=== PATIENT | male | born 1950 | race Caucasian/White ===

== ENCOUNTER → 2017-10-23 12:55 | Outpatient (CLI) | payer MEDICARE, SELFPAY ==
--- NOTE | 2017-10-23 | DI.CT.S_ITS ---
PROCEDURE: CT LE LT W CON INDICATIONS: LEFT HINDFOOT ARTHRITIS AND ANKLE PAIN TECHNIQUE: Noncontrast 1-1.5 mm axial sections acquired from above the tibiotalar joint to the bottom of the calcaneus, with coronal and sagittal reformats. COMPARISON: [facility], CT, LOWER EXTREMITY WO CONTRAST, 03/10/2014, 13:41. FINDINGS: Image quality: Excellent. Bones: No acute fracture or focal osseous destruction. There is mild/moderate tibiotalar degenerative joint disease. Redemonstration of prominent 2.1 cm chronic ossicle in the region of the posterior recess of the tibiotalar joint which appears unchanged since 03/10/14. Severe subtalar joint degeneration with subchondral cystic change and sclerosis. No definite osseous hindfoot coalition. Although there is [id number] appearance of the posterior facet of the subtalar joint as before. There is mild enlargement of a presumed subchondral cyst within the calcaneus. There is prominent plantar and posterior calcaneal spurring. Multiple chronic and corticated ossicles seen in the region of the anterolateral gutter, the largest measuring 1.8 x 0.9 cm. Chronic degenerative changes, cortical hypertrophy and spurring at the distal tibiofibular syndesmosis. Soft tissues: There is diffuse muscle atrophy. The visualized tendons appear grossly intact. There is circumferential subcutaneous edema IMPRESSION: Redemonstration of severe left hindfoot joint degeneration, most pronounced at the posterior facet of the subtalar joint. Large multiple chronic/corticated ossicles are again noted involving the posterior tibiotalar joint, and the anterolateral gutter raising the possibility of impingement in these locations however only in the appropriate clinical context. Recommend correlation to exam findings. Mild-moderate tibiotalar degenerative joint disease. Dictated by: Octavio Santos M.D. on 10/24/2017 at 11:03 Approved by: Octavio Santos M.D. on 10/24/2017 at 11:35
== END ==
PROVIDERS: PCP Family Medicine; Visit Provider Orthopaedic Surgery Foot and Ankle Surgery
DX: M19.072 Primary osteoarthritis, left ankle and foot (principal)
CPT/HCPCS: 73701

== ENCOUNTER → 2018-05-27 14:23 | Outpatient (CLI) | payer MEDICARE, SELFPAY ==
[2018-05-27 15:31] LABS: Alanine Aminotransferase 23 IU/L (21-72); Albumin 4.2 g/dL (3.5-5.0); Albumin Globulin Ratio 1.6 (1.0-2.8); Alkaline Phosphatase 87 U/L (38-126); Aspartate Aminotransferase 22 IU/L (17-59); Bilirubin Total 0.8 mg/dL (0.2-1.3); Blood Urea Nitrogen 16 mg/dL (9-20); Calcium 9.3 mg/dL (8.4-10.2); Carbon Dioxide 26 mmol/L (22-32); Chloride 102 mmol/L (98-107); Estimated Glomerular Filt Rate > 60.0 mL/min (>60); Globulin 2.6 g/dL (1.7-4.1); Glucose 87 mg/dL (80-110); HEMOLYSIS < 15 (0-50); Potassium 4.2 mmol/L (3.4-5.1); Sodium 139 mmol/L (137-145); Total Protein 6.8 g/dL (6.3-8.2)
[2018-05-27 16:12] LABS: TSH w/ Reflex to FT4 1.44 uIU/mL (0.47-4.68)
[2018-05-30 12:24] LABS: (tTG) Ab, IgA < 1 U/mL
== END ==
PROVIDERS: PCP Family Medicine; Visit Provider Registered Nurse
DX: K52.9 Noninfective gastroenteritis and colitis, unspecified (principal)
CPT/HCPCS: 36415; 80053; 83516; 84443; 86255

== ENCOUNTER → 2018-09-03 09:11 | Outpatient (CLI) | payer MEDICARE, OTHER, SELFPAY ==
[2018-09-03 10:13] LABS: Add Manual Diff / Slide Review NO; Basophils Absolute Auto 100 /uL (0-100); Eosinophils Absolute Auto 100 /uL (0-450); Eosinophils Percent Auto 0.9 % (2-4); Hematocrit 45.9 % (41-53); Hemoglobin 16.3 g/dL (13.5-17.5); Lymphocytes Absolute Auto 2500 /uL (1100-4500); Lymphocytes Percent Auto 35.3 % (25-40); Mean Corpuscular HGB Conc 35.6 % (30-36); Mean Corpuscular Hemoglobin 32.5 PG (26-34); Mean Corpuscular Volume 91.3 fL (80-100); Monocytes Absolute Auto 500 /uL (0-900); Monocytes Percent Auto 6.7 % (3-14); Neutrophils Absolute Auto 3900 /uL (1500-7000); Neutrophils Percent Auto 56.1 % (50-75); Platelet Count 191 X10^3/uL (150-400); Red Blood Cell Count 5.03 X10^6/uL (4.5-5.9); Red Cell Distribution Width 13.4 % (11.6-14.8)
[2018-09-03 10:55] LABS: BUN Creatinine Ratio 22.5 (6-22); Blood Urea Nitrogen 18 mg/dL (9-20); Calcium 9.7 mg/dL (8.4-10.2); Carbon Dioxide 29 mmol/L (22-32); Chloride 100 mmol/L (98-107); Cholesterol 185 mg/dL (140-199); Estimated Glomerular Filt Rate > 60.0 mL/min (>60); Glucose 99 mg/dL (80-110); HDL Cholesterol 43 mg/dL (40-60); HEMOLYSIS < 15 (0-50); LDL Cholesterol Calculated 124 mg/dL (<100); Potassium 5.2 mmol/L (3.4-5.1); Sodium 137 mmol/L (137-145); Triglycerides 92 mg/dL (35-150)
[2018-09-03 11:28] LABS: Prostate Specific Antigen Scrn 0.647 ng/mL (0.1-4.0)
[2018-09-03 11:29] LABS: Thyroid Stimulating Hormone 1.49 uIU/mL (0.47-4.68)
== END ==
PROVIDERS: PCP Family Medicine; Visit Provider Family Medicine
DX: I10 Essential (primary) hypertension (principal); E66.01 Morbid (severe) obesity due to excess calories; E66.9 Obesity, unspecified; I48.91 Unspecified atrial fibrillation; R89.9 Unspecified abnormal finding in specimens from other organs, systems and tissues; Z12.5 Encounter for screening for malignant neoplasm of prostate; Z13.220 Encounter for screening for lipoid disorders; Z13.29 Encounter for screening for other suspected endocrine disorder; Z68.42 Body mass index [BMI] 45.0-49.9, adult
CPT/HCPCS: 36415; 80048; 80061; 84443; 85025; G0103

== ENCOUNTER 2018-10-02 08:51 | Day surgery (SDC) | payer MEDICARE, OTHER, SELFPAY ==
--- NOTE | 2018-10-02 | PATH_ITS ---
[facility] Accession Number: [id number] . 01 Material submitted: . PART A: rectum - DISTAL RECTAL POLYP PART B: colon - ASCENDING COLON POLYP PART C: ileum - TERMINAL ILEUM RANDOM PART D: colon - TRANSVERSE COLON LESION . 02 Diagnosis: A. Distal Rectum, Polyp: Hyperplastic polyp. . B. Ascending Colon, Polyp: Tubular adenoma. . C. Terminal Ileum, Random, Biopsies: Mild active ileitis; please see comment. Negative for granulomata, dysplasia or malignancy. . D. Transverse Colon, Lesion, Biopsy: Colonic mucosa with no diagnostic abnormality. Negative for active or microscopic colitis. Negative for granulomata, dysplasia or malignancy. [facility]/10/03/2018 . 02 Comment: Part C) The finding of mild active ileitis raises a differential diagnosis including infection and drug/toxin-induced injury. . 02 Electronically signed: . Demetrio Langston MD, PhD, Pathologist NPI- [id number] . 01 Gross description: . Part A: DISTAL RECTAL POLYP: Received in formalin are 2 fragment(s) of cisse, soft tissue measuring 0.3 x 0.3 x 0.2 cm to 0.4 x 0.3 x 0.2 cm which is entirely submitted and submitted entirely in 1 cassette(s) Part B: ASCENDING COLON POLYP: Received in formalin are 2 fragment(s) of cisse, soft tissue measuring 0.3 x 0.2 x 0.2 cm to 0.4 x 0.2 x 0.2 cm which is entirely submitted and submitted entirely in 1 cassette(s) Part C: TERMINAL ILEUM RANDOM: Received in formalin are 3 fragment(s) of cisse, soft tissue measuring 0.2 x 0.2 x 0.2 cm to 0.3 x 0.2 x 0.2 cm which is entirely submitted and submitted entirely in 1 cassette(s) Part D: TRANSVERSE COLON LESION: Received in formalin is 1 fragment(s) of cisse, soft tissue measuring 0.1 x 0.1 x 0.1 cm which is entirely submitted and submitted entirely in 1 cassette(s) /D[facility] /[facility] . 02 Pathologist provided ICD-10: K62.1, D12.2, K52.9 . 02 CPT . 740662, 812037, [id number], [id number] Performed at: 01 [facility] [address] [id number] MD Salvador Shahid MD Phone: [phone] Performed at: 02 [facility] [address] [place] [id number] MD Emma Mcdaniels MD Phone: [phone]
[2018-10-02 09:14] VITALS: BP 135/85; PULSE 76; RESP 16; TEMP 36.2; O2SAT 98; BMI 43.5
[2018-10-02] MEDS: SODIUM CHLORIDE 0.9% 1,000 ML 200 ML IV (09:20)
--- NOTE | 2018-10-02 09:59 | PM.HP.1 ---
History of Present Illness Date Patient Seen: 10/02/18 Time Patient Seen: 10:00 Chief complaint: 20089 SCREENING COLONOSCOPY Narrative: Cheif complaint: diarrhea 68 yo man without personal or family history of colorectal cancer, colon polyps, or inflammatory bowel disease. He however has a several year long history of intermittent diarrhea that has become worse for this his primary care doctor has abscess of colonoscopy before form. This morning he describes this developed less diarrhea but still would like to go forward with colonoscopy. He has not had any perirectal bleeding. His last colonoscopy was approximately 7 years ago. Unfortunately patient remains on his Eliquis anticoagulation. We discussed that because of this I would not be able to perform a polypectomy but could take small pinch biopsies and performed the colonoscope. The patient does have a polyp with tattoo and an re-do the procedure off anticoagulation.. He is amenable to this Patient History Medical History (Updated 10/02/18 @ 10:17 by Navin Yun MD) Afib (Acute) Bradyarrhythmia (Acute) Surgical History (Updated 10/02/18 @ 10:15 by Navin Yun MD) Hip joint replacement status (Acute) Pacemaker (Acute) Social History household members: spouse Smoking Status: Never smoker Family & Social History Social History: household members spouse lives in [place] Tobacco & Substance use: Smoking Status Never smoker smoked cigars significantly over 10yrs ago 4 drinks weeks occational MJ Meds Home Medications Medication Instructions Recorded Confirmed Type [VPAP] units IH HS #1 07/20/16 09/08/18 Rx Disabled Parking Permit dhara #1 09/11/16 09/08/18 Rx [place] 5/16 Inch / SQ QDAY #100 01/22/17 09/08/18 Rx Eliquis 5 mg PO BID #0 06/26/17 10/02/18 History acetaminophen 325 mg PO Q4HP PRN #60 tab 07/11/17 09/08/18 Rx lisinopril 10 mg tablet 10 mg PO DAILY #90 tab 05/06/18 10/02/18 Rx metoprolol succinate ER 50 mg 50 mg PO BID #180 tab 05/06/18 10/02/18 Rx tablet,extended release 24 hr varicella-zoster glycoE [id number] 0.5 ml IM ONCE #1 each 09/08/18 10/02/18 Rx adj(PF) 50 mcg/0.5 mL IM susp, kit Allergies Allergy/AdvReac Type Severity Reaction Status Date / Time No Known Allergies Allergy Uncoded 10/02/18 09:06 Exam Vital Signs (past 8 hours): - 10/02/18 09:14 Temperature 97.2 F L Pulse Rate 76 Respiratory Rate 16 Blood Pressure 135/85 Pulse Oximetry 98 Oxygen Delivery Method Room Air Const General: cooperative and healthy appearing Orientation: alert HENMT Head: normal to inspection Nose: nares normal Mouth: oral mucosae normal and lip normal Eyes Eyelids: eyelids normal Conjunctivae: conjunctivae normal Sclera: sclerae normal Neck Neck: supple and other (No thyromegally) Chest Chest: other (LCTAB , regular respiratory effort) Cardio Rhythm: regular rhythm Heart Sounds: S1 normal, S2 normal, no gallops, no murmurs and no rubs GI Other: Rotund, soft, nontender, small fat containing umbilical hernia. Skin General: no rashes or lesions noted Neuro General: alert and awake Psych Appearance: grossly normal Affect: normal affect Assessment & Plan (1) Chronic diarrhea: Current visit: Yes Status: Acute Assessment & Plan narrative: Chronic diarrhea - plan for diagnostic colonoscpy today with biopsies - discussed if polypectomy needed will tatoo and repeat procedure off anticoagulation
[2018-10-02] MEDS: MIDAZOLAM 5 MG/5 ML VIAL IV (10:36)
[2018-10-02] MEDS: fentaNYL 250 MCG/5 ML INJ IV (10:37)
--- NOTE | 2018-10-02 11:40 | PM.OP.ENDO ---
Operative Date/Time/Diagnoses Date of procedure: 10/02/18 Time of procedure: 11:00 Pre-op diagnosis: Chronic diarrhea Procedure & Clinicians Study performed: Diagnostic colonoscopy Postop diagnosis colon polyps, chronic diarrhea Same procedure as scheduled: No (Chronic diarrhea) Surgeon: Navin Yun Procedure Notes SCOAP/Timeout: Performed Procedure in detail: Patient was brought to the endoscopy suite, a time-out was completed, he was sedated with midazolam and fentanyl. The anus was inspected the anoderm appeared grossly normal a digital rectal exam revealed good anal tone but an absence of any polyps. 160 cm colonoscope was introduced through the anus. Visualizing the distal rectum a small sessile polyp was readily identified. this was grasped with the cold biopsy forceps and removed entirely. The procedure continued we advanced through the valves of the rectum through the rectosigmoid junction and through the sigmoid colon there are numerous diverticular pouch is identified without active diverticulitis descending colon was encountered we passed uneventfully up through it and into the transverse colon small amount of abdominal pressure was required. The hepatic flexure was negotiated upon entry into the right colon up approximately in the midportion of the right colon and a small pedunculated polyp was identified. due to the small size of this was grafts with the biopsy forcep size large and removed. There is a small additional piece that was on the wall subsequently and this was grasped and removed the area was irrigated multiple times to ensure complete removal of the polyp was assured. We then proceeded a prominent ileocecal valve was identified as were the crows feet in the orifice of the appendix. Due to the diagnosis chronic diarrhea ileocecal valve was intubated in the villi of the ileum were inspected these appeared healthy and grossly normal 2 random biopsies were taken of the terminal ileum to evaluate for Crohn's disease. We then proceeded to withdraw the colonoscope with a total withdrawal time of 12 minutes. At this point of the hemostasis was checked on the right colon - it was excellent. At the level of the mid transverse colon there was a small whitish dome shaped lesion which was biopsies as well with cold biopsy forcep. It was removed entirely. The remainder of transverse left and sigmoid colon were without additional lesions. the rectum was inspected and found to be grossly normal retroflex: Did not reveal any additional distal rectal polyps or lesions. there was no evidence of colitis identified. Colonic prep was adequate Total withdrawal time 12 minutes Total sedation used midazolam 6 mg, fentanyl 200 mcg Complications none Discharge to PACU and then home Recommended interval 3 years if biopsy demonstrates greater than 3 adenomatous + villous polyps. Five years polyps less than 3 excluding hamartomatous polyps.
[2018-10-02 11:42] VITALS: BP 138/83; PULSE 80; RESP 18; TEMP 36.9; O2SAT 98
[2018-10-02 11:47] VITALS: PULSE 63; RESP 14; O2SAT 97
[2018-10-02 12:00] VITALS: BP 132/75; PULSE 66; RESP 15; TEMP 36.6; O2SAT 97
== END 2018-10-02 12:11 | disposition home or self-care (01) ==
PROVIDERS: PCP Family Medicine; Visit Provider Surgery
PROC: 0DJD8ZZ Inspection of Lower Intestinal Tract, Via Natural or Artificial Opening Endoscopic (ICD-10-PCS; CPT 45378; principal; 2018-10-02 09:45)
DX: K52.9 Noninfective gastroenteritis and colitis, unspecified (principal); I48.91 Unspecified atrial fibrillation; Z95.0 Presence of cardiac pacemaker; K62.1 Rectal polyp; D12.2 Benign neoplasm of ascending colon
CPT/HCPCS: 45380; 88305; J2250; J3010

== ENCOUNTER 2019-08-07 10:15 | Outpatient (RCR) | payer MEDICARE, OTHER, SELFPAY ==
--- NOTE | 2019-04-08 14:07 | PT.OIE ---
Current Diagnoses Encounter for other orthopedic aftercare (04/08/19) Arthrodesis status (04/08/19) Past Medical History (Last Updated 10/02/18 @ 10:03 by Navin Yun MD) Afib (Acute) Bradyarrhythmia (Acute) Past Surgical History (Last Updated 10/02/18 @ 10:15 by Navin Yun MD) Hip joint replacement status (Acute) Pacemaker (Acute) Visit Care Team Role Provider Type Jh Mooney MD Primary Care Provider Physician Specialty: Family Practice Address: [address] [place] [address], [id number] Email: [email or web address] Beltran Dc MD Attending Provider Non-Staff Specialty: Orthopedics Address: [address] [place] [address], [place] [id number], [place], [phone] Fax: Email: Physical Therapy Initial Evaluation PT-OP-A Visit Information Start: 04/09/19 13:49 Freq: Status: Active Protocol: Document 04/08/19 13:50 AW (Rec: 04/09/19 14:31 AW [email or web address]) Out-Patient Physical Therapy Visit Information Visit Information Visit Type Initial Evaluation Visit Start Time 09:45 Visit Stop Time 10:30 Total Visit Minutes 45 Visit Number 1 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 He has dealt with ongoing ankle pain for years, culminating finally in ankle arthrodesis and Achilles lengthening on . Pt unable to identify which bones were fused. Per protocol, he has been in a cam boot for all mobility for the past three months. He primarily used a knee scooter during that time, but has progressively increased his weightbearing in the boot for short distances. He is now allowed full weightbearing in the boot. In the past 10 days, he switched to an articulated cane held in the right hand. He has returned to driving. 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 He reports minimal pain since surgery, but does endorse generalized tenderness of the plantar foot since beginning to walk with a cane. He denies any falls or near falls since surgery. Prior Treatments and Tests Ankle arthrodesis and Achilles lengthening 12/31/18. History of a-fib, HTN, pacemaker. Future Testing and Treatments Planned None identified Treatment Goals Patient/Caregiver Goals Pt would like to hike [employer] trails and to be able to work standing 6 hours daily without fatigue or foot tenderness. 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 Current Functional Impairments (Reported) Functional Limitations- ADL's No known impairments Functional Limitations- Mobility/Gait Requires articulated cane and is limited in ambulation distance. Lacks confidence on uneven ground. Functional Limitations- Work/School Unable to stand for 6 hour shifts without foot/ankle fatigue and without tenderness of plantar foot. Functional Limitations- Recreation/ Unable to hike [employer] trails Hobbies Personal Factors Other Personal Factors That May Effect chronicity of deficits, Therapy/Recovery tendency to work through pain. PT-OP-C Subjective Start: 04/09/19 13:49 Freq: Status: Active Protocol: Document 04/08/19 13:50 AW (Rec: 04/09/19 14:31 AW [email or web address]) OP-PT Subjective Patient Comments Patient Comments I'd like to be able to walk better, stand longer, and hike on forest trails. Patient Questionnaires Foot & Ankle Ability Measure- ADL and Sports FAAM-ADL Score 30/84 FAAM-ADL Impairment 60 to 79% Impaired (Score 16- 32) FAAM-Sport Score 10/05 FAAM-Sport Impairment 80 to 99% Impaired (Score 1-5) Lower Extremity Functional Scale LEFS Score 33 LEFS Impairment 40 to 59% Impaired (Score 32- 47) OP-PT Pain Assessment Pain Assessment Grid Paper Pain Assessment Grid Completed Yes Home Pain Medication Use Pain Medications Used No Comments Pain Comments Pt reporting no pain. PT-OP-D Balance Start: 04/09/19 13:49 Freq: Status: Active Protocol: Document 04/08/19 13:50 AW (Rec: 04/09/19 14:31 AW [email or web address]) OP-PT Balance Assessment Sitting Balance Static Sitting Balance Ability Normal Dynamic Sitting Balance Ability Normal Standing Balance Static Standing Balance Ability Fair Dynamic Standing Balance Ability Fair Device Used no boot, no AD Evans Fall Scale Copyright Permission PT-OP-F Manual Assessment Start: 04/09/19 13:49 Freq: Status: Active Protocol: Document 04/08/19 13:50 AW (Rec: 04/09/19 14:31 AW [email or web address]) Manual Assessments Joint Mobility Assessment Joint Mobility Assessment Minimal subtalar movement. No dorsal/plantar restriction at MTP's 1-5 bilaterally. Difficult to assess tibiotalar mobility due to swelling. Other Manual Assessments Other Manual Assessments No point tenderness along plantar surface, 5th digit tuberosity, navicular, Achilles insertion. Generalized tenderness along plantar surface noted by patient PT-OP-G Mobility & Gait Start: 04/09/19 13:49 Freq: Status: Active Protocol: Document 04/08/19 13:50 AW (Rec: 04/09/19 14:31 AW [email or web address]) OP Gait Assessment Gait Gait Assistance Required: Standby Assistance Distance (Feet) 100 Able to Maintain Weight Bearing Status Yes During Gait Gait Deviations General Gait Pattern Within Normal Limits,Antalgic, Decreased Stride Length, Decreased Feet Clearance,Wide Based Gait Factors Limiting Gait Function Factors Limiting Gait Function Decreased Activity Tolerance, Decreased Strength,Limited Range of Motion,Poor Balance Comments Gait Comments Pt ambulates with WBOS, forefoot landing (L>R), decreased stance time on LLE and decreaed step length RLE. He vaults over the LLE and exhibits right lateral lean in right stance. PT-OP-J Posture/Palpation/Skin Start: 04/09/19 13:49 Freq: Status: Active Protocol: Document 04/08/19 13:50 AW (Rec: 04/09/19 14:31 AW [email or web address]) Posture Evaluation Position Standing Knee Posture (L) Genu Valgus,(R) Genu Valgus Ankle/Foot Posture (L) Forefoot Abducted,(R) Forefoot Abducted Foot Arch (L) Low Arch,(R) Low Arch Skin Assessment Edema Assessment left ankle/foot Edema Type Non-Pitting Edema Appearance Discolored,Taut Comments Talar arch: Left 39 cm, Right 33 cm Horizontal at level of bilateral malleoli: Left 41 cm , Right 35 cm PT-OP-K Range of Motion Start: 04/09/19 13:49 Freq: Status: Active Protocol: Document 04/08/19 13:50 AW (Rec: 04/09/19 14:31 AW [email or web address]) Knee Goniometric Range of Motion Knee Left Knee ROM WFL Yes Patient Position Supine Ankle and Foot Goniometric Range of Motion Ankle and Foot Right Active Ankle/Foot ROM WFL No Testing Position Supine Dorsiflexion with Knee Flexed 5 Dorsiflexion with Knee Extended 5 Plantarflexion 40 Left Active Ankle/Foot ROM WFL No Testing Position Supine Dorsiflexion with Knee Flexed 0 Dorsiflexion with Knee Extended 0 Plantarflexion 20 Ankle and Foot ROM Limitations ROM Limitations Bony Restriction Toe Range of Motion Toes ROM Limitations Comments Pt lacks active left great toe extension PT-OP-M Strength Start: 04/09/19 13:49 Freq: Status: Active Protocol: Document 04/08/19 13:50 AW (Rec: 04/10/19 09:07 AW [email or web address]) Ankle/Foot Strength Ankle and Foot Manual Muscle Testing Right Dorsiflexion (L4) 4- Good- Plantarflexion (S1) 4- Good- Inversion 4 Good Eversion (S1) 4 Good Left Dorsiflexion (L4) 3 Fair Plantarflexion (S1) 3+ Fair+ Inversion 4- Good- Eversion (S1) 4- Good- Comments Pt can dorsiflex from extended position, but has no AROM past 0. Unable to test PF in standing due to safety concerns. Toe Strength Toe Manual Muscle Testing Right Great Toe Flexion 5 Normal Left Great Toe Flexion 4 Good PT-OP-Q Treatments Start: 04/09/19 13:49 Freq: Status: Active Protocol: Document 04/08/19 13:50 AW (Rec: 04/10/19 09:07 AW [email or web address]) Therapeutic Exercises Sitting Exercises ankle AROM Sitting Exercise Name ankle AROM - DF, PF, inversion , eversion, alphabet Side left Reps/Minutes 2 minutes PT-OP-T Assessment and Plan Start: 04/09/19 13:49 Freq: Status: Active Protocol: Document 04/08/19 13:50 AW (Rec: 04/10/19 09:07 AW [email or web address]) Physical Therapy Assessment Rehab Potential Rehabilitation Potential Good Evaluation Complexity Number of Personal Factors/Comorbidities 1-2 Number of Body Systems Impaired 1-2 Clinical Presentation at Evaluation Stable Impairments Impairments Activity Tolerance,Balance, Edema,Functional Activities, Functional Mobility,Gait, Integument,Posture,ROM,Soft Tissue Mobility,Strength Other Concerns Fall Risk high risk of falls Goals 5 Impairment Pt scores 30/84 on FAAM ADL subscale Short Term Goal (STG) Pt will score 45/84 on FAAM ADL subscale to demonstrate increased independence with ADL's STG Duration 05/20/19 Fpc Goal (LTG) Pt will score 60/84 on FAAM ADL subscale to demonstrate increased independence with ADL's LTG Duration 07/01/19 4 Impairment Pt unable to stand/perform kitchen work >4 hours without fatigue Short Term Goal (STG) Pt will tolerate 5 hours standing work without foot fatigue/tenderness STG Duration 05/06/19 Fpc Goal (LTG) Pt will tolerate 7+ hours standing work (with appropriate breaks) without foot fatigue/tenderness LTG Duration 07/01/19 3 Impairment Pt unable to walk on uneven terrain Short Term Goal (STG) Pt will walk 15 minutes on uneven terrain with least restrictive assistive device STG Duration 05/20/19 [employer] Display Goal (LTG) Pt will walk 30 minutes on uneven terrain/forest trails with least restrictive assistive device. LTG Duration 07/01/19 2 Impairment Pt scores 33/80 on LEFS Short Term Goal (STG) Pt will score 45 or greater on LEFS to demonstrate improved function in daily activities. STG Duration 05/20/19 Fpc Goal (LTG) Pt will score 60 or greater on LEFS to represent improved function in daily activities. LTG Duration 07/01/19 1 Impairment Pt with no appropriate HEP Short Term Goal (STG) Pt will be independent with HEP for support of therapy services provided in clinic. STG Duration 05/06/19 Model Builder Display Goal (LTG) Pt will be independent with maintenance HEP to maintain functional progress achieved in therapy. LTG Duration 1/22/20 Assessment Summary Assessment Vamsi presents to outpatient physical therapy with history of chronic left ankle pain following a fall from a ladder in 1989. He was treated with ankle arthrodesis on 12/31/18. Pt is unable to describe which bones were fused or what hardware was placed. At time of evaluation, no operative note was available. He reports minimal pain since surgery and presents to PT with no pain at all. He has significant swelling of the left ankle and limited range of motion. He reports regular use of compression garments which he states help with the swelling. He has mobilized primarily with a knee scooter and progressive weightbearing in a cam boot for the past three months, but presents to PT ambulating in the boot with an articulated cane ( articulations at the handle and at the base). He has no point tenderness at bony landmarks of the foot, but does endorse generalized tenderness of the plantar surface with weightbearing. His limitations in weightbearing and limited ankle range of motion are affecting his participation in occupational and recreational activities. Pt requires skilled physical therapy to address these impairments and to meet the functional goals of this plan of care. Physical Therapy Plan Frequency and Duration Frequency of Treatment 1-2x/week Duration of Treatment 12 weeks Plan of Care Start Date 04/08/19 Plan of Care End Date 07/01/19 Therapeutic Interventions Therapeutic Interventions Balance Training,Gait Training ,Home Exercise Program,Joint Mobilizations,Manual Therapy, Neuromuscular Re-education, Orthotic/Prosthetic Management ,Patient/Caregiver Education, Self-Care/Home Management, Sensory Integration,Soft Tissue Mobilization,Taping, Therapeutic Activities, Therapeutic Exercises Modalities Cold Pack/Ice Massage,Electric Stimulation,Hot Packs Next Visit Focus/Plan Next Note Type Treatment Note Next Visit Plan Consider 2 minute walk test Progress ankle AROM Introduce gastroc/soleus stretching
--- NOTE | 2019-04-10 15:04 | PT.OTN ---
Current Diagnoses Encounter for other orthopedic aftercare (04/10/19) Arthrodesis status (04/10/19) Physical Therapy Treatment Note PT-OP-A Visit Information Start: 04/09/19 13:49 Freq: Status: Active Protocol: Document 04/10/19 13:45 HH (Rec: 04/10/19 15:04 HH [id number]) Out-Patient Physical Therapy Visit Information Visit Information Visit Type Treatment Note Visit Start Time 13:45 Visit Stop Time 14:31 Total Visit Minutes 46 Visit Number 2 Number of CUTTING INSPECTOR Visits 0 PT-OP-B Current Condition Start: 04/09/19 13:49 Freq: Status: Active Protocol: Document 04/08/19 13:50 AW (Rec: 04/09/19 14:31 AW [email or web address]) Current Condition History of Current Condition Onset Date years Current Complaints left ankle swelling and limited range of motion History of Current Condition Vamsi vega sprained his left ankle in 1989 as a result of a fall down a 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 He has dealt with ongoing ankle pain for years, culminating finally in ankle arthrodesis and Achilles lengthening on . Pt unable to identify which bones were fused. Per protocol, he has been in a cam boot for all mobility for the past three months. He primarily used a knee scooter during that time, but has progressively increased his weightbearing in the boot for short distances. He is now allowed full weightbearing in the boot. In the past 10 days, he switched to an articulated cane held in the right hand. He has returned to driving. 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 He reports minimal pain since surgery, but does endorse generalized tenderness of the plantar foot since beginning to walk with a cane. He denies any falls or near falls since surgery. Prior Treatments and Tests Ankle arthrodesis and Achilles lengthening 12/31/18. History of a-fib, HTN, pacemaker. Future Testing and Treatments Planned None identified Treatment Goals Patient/Caregiver Goals Pt would like to hike [employer] and to be able to work standing 6 hours daily without fatigue or foot tenderness. 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 Current Functional Impairments (Reported) Functional Limitations- ADL's No known impairments Functional Limitations- Mobility/Gait Requires articulated cane and is limited in ambulation distance. Lacks confidence on uneven ground. Functional Limitations- Work/School Unable to stand for 6 hour shifts without foot/ankle fatigue and without tenderness of plantar foot. Functional Limitations- Recreation/ Unable to hike forest trails Hobbies Personal Factors Other Personal Factors That May Effect chronicity of deficits, Therapy/Recovery tendency to work through pain. PT-OP-C Subjective Start: 04/09/19 13:49 Freq: Status: Active Protocol: Document 04/10/19 13:45 HH (Rec: 04/10/19 15:04 HH [id number]) OP-PT Subjective Patient Comments Patient Comments My next appt with surgeon is May 29. And I i will be off from my boot at the end of April based on protocol. PT-OP-D Balance Start: 04/09/19 13:49 Freq: Status: Active Protocol: Document 04/08/19 13:50 AW (Rec: 04/09/19 14:31 AW [email or web address]) OP-PT Balance Assessment Sitting Balance Static Sitting Balance Ability Normal Dynamic Sitting Balance Ability Normal Standing Balance Static Standing Balance Ability Fair Dynamic Standing Balance Ability Fair Device Used no boot, no AD Evans Fall Scale Copyright Permission PT-OP-F Manual Assessment Start: 04/09/19 13:49 Freq: Status: Active Protocol: Document 04/08/19 13:50 AW (Rec: 04/09/19 14:31 AW [email or web address]) Manual Assessments Joint Mobility Assessment Joint Mobility Assessment Minimal subtalar movement. No dorsal/plantar restriction at MTP's 1-5 bilaterally. Difficult to assess tibiotalar mobility due to swelling. Other Manual Assessments Other Manual Assessments No point tenderness along plantar surface, 5th digit tuberosity, navicular, Achilles insertion. Generalized tenderness along plantar surface noted by patient PT-OP-G Mobility & Gait Start: 04/09/19 13:49 Freq: Status: Active Protocol: Document 04/08/19 13:50 AW (Rec: 04/09/19 14:31 AW [email or web address]) OP Gait Assessment Gait Gait Assistance Required: Standby Assistance Distance (Feet) 100 Able to Maintain Weight Bearing Status Yes During Gait Gait Deviations General Gait Pattern Within Normal Limits,Antalgic, Decreased Stride Length, Decreased Feet Clearance,Wide Based Gait Factors Limiting Gait Function Factors Limiting Gait Function Decreased Activity Tolerance, Decreased Strength,Limited Range of Motion,Poor Balance Comments Gait Comments Pt ambulates with WBOS, forefoot landing (L>R), decreased stance time on LLE and decreaed step length RLE. He vaults over the LLE and exhibits right lateral lean in right stance. PT-OP-J Posture/Palpation/Skin Start: 04/09/19 13:49 Freq: Status: Active Protocol: Document 04/08/19 13:50 AW (Rec: 04/09/19 14:31 AW [email or web address]) Posture Evaluation Position Standing Knee Posture (L) Genu Valgus,(R) Genu Valgus Ankle/Foot Posture (L) Forefoot Abducted,(R) Forefoot Abducted Foot Arch (L) Low Arch,(R) Low Arch Skin Assessment Edema Assessment left ankle/foot Edema Type Non-Pitting Edema Appearance Discolored,Taut Comments Talar arch: Left 39 cm, Right 33 cm Horizontal at level of bilateral malleoli: Left 41 cm , Right 35 cm PT-OP-K Range of Motion Start: 04/09/19 13:49 Freq: Status: Active Protocol: Document 04/08/19 13:50 AW (Rec: 04/09/19 14:31 AW [email or web address]) Knee Goniometric Range of Motion Knee Left Knee ROM WFL Yes Patient Position Supine Ankle and Foot Goniometric Range of Motion Ankle and Foot Right Active Ankle/Foot ROM WFL No Testing Position Supine Dorsiflexion with Knee Flexed 5 Dorsiflexion with Knee Extended 5 Plantarflexion 40 Left Active Ankle/Foot ROM WFL No Testing Position Supine Dorsiflexion with Knee Flexed 0 Dorsiflexion with Knee Extended 0 Plantarflexion 20 Ankle and Foot ROM Limitations ROM Limitations Bony Restriction Toe Range of Motion Toes ROM Limitations Comments Pt lacks active left great toe extension PT-OP-M Strength Start: 04/09/19 13:49 Freq: Status: Active Protocol: Document 04/08/19 13:50 AW (Rec: 04/10/19 09:07 AW [email or web address]) Ankle/Foot Strength Ankle and Foot Manual Muscle Testing Right Dorsiflexion (L4) 4- Good- Plantarflexion (S1) 4- Good- Inversion 4 Good Eversion (S1) 4 Good Left Dorsiflexion (L4) 3 Fair Plantarflexion (S1) 3+ Fair+ Inversion 4- Good- Eversion (S1) 4- Good- Comments Pt can dorsiflex from extended position, but has no AROM past 0. Unable to test PF in standing due to safety concerns. Toe Strength Toe Manual Muscle Testing Right Great Toe Flexion 5 Normal Left Great Toe Flexion 4 Good PT-OP-Q Treatments Start: 04/09/19 13:49 Freq: Status: Active Protocol: Document 04/10/19 13:45 (Rec: 04/10/19 15:04 [email or web address]) Therapeutic Exercises Supine Exercises supine INV and EV Side left Equipment Used level 2 band Reps/Minutes 10 x2 Comments use Rfoot for anchor supine DF and PF Side left Equipment Used level 2 band Reps/Minutes 10 x2 Standing Exercises standing calf stretch Side left Reps/Minutes 10 sec x 4 Comments hands against wall Manual Therapy Treatment Soft Tissue Mobilization ant and gastro Mobilization Type Rolling,Sustained Pressure, Trigger Point Release Intensity/Depth Moderate Body Position Supine Comments upward stroke edema managment Body Location lower LE Mobilization Type Rolling,Strumming,Sustained Pressure,Trigger Point Release Intensity/Depth Moderate Body Position Supine Comments upward stroke with rolling Self-Care/Home Management Treatment Education Patient Education Home Exercise Program,Safety Caregiver Education HEP education PT-OP-T Assessment and Plan Start: 04/09/19 13:49 Freq: Status: Active Protocol: Document 04/10/19 13:45 (Rec: 04/10/19 15:04 [id number]) Physical Therapy Assessment Goals 5 Impairment Pt scores 30/84 on FAAM ADL subscale Short Term Goal (STG) Pt will score 45/84 on FAAM ADL subscale to demonstrate increased independence with ADL's STG Duration 05/20/19 [facility] Goal (LTG) Pt will score 60/84 on FAAM ADL subscale to demonstrate increased independence with ADL's LTG Duration 07/01/19 4 Impairment Pt unable to stand/perform kitchen work >4 hours without fatigue Short Term Goal (STG) Pt will tolerate 5 hours standing work without foot fatigue/tenderness STG Duration 05/06/19 [facility] Goal (LTG) Pt will tolerate 7+ hours standing work (with appropriate breaks) without foot fatigue/tenderness LTG Duration 07/01/19 3 Impairment Pt unable to walk on uneven terrain Short Term Goal (STG) Pt will walk 15 minutes on uneven terrain with least restrictive assistive device STG Duration 05/20/19 Hand Buffer Goal (LTG) Pt will walk 30 minutes on uneven terrain/forest trails with least restrictive assistive device. LTG Duration 07/01/19 2 Impairment Pt scores 33/80 on LEFS Short Term Goal (STG) Pt will score 45 or greater on LEFS to demonstrate improved function in daily activities. STG Duration 05/20/19 Hand Buffer Goal (LTG) Pt will score 60 or greater on LEFS to represent improved function in daily activities. LTG Duration 07/01/19 1 Impairment Pt with no appropriate HEP Short Term Goal (STG) Pt will be independent with HEP for support of therapy services provided in clinic. STG Duration 05/06/19 Hand Buffer Goal (LTG) Pt will be independent with maintenance HEP to maintain functional progress achieved in therapy. LTG Duration 07/01/19 Assessment Summary Assessment 1st tx session for pt. Pt has significant edema at LLE. Focused on fluid drainage with manual therapy and rolling pin as well. Pt felt good and noticed immediate reduced in edema. Added supine PF,DF, INV and EV with resistance band, ankle ABCs and standing calf stretch. Will add cyro cuff for edema control to POC. Physical Therapy Plan Next Visit Focus/Plan Next Note Type Treatment Note Next Visit Plan Consider 2 minute walk test Progress ankle AROM Introduce gastroc/soleus stretching
--- NOTE | 2019-04-14 12:50 | PT.OTN ---
Current Diagnoses Encounter for other orthopedic aftercare (04/14/19) Arthrodesis status (04/14/19) Physical Therapy Treatment Note PT-OP-A Visit Information Start: 04/09/19 13:49 Freq: Status: Active Protocol: Document 04/14/19 12:40 GGD (Rec: 04/14/19 12:49 GGD [email or web address]) Out-Patient Physical Therapy Visit Information Visit Information Visit Type Treatment Note Visit Start Time 09:00 Visit Stop Time 09:52 Total Visit Minutes 52 Visit Number 3 Number of STOCK WORKER Visits 1 Evaluation Information Evaluation Date 04/08/19 PT-OP-B Current Condition Start: 04/09/19 13:49 Freq: Status: Active Protocol: Document 04/08/19 13:50 AW (Rec: 04/09/19 14:31 AW [email or web address]) Current Condition History of Current Condition Onset Date years Current Complaints left ankle swelling and limited range of motion History of Current Condition Vamsi vega sprained his left ankle in 1989 as a result of a fall down a 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 He has dealt with ongoing ankle pain for years, culminating finally in ankle arthrodesis and Achilles lengthening on . Pt unable to identify which bones were fused. Per protocol, he has been in a cam boot for all mobility for the past three months. He primarily used a knee scooter during that time, but has progressively increased his weightbearing in the boot for short distances. He is now allowed full weightbearing in the boot. In the past 10 days, he switched to an articulated cane held in the right hand. He has returned to driving. 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 He reports minimal pain since surgery, but does endorse generalized tenderness of the plantar foot since beginning to walk with a cane. He denies any falls or near falls since surgery. Prior Treatments and Tests Ankle arthrodesis and Achilles lengthening 12/31/18. History of a-fib, HTN, pacemaker. Future Testing and Treatments Planned None identified Treatment Goals Patient/Caregiver Goals Pt would like to hike [employer] and to be able to work standing 6 hours daily without fatigue or foot tenderness. 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 Current Functional Impairments (Reported) Functional Limitations- ADL's No known impairments Functional Limitations- Mobility/Gait Requires articulated cane and is limited in ambulation distance. Lacks confidence on uneven ground. Functional Limitations- Work/School Unable to stand for 6 hour shifts without foot/ankle fatigue and without tenderness of plantar foot. Functional Limitations- Recreation/ Unable to hike forest trails Hobbies Personal Factors Other Personal Factors That May Effect chronicity of deficits, Therapy/Recovery tendency to work through pain. PT-OP-C Subjective Start: 04/09/19 13:49 Freq: Status: Active Protocol: Document 04/14/19 12:40 GGD (Rec: 04/14/19 12:49 GGD [email or web address]) OP-PT Subjective Patient Comments Patient Comments Pt states he went and walked in the pool and felt good. PT-OP-D Balance Start: 04/09/19 13:49 Freq: Status: Active Protocol: Document 04/08/19 13:50 AW (Rec: 04/09/19 14:31 AW [email or web address]) OP-PT Balance Assessment Sitting Balance Static Sitting Balance Ability Normal Dynamic Sitting Balance Ability Normal Standing Balance Static Standing Balance Ability Fair Dynamic Standing Balance Ability Fair Device Used no boot, no AD Evans Fall Scale Copyright Permission PT-OP-F Manual Assessment Start: 04/09/19 13:49 Freq: Status: Active Protocol: Document 04/08/19 13:50 AW (Rec: 04/09/19 14:31 AW [email or web address]) Manual Assessments Joint Mobility Assessment Joint Mobility Assessment Minimal subtalar movement. No dorsal/plantar restriction at MTP's 1-5 bilaterally. Difficult to assess tibiotalar mobility due to swelling. Other Manual Assessments Other Manual Assessments No point tenderness along plantar surface, 5th digit tuberosity, navicular, Achilles insertion. Generalized tenderness along plantar surface noted by patient PT-OP-G Mobility & Gait Start: 04/09/19 13:49 Freq: Status: Active Protocol: Document 04/08/19 13:50 AW (Rec: 04/09/19 14:31 AW [email or web address]) OP Gait Assessment Gait Gait Assistance Required: Standby Assistance Distance (Feet) 100 Able to Maintain Weight Bearing Status Yes During Gait Gait Deviations General Gait Pattern Within Normal Limits,Antalgic, Decreased Stride Length, Decreased Feet Clearance,Wide Based Gait Factors Limiting Gait Function Factors Limiting Gait Function Decreased Activity Tolerance, Decreased Strength,Limited Range of Motion,Poor Balance Comments Gait Comments Pt ambulates with WBOS, forefoot landing (L>R), decreased stance time on LLE and decreaed step length RLE. He vaults over the LLE and exhibits right lateral lean in right stance. PT-OP-J Posture/Palpation/Skin Start: 04/09/19 13:49 Freq: Status: Active Protocol: Document 04/08/19 13:50 AW (Rec: 04/09/19 14:31 AW [email or web address]) Posture Evaluation Position Standing Knee Posture (L) Genu Valgus,(R) Genu Valgus Ankle/Foot Posture (L) Forefoot Abducted,(R) Forefoot Abducted Foot Arch (L) Low Arch,(R) Low Arch Skin Assessment Edema Assessment left ankle/foot Edema Type Non-Pitting Edema Appearance Discolored,Taut Comments Talar arch: Left 39 cm, Right 33 cm Horizontal at level of bilateral malleoli: Left 41 cm , Right 35 cm PT-OP-K Range of Motion Start: 04/09/19 13:49 Freq: Status: Active Protocol: Document 04/08/19 13:50 AW (Rec: 04/09/19 14:31 AW [email or web address]) Knee Goniometric Range of Motion Knee Left Knee ROM WFL Yes Patient Position Supine Ankle and Foot Goniometric Range of Motion Ankle and Foot Right Active Ankle/Foot ROM WFL No Testing Position Supine Dorsiflexion with Knee Flexed 5 Dorsiflexion with Knee Extended 5 Plantarflexion 40 Left Active Ankle/Foot ROM WFL No Testing Position Supine Dorsiflexion with Knee Flexed 0 Dorsiflexion with Knee Extended 0 Plantarflexion 20 Ankle and Foot ROM Limitations ROM Limitations Bony Restriction Toe Range of Motion Toes ROM Limitations Comments Pt lacks active left great toe extension PT-OP-M Strength Start: 04/09/19 13:49 Freq: Status: Active Protocol: Document 04/08/19 13:50 AW (Rec: 04/10/19 09:07 AW [email or web address]) Ankle/Foot Strength Ankle and Foot Manual Muscle Testing Right Dorsiflexion (L4) 4- Good- Plantarflexion (S1) 4- Good- Inversion 4 Good Eversion (S1) 4 Good Left Dorsiflexion (L4) 3 Fair Plantarflexion (S1) 3+ Fair+ Inversion 4- Good- Eversion (S1) 4- Good- Comments Pt can dorsiflex from extended position, but has no AROM past 0. Unable to test PF in standing due to safety concerns. Toe Strength Toe Manual Muscle Testing Right Great Toe Flexion 5 Normal Left Great Toe Flexion 4 Good PT-OP-Q Treatments Start: 04/09/19 13:49 Freq: Status: Active Protocol: Document 04/14/19 12:40 GGD (Rec: 04/14/19 12:49 GGD [email or web address]) Therapeutic Exercises Supine Exercises supine INV and EV Side left Equipment Used level 2 band Reps/Minutes 10 x2 Comments use Rfoot for anchor supine DF and PF Side left Equipment Used level 2 band Reps/Minutes 10 x2 Sitting Exercises ankle AROM Sitting Exercise Name ankle AROM - DF, PF, inversion , eversion Side left Equipment Used baps Standing Exercises standing weight shift Standing Exercise Name standing weight shift Side bilateral Reps/Minutes 2 standing calf stretch Side left Reps/Minutes 10 sec x 4 Comments hands against wall Manual Therapy Treatment Soft Tissue Mobilization ant and gastro Mobilization Type Rolling,Sustained Pressure, Trigger Point Release Intensity/Depth Moderate Body Position Supine Comments upward stroke edema managment Body Location lower LE Mobilization Type Rolling,Strumming,Sustained Pressure,Trigger Point Release Intensity/Depth Moderate Body Position Supine Comments upward stroke Self-Care/Home Management Treatment Education Caregiver Education use of compression sock, ice and self decongestion treatment. PT-OP-T Assessment and Plan Start: 04/09/19 13:49 Freq: Status: Active Protocol: Document 04/14/19 12:40 GGD (Rec: 04/14/19 12:49 GGD [email or web address]) Physical Therapy Assessment Goals 5 Impairment Pt scores 30/84 on FAAM ADL subscale Short Term Goal (STG) Pt will score 45/84 on FAAM ADL subscale to demonstrate increased independence with ADL's STG Duration 05/20/19 Shelter Goal (LTG) Pt will score 60/84 on FAAM ADL subscale to demonstrate increased independence with ADL's LTG Duration 07/01/19 4 Impairment Pt unable to stand/perform kitchen work >4 hours without fatigue Short Term Goal (STG) Pt will tolerate 5 hours standing work without foot fatigue/tenderness STG Duration 05/06/19 Shelter Goal (LTG) Pt will tolerate 7+ hours standing work (with appropriate breaks) without foot fatigue/tenderness LTG Duration 07/01/19 3 Impairment Pt unable to walk on uneven terrain Short Term Goal (STG) Pt will walk 15 minutes on uneven terrain with least restrictive assistive device STG Duration 05/20/19 Second Shift Supervisor Goal (LTG) Pt will walk 30 minutes on uneven terrain/forest trails with least restrictive assistive device. LTG Duration 07/01/19 2 Impairment Pt scores 33/80 on LEFS Short Term Goal (STG) Pt will score 45 or greater on LEFS to demonstrate improved function in daily activities. STG Duration 05/20/19 Shelter Goal (LTG) Pt will score 60 or greater on LEFS to represent improved function in daily activities. LTG Duration 07/01/19 1 Impairment Pt with no appropriate HEP Short Term Goal (STG) Pt will be independent with HEP for support of therapy services provided in clinic. STG Duration 05/06/19 Second Shift Supervisor Goal (LTG) Pt will be independent with maintenance HEP to maintain functional progress achieved in therapy. LTG Duration 07/01/19 Assessment Summary Assessment Pt improving with decrease in edema. He was challenged with baps rom activity. Physical Therapy Plan Next Visit Focus/Plan Next Note Type Treatment Note Next Visit Plan Consider 2 minute walk test Progress ankle AROM Introduce gastroc/soleus stretching
--- NOTE | 2019-04-15 16:00 | PT.OPPOC ---
Current Diagnoses Encounter for other orthopedic aftercare (04/14/19) Arthrodesis status (04/14/19) Visit Care Team Role Provider Type Jh Mooney MD Primary Care Provider Physician Specialty: Family Practice Address: [address] [place] [address], [id number] Email: [email or web address] D[facility] MD Attending Provider Non-Staff Specialty: Orthopedics Address: [address] [place] [address], [id number], [place], [id number] Fax: Email: Plan Of Care PT-OP-T Assessment and Plan Start: 04/09/19 13:49 Freq: Status: Active Protocol: Document 04/15/19 15:56 AW (Rec: 04/15/19 16:00 AW [email or web address]) Physical Therapy Assessment Rehab Potential Rehabilitation Potential Good Evaluation Complexity Number of Personal Factors/Comorbidities 1-2 Number of Body Systems Impaired 1-2 Clinical Presentation at Evaluation Stable Impairments Impairments Activity Tolerance,Balance, Edema,Functional Activities, Functional Mobility,Gait, Integument,Posture,ROM,Soft Tissue Mobility,Strength Other Concerns Fall Risk high risk of falls Goals 5 Impairment Pt scores 30/84 on FAAM ADL subscale Short Term Goal (STG) Pt will score 45/84 on FAAM ADL subscale to demonstrate increased independence with ADL's STG Duration 05/20/19 Analytical Strategist Goal (LTG) Pt will score 60/84 on FAAM ADL subscale to demonstrate increased independence with ADL's LTG Duration 07/01/19 4 Impairment 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 LTG Duration 07/01/19 2 Impairment Pt scores 33/80 on LEFS Short Term Goal (STG) Pt will score 45 or greater on LEFS to demonstrate improved function in daily activities. STG Duration 05/20/19 Analytical Strategist Goal (LTG) Pt will score 60 or greater on LEFS to represent improved function in daily activities. LTG Duration 07/01/19 1 Impairment Pt with no appropriate HEP Short Term Goal (STG) Pt will be independent with HEP for support of therapy services provided in clinic. STG Duration 05/06/19 Long-Term Goal (LTG) Pt will be independent with maintenance HEP to maintain functional progress achieved in therapy. LTG Duration 07/01/19 Assessment Summary Assessment Updated Plan of Care to include aquatic therapy and increase frequency to 3x/week. Vamsi presents to outpatient physical therapy with history of chronic left ankle pain following a fall from a ladder in 1989. He was treated with ankle arthrodesis on 12/31/18. Pt is unable to describe which bones were fused or what hardware was placed. At time of evaluation, no operative note was available. He reports minimal pain since surgery and presents to PT with no pain at all. He has significant swelling of the left ankle and limited range of motion. He reports regular use of compression garments which he states help with the swelling. He has mobilized primarily with a knee scooter and progressive weightbearing in a cam boot for the past three months, but presents to PT ambulating in the boot with an articulated cane ( articulations at the handle and at the base). He has no point tenderness at bony landmarks of the foot, but does endorse generalized tenderness of the plantar surface with weightbearing. His limitations in weightbearing and limited ankle range of motion are affecting his participation in occupational and recreational activities. Pt requires skilled physical therapy to address these impairments and to meet the functional goals of this plan of care. Physical Therapy Plan Frequency and Duration Frequency of Treatment 3x/Week Duration of Treatment 12 weeks Plan of Care Start Date 04/08/19 Plan of Care End Date 07/01/19 Therapeutic Interventions Therapeutic Interventions Aquatic Therapy,Balance Training,Gait Training,Home Exercise Program,Joint Mobilizations,Manual Therapy, Neuromuscular Re-education, Orthotic/Prosthetic Management ,Patient/Caregiver Education, Self-Care/Home Management, Sensory Integration,Soft Tissue Mobilization,Taping, Therapeutic Activities, Therapeutic Exercises Other Therapeutic Interventions cryo-cuff Next Visit Focus/Plan Next Note Type Treatment Note Next Visit Plan Consider 2 minute walk test Progress ankle AROM Introduce gastroc/soleus stretching Plan of Care Dates Plan of Care Start Date 04/08/19 Plan of Care End Date 07/01/19
--- NOTE | 2019-04-16 10:53 | PT.OTN ---
Current Diagnoses Encounter for other orthopedic aftercare (04/16/19) Arthrodesis status (04/16/19) Physical Therapy Treatment Note PT-OP-A Visit Information Start: 04/09/19 13:49 Freq: Status: Active Protocol: Document 04/16/19 08:15 GGD (Rec: 04/16/19 10:52 GGD [email or web address]) Out-Patient Physical Therapy Visit Information Visit Information Visit Type Treatment Note Visit Start Time 08:15 Visit Stop Time 09:10 Total Visit Minutes 55 Visit Number 4 Number of DIRECTOR OF RETAIL MERCHANDISING Visits 2 Evaluation Information Evaluation Date 04/08/19 PT-OP-B Current Condition Start: 04/09/19 13:49 Freq: Status: Active Protocol: Document 04/08/19 13:50 AW (Rec: 04/09/19 14:31 AW [email or web address]) Current Condition History of Current Condition Onset Date years Current Complaints left ankle swelling and limited range of motion History of Current Condition Vamsi vega sprained his left ankle in 1989 as a result of a fall down a 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 He has dealt with ongoing ankle pain for years, culminating finally in ankle arthrodesis and Achilles lengthening on . Pt unable to identify which bones were fused. Per protocol, he has been in a cam boot for all mobility for the past three months. He primarily used a knee scooter during that time, but has progressively increased his weightbearing in the boot for short distances. He is now allowed full weightbearing in the boot. In the past 10 days, he switched to an articulated cane held in the right hand. He has returned to driving. 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 He reports minimal pain since surgery, but does endorse generalized tenderness of the plantar foot since beginning to walk with a cane. He denies any falls or near falls since surgery. Prior Treatments and Tests Ankle arthrodesis and Achilles lengthening 12/31/18. History of a-fib, HTN, pacemaker. Future Testing and Treatments Planned None identified Treatment Goals Patient/Caregiver Goals Pt would like to hike [employer] and to be able to work standing 6 hours daily without fatigue or foot tenderness. 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 Current Functional Impairments (Reported) Functional Limitations- ADL's No known impairments Functional Limitations- Mobility/Gait Requires articulated cane and is limited in ambulation distance. Lacks confidence on uneven ground. Functional Limitations- Work/School Unable to stand for 6 hour shifts without foot/ankle fatigue and without tenderness of plantar foot. Functional Limitations- Recreation/ Unable to hike forest trails Hobbies Personal Factors Other Personal Factors That May Effect chronicity of deficits, Therapy/Recovery tendency to work through pain. PT-OP-C Subjective Start: 04/09/19 13:49 Freq: Status: Active Protocol: Document 04/16/19 08:15 GGD (Rec: 04/16/19 10:52 GGD [email or web address]) OP-PT Subjective Patient Comments Patient Comments Pt states he feels swelling is better after last visit. PT-OP-D Balance Start: 04/09/19 13:49 Freq: Status: Active Protocol: Document 04/08/19 13:50 AW (Rec: 04/09/19 14:31 AW [email or web address]) OP-PT Balance Assessment Sitting Balance Static Sitting Balance Ability Normal Dynamic Sitting Balance Ability Normal Standing Balance Static Standing Balance Ability Fair Dynamic Standing Balance Ability Fair Device Used no boot, no AD Evans Fall Scale Copyright Permission PT-OP-F Manual Assessment Start: 04/09/19 13:49 Freq: Status: Active Protocol: Document 04/08/19 13:50 AW (Rec: 04/09/19 14:31 AW [email or web address]) Manual Assessments Joint Mobility Assessment Joint Mobility Assessment Minimal subtalar movement. No dorsal/plantar restriction at MTP's 1-5 bilaterally. Difficult to assess tibiotalar mobility due to swelling. Other Manual Assessments Other Manual Assessments No point tenderness along plantar surface, 5th digit tuberosity, navicular, Achilles insertion. Generalized tenderness along plantar surface noted by patient PT-OP-G Mobility & Gait Start: 04/09/19 13:49 Freq: Status: Active Protocol: Document 04/08/19 13:50 AW (Rec: 04/09/19 14:31 AW [email or web address]) OP Gait Assessment Gait Gait Assistance Required: Standby Assistance Distance (Feet) 100 Able to Maintain Weight Bearing Status Yes During Gait Gait Deviations General Gait Pattern Within Normal Limits,Antalgic, Decreased Stride Length, Decreased Feet Clearance,Wide Based Gait Factors Limiting Gait Function Factors Limiting Gait Function Decreased Activity Tolerance, Decreased Strength,Limited Range of Motion,Poor Balance Comments Gait Comments Pt ambulates with WBOS, forefoot landing (L>R), decreased stance time on LLE and decreaed step length RLE. He vaults over the LLE and exhibits right lateral lean in right stance. PT-OP-J Posture/Palpation/Skin Start: 04/09/19 13:49 Freq: Status: Active Protocol: Document 04/08/19 13:50 AW (Rec: 04/09/19 14:31 AW [email or web address]) Posture Evaluation Position Standing Knee Posture (L) Genu Valgus,(R) Genu Valgus Ankle/Foot Posture (L) Forefoot Abducted,(R) Forefoot Abducted Foot Arch (L) Low Arch,(R) Low Arch Skin Assessment Edema Assessment left ankle/foot Edema Type Non-Pitting Edema Appearance Discolored,Taut Comments Talar arch: Left 39 cm, Right 33 cm Horizontal at level of bilateral malleoli: Left 41 cm , Right 35 cm PT-OP-K Range of Motion Start: 04/09/19 13:49 Freq: Status: Active Protocol: Document 04/08/19 13:50 AW (Rec: 04/09/19 14:31 AW [email or web address]) Knee Goniometric Range of Motion Knee Left Knee ROM WFL Yes Patient Position Supine Ankle and Foot Goniometric Range of Motion Ankle and Foot Right Active Ankle/Foot ROM WFL No Testing Position Supine Dorsiflexion with Knee Flexed 5 Dorsiflexion with Knee Extended 5 Plantarflexion 40 Left Active Ankle/Foot ROM WFL No Testing Position Supine Dorsiflexion with Knee Flexed 0 Dorsiflexion with Knee Extended 0 Plantarflexion 20 Ankle and Foot ROM Limitations ROM Limitations Bony Restriction Toe Range of Motion Toes ROM Limitations Comments Pt lacks active left great toe extension PT-OP-M Strength Start: 04/09/19 13:49 Freq: Status: Active Protocol: Document 04/08/19 13:50 AW (Rec: 04/10/19 09:07 AW [email or web address]) Ankle/Foot Strength Ankle and Foot Manual Muscle Testing Right Dorsiflexion (L4) 4- Good- Plantarflexion (S1) 4- Good- Inversion 4 Good Eversion (S1) 4 Good Left Dorsiflexion (L4) 3 Fair Plantarflexion (S1) 3+ Fair+ Inversion 4- Good- Eversion (S1) 4- Good- Comments Pt can dorsiflex from extended position, but has no AROM past 0. Unable to test PF in standing due to safety concerns. Toe Strength Toe Manual Muscle Testing Right Great Toe Flexion 5 Normal Left Great Toe Flexion 4 Good PT-OP-Q Treatments Start: 04/09/19 13:49 Freq: Status: Active Protocol: Document 04/16/19 08:15 GGD (Rec: 04/16/19 10:52 GGD [email or web address]) Therapeutic Exercises Supine Exercises supine INV and EV Side left Equipment Used level 2 band Reps/Minutes 10 x2 Comments use Rfoot for anchor supine DF and PF Side left Equipment Used level 2 band Reps/Minutes 10 x2 Sitting Exercises ankle AROM Sitting Exercise Name ankle AROM - DF, PF, inversion , eversion Side left Resistance level 2 Equipment Used baps Standing Exercises standing calf stretch Side left Reps/Minutes 10 sec x 4 Comments hands against wall Manual Therapy Treatment Soft Tissue Mobilization ant and gastro Mobilization Type Rolling,Sustained Pressure, Trigger Point Release Intensity/Depth Moderate Body Position Supine Comments upward stroke edema managment Body Location lower LE Mobilization Type Rolling,Strumming,Sustained Pressure,Trigger Point Release Intensity/Depth Moderate Body Position Supine Comments upward stroke PT-OP-R Modalities Start: 04/09/19 13:49 Freq: Status: Active Protocol: Document 04/16/19 08:15 GGD (Rec: 04/16/19 10:53 GGD [email or web address]) Hot Pack/Cold Pack Treatment Cold Pack Location right ankle Patient Position Hooklying Treatment Duration (minutes) 10 Patient Tolerance Good Comments cryo cuff PT-OP-T Assessment and Plan Start: 04/09/19 13:49 Freq: Status: Active Protocol: Document 04/16/19 08:15 GGD (Rec: 04/16/19 10:52 GGD [email or web address]) Physical Therapy Plan Frequency and Duration Frequency of Treatment 3x/Week Duration of Treatment 12 weeks Plan of Care Start Date 04/08/19 Plan of Care End Date 07/01/19 Next Visit Focus/Plan Next Note Type Treatment Note Next Visit Plan Progress ankle AROM Introduce gastroc/soleus stretching
--- NOTE | 2019-04-22 10:58 | PT.OTN ---
Current Diagnoses Encounter for other orthopedic aftercare (04/22/19) Arthrodesis status (04/22/19) Physical Therapy Treatment Note PT-OP-A Visit Information Start: 04/09/19 13:49 Freq: Status: Active Protocol: Document 04/22/19 10:37 AW (Rec: 04/22/19 10:57 AW [email or web address]) Out-Patient Physical Therapy Visit Information Visit Information Visit Type Treatment Note Visit Start Time 09:50 Visit Stop Time 10:45 Total Visit Minutes 55 Visit Number 5 Number of SPRAY WORKER Visits 0 Evaluation Information Evaluation Date 04/08/19 PT-OP-B Current Condition Start: 04/09/19 13:49 Freq: Status: Active Protocol: Document 04/08/19 13:50 AW (Rec: 04/09/19 14:31 AW [email or web address]) Current Condition History of Current Condition Onset Date years Current Complaints left ankle swelling and limited range of motion History of Current Condition Vamsi vega sprained his left ankle in 1989 as a result of a fall down a 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 He has dealt with ongoing ankle pain for years, culminating finally in ankle arthrodesis and Achilles lengthening on . Pt unable to identify which bones were fused. Per protocol, he has been in a cam boot for all mobility for the past three months. He primarily used a knee scooter during that time, but has progressively increased his weightbearing in the boot for short distances. He is now allowed full weightbearing in the boot. In the past 10 days, he switched to an articulated cane held in the right hand. He has returned to driving. 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 He reports minimal pain since surgery, but does endorse generalized tenderness of the plantar foot since beginning to walk with a cane. He denies any falls or near falls since surgery. Prior Treatments and Tests Ankle arthrodesis and Achilles lengthening 12/31/18. History of a-fib, HTN, pacemaker. Future Testing and Treatments Planned None identified Treatment Goals Patient/Caregiver Goals Pt would like to hike [employer] and to be able to work standing 6 hours daily without fatigue or foot tenderness. 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 Current Functional Impairments (Reported) Functional Limitations- ADL's No known impairments Functional Limitations- Mobility/Gait Requires articulated cane and is limited in ambulation distance. Lacks confidence on uneven ground. Functional Limitations- Work/School Unable to stand for 6 hour shifts without foot/ankle fatigue and without tenderness of plantar foot. Functional Limitations- Recreation/ Unable to hike forest trails Hobbies Personal Factors Other Personal Factors That May Effect chronicity of deficits, Therapy/Recovery tendency to work through pain. PT-OP-C Subjective Start: 04/09/19 13:49 Freq: Status: Active Protocol: Document 04/22/19 10:37 AW (Rec: 04/22/19 10:57 AW [email or web address]) OP-PT Subjective Patient Comments Patient Comments I walked around my house most of the day yesterday without the boot and it didn't feel too bad. 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 PT-OP-D Balance Start: 04/09/19 13:49 Freq: Status: Active Protocol: Document 04/08/19 13:50 AW (Rec: 04/09/19 14:31 AW [email or web address]) OP-PT Balance Assessment Sitting Balance Static Sitting Balance Ability Normal Dynamic Sitting Balance Ability Normal Standing Balance Static Standing Balance Ability Fair Dynamic Standing Balance Ability Fair Device Used no boot, no AD Evans Fall Scale Copyright Permission PT-OP-F Manual Assessment Start: 04/09/19 13:49 Freq: Status: Active Protocol: Document 04/08/19 13:50 AW (Rec: 04/09/19 14:31 AW [email or web address]) Manual Assessments Joint Mobility Assessment Joint Mobility Assessment Minimal subtalar movement. No dorsal/plantar restriction at MTP's 1-5 bilaterally. Difficult to assess tibiotalar mobility due to swelling. Other Manual Assessments Other Manual Assessments No point tenderness along plantar surface, 5th digit tuberosity, navicular, Achilles insertion. Generalized tenderness along plantar surface noted by patient PT-OP-G Mobility & Gait Start: 04/09/19 13:49 Freq: Status: Active Protocol: Document 04/08/19 13:50 AW (Rec: 04/09/19 14:31 AW [email or web address]) OP Gait Assessment Gait Gait Assistance Required: Standby Assistance Distance (Feet) 100 Able to Maintain Weight Bearing Status Yes During Gait Gait Deviations General Gait Pattern Within Normal Limits,Antalgic, Decreased Stride Length, Decreased Feet Clearance,Wide Based Gait Factors Limiting Gait Function Factors Limiting Gait Function Decreased Activity Tolerance, Decreased Strength,Limited Range of Motion,Poor Balance Comments Gait Comments Pt ambulates with WBOS, forefoot landing (L>R), decreased stance time on LLE and decreaed step length RLE. He vaults over the LLE and exhibits right lateral lean in right stance. PT-OP-J Posture/Palpation/Skin Start: 04/09/19 13:49 Freq: Status: Active Protocol: Document 04/08/19 13:50 AW (Rec: 04/09/19 14:31 AW [email or web address]) Posture Evaluation Position Standing Knee Posture (L) Genu Valgus,(R) Genu Valgus Ankle/Foot Posture (L) Forefoot Abducted,(R) Forefoot Abducted Foot Arch (L) Low Arch,(R) Low Arch Skin Assessment Edema Assessment left ankle/foot Edema Type Non-Pitting Edema Appearance Discolored,Taut Comments Talar arch: Left 39 cm, Right 33 cm Horizontal at level of bilateral malleoli: Left 41 cm , Right 35 cm PT-OP-K Range of Motion Start: 04/09/19 13:49 Freq: Status: Active Protocol: Document 04/08/19 13:50 AW (Rec: 04/09/19 14:31 AW [email or web address]) Knee Goniometric Range of Motion Knee Left Knee ROM WFL Yes Patient Position Supine Ankle and Foot Goniometric Range of Motion Ankle and Foot Right Active Ankle/Foot ROM WFL No Testing Position Supine Dorsiflexion with Knee Flexed 5 Dorsiflexion with Knee Extended 5 Plantarflexion 40 Left Active Ankle/Foot ROM WFL No Testing Position Supine Dorsiflexion with Knee Flexed 0 Dorsiflexion with Knee Extended 0 Plantarflexion 20 Ankle and Foot ROM Limitations ROM Limitations Bony Restriction Toe Range of Motion Toes ROM Limitations Comments Pt lacks active left great toe extension PT-OP-M Strength Start: 04/09/19 13:49 Freq: Status: Active Protocol: Document 04/08/19 13:50 AW (Rec: 04/10/19 09:07 AW [email or web address]) Ankle/Foot Strength Ankle and Foot Manual Muscle Testing Right Dorsiflexion (L4) 4- Good- Plantarflexion (S1) 4- Good- Inversion 4 Good Eversion (S1) 4 Good Left Dorsiflexion (L4) 3 Fair Plantarflexion (S1) 3+ Fair+ Inversion 4- Good- Eversion (S1) 4- Good- Comments Pt can dorsiflex from extended position, but has no AROM past 0. Unable to test PF in standing due to safety concerns. Toe Strength Toe Manual Muscle Testing Right Great Toe Flexion 5 Normal Left Great Toe Flexion 4 Good PT-OP-Q Treatments Start: 04/09/19 13:49 Freq: Status: Active Protocol: Document 04/22/19 10:37 AW (Rec: 04/22/19 10:57 AW [email or web address]) Therapeutic Exercises Supine Exercises supine DF and PF Side left Equipment Used level 2 band Reps/Minutes 10 x2 Sitting Exercises marble sisal picker Sitting Exercise Name marble sisal picker Side left Equipment Used green marbles Reps/Minutes 3 minutes seated PF stretch Sitting Exercise Name seated PF stretch Side left Reps/Minutes 2 minutes Comments cues to pull back as far as possible with heel on ground ankle AROM Sitting Exercise Name ankle AROM - DF, PF, inversion , eversion Side left Resistance level 2 Equipment Used baps Reps/Minutes 3 minutes Comments most difficulty with DF Standing Exercises lunge on bosu Standing Exercise Name lunge on bosu Side left Equipment Used bosu Reps/Minutes 20 reps lunge on step Standing Exercise Name lunge on step Side left Equipment Used 12 step Reps/Minutes 15 sec hold x 6 heel raise Standing Exercise Name heel raise Side bilateral Equipment Used 6 step Reps/Minutes 2x15 reps Comments cues for upright posture, minimizing hip sway standing weight shift Standing Exercise Name standing weight shift Side bilateral Reps/Minutes 2 minutes Comments tolerates LLE stance ~2 seconds Manual Therapy Treatment Soft Tissue Mobilization ant and gastro Mobilization Type Rolling,Sustained Pressure, Trigger Point Release Intensity/Depth Moderate Body Position Supine Comments upward stroke edema managment Body Location lower LE Mobilization Type Rolling,Strumming,Sustained Pressure,Trigger Point Release Intensity/Depth Moderate Body Position Supine Comments upward stroke Joint Mobilizations MTP Joint MTP 1-5 Direction dorsal and plantar Grade III Body Position Hooklying Reps/Duration 3 minutes Comments minimal restriction, tolerated well. PT-OP-R Modalities Start: 04/09/19 13:49 Freq: Status: Active Protocol: Document 04/22/19 10:37 AW (Rec: 04/22/19 10:57 AW [email or web address]) Hot Pack/Cold Pack Treatment Cold Pack Location right ankle Patient Position Hooklying Treatment Duration (minutes) 15 Patient Tolerance Good Comments cryo cuff PT-OP-T Assessment and Plan Start: 04/09/19 13:49 Freq: Status: Active Protocol: Document 04/22/19 10:37 AW (Rec: 04/22/19 10:57 AW [email or web address]) Physical Therapy Assessment Goals 5 Impairment Pt scores 30/84 on FAAM ADL subscale Short Term Goal (STG) Pt will score 45/84 on FAAM ADL subscale to demonstrate increased independence with ADL's STG Duration 05/20/19 Senior Care Goal (LTG) Pt will score 60/84 on FAAM ADL subscale to demonstrate increased independence with ADL's LTG Duration 07/01/19 4 Impairment Pt unable to stand/perform kitchen work >4 hours without fatigue Short Term Goal (STG) Pt will tolerate 5 hours standing work without foot fatigue/tenderness STG Duration 05/06/19 Radio Communications Superintendent Goal (LTG) Pt will tolerate 7+ hours standing work (with appropriate breaks) without foot fatigue/tenderness LTG Duration 07/01/19 3 Impairment Pt unable to walk on uneven terrain Short Term Goal (STG) Pt will walk 15 minutes on uneven terrain with least restrictive assistive device STG Duration 05/20/19 Senior Care Goal (LTG) Pt will walk 30 minutes on uneven terrain/forest trails with least restrictive assistive device. LTG Duration 07/01/19 2 Impairment Pt scores 33/80 on LEFS Short Term Goal (STG) Pt will score 45 or greater on LEFS to demonstrate improved function in daily activities. STG Duration 05/20/19 Radio Communications Superintendent Goal (LTG) Pt will score 60 or greater on LEFS to represent improved function in daily activities. LTG Duration 07/01/19 1 Impairment Pt with no appropriate HEP Short Term Goal (STG) Pt will be independent with HEP for support of therapy services provided in clinic. STG Duration 05/06/19 Senior Care Goal (LTG) Pt will be independent with maintenance HEP to maintain functional progress achieved in therapy. LTG Duration 07/01/19 Assessment Summary Assessment Pt wearing compression stocking today, presents with decreased edema and improved left ankle ROM. Scheduled for first aquatic session 04/27/19 . Physical Therapy Plan Frequency and Duration Frequency of Treatment 3x/Week Duration of Treatment 12 weeks Plan of Care Start Date 04/08/19 Plan of Care End Date 07/01/19 Therapeutic Interventions Therapeutic Interventions Aquatic Therapy,Balance Training,Gait Training,Home Exercise Program,Joint Mobilizations,Manual Therapy, Neuromuscular Re-education, Orthotic/Prosthetic Management ,Patient/Caregiver Education, Self-Care/Home Management, Sensory Integration,Soft Tissue Mobilization,Taping, Therapeutic Activities, Therapeutic Exercises Other Therapeutic Interventions cryo-cuff Next Visit Focus/Plan Next Note Type Treatment Note Next Visit Plan Progress ankle AROM NWB and WB
--- NOTE | 2019-04-24 10:30 | PT.OTN ---
Current Diagnoses Encounter for other orthopedic aftercare (04/24/19) Arthrodesis status (04/24/19) Physical Therapy Treatment Note PT-OP-A Visit Information Start: 04/09/19 13:49 Freq: Status: Active Protocol: Document 04/24/19 09:52 SP (Rec: 04/24/19 12:08 SP [id number]) Out-Patient Physical Therapy Visit Information Visit Information Visit Type Treatment Note Visit Start Time 09:52 Visit Stop Time 10:30 Total Visit Minutes 38 Visit Number 6 Number of CHIEF SOLUTION ARCHITECT Visits 1 PT-OP-B Current Condition Start: 04/09/19 13:49 Freq: Status: Active Protocol: Document 04/08/19 13:50 AW (Rec: 04/09/19 14:31 AW [email or web address]) Current Condition History of Current Condition Onset Date years Current Complaints left ankle swelling and limited range of motion History of Current Condition Vamsi vega sprained his left ankle in 1989 as a result of a fall down a 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 He has dealt with ongoing ankle pain for years, culminating finally in ankle arthrodesis and Achilles lengthening on . Pt unable to identify which bones were fused. Per protocol, he has been in a cam boot for all mobility for the past three months. He primarily used a knee scooter during that time, but has progressively increased his weightbearing in the boot for short distances. He is now allowed full weightbearing in the boot. In the past 10 days, he switched to an articulated cane held in the right hand. He has returned to driving. 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 He reports minimal pain since surgery, but does endorse generalized tenderness of the plantar foot since beginning to walk with a cane. He denies any falls or near falls since surgery. Prior Treatments and Tests Ankle arthrodesis and Achilles lengthening 12/31/18. History of a-fib, HTN, pacemaker. Future Testing and Treatments Planned None identified Treatment Goals Patient/Caregiver Goals Pt would like to hike [employer] and to be able to work standing 6 hours daily without fatigue or foot tenderness. 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 Current Functional Impairments (Reported) Functional Limitations- ADL's No known impairments Functional Limitations- Mobility/Gait Requires articulated cane and is limited in ambulation distance. Lacks confidence on uneven ground. Functional Limitations- Work/School Unable to stand for 6 hour shifts without foot/ankle fatigue and without tenderness of plantar foot. Functional Limitations- Recreation/ Unable to hike forest trails Hobbies Personal Factors Other Personal Factors That May Effect chronicity of deficits, Therapy/Recovery tendency to work through pain. PT-OP-C Subjective Start: 04/09/19 13:49 Freq: Status: Active Protocol: Document 04/24/19 09:52 SP (Rec: 04/24/19 12:08 SP [id number]) OP-PT Subjective Patient Comments Patient Comments I was on my feet most of the day with the boot on and sore . Pt stated is compliant with HEP. PT-OP-D Balance Start: 04/09/19 13:49 Freq: Status: Active Protocol: Document 04/08/19 13:50 AW (Rec: 04/09/19 14:31 AW [email or web address]) OP-PT Balance Assessment Sitting Balance Static Sitting Balance Ability Normal Dynamic Sitting Balance Ability Normal Standing Balance Static Standing Balance Ability Fair Dynamic Standing Balance Ability Fair Device Used no boot, no AD Evans Fall Scale Copyright Permission PT-OP-F Manual Assessment Start: 04/09/19 13:49 Freq: Status: Active Protocol: Document 04/08/19 13:50 AW (Rec: 04/09/19 14:31 AW [email or web address]) Manual Assessments Joint Mobility Assessment Joint Mobility Assessment Minimal subtalar movement. No dorsal/plantar restriction at MTP's 1-5 bilaterally. Difficult to assess tibiotalar mobility due to swelling. Other Manual Assessments Other Manual Assessments No point tenderness along plantar surface, 5th digit tuberosity, navicular, Achilles insertion. Generalized tenderness along plantar surface noted by patient PT-OP-G Mobility & Gait Start: 04/09/19 13:49 Freq: Status: Active Protocol: Document 04/08/19 13:50 AW (Rec: 04/09/19 14:31 AW [email or web address]) OP Gait Assessment Gait Gait Assistance Required: Standby Assistance Distance (Feet) 100 Able to Maintain Weight Bearing Status Yes During Gait Gait Deviations General Gait Pattern Within Normal Limits,Antalgic, Decreased Stride Length, Decreased Feet Clearance,Wide Based Gait Factors Limiting Gait Function Factors Limiting Gait Function Decreased Activity Tolerance, Decreased Strength,Limited Range of Motion,Poor Balance Comments Gait Comments Pt ambulates with WBOS, forefoot landing (L>R), decreased stance time on LLE and decreaed step length RLE. He vaults over the LLE and exhibits right lateral lean in right stance. PT-OP-J Posture/Palpation/Skin Start: 04/09/19 13:49 Freq: Status: Active Protocol: Document 04/08/19 13:50 AW (Rec: 04/09/19 14:31 AW [email or web address]) Posture Evaluation Position Standing Knee Posture (L) Genu Valgus,(R) Genu Valgus Ankle/Foot Posture (L) Forefoot Abducted,(R) Forefoot Abducted Foot Arch (L) Low Arch,(R) Low Arch Skin Assessment Edema Assessment left ankle/foot Edema Type Non-Pitting Edema Appearance Discolored,Taut Comments Talar arch: Left 39 cm, Right 33 cm Horizontal at level of bilateral malleoli: Left 41 cm , Right 35 cm PT-OP-K Range of Motion Start: 04/09/19 13:49 Freq: Status: Active Protocol: Document 04/08/19 13:50 AW (Rec: 04/09/19 14:31 AW [email or web address]) Knee Goniometric Range of Motion Knee Left Knee ROM WFL Yes Patient Position Supine Ankle and Foot Goniometric Range of Motion Ankle and Foot Right Active Ankle/Foot ROM WFL No Testing Position Supine Dorsiflexion with Knee Flexed 5 Dorsiflexion with Knee Extended 5 Plantarflexion 40 Left Active Ankle/Foot ROM WFL No Testing Position Supine Dorsiflexion with Knee Flexed 0 Dorsiflexion with Knee Extended 0 Plantarflexion 20 Ankle and Foot ROM Limitations ROM Limitations Bony Restriction Toe Range of Motion Toes ROM Limitations Comments Pt lacks active left great toe extension PT-OP-M Strength Start: 04/09/19 13:49 Freq: Status: Active Protocol: Document 04/08/19 13:50 AW (Rec: 04/10/19 09:07 AW [email or web address]) Ankle/Foot Strength Ankle and Foot Manual Muscle Testing Right Dorsiflexion (L4) 4- Good- Plantarflexion (S1) 4- Good- Inversion 4 Good Eversion (S1) 4 Good Left Dorsiflexion (L4) 3 Fair Plantarflexion (S1) 3+ Fair+ Inversion 4- Good- Eversion (S1) 4- Good- Comments Pt can dorsiflex from extended position, but has no AROM past 0. Unable to test PF in standing due to safety concerns. Toe Strength Toe Manual Muscle Testing Right Great Toe Flexion 5 Normal Left Great Toe Flexion 4 Good PT-OP-Q Treatments Start: 04/09/19 13:49 Freq: Status: Active Protocol: Document 04/24/19 09:52 SP (Rec: 04/24/19 12:08 SP [id number]) Therapeutic Exercises Supine Exercises supine INV and EV Side left Equipment Used AROM Reps/Minutes 10 x2 Comments use Rfoot for anchor supine DF and PF Side left Equipment Used AROM Reps/Minutes 10 x2 Sitting Exercises BAPS Sitting Exercise Name PF, DF, IV, EV, CW, CCW Equipment Used BAPS board Lv 2 ball Reps/Minutes x10 Comments slow control each direction, challenged PF Standing Exercises lunge on bosu Standing Exercise Name lunge on bosu Side left Equipment Used bosu Reps/Minutes 20 reps standing weight shift Standing Exercise Name standing weight shift Side bilateral Equipment Used RLE 4 step, LLE on bosu (boot doffed) Reps/Minutes 2 minutes Manual Therapy Treatment Soft Tissue Mobilization edema managment Body Location lower LE Mobilization Type Myofascial Release Intensity/Depth Moderate Body Position Supine Comments upward stroke/retrograde PT-OP-R Modalities Start: 04/09/19 13:49 Freq: Status: Active Protocol: Document 04/22/19 10:37 AW (Rec: 04/22/19 10:57 AW [email or web address]) Hot Pack/Cold Pack Treatment Cold Pack Location right ankle Patient Position Hooklying Treatment Duration (minutes) 15 Patient Tolerance Good Comments cryo cuff PT-OP-T Assessment and Plan Start: 04/09/19 13:49 Freq: Status: Active Protocol: Document 04/24/19 09:52 SP (Rec: 04/24/19 12:08 SP [id number]) Physical Therapy Assessment Goals 5 Impairment Pt scores 30/84 on FAAM ADL subscale Short Term Goal (STG) Pt will score 45/84 on FAAM ADL subscale to demonstrate increased independence with ADL's STG Duration 05/20/19 Revenue Liaison Goal (LTG) Pt will score 60/84 on FAAM ADL subscale to demonstrate increased independence with ADL's LTG Duration 07/01/19 4 Impairment Pt unable to stand/perform kitchen work >4 hours without fatigue Short Term Goal (STG) Pt will tolerate 5 hours standing work without foot fatigue/tenderness STG Duration 05/06/19 Revenue Liaison Goal (LTG) Pt will tolerate 7+ hours standing work (with appropriate breaks) without foot fatigue/tenderness LTG Duration 07/01/19 3 Impairment Pt unable to walk on uneven terrain Short Term Goal (STG) Pt will walk 15 minutes on uneven terrain with least restrictive assistive device STG Duration 05/20/19 Revenue Liaison Goal (LTG) Pt will walk 30 minutes on uneven terrain/forest trails with least restrictive assistive device. LTG Duration 07/01/19 2 Impairment Pt scores 33/80 on LEFS Short Term Goal (STG) Pt will score 45 or greater on LEFS to demonstrate improved function in daily activities. STG Duration 05/20/19 Senior Care Goal (LTG) Pt will score 60 or greater on LEFS to represent improved function in daily activities. LTG Duration 07/01/19 1 Impairment Pt with no appropriate HEP Short Term Goal (STG) Pt will be independent with HEP for support of therapy services provided in clinic. STG Duration 05/06/19 Senior Care Goal (LTG) Pt will be independent with maintenance HEP to maintain functional progress achieved in therapy. LTG Duration 07/01/19 Assessment Summary Assessment Pt wearing compression stocking today, presents with increased edema. Decreased with retrograde strokes. Improved ROM during BAPS lv2 cued needed for PF ROM. Tolerated WB wt shift over LLE on BOSU then added sustained 50% WB with PF ROM tolerated with no adverse affects. Pt is compliant with HEP. No pain pre or post tx today. Physical Therapy Plan Frequency and Duration Frequency of Treatment 3x/Week Duration of Treatment 12 weeks Plan of Care Start Date 04/08/19 Plan of Care End Date 07/01/19 Therapeutic Interventions Therapeutic Interventions Aquatic Therapy,Balance Training,Gait Training,Home Exercise Program,Joint Mobilizations,Manual Therapy, Neuromuscular Re-education, Orthotic/Prosthetic Management ,Patient/Caregiver Education, Self-Care/Home Management, Sensory Integration,Soft Tissue Mobilization,Taping, Therapeutic Activities, Therapeutic Exercises Other Therapeutic Interventions cryo-cuff Next Visit Focus/Plan Next Note Type Treatment Note Next Visit Plan Progress ankle AROM NWB and WB
--- NOTE | 2019-04-27 16:24 | PT.OTN ---
Current Diagnoses Encounter for other orthopedic aftercare (04/27/19) Arthrodesis status (04/27/19) Physical Therapy Treatment Note PT-OP-A Visit Information Start: 04/09/19 13:49 Freq: Status: Active Protocol: Document 04/27/19 16:16 SAK (Rec: 04/27/19 16:24 SAK [id number]) Out-Patient Physical Therapy Visit Information Visit Information Visit Type Treatment Note Visit Start Time 11:45 Visit Stop Time 12:30 Total Visit Minutes 45 Visit Number 7 Number of COUNTER SALES PERSON Visits 0 Evaluation Information Evaluation Date 04/08/19 PT-OP-B Current Condition Start: 04/09/19 13:49 Freq: Status: Active Protocol: Document 04/08/19 13:50 AW (Rec: 04/09/19 14:31 AW [email or web address]) Current Condition History of Current Condition Onset Date years Current Complaints left ankle swelling and limited range of motion History of Current Condition Vamsi vega sprained his left ankle in 1989 as a result of a fall down a 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 He has dealt with ongoing ankle pain for years, culminating finally in ankle arthrodesis and Achilles lengthening on . Pt unable to identify which bones were fused. Per protocol, he has been in a cam boot for all mobility for the past three months. He primarily used a knee scooter during that time, but has progressively increased his weightbearing in the boot for short distances. He is now allowed full weightbearing in the boot. In the past 10 days, he switched to an articulated cane held in the right hand. He has returned to driving. 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 He reports minimal pain since surgery, but does endorse generalized tenderness of the plantar foot since beginning to walk with a cane. He denies any falls or near falls since surgery. Prior Treatments and Tests Ankle arthrodesis and Achilles lengthening 12/31/18. History of a-fib, HTN, pacemaker. Future Testing and Treatments Planned None identified Treatment Goals Patient/Caregiver Goals Pt would like to hike [place] and to be able to work standing 6 hours daily without fatigue or foot tenderness. 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 Current Functional Impairments (Reported) Functional Limitations- ADL's No known impairments Functional Limitations- Mobility/Gait Requires articulated cane and is limited in ambulation distance. Lacks confidence on uneven ground. Functional Limitations- Work/School Unable to stand for 6 hour shifts without foot/ankle fatigue and without tenderness of plantar foot. Functional Limitations- Recreation/ Unable to hike forest trails Hobbies Personal Factors Other Personal Factors That May Effect chronicity of deficits, Therapy/Recovery tendency to work through pain. PT-OP-C Subjective Start: 04/09/19 13:49 Freq: Status: Active Protocol: Document 04/27/19 16:16 SAK (Rec: 04/27/19 16:24 SAK [id number]) OP-PT Subjective Patient Comments Patient Comments Patient reports continued edema though water pills have helped some. States he feels like there is a ball on the bottom of his foot. PT-OP-D Balance Start: 04/09/19 13:49 Freq: Status: Active Protocol: Document 04/08/19 13:50 AW (Rec: 04/09/19 14:31 AW [email or web address]) OP-PT Balance Assessment Sitting Balance Static Sitting Balance Ability Normal Dynamic Sitting Balance Ability Normal Standing Balance Static Standing Balance Ability Fair Dynamic Standing Balance Ability Fair Device Used no boot, no AD Evans Fall Scale Copyright Permission PT-OP-F Manual Assessment Start: 04/09/19 13:49 Freq: Status: Active Protocol: Document 04/08/19 13:50 AW (Rec: 04/09/19 14:31 AW [email or web address]) Manual Assessments Joint Mobility Assessment Joint Mobility Assessment Minimal subtalar movement. No dorsal/plantar restriction at MTP's 1-5 bilaterally. Difficult to assess tibiotalar mobility due to swelling. Other Manual Assessments Other Manual Assessments No point tenderness along plantar surface, 5th digit tuberosity, navicular, Achilles insertion. Generalized tenderness along plantar surface noted by patient PT-OP-G Mobility & Gait Start: 04/09/19 13:49 Freq: Status: Active Protocol: Document 04/08/19 13:50 AW (Rec: 04/09/19 14:31 AW [email or web address]) OP Gait Assessment Gait Gait Assistance Required: Standby Assistance Distance (Feet) 100 Able to Maintain Weight Bearing Status Yes During Gait Gait Deviations General Gait Pattern Within Normal Limits,Antalgic, Decreased Stride Length, Decreased Feet Clearance,Wide Based Gait Factors Limiting Gait Function Factors Limiting Gait Function Decreased Activity Tolerance, Decreased Strength,Limited Range of Motion,Poor Balance Comments Gait Comments Pt ambulates with WBOS, forefoot landing (L>R), decreased stance time on LLE and decreaed step length RLE. He vaults over the LLE and exhibits right lateral lean in right stance. PT-OP-J Posture/Palpation/Skin Start: 04/09/19 13:49 Freq: Status: Active Protocol: Document 04/08/19 13:50 AW (Rec: 04/09/19 14:31 AW [email or web address]) Posture Evaluation Position Standing Knee Posture (L) Genu Valgus,(R) Genu Valgus Ankle/Foot Posture (L) Forefoot Abducted,(R) Forefoot Abducted Foot Arch (L) Low Arch,(R) Low Arch Skin Assessment Edema Assessment left ankle/foot Edema Type Non-Pitting Edema Appearance Discolored,Taut Comments Talar arch: Left 39 cm, Right 33 cm Horizontal at level of bilateral malleoli: Left 41 cm , Right 35 cm PT-OP-K Range of Motion Start: 04/09/19 13:49 Freq: Status: Active Protocol: Document 04/08/19 13:50 AW (Rec: 04/09/19 14:31 AW [email or web address]) Knee Goniometric Range of Motion Knee Left Knee ROM WFL Yes Patient Position Supine Ankle and Foot Goniometric Range of Motion Ankle and Foot Right Active Ankle/Foot ROM WFL No Testing Position Supine Dorsiflexion with Knee Flexed 5 Dorsiflexion with Knee Extended 5 Plantarflexion 40 Left Active Ankle/Foot ROM WFL No Testing Position Supine Dorsiflexion with Knee Flexed 0 Dorsiflexion with Knee Extended 0 Plantarflexion 20 Ankle and Foot ROM Limitations ROM Limitations Bony Restriction Toe Range of Motion Toes ROM Limitations Comments Pt lacks active left great toe extension PT-OP-M Strength Start: 04/09/19 13:49 Freq: Status: Active Protocol: Document 04/08/19 13:50 AW (Rec: 04/10/19 09:07 AW [email or web address]) Ankle/Foot Strength Ankle and Foot Manual Muscle Testing Right Dorsiflexion (L4) 4- Good- Plantarflexion (S1) 4- Good- Inversion 4 Good Eversion (S1) 4 Good Left Dorsiflexion (L4) 3 Fair Plantarflexion (S1) 3+ Fair+ Inversion 4- Good- Eversion (S1) 4- Good- Comments Pt can dorsiflex from extended position, but has no AROM past 0. Unable to test PF in standing due to safety concerns. Toe Strength Toe Manual Muscle Testing Right Great Toe Flexion 5 Normal Left Great Toe Flexion 4 Good PT-OP-Q Treatments Start: 04/09/19 13:49 Freq: Status: Active Protocol: Document 04/24/19 09:52 SP (Rec: 04/24/19 12:08 SP [id number]) Therapeutic Exercises Supine Exercises supine INV and EV Side left Equipment Used AROM Reps/Minutes 10 x2 Comments use Rfoot for anchor supine DF and PF Side left Equipment Used AROM Reps/Minutes 10 x2 Sitting Exercises BAPS Sitting Exercise Name PF, DF, IV, EV, CW, CCW Equipment Used BAPS board Lv 2 ball Reps/Minutes x10 Comments slow control each direction, challenged PF Standing Exercises lunge on bosu Standing Exercise Name lunge on bosu Side left Equipment Used bosu Reps/Minutes 20 reps standing weight shift Standing Exercise Name standing weight shift Side bilateral Equipment Used RLE 4 step, LLE on bosu (boot doffed) Reps/Minutes 2 minutes Manual Therapy Treatment Soft Tissue Mobilization edema managment Body Location lower LE Mobilization Type Myofascial Release Intensity/Depth Moderate Body Position Supine Comments upward stroke/retrograde PT-OP-R Modalities Start: 04/09/19 13:49 Freq: Status: Active Protocol: Document 04/22/19 10:37 AW (Rec: 04/22/19 10:57 AW [email or web address]) Hot Pack/Cold Pack Treatment Cold Pack Location right ankle Patient Position Hooklying Treatment Duration (minutes) 15 Patient Tolerance Good Comments cryo cuff PT-OP-S Aquatic Treatment Start: 04/09/19 13:49 Freq: Status: Active Protocol: Document 04/27/19 16:16 SAK (Rec: 04/27/19 16:24 SAK [id number]) Aquatics Treatment Pool Entry/Exit Pool Entry/Exit Method Stairs Comments step-to pattern Water Walking [place] Water Level Chest Level Level of Assistance Verbal Cues Comments modified with smaller steps fwd,bck,side, march, soldier august Water Level Chest Level Level of Assistance Standby Assistance,Verbal Cues Lower Extremity Exercises hip flex/ext Body Position Standing Water Level Chest Level Reps/Duration 10x Comments UE support Hip ab/ad Body Position Standing Reps/Duration 10x Comments UE support squats Body Position Standing Water Level Chest Level Reps/Duration 10x knee flex/ext Body Position Standing Water Level Chest Level Reps/Duration 10x Comments UE support heel raise, toe raise Body Position Standing Water Level Chest Level Reps/Duration 10x Lower Extremity Stretches HS Body Position Standing Water Level Chest Level Equipment Small Noodle gastroc Body Position Standing Water Level Chest Level Reps/Duration 2x30 Comments wall [employer] Activities [employer] Activities Bicycle,Bicycle Backwards, Cross [place],Running Equipment small noodle for backward bicycle Duration 15' Manual Techniques Aquatic Massage left foot and ankle to decrease soft tissue tightness bottom of foot and improve scar mobility PT-OP-T Assessment and Plan Start: 04/09/19 13:49 Freq: Status: Active Protocol: Document 04/27/19 16:16 [facility] (Rec: 04/27/19 16:24 [facility] [id number]) Physical Therapy Assessment Goals 5 Impairment Pt scores 30/84 on FAAM ADL subscale Short Term Goal (STG) Pt will score 45/84 on FAAM ADL subscale to demonstrate increased independence with ADL's STG Duration 05/20/19 Promotions Associate Goal (LTG) Pt will score 60/84 on FAAM ADL subscale to demonstrate increased independence with ADL's LTG Duration 07/01/19 4 Impairment 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 LTG Duration 07/01/19 2 Impairment Pt scores 33/80 on LEFS Short Term Goal (STG) Pt will score 45 or greater on LEFS to demonstrate improved function in daily activities. STG Duration 05/20/19 Promotions Associate Goal (LTG) Pt will score 60 or greater on LEFS to represent improved function in daily activities. LTG Duration 07/01/19 1 Impairment Pt with no appropriate HEP Short Term Goal (STG) Pt will be independent with HEP for support of therapy services provided in clinic. STG Duration 05/06/19 Correction Goal (LTG) Pt will be independent with maintenance HEP to maintain functional progress achieved in therapy. LTG Duration 07/01/19 Assessment Summary Assessment Good tolerance for aquatic PT with denial of pain. Reports wearing compression stocking but edema persists, decreased with aquatic exercise. Physical Therapy Plan Frequency and Duration Frequency of Treatment 3x/Week Duration of Treatment 12 weeks Plan of Care Start Date 04/08/19 Plan of Care End Date 07/01/19 Therapeutic Interventions Therapeutic Interventions Aquatic Therapy,Balance Training,Gait Training,Home Exercise Program,Joint Mobilizations,Manual Therapy, Neuromuscular Re-education, Orthotic/Prosthetic Management ,Patient/Caregiver Education, Self-Care/Home Management, Sensory Integration,Soft Tissue Mobilization,Taping, Therapeutic Activities, Therapeutic Exercises Other Therapeutic Interventions cryo-cuff Next Visit Focus/Plan Next Note Type Treatment Note Next Visit Plan continue PT per POC with combination land and aquatic- based PT.
--- NOTE | 2019-04-29 15:36 | PT.OTN ---
Current Diagnoses Encounter for other orthopedic aftercare (04/29/19) Arthrodesis status (04/29/19) Physical Therapy Treatment Note PT-OP-A Visit Information Start: 04/09/19 13:49 Freq: Status: Active Protocol: Document 04/29/19 15:16 AW (Rec: 04/29/19 15:35 AW [email or web address]) Out-Patient Physical Therapy Visit Information Visit Information Visit Type Treatment Note Visit Start Time 11:15 Visit Stop Time 12:15 Total Visit Minutes 60 Visit Number 8 Number of DELIVERY HELPER Visits 0 Evaluation Information Evaluation Date 04/08/19 PT-OP-B Current Condition Start: 04/09/19 13:49 Freq: Status: Active Protocol: Document 04/08/19 13:50 AW (Rec: 04/09/19 14:31 AW [email or web address]) Current Condition History of Current Condition Onset Date years Current Complaints left ankle swelling and limited range of motion History of Current Condition Vamsi vega sprained his left ankle in 1989 as a result of a fall down a 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 He has dealt with ongoing ankle pain for years, culminating finally in ankle arthrodesis and Achilles lengthening on . Pt unable to identify which bones were fused. Per protocol, he has been in a cam boot for all mobility for the past three months. He primarily used a knee scooter during that time, but has progressively increased his weightbearing in the boot for short distances. He is now allowed full weightbearing in the boot. In the past 10 days, he switched to an articulated cane held in the right hand. He has returned to driving. 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 He reports minimal pain since surgery, but does endorse generalized tenderness of the plantar foot since beginning to walk with a cane. He denies any falls or near falls since surgery. Prior Treatments and Tests Ankle arthrodesis and Achilles lengthening 12/31/18. History of a-fib, HTN, pacemaker. Future Testing and Treatments Planned None identified Treatment Goals Patient/Caregiver Goals Pt would like to hike [place] and to be able to work standing 6 hours daily without fatigue or foot tenderness. 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 Current Functional Impairments (Reported) Functional Limitations- ADL's No known impairments Functional Limitations- Mobility/Gait Requires articulated cane and is limited in ambulation distance. Lacks confidence on uneven ground. Functional Limitations- Work/School Unable to stand for 6 hour shifts without foot/ankle fatigue and without tenderness of plantar foot. Functional Limitations- Recreation/ Unable to hike forest trails Hobbies Personal Factors Other Personal Factors That May Effect chronicity of deficits, Therapy/Recovery tendency to work through pain. PT-OP-C Subjective Start: 04/09/19 13:49 Freq: Status: Active Protocol: Document 04/29/19 15:16 AW (Rec: 04/29/19 15:35 AW [email or web address]) OP-PT Subjective Patient Comments Patient Comments Pt notes mild improvement in edema. He has been using compression garments and water pills, though he did not take his medicine today. PT-OP-D Balance Start: 04/09/19 13:49 Freq: Status: Active Protocol: Document 04/08/19 13:50 AW (Rec: 04/09/19 14:31 AW [email or web address]) OP-PT Balance Assessment Sitting Balance Static Sitting Balance Ability Normal Dynamic Sitting Balance Ability Normal Standing Balance Static Standing Balance Ability Fair Dynamic Standing Balance Ability Fair Device Used no boot, no AD Evans Fall Scale Copyright Permission PT-OP-F Manual Assessment Start: 04/09/19 13:49 Freq: Status: Active Protocol: Document 04/08/19 13:50 AW (Rec: 04/09/19 14:31 AW [email or web address]) Manual Assessments Joint Mobility Assessment Joint Mobility Assessment Minimal subtalar movement. No dorsal/plantar restriction at MTP's 1-5 bilaterally. Difficult to assess tibiotalar mobility due to swelling. Other Manual Assessments Other Manual Assessments No point tenderness along plantar surface, 5th digit tuberosity, navicular, Achilles insertion. Generalized tenderness along plantar surface noted by patient PT-OP-G Mobility & Gait Start: 04/09/19 13:49 Freq: Status: Active Protocol: Document 04/08/19 13:50 AW (Rec: 04/09/19 14:31 AW [email or web address]) OP Gait Assessment Gait Gait Assistance Required: Standby Assistance Distance (Feet) 100 Able to Maintain Weight Bearing Status Yes During Gait Gait Deviations General Gait Pattern Within Normal Limits,Antalgic, Decreased Stride Length, Decreased Feet Clearance,Wide Based Gait Factors Limiting Gait Function Factors Limiting Gait Function Decreased Activity Tolerance, Decreased Strength,Limited Range of Motion,Poor Balance Comments Gait Comments Pt ambulates with WBOS, forefoot landing (L>R), decreased stance time on LLE and decreaed step length RLE. He vaults over the LLE and exhibits right lateral lean in right stance. PT-OP-J Posture/Palpation/Skin Start: 04/09/19 13:49 Freq: Status: Active Protocol: Document 04/08/19 13:50 AW (Rec: 04/09/19 14:31 AW [email or web address]) Posture Evaluation Position Standing Knee Posture (L) Genu Valgus,(R) Genu Valgus Ankle/Foot Posture (L) Forefoot Abducted,(R) Forefoot Abducted Foot Arch (L) Low Arch,(R) Low Arch Skin Assessment Edema Assessment left ankle/foot Edema Type Non-Pitting Edema Appearance Discolored,Taut Comments Talar arch: Left 39 cm, Right 33 cm Horizontal at level of bilateral malleoli: Left 41 cm , Right 35 cm PT-OP-K Range of Motion Start: 04/09/19 13:49 Freq: Status: Active Protocol: Document 04/08/19 13:50 AW (Rec: 04/09/19 14:31 AW [email or web address]) Knee Goniometric Range of Motion Knee Left Knee ROM WFL Yes Patient Position Supine Ankle and Foot Goniometric Range of Motion Ankle and Foot Right Active Ankle/Foot ROM WFL No Testing Position Supine Dorsiflexion with Knee Flexed 5 Dorsiflexion with Knee Extended 5 Plantarflexion 40 Left Active Ankle/Foot ROM WFL No Testing Position Supine Dorsiflexion with Knee Flexed 0 Dorsiflexion with Knee Extended 0 Plantarflexion 20 Ankle and Foot ROM Limitations ROM Limitations Bony Restriction Toe Range of Motion Toes ROM Limitations Comments Pt lacks active left great toe extension PT-OP-M Strength Start: 04/09/19 13:49 Freq: Status: Active Protocol: Document 04/08/19 13:50 AW (Rec: 04/10/19 09:07 AW [email or web address]) Ankle/Foot Strength Ankle and Foot Manual Muscle Testing Right Dorsiflexion (L4) 4- Good- Plantarflexion (S1) 4- Good- Inversion 4 Good Eversion (S1) 4 Good Left Dorsiflexion (L4) 3 Fair Plantarflexion (S1) 3+ Fair+ Inversion 4- Good- Eversion (S1) 4- Good- Comments Pt can dorsiflex from extended position, but has no AROM past 0. Unable to test PF in standing due to safety concerns. Toe Strength Toe Manual Muscle Testing Right Great Toe Flexion 5 Normal Left Great Toe Flexion 4 Good PT-OP-Q Treatments Start: 04/09/19 13:49 Freq: Status: Active Protocol: Document 04/29/19 15:16 AW (Rec: 04/29/19 15:35 AW [email or web address]) Therapeutic Exercises Supine Exercises supine INV and EV Supine Exercise Name supine inversion/eversion Side left Resistance level 2 Equipment Used t band Reps/Minutes 10 x2 supine DF and PF Supine Exercise Name supine DF/PF Side left Resistance level 2 Equipment Used t band Reps/Minutes 10 x2 Sitting Exercises seated arch lift Sitting Exercise Name seated arch lift Side left Reps/Minutes 5x3 reps Comments pt able to complete three good reps with tactile cue to avoid hip rotation BAPS Sitting Exercise Name PF, DF, IV, EV, CW, CCW Equipment Used BAPS board Lv 3 ball Reps/Minutes x10 Comments slow control each direction, challenged PF Standing Exercises lunge on bosu Standing Exercise Name lunge on bosu Side left Equipment Used bosu Reps/Minutes 10 reps round surface;10 reps flat surface lunge on step Standing Exercise Name lunge on step Side left Equipment Used 12 step Reps/Minutes 15 sec hold x 8 heel raise Standing Exercise Name eccentric plantar flexion Side bilateral Equipment Used 6 step Reps/Minutes 2x15 reps Comments cues for upright posture, minimizing hip sway Manual Therapy Treatment Soft Tissue Mobilization edema managment Body Location lower LE Mobilization Type Myofascial Release Intensity/Depth Moderate Body Position Supine Comments upward stroke/retrograde Joint Mobilizations MTP Joint MTP 1-5 Direction dorsal and plantar Grade III Body Position Hooklying Reps/Duration 3 minutes Comments greatest restriction at digits 2-3 PT-OP-R Modalities Start: 04/09/19 13:49 Freq: Status: Active Protocol: Document 04/29/19 15:16 AW (Rec: 04/29/19 15:36 AW [email or web address]) Hot Pack/Cold Pack Treatment Cold Pack Location right ankle Patient Position Hooklying Treatment Duration (minutes) 15 Patient Tolerance Good Comments cryo cuff PT-OP-S Aquatic Treatment Start: 04/09/19 13:49 Freq: Status: Active Protocol: Document 04/27/19 16:16 SAK (Rec: 04/27/19 16:24 SAK [id number]) Aquatics Treatment Pool Entry/Exit Pool Entry/Exit Method Stairs Comments step-to pattern Water Walking [place] Water Level Chest Level Level of Assistance Verbal Cues Comments modified with smaller steps fwd,bck,side, august, soldier august Water Level Chest Level Level of Assistance Standby Assistance,Verbal Cues Lower Extremity Exercises hip flex/ext Body Position Standing Water Level Chest Level Reps/Duration 10x Comments UE support Hip ab/ad Body Position Standing Reps/Duration 10x Comments UE support squats Body Position Standing Water Level Chest Level Reps/Duration 10x knee flex/ext Body Position Standing Water Level Chest Level Reps/Duration 10x Comments UE support heel raise, toe raise Body Position Standing Water Level Chest Level Reps/Duration 10x Lower Extremity Stretches HS Body Position Standing Water Level Chest Level Equipment Small Noodle gastroc Body Position Standing Water Level Chest Level Reps/Duration 2x30 Comments wall [place] Activities [place] Activities Bicycle,Bicycle Backwards, Cross [place],Running Equipment small noodle for backward bicycle Duration 15' Manual Techniques Aquatic Massage left foot and ankle to decrease soft tissue tightness bottom of foot and improve scar mobility PT-OP-T Assessment and Plan Start: 04/09/19 13:49 Freq: Status: Active Protocol: Document 04/29/19 15:16 AW (Rec: 04/29/19 15:35 AW [email or web address]) Physical Therapy Assessment Goals 5 Impairment Pt scores 30/84 on FAAM ADL subscale Short Term Goal (STG) Pt will score 45/84 on FAAM ADL subscale to demonstrate increased independence with ADL's STG Duration 05/20/19 Mcfp Goal (LTG) Pt will score 60/84 on FAAM ADL subscale to demonstrate increased independence with ADL's LTG Duration 07/01/19 4 Impairment 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 LTG Duration 07/01/19 2 Impairment Pt scores 33/80 on LEFS Short Term Goal (STG) Pt will score 45 or greater on LEFS to demonstrate improved function in daily activities. STG Duration 05/20/19 Mcfp Goal (LTG) Pt will score 60 or greater on LEFS to represent improved function in daily activities. LTG Duration 07/01/19 1 Impairment Pt with no appropriate HEP Short Term Goal (STG) Pt will be independent with HEP for support of therapy services provided in clinic. STG Duration 05/06/19 Mcfp Goal (LTG) Pt will be independent with maintenance HEP to maintain functional progress achieved in therapy. LTG Duration 07/01/19 Assessment Summary Assessment Pt reports feeling good after aquatic therapy and notes decreased edema. Talar arch measured today at 39.5 cm which is stable from evaluation. Horizontal measurement around bilateral malleoli was 36.5 cm compared with 41 cm on 04/08/19. Pt reports no pain to minimal pain with progressed ther ex. Physical Therapy Plan Frequency and Duration Frequency of Treatment 3x/Week Duration of Treatment 12 weeks Plan of Care Start Date 04/08/19 Plan of Care End Date 07/01/19 Therapeutic Interventions Therapeutic Interventions Aquatic Therapy,Balance Training,Gait Training,Home Exercise Program,Joint Mobilizations,Manual Therapy, Neuromuscular Re-education, Orthotic/Prosthetic Management ,Patient/Caregiver Education, Self-Care/Home Management, Sensory Integration,Soft Tissue Mobilization,Taping, Therapeutic Activities, Therapeutic Exercises Other Therapeutic Interventions cryo-cuff Next Visit Focus/Plan Next Note Type Treatment Note Next Visit Plan continue PT per POC with combination land and aquatic- based PT.
--- NOTE | 2019-05-01 11:33 | PT.OTN ---
Current Diagnoses Encounter for other orthopedic aftercare (05/01/19) Arthrodesis status (05/01/19) Physical Therapy Treatment Note PT-OP-A Visit Information Start: 04/09/19 13:49 Freq: Status: Active Protocol: Document 05/01/19 10:33 SP (Rec: 05/01/19 11:36 SP [id number]) Out-Patient Physical Therapy Visit Information Visit Information Visit Type Treatment Note Visit Start Time 10:33 Visit Stop Time 11:33 Total Visit Minutes 60 Visit Number 9 Number of TANK FILLER Visits 1 Evaluation Information Evaluation Date 04/08/19 PT-OP-B Current Condition Start: 04/09/19 13:49 Freq: Status: Active Protocol: Document 04/08/19 13:50 AW (Rec: 04/09/19 14:31 AW [email or web address]) Current Condition History of Current Condition Onset Date years Current Complaints left ankle swelling and limited range of motion History of Current Condition Vamsi vega sprained his left ankle in 1989 as a result of a fall down a 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 He has dealt with ongoing ankle pain for years, culminating finally in ankle arthrodesis and Achilles lengthening on . Pt unable to identify which bones were fused. Per protocol, he has been in a cam boot for all mobility for the past three months. He primarily used a knee scooter during that time, but has progressively increased his weightbearing in the boot for short distances. He is now allowed full weightbearing in the boot. In the past 10 days, he switched to an articulated cane held in the right hand. He has returned to driving. 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 He reports minimal pain since surgery, but does endorse generalized tenderness of the plantar foot since beginning to walk with a cane. He denies any falls or near falls since surgery. Prior Treatments and Tests Ankle arthrodesis and Achilles lengthening 12/31/18. History of a-fib, HTN, pacemaker. Future Testing and Treatments Planned None identified Treatment Goals Patient/Caregiver Goals Pt would like to hike [employer] and to be able to work standing 6 hours daily without fatigue or foot tenderness. 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 Current Functional Impairments (Reported) Functional Limitations- ADL's No known impairments Functional Limitations- Mobility/Gait Requires articulated cane and is limited in ambulation distance. Lacks confidence on uneven ground. Functional Limitations- Work/School Unable to stand for 6 hour shifts without foot/ankle fatigue and without tenderness of plantar foot. Functional Limitations- Recreation/ Unable to hike forest trails Hobbies Personal Factors Other Personal Factors That May Effect chronicity of deficits, Therapy/Recovery tendency to work through pain. PT-OP-C Subjective Start: 04/09/19 13:49 Freq: Status: Active Protocol: Document 05/01/19 10:33 SP (Rec: 05/01/19 11:36 SP [id number]) OP-PT Subjective Patient Comments Patient Comments Pt notes mild improvement in edema. He has been using compression garments and water pills, though he did not take his medicine today. PT-OP-D Balance Start: 04/09/19 13:49 Freq: Status: Active Protocol: Document 04/08/19 13:50 AW (Rec: 04/09/19 14:31 AW [email or web address]) OP-PT Balance Assessment Sitting Balance Static Sitting Balance Ability Normal Dynamic Sitting Balance Ability Normal Standing Balance Static Standing Balance Ability Fair Dynamic Standing Balance Ability Fair Device Used no boot, no AD Evans Fall Scale Copyright Permission PT-OP-F Manual Assessment Start: 04/09/19 13:49 Freq: Status: Active Protocol: Document 04/08/19 13:50 AW (Rec: 04/09/19 14:31 AW [email or web address]) Manual Assessments Joint Mobility Assessment Joint Mobility Assessment Minimal subtalar movement. No dorsal/plantar restriction at MTP's 1-5 bilaterally. Difficult to assess tibiotalar mobility due to swelling. Other Manual Assessments Other Manual Assessments No point tenderness along plantar surface, 5th digit tuberosity, navicular, Achilles insertion. Generalized tenderness along plantar surface noted by patient PT-OP-G Mobility & Gait Start: 04/09/19 13:49 Freq: Status: Active Protocol: Document 04/08/19 13:50 AW (Rec: 04/09/19 14:31 AW [email or web address]) OP Gait Assessment Gait Gait Assistance Required: Standby Assistance Distance (Feet) 100 Able to Maintain Weight Bearing Status Yes During Gait Gait Deviations General Gait Pattern Within Normal Limits,Antalgic, Decreased Stride Length, Decreased Feet Clearance,Wide Based Gait Factors Limiting Gait Function Factors Limiting Gait Function Decreased Activity Tolerance, Decreased Strength,Limited Range of Motion,Poor Balance Comments Gait Comments Pt ambulates with WBOS, forefoot landing (L>R), decreased stance time on LLE and decreaed step length RLE. He vaults over the LLE and exhibits right lateral lean in right stance. PT-OP-J Posture/Palpation/Skin Start: 04/09/19 13:49 Freq: Status: Active Protocol: Document 04/08/19 13:50 AW (Rec: 04/09/19 14:31 AW [email or web address]) Posture Evaluation Position Standing Knee Posture (L) Genu Valgus,(R) Genu Valgus Ankle/Foot Posture (L) Forefoot Abducted,(R) Forefoot Abducted Foot Arch (L) Low Arch,(R) Low Arch Skin Assessment Edema Assessment left ankle/foot Edema Type Non-Pitting Edema Appearance Discolored,Taut Comments Talar arch: Left 39 cm, Right 33 cm Horizontal at level of bilateral malleoli: Left 41 cm , Right 35 cm PT-OP-K Range of Motion Start: 04/09/19 13:49 Freq: Status: Active Protocol: Document 04/08/19 13:50 AW (Rec: 04/09/19 14:31 AW [email or web address]) Knee Goniometric Range of Motion Knee Left Knee ROM WFL Yes Patient Position Supine Ankle and Foot Goniometric Range of Motion Ankle and Foot Right Active Ankle/Foot ROM WFL No Testing Position Supine Dorsiflexion with Knee Flexed 5 Dorsiflexion with Knee Extended 5 Plantarflexion 40 Left Active Ankle/Foot ROM WFL No Testing Position Supine Dorsiflexion with Knee Flexed 0 Dorsiflexion with Knee Extended 0 Plantarflexion 20 Ankle and Foot ROM Limitations ROM Limitations Bony Restriction Toe Range of Motion Toes ROM Limitations Comments Pt lacks active left great toe extension PT-OP-M Strength Start: 04/09/19 13:49 Freq: Status: Active Protocol: Document 04/08/19 13:50 AW (Rec: 04/10/19 09:07 AW [email or web address]) Ankle/Foot Strength Ankle and Foot Manual Muscle Testing Right Dorsiflexion (L4) 4- Good- Plantarflexion (S1) 4- Good- Inversion 4 Good Eversion (S1) 4 Good Left Dorsiflexion (L4) 3 Fair Plantarflexion (S1) 3+ Fair+ Inversion 4- Good- Eversion (S1) 4- Good- Comments Pt can dorsiflex from extended position, but has no AROM past 0. Unable to test PF in standing due to safety concerns. Toe Strength Toe Manual Muscle Testing Right Great Toe Flexion 5 Normal Left Great Toe Flexion 4 Good PT-OP-Q Treatments Start: 04/09/19 13:49 Freq: Status: Active Protocol: Document 05/01/19 10:33 SP (Rec: 05/01/19 11:36 SP [id number]) Gym Equipment Shuttle Recovery Bilateral squat Details cued slow control and L foot flat during range squat Resistance 100 Shuttle Recovery Platform Stable Reps/Time 3x10 Therapeutic Exercises Sitting Exercises BAPS Sitting Exercise Name PF, DF, IV, EV, CW, CCW Equipment Used Aava Mobile board Lv 3 ball Reps/Minutes x15 Comments slow control each direction, challenged PF Standing Exercises single stance Side bilateral Equipment Used blue oval cushion Reps/Minutes 20 sec alternate L> R x3 sets Comments contact support at stair rail as needed for self recovery balance heel raise Standing Exercise Name eccentric plantar flexion Side bilateral Equipment Used 6 step Reps/Minutes 2x15 reps Comments cues for upright posture, minimizing hip sway Manual Therapy Treatment Soft Tissue Mobilization edema managment Body Location lower LE Mobilization Type Myofascial Release Intensity/Depth Moderate Body Position Supine Comments upward stroke/retrograde Joint Mobilizations MTP Joint MTP 1-5 Direction dorsal and plantar Grade III Body Position Hooklying Reps/Duration 3 minutes Comments greatest restriction at digits 2-3 PT-OP-R Modalities Start: 04/09/19 13:49 Freq: Status: Active Protocol: Document 05/01/19 10:33 SP (Rec: 05/01/19 11:36 SP [id number]) Hot Pack/Cold Pack Treatment Cold Pack Location right ankle Patient Position Hooklying Treatment Duration (minutes) 15 Patient Tolerance Good Comments cryo cuff PT-OP-S Aquatic Treatment Start: 04/09/19 13:49 Freq: Status: Active Protocol: Document 04/27/19 16:16 SAK (Rec: 04/27/19 16:24 SAK [id number]) Aquatics Treatment Pool Entry/Exit Pool Entry/Exit Method Stairs Comments step-to pattern Water Walking [place] Water Level Chest Level Level of Assistance Verbal Cues Comments modified with smaller steps fwd,bck,side, august, soldier august Water Level Chest Level Level of Assistance Standby Assistance,Verbal Cues Lower Extremity Exercises hip flex/ext Body Position Standing Water Level Chest Level Reps/Duration 10x Comments UE support Hip ab/ad Body Position Standing Reps/Duration 10x Comments UE support squats Body Position Standing Water Level Chest Level Reps/Duration 10x knee flex/ext Body Position Standing Water Level Chest Level Reps/Duration 10x Comments UE support heel raise, toe raise Body Position Standing Water Level Chest Level Reps/Duration 10x Lower Extremity Stretches HS Body Position Standing Water Level Chest Level Equipment Small Noodle gastroc Body Position Standing Water Level Chest Level Reps/Duration 2x30 Comments wall Bucks Activities Bucks Activities Bicycle,Bicycle Backwards, Cross Country,Running Equipment small noodle for backward bicycle Duration 15' Manual Techniques Aquatic Massage left foot and ankle to decrease soft tissue tightness bottom of foot and improve scar mobility PT-OP-T Assessment and Plan Start: 04/09/19 13:49 Freq: Status: Active Protocol: Document 05/01/19 10:33 SP (Rec: 05/01/19 11:36 SP [id number]) Physical Therapy Assessment Goals 5 Impairment Pt scores 30/84 on FAAM ADL subscale Short Term Goal (STG) Pt will score 45/84 on FAAM ADL subscale to demonstrate increased independence with ADL's STG Duration 05/20/19 Intermediate Goal (LTG) Pt will score 60/84 on FAAM ADL subscale to demonstrate increased independence with ADL's LTG Duration 07/01/19 4 Impairment 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 LTG Duration 07/01/19 2 Impairment Pt scores 33/80 on LEFS Short Term Goal (STG) Pt will score 45 or greater on LEFS to demonstrate improved function in daily activities. STG Duration 05/20/19 Solutions Specialist Goal (LTG) Pt will score 60 or greater on LEFS to represent improved function in daily activities. LTG Duration 07/01/19 1 Impairment Pt with no appropriate HEP Short Term Goal (STG) Pt will be independent with HEP for support of therapy services provided in clinic. STG Duration 05/06/19 Intermediate Goal (LTG) Pt will be independent with maintenance HEP to maintain functional progress achieved in therapy. LTG Duration 07/01/19 Assessment Summary Assessment Tx focused on ROM and proprioception with positive feedback, little muscle straining during SLS foam cushion but not painful and shuttle recovery felt fine, cued for foot flat and work on ROM. Decreased swelling post manual retrograde pre therex. Pt reports no pain to minimal pain with progressed ther ex but welcoming to cryotherapy end of tx for assist swelling control. Physical Therapy Plan Frequency and Duration Frequency of Treatment 3x/Week Duration of Treatment 12 weeks Plan of Care Start Date 04/08/19 Plan of Care End Date 07/01/19 Therapeutic Interventions Therapeutic Interventions Aquatic Therapy,Balance Training,Gait Training,Home Exercise Program,Joint Mobilizations,Manual Therapy, Neuromuscular Re-education, Orthotic/Prosthetic Management ,Patient/Caregiver Education, Self-Care/Home Management, Sensory Integration,Soft Tissue Mobilization,Taping, Therapeutic Activities, Therapeutic Exercises Other Therapeutic Interventions cryo-cuff Next Visit Focus/Plan Next Note Type Treatment Note Next Visit Plan Assess response to SLS cushion and shuttle recovery added last tx. continue PT per POC with combination land and aquatic-based PT.
--- NOTE | 2019-05-04 15:20 | PT.OTN ---
Current Diagnoses Encounter for other orthopedic aftercare (05/04/19) Arthrodesis status (05/04/19) Physical Therapy Treatment Note PT-OP-A Visit Information Start: 04/09/19 13:49 Freq: Status: Active Protocol: Document 05/04/19 14:30 SP (Rec: 05/04/19 15:25 SP [id number]) Out-Patient Physical Therapy Visit Information Visit Information Visit Type Treatment Note Visit Start Time 14:30 Visit Stop Time 15:20 Total Visit Minutes 50 Visit Number 10 Number of DAIRY TECHNOLOGIST Visits 2 PT-OP-B Current Condition Start: 04/09/19 13:49 Freq: Status: Active Protocol: Document 04/08/19 13:50 AW (Rec: 04/09/19 14:31 AW [email or web address]) Current Condition History of Current Condition Onset Date years Current Complaints left ankle swelling and limited range of motion History of Current Condition Vamsi vega sprained his left ankle in 1989 as a result of a fall down a 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 He has dealt with ongoing ankle pain for years, culminating finally in ankle arthrodesis and Achilles lengthening on . Pt unable to identify which bones were fused. Per protocol, he has been in a cam boot for all mobility for the past three months. He primarily used a knee scooter during that time, but has progressively increased his weightbearing in the boot for short distances. He is now allowed full weightbearing in the boot. In the past 10 days, he switched to an articulated cane held in the right hand. He has returned to driving. 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 He reports minimal pain since surgery, but does endorse generalized tenderness of the plantar foot since beginning to walk with a cane. He denies any falls or near falls since surgery. Prior Treatments and Tests Ankle arthrodesis and Achilles lengthening 12/31/18. History of a-fib, HTN, pacemaker. Future Testing and Treatments Planned None identified Treatment Goals Patient/Caregiver Goals Pt would like to hike [place] and to be able to work standing 6 hours daily without fatigue or foot tenderness. 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 Current Functional Impairments (Reported) Functional Limitations- ADL's No known impairments Functional Limitations- Mobility/Gait Requires articulated cane and is limited in ambulation distance. Lacks confidence on uneven ground. Functional Limitations- Work/School Unable to stand for 6 hour shifts without foot/ankle fatigue and without tenderness of plantar foot. Functional Limitations- Recreation/ Unable to hike forest trails Hobbies Personal Factors Other Personal Factors That May Effect chronicity of deficits, Therapy/Recovery tendency to work through pain. PT-OP-C Subjective Start: 04/09/19 13:49 Freq: Status: Active Protocol: Document 05/04/19 14:30 SP (Rec: 05/04/19 15:25 SP [id number]) OP-PT Subjective Patient Comments Patient Comments Pt stated felt fine after last tx, is experiencing some little discomfort behind L knee today but not to bad pre PT. Pt reported worked out in the yard this morning for about 4- 5 hrs (boot donned). PT-OP-D Balance Start: 04/09/19 13:49 Freq: Status: Active Protocol: Document 04/08/19 13:50 AW (Rec: 04/09/19 14:31 AW [email or web address]) OP-PT Balance Assessment Sitting Balance Static Sitting Balance Ability Normal Dynamic Sitting Balance Ability Normal Standing Balance Static Standing Balance Ability Fair Dynamic Standing Balance Ability Fair Device Used no boot, no AD Evans Fall Scale Copyright Permission PT-OP-F Manual Assessment Start: 04/09/19 13:49 Freq: Status: Active Protocol: Document 04/08/19 13:50 AW (Rec: 04/09/19 14:31 AW [email or web address]) Manual Assessments Joint Mobility Assessment Joint Mobility Assessment Minimal subtalar movement. No dorsal/plantar restriction at MTP's 1-5 bilaterally. Difficult to assess tibiotalar mobility due to swelling. Other Manual Assessments Other Manual Assessments No point tenderness along plantar surface, 5th digit tuberosity, navicular, Achilles insertion. Generalized tenderness along plantar surface noted by patient PT-OP-G Mobility & Gait Start: 04/09/19 13:49 Freq: Status: Active Protocol: Document 04/08/19 13:50 AW (Rec: 04/09/19 14:31 AW [email or web address]) OP Gait Assessment Gait Gait Assistance Required: Standby Assistance Distance (Feet) 100 Able to Maintain Weight Bearing Status Yes During Gait Gait Deviations General Gait Pattern Within Normal Limits,Antalgic, Decreased Stride Length, Decreased Feet Clearance,Wide Based Gait Factors Limiting Gait Function Factors Limiting Gait Function Decreased Activity Tolerance, Decreased Strength,Limited Range of Motion,Poor Balance Comments Gait Comments Pt ambulates with WBOS, forefoot landing (L>R), decreased stance time on LLE and decreaed step length RLE. He vaults over the LLE and exhibits right lateral lean in right stance. PT-OP-J Posture/Palpation/Skin Start: 04/09/19 13:49 Freq: Status: Active Protocol: Document 04/08/19 13:50 AW (Rec: 04/09/19 14:31 AW [email or web address]) Posture Evaluation Position Standing Knee Posture (L) Genu Valgus,(R) Genu Valgus Ankle/Foot Posture (L) Forefoot Abducted,(R) Forefoot Abducted Foot Arch (L) Low Arch,(R) Low Arch Skin Assessment Edema Assessment left ankle/foot Edema Type Non-Pitting Edema Appearance Discolored,Taut Comments Talar arch: Left 39 cm, Right 33 cm Horizontal at level of bilateral malleoli: Left 41 cm , Right 35 cm PT-OP-K Range of Motion Start: 04/09/19 13:49 Freq: Status: Active Protocol: Document 04/08/19 13:50 AW (Rec: 04/09/19 14:31 AW [email or web address]) Knee Goniometric Range of Motion Knee Left Knee ROM WFL Yes Patient Position Supine Ankle and Foot Goniometric Range of Motion Ankle and Foot Right Active Ankle/Foot ROM WFL No Testing Position Supine Dorsiflexion with Knee Flexed 5 Dorsiflexion with Knee Extended 5 Plantarflexion 40 Left Active Ankle/Foot ROM WFL No Testing Position Supine Dorsiflexion with Knee Flexed 0 Dorsiflexion with Knee Extended 0 Plantarflexion 20 Ankle and Foot ROM Limitations ROM Limitations Bony Restriction Toe Range of Motion Toes ROM Limitations Comments Pt lacks active left great toe extension PT-OP-M Strength Start: 04/09/19 13:49 Freq: Status: Active Protocol: Document 04/08/19 13:50 AW (Rec: 04/10/19 09:07 AW [email or web address]) Ankle/Foot Strength Ankle and Foot Manual Muscle Testing Right Dorsiflexion (L4) 4- Good- Plantarflexion (S1) 4- Good- Inversion 4 Good Eversion (S1) 4 Good Left Dorsiflexion (L4) 3 Fair Plantarflexion (S1) 3+ Fair+ Inversion 4- Good- Eversion (S1) 4- Good- Comments Pt can dorsiflex from extended position, but has no AROM past 0. Unable to test PF in standing due to safety concerns. Toe Strength Toe Manual Muscle Testing Right Great Toe Flexion 5 Normal Left Great Toe Flexion 4 Good PT-OP-Q Treatments Start: 04/09/19 13:49 Freq: Status: Active Protocol: Document 05/04/19 14:30 SP (Rec: 05/04/19 15:25 SP [id number]) Cardio Equipment Recumbent Bicycle Duration (Minutes) 5 Resistance 11 Seat Position 9 Other Boot doffed Gym Equipment Shuttle Recovery Bilateral squat Details cued slow control and L foot flat during range squat Resistance 150 Shuttle Recovery Platform Stable Reps/Time 3x10 Shuttle Balance DF/PF/IV/EV Details WBOS: F/B/STS Reps/Duration blue clips Comments Min support as needed 1.5 min each direction Therapeutic Exercises Supine Exercises supine INV and EV Supine Exercise Name supine inversion Side left Resistance level 2 Equipment Used t band Reps/Minutes 10 x2 supine DF and PF Supine Exercise Name supine DF/PF Side left Resistance level 2 Equipment Used t band Reps/Minutes 10 x2 Sitting Exercises BAPS Sitting Exercise Name PF, DF, IV, EV, CW, CCW Equipment Used BAPS board Lv 2 x15 reps, Lv 3 ball x15 Comments slow control each direction, challenged PF Neuro Re-Education Treatment Balance Activities Balance board Details forward/backward Reps/Duration x10 PT-OP-R Modalities Start: 04/09/19 13:49 Freq: Status: Active Protocol: Document 05/04/19 14:30 SP (Rec: 05/04/19 15:25 SP [id number]) Hot Pack/Cold Pack Treatment Cold Pack Location right ankle Patient Position Hooklying Treatment Duration (minutes) 10 Patient Tolerance Good Comments cryo cuff PT-OP-S Aquatic Treatment Start: 04/09/19 13:49 Freq: Status: Active Protocol: Document 04/27/19 16:16 SAK (Rec: 04/27/19 16:24 SAK [id number]) Aquatics Treatment Pool Entry/Exit Pool Entry/Exit Method Stairs Comments step-to pattern Water Walking [place] Water Level Chest Level Level of Assistance Verbal Cues Comments modified with smaller steps fwd,bck,side, august, soldier august Water Level Chest Level Level of Assistance Standby Assistance,Verbal Cues Lower Extremity Exercises hip flex/ext Body Position Standing Water Level Chest Level Reps/Duration 10x Comments UE support Hip ab/ad Body Position Standing Reps/Duration 10x Comments UE support squats Body Position Standing Water Level Chest Level Reps/Duration 10x knee flex/ext Body Position Standing Water Level Chest Level Reps/Duration 10x Comments UE support heel raise, toe raise Body Position Standing Water Level Chest Level Reps/Duration 10x Lower Extremity Stretches HS Body Position Standing Water Level Chest Level Equipment Small Noodle gastroc Body Position Standing Water Level Chest Level Reps/Duration 2x30 Comments wall [place] Activities [place] Activities Bicycle,Bicycle Backwards, Cross Country,Running Equipment small noodle for backward bicycle Duration 15' Manual Techniques Aquatic Massage left foot and ankle to decrease soft tissue tightness bottom of foot and improve scar mobility PT-OP-T Assessment and Plan Start: 04/09/19 13:49 Freq: Status: Active Protocol: Document 05/04/19 14:30 SP (Rec: 05/04/19 15:25 SP [id number]) Physical Therapy Assessment Goals 5 Impairment Pt scores 30/84 on FAAM ADL subscale Short Term Goal (STG) Pt will score 45/84 on FAAM ADL subscale to demonstrate increased independence with ADL's STG Duration 05/20/19 Asphalt Raker Goal (LTG) Pt will score 60/84 on FAAM ADL subscale to demonstrate increased independence with ADL's LTG Duration 07/01/19 4 Impairment 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 LTG Duration 07/01/19 2 Impairment Pt scores 33/80 on LEFS Short Term Goal (STG) Pt will score 45 or greater on LEFS to demonstrate improved function in daily activities. STG Duration 05/20/19 Asphalt Raker Goal (LTG) Pt will score 60 or greater on LEFS to represent improved function in daily activities. LTG Duration 07/01/19 1 Impairment Pt with no appropriate HEP Short Term Goal (STG) Pt will be independent with HEP for support of therapy services provided in clinic. STG Duration 05/06/19 Asphalt Raker Goal (LTG) Pt will be independent with maintenance HEP to maintain functional progress achieved in therapy. LTG Duration 07/01/19 Assessment Summary Assessment Tx focused on strengthening, proprioception and ROM today. Responded well, no increased pain, little rubbing within ankle joint bur reported tolerable, good muscle work out tiring. Noted increased DF/PF ROM during walking. Physical Therapy Plan Frequency and Duration Frequency of Treatment 3x/Week Duration of Treatment 12 weeks Plan of Care Start Date 04/08/19 Plan of Care End Date 07/01/19 Therapeutic Interventions Therapeutic Interventions Aquatic Therapy,Balance Training,Gait Training,Home Exercise Program,Joint Mobilizations,Manual Therapy, Neuromuscular Re-education, Orthotic/Prosthetic Management ,Patient/Caregiver Education, Self-Care/Home Management, Sensory Integration,Soft Tissue Mobilization,Taping, Therapeutic Activities, Therapeutic Exercises Other Therapeutic Interventions cryo-cuff Next Visit Focus/Plan Next Note Type Treatment Note Next Visit Plan Assess reponse to last tx added recumbent bike, bal board and shuttle balance. Next change to [employer], suggested bringing sneaker. Continue PT per POC with combination land and aquatic- based PT.
--- NOTE | 2019-05-06 15:23 | PT.OTN ---
Current Diagnoses Encounter for other orthopedic aftercare (05/06/19) Arthrodesis status (05/06/19) Physical Therapy Treatment Note PT-OP-A Visit Information Start: 04/09/19 13:49 Freq: Status: Active Protocol: Document 05/06/19 13:41 AW (Rec: 05/06/19 15:23 AW [email or web address]) Out-Patient Physical Therapy Visit Information Visit Information Visit Type Treatment Note Visit Start Time 10:40 Visit Stop Time 11:30 Total Visit Minutes 50 Visit Number 11 Number of PUMP ERECTOR HELPER Visits 0 Evaluation Information Evaluation Date 04/08/19 PT-OP-B Current Condition Start: 04/09/19 13:49 Freq: Status: Active Protocol: Document 04/08/19 13:50 AW (Rec: 04/09/19 14:31 AW [email or web address]) Current Condition History of Current Condition Onset Date years Current Complaints left ankle swelling and limited range of motion History of Current Condition Vamsi vega sprained his left ankle in 1989 as a result of a fall down a 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 He has dealt with ongoing ankle pain for years, culminating finally in ankle arthrodesis and Achilles lengthening on . Pt unable to identify which bones were fused. Per protocol, he has been in a cam boot for all mobility for the past three months. He primarily used a knee scooter during that time, but has progressively increased his weightbearing in the boot for short distances. He is now allowed full weightbearing in the boot. In the past 10 days, he switched to an articulated cane held in the right hand. He has returned to driving. 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 He reports minimal pain since surgery, but does endorse generalized tenderness of the plantar foot since beginning to walk with a cane. He denies any falls or near falls since surgery. Prior Treatments and Tests Ankle arthrodesis and Achilles lengthening 12/31/18. History of a-fib, HTN, pacemaker. Future Testing and Treatments Planned None identified Treatment Goals Patient/Caregiver Goals Pt would like to hike [employer] and to be able to work standing 6 hours daily without fatigue or foot tenderness. 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 Current Functional Impairments (Reported) Functional Limitations- ADL's No known impairments Functional Limitations- Mobility/Gait Requires articulated cane and is limited in ambulation distance. Lacks confidence on uneven ground. Functional Limitations- Work/School Unable to stand for 6 hour shifts without foot/ankle fatigue and without tenderness of plantar foot. Functional Limitations- Recreation/ Unable to hike forest trails Hobbies Personal Factors Other Personal Factors That May Effect chronicity of deficits, Therapy/Recovery tendency to work through pain. PT-OP-C Subjective Start: 04/09/19 13:49 Freq: Status: Active Protocol: Document 05/06/19 13:41 AW (Rec: 05/06/19 15:23 AW [email or web address]) OP-PT Subjective Patient Comments Patient Comments Pt reports less tenderness of the plantar left foot when he initiates gait. He feels he is doing better almost daily. Patient Reported Progress Improving PT-OP-D Balance Start: 04/09/19 13:49 Freq: Status: Active Protocol: Document 04/08/19 13:50 AW (Rec: 04/09/19 14:31 AW [email or web address]) OP-PT Balance Assessment Sitting Balance Static Sitting Balance Ability Normal Dynamic Sitting Balance Ability Normal Standing Balance Static Standing Balance Ability Fair Dynamic Standing Balance Ability Fair Device Used no boot, no AD Evans Fall Scale Copyright Permission PT-OP-F Manual Assessment Start: 04/09/19 13:49 Freq: Status: Active Protocol: Document 04/08/19 13:50 AW (Rec: 04/09/19 14:31 AW [email or web address]) Manual Assessments Joint Mobility Assessment Joint Mobility Assessment Minimal subtalar movement. No dorsal/plantar restriction at MTP's 1-5 bilaterally. Difficult to assess tibiotalar mobility due to swelling. Other Manual Assessments Other Manual Assessments No point tenderness along plantar surface, 5th digit tuberosity, navicular, Achilles insertion. Generalized tenderness along plantar surface noted by patient PT-OP-G Mobility & Gait Start: 04/09/19 13:49 Freq: Status: Active Protocol: Document 04/08/19 13:50 AW (Rec: 04/09/19 14:31 AW [email or web address]) OP Gait Assessment Gait Gait Assistance Required: Standby Assistance Distance (Feet) 100 Able to Maintain Weight Bearing Status Yes During Gait Gait Deviations General Gait Pattern Within Normal Limits,Antalgic, Decreased Stride Length, Decreased Feet Clearance,Wide Based Gait Factors Limiting Gait Function Factors Limiting Gait Function Decreased Activity Tolerance, Decreased Strength,Limited Range of Motion,Poor Balance Comments Gait Comments Pt ambulates with WBOS, forefoot landing (L>R), decreased stance time on LLE and decreaed step length RLE. He vaults over the LLE and exhibits right lateral lean in right stance. PT-OP-J Posture/Palpation/Skin Start: 04/09/19 13:49 Freq: Status: Active Protocol: Document 04/08/19 13:50 AW (Rec: 04/09/19 14:31 AW [email or web address]) Posture Evaluation Position Standing Knee Posture (L) Genu Valgus,(R) Genu Valgus Ankle/Foot Posture (L) Forefoot Abducted,(R) Forefoot Abducted Foot Arch (L) Low Arch,(R) Low Arch Skin Assessment Edema Assessment left ankle/foot Edema Type Non-Pitting Edema Appearance Discolored,Taut Comments Talar arch: Left 39 cm, Right 33 cm Horizontal at level of bilateral malleoli: Left 41 cm , Right 35 cm PT-OP-K Range of Motion Start: 04/09/19 13:49 Freq: Status: Active Protocol: Document 04/08/19 13:50 AW (Rec: 04/09/19 14:31 AW [email or web address]) Knee Goniometric Range of Motion Knee Left Knee ROM WFL Yes Patient Position Supine Ankle and Foot Goniometric Range of Motion Ankle and Foot Right Active Ankle/Foot ROM WFL No Testing Position Supine Dorsiflexion with Knee Flexed 5 Dorsiflexion with Knee Extended 5 Plantarflexion 40 Left Active Ankle/Foot ROM WFL No Testing Position Supine Dorsiflexion with Knee Flexed 0 Dorsiflexion with Knee Extended 0 Plantarflexion 20 Ankle and Foot ROM Limitations ROM Limitations Bony Restriction Toe Range of Motion Toes ROM Limitations Comments Pt lacks active left great toe extension PT-OP-M Strength Start: 04/09/19 13:49 Freq: Status: Active Protocol: Document 04/08/19 13:50 AW (Rec: 04/10/19 09:07 AW [email or web address]) Ankle/Foot Strength Ankle and Foot Manual Muscle Testing Right Dorsiflexion (L4) 4- Good- Plantarflexion (S1) 4- Good- Inversion 4 Good Eversion (S1) 4 Good Left Dorsiflexion (L4) 3 Fair Plantarflexion (S1) 3+ Fair+ Inversion 4- Good- Eversion (S1) 4- Good- Comments Pt can dorsiflex from extended position, but has no AROM past 0. Unable to test PF in standing due to safety concerns. Toe Strength Toe Manual Muscle Testing Right Great Toe Flexion 5 Normal Left Great Toe Flexion 4 Good PT-OP-Q Treatments Start: 04/09/19 13:49 Freq: Status: Active Protocol: Document 05/06/19 13:41 AW (Rec: 05/06/19 15:23 AW [email or web address]) Gym Equipment Shuttle Recovery Unilateral Squats Details left; focus on ankle dorsiflexion Resistance 100 Shuttle Recovery Platform Stable Reps/Time 3x12 reps Therapeutic Exercises Sitting Exercises BAPS Sitting Exercise Name PF, DF, IV, EV, CW, CCW Equipment Used BAPS board Lv 2 x15 reps, Lv 3 ball x15 Reps/Minutes 4 minutes Comments slow control each direction, challenged DF Standing Exercises heel raise Standing Exercise Name eccentric plantar flexion Side bilateral Equipment Used 6 step Reps/Minutes 2x15 reps Comments cues for upright posture, minimizing hip sway Manual Therapy Treatment Soft Tissue Mobilization edema managment Body Location lower LE Mobilization Type Instrument Assisted,Myofascial Release,Rolling Intensity/Depth Moderate Body Position Supine Comments upward stroke/retrograde using stainless steel LEEF tool and rolling pin Joint Mobilizations talocrural Joint talocrural Direction anterior > posterior Grade III Body Position Supine Reps/Duration 3 minutes Comments with active DF and manual stretch using contract/relax MTP Joint MTP 1-5 Direction dorsal and plantar Grade III Body Position Hooklying Reps/Duration 5 minutes Comments greatest restriction at digits 2-3 PT-OP-R Modalities Start: 04/09/19 13:49 Freq: Status: Active Protocol: Document 05/06/19 13:41 AW (Rec: 05/06/19 15:23 AW [email or web address]) Hot Pack/Cold Pack Treatment Cold Pack Location right ankle Patient Position Hooklying Treatment Duration (minutes) 15 Patient Tolerance Good Comments cryo cuff PT-OP-S Aquatic Treatment Start: 04/09/19 13:49 Freq: Status: Active Protocol: Document 04/27/19 16:16 SAK (Rec: 04/27/19 16:24 SAK [email or web address]) Aquatics Treatment Pool Entry/Exit Pool Entry/Exit Method Stairs Comments step-to pattern Water Walking [place] Water Level Chest Level Level of Assistance Verbal Cues Comments modified with smaller steps fwd,bck,side, august, soldier august Water Level Chest Level Level of Assistance Standby Assistance,Verbal Cues Lower Extremity Exercises hip flex/ext Body Position Standing Water Level Chest Level Reps/Duration 10x Comments UE support Hip ab/ad Body Position Standing Reps/Duration 10x Comments UE support squats Body Position Standing Water Level Chest Level Reps/Duration 10x knee flex/ext Body Position Standing Water Level Chest Level Reps/Duration 10x Comments UE support heel raise, toe raise Body Position Standing Water Level Chest Level Reps/Duration 10x Lower Extremity Stretches HS Body Position Standing Water Level Chest Level Equipment Small Noodle gastroc Body Position Standing Water Level Chest Level Reps/Duration 2x30 Comments wall [place] Activities [place] Activities Bicycle,Bicycle Backwards, Cross Country,Running Equipment small noodle for backward bicycle Duration 15' Manual Techniques Aquatic Massage left foot and ankle to decrease soft tissue tightness bottom of foot and improve scar mobility PT-OP-T Assessment and Plan Start: 04/09/19 13:49 Freq: Status: Active Protocol: Document 05/06/19 13:41 AW (Rec: 05/06/19 15:23 AW [email or web address]) Physical Therapy Assessment Goals 5 Impairment Pt scores 30/84 on FAAM ADL subscale Short Term Goal (STG) Pt will score 45/84 on FAAM ADL subscale to demonstrate increased independence with ADL's STG Duration 05/20/19 Intermediate Goal (LTG) Pt will score 60/84 on FAAM ADL subscale to demonstrate increased independence with ADL's LTG Duration 07/01/19 4 Impairment 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 STG Duration 05/06/19 Csr Technician Goal (LTG) Pt will tolerate 7+ hours standing work (with appropriate breaks) without foot fatigue/tenderness LTG Duration 07/01/19 3 Impairment Pt unable to walk on uneven terrain Short Term Goal (STG) Pt will walk 15 minutes on uneven terrain with least restrictive assistive device STG Duration 05/20/19 Csr Technician Goal (LTG) Pt will walk 30 minutes on uneven terrain/forest trails with least restrictive assistive device. LTG Duration 07/01/19 2 Impairment Pt scores 33/80 on LEFS Short Term Goal (STG) Pt will score 45 or greater on LEFS to demonstrate improved function in daily activities. STG Duration 05/20/19 Csr Technician Goal (LTG) Pt will score 60 or greater on LEFS to represent improved function in daily activities. LTG Duration 07/01/19 1 Impairment Pt with no appropriate HEP Short Term Goal (STG) Pt will be independent with HEP for support of therapy services provided in clinic. STG Duration 05/06/19 Csr Technician Goal (LTG) Pt will be independent with maintenance HEP to maintain functional progress achieved in therapy. LTG Duration 07/01/19 Assessment Summary Assessment Pt wore sneakers today which he report fit better on his left foot than he thought they would. He reports increased time out of the boot with the goal of retiring the boot at the end of April. He tolerated talar mobs well with no report of increased pain. Introduced stainless steel tool for edema management which pt also tolerated well. Physical Therapy Plan Frequency and Duration Frequency of Treatment 3x/Week Duration of Treatment 12 weeks Plan of Care Start Date 04/08/19 Plan of Care End Date 07/01/19 Therapeutic Interventions Therapeutic Interventions Aquatic Therapy,Balance Training,Gait Training,Home Exercise Program,Joint Mobilizations,Manual Therapy, Neuromuscular Re-education, Orthotic/Prosthetic Management ,Patient/Caregiver Education, Self-Care/Home Management, Sensory Integration,Soft Tissue Mobilization,Taping, Therapeutic Activities, Therapeutic Exercises Other Therapeutic Interventions cryo-cuff Next Visit Focus/Plan Next Note Type Treatment Note Next Visit Plan Assess reponse to last tx added recumbent bike, bal board and shuttle balance. Next change to [employer], suggested bringing sneaker. Continue PT per POC with combination land and aquatic- based PT.
--- NOTE | 2019-05-11 15:48 | PT.OTN ---
Current Diagnoses Encounter for other orthopedic aftercare (05/11/19) Arthrodesis status (05/11/19) Physical Therapy Treatment Note PT-OP-A Visit Information Start: 04/09/19 13:49 Freq: Status: Active Protocol: Document 05/11/19 11:00 LJ (Rec: 05/11/19 15:48 LJ [id number]) Out-Patient Physical Therapy Visit Information Visit Information Visit Type Aquatic Treatment Note Visit Start Time 11:00 Visit Stop Time 11:45 Total Visit Minutes 45 Visit Number 12 Number of COAL DIGGER Visits 1 Evaluation Information Evaluation Date 04/08/19 PT-OP-B Current Condition Start: 04/09/19 13:49 Freq: Status: Active Protocol: Document 04/08/19 13:50 AW (Rec: 04/09/19 14:31 AW [email or web address]) Current Condition History of Current Condition Onset Date years Current Complaints left ankle swelling and limited range of motion History of Current Condition Vamsi vega sprained his left ankle in 1989 as a result of a fall down a 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 He has dealt with ongoing ankle pain for years, culminating finally in ankle arthrodesis and Achilles lengthening on . Pt unable to identify which bones were fused. Per protocol, he has been in a cam boot for all mobility for the past three months. He primarily used a knee scooter during that time, but has progressively increased his weightbearing in the boot for short distances. He is now allowed full weightbearing in the boot. In the past 10 days, he switched to an articulated cane held in the right hand. He has returned to driving. 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 He reports minimal pain since surgery, but does endorse generalized tenderness of the plantar foot since beginning to walk with a cane. He denies any falls or near falls since surgery. Prior Treatments and Tests Ankle arthrodesis and Achilles lengthening 12/31/18. History of a-fib, HTN, pacemaker. Future Testing and Treatments Planned None identified Treatment Goals Patient/Caregiver Goals Pt would like to hike [employer] and to be able to work standing 6 hours daily without fatigue or foot tenderness. 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 Current Functional Impairments (Reported) Functional Limitations- ADL's No known impairments Functional Limitations- Mobility/Gait Requires articulated cane and is limited in ambulation distance. Lacks confidence on uneven ground. Functional Limitations- Work/School Unable to stand for 6 hour shifts without foot/ankle fatigue and without tenderness of plantar foot. Functional Limitations- Recreation/ Unable to hike forest trails Hobbies Personal Factors Other Personal Factors That May Effect chronicity of deficits, Therapy/Recovery tendency to work through pain. PT-OP-C Subjective Start: 04/09/19 13:49 Freq: Status: Active Protocol: Document 05/11/19 11:00 LJ (Rec: 05/11/19 15:48 LJ [id number]) OP-PT Subjective Patient Comments Patient Comments Pt reports he has no more pain but his ankle is stiff. He is able to walk with out the boot and able to stand for longer periods of time PT-OP-D Balance Start: 04/09/19 13:49 Freq: Status: Active Protocol: Document 04/08/19 13:50 AW (Rec: 04/09/19 14:31 AW [email or web address]) OP-PT Balance Assessment Sitting Balance Static Sitting Balance Ability Normal Dynamic Sitting Balance Ability Normal Standing Balance Static Standing Balance Ability Fair Dynamic Standing Balance Ability Fair Device Used no boot, no AD Evans Fall Scale Copyright Permission PT-OP-F Manual Assessment Start: 04/09/19 13:49 Freq: Status: Active Protocol: Document 04/08/19 13:50 AW (Rec: 04/09/19 14:31 AW [email or web address]) Manual Assessments Joint Mobility Assessment Joint Mobility Assessment Minimal subtalar movement. No dorsal/plantar restriction at MTP's 1-5 bilaterally. Difficult to assess tibiotalar mobility due to swelling. Other Manual Assessments Other Manual Assessments No point tenderness along plantar surface, 5th digit tuberosity, navicular, Achilles insertion. Generalized tenderness along plantar surface noted by patient PT-OP-G Mobility & Gait Start: 04/09/19 13:49 Freq: Status: Active Protocol: Document 04/08/19 13:50 AW (Rec: 04/09/19 14:31 AW [email or web address]) OP Gait Assessment Gait Gait Assistance Required: Standby Assistance Distance (Feet) 100 Able to Maintain Weight Bearing Status Yes During Gait Gait Deviations General Gait Pattern Within Normal Limits,Antalgic, Decreased Stride Length, Decreased Feet Clearance,Wide Based Gait Factors Limiting Gait Function Factors Limiting Gait Function Decreased Activity Tolerance, Decreased Strength,Limited Range of Motion,Poor Balance Comments Gait Comments Pt ambulates with WBOS, forefoot landing (L>R), decreased stance time on LLE and decreaed step length RLE. He vaults over the LLE and exhibits right lateral lean in right stance. PT-OP-J Posture/Palpation/Skin Start: 04/09/19 13:49 Freq: Status: Active Protocol: Document 04/08/19 13:50 AW (Rec: 04/09/19 14:31 AW [email or web address]) Posture Evaluation Position Standing Knee Posture (L) Genu Valgus,(R) Genu Valgus Ankle/Foot Posture (L) Forefoot Abducted,(R) Forefoot Abducted Foot Arch (L) Low Arch,(R) Low Arch Skin Assessment Edema Assessment left ankle/foot Edema Type Non-Pitting Edema Appearance Discolored,Taut Comments Talar arch: Left 39 cm, Right 33 cm Horizontal at level of bilateral malleoli: Left 41 cm , Right 35 cm PT-OP-K Range of Motion Start: 04/09/19 13:49 Freq: Status: Active Protocol: Document 04/08/19 13:50 AW (Rec: 04/09/19 14:31 AW [email or web address]) Knee Goniometric Range of Motion Knee Left Knee ROM WFL Yes Patient Position Supine Ankle and Foot Goniometric Range of Motion Ankle and Foot Right Active Ankle/Foot ROM WFL No Testing Position Supine Dorsiflexion with Knee Flexed 5 Dorsiflexion with Knee Extended 5 Plantarflexion 40 Left Active Ankle/Foot ROM WFL No Testing Position Supine Dorsiflexion with Knee Flexed 0 Dorsiflexion with Knee Extended 0 Plantarflexion 20 Ankle and Foot ROM Limitations ROM Limitations Bony Restriction Toe Range of Motion Toes ROM Limitations Comments Pt lacks active left great toe extension PT-OP-M Strength Start: 04/09/19 13:49 Freq: Status: Active Protocol: Document 04/08/19 13:50 AW (Rec: 04/10/19 09:07 AW [email or web address]) Ankle/Foot Strength Ankle and Foot Manual Muscle Testing Right Dorsiflexion (L4) 4- Good- Plantarflexion (S1) 4- Good- Inversion 4 Good Eversion (S1) 4 Good Left Dorsiflexion (L4) 3 Fair Plantarflexion (S1) 3+ Fair+ Inversion 4- Good- Eversion (S1) 4- Good- Comments Pt can dorsiflex from extended position, but has no AROM past 0. Unable to test PF in standing due to safety concerns. Toe Strength Toe Manual Muscle Testing Right Great Toe Flexion 5 Normal Left Great Toe Flexion 4 Good PT-OP-Q Treatments Start: 04/09/19 13:49 Freq: Status: Active Protocol: Document 05/06/19 13:41 AW (Rec: 05/06/19 15:23 AW [email or web address]) Gym Equipment Shuttle Recovery Unilateral Squats Details left; focus on ankle dorsiflexion Resistance 100 Shuttle Recovery Platform Stable Reps/Time 3x12 reps Therapeutic Exercises Sitting Exercises BAPS Sitting Exercise Name PF, DF, IV, EV, CW, CCW Equipment Used BAPS board Lv 2 x15 reps, Lv 3 ball x15 Reps/Minutes 4 minutes Comments slow control each direction, challenged DF Standing Exercises heel raise Standing Exercise Name eccentric plantar flexion Side bilateral Equipment Used 6 step Reps/Minutes 2x15 reps Comments cues for upright posture, minimizing hip sway Manual Therapy Treatment Soft Tissue Mobilization edema managment Body Location lower LE Mobilization Type Instrument Assisted,Myofascial Release,Rolling Intensity/Depth Moderate Body Position Supine Comments upward stroke/retrograde using stainless steel LEEF tool and rolling pin Joint Mobilizations talocrural Joint talocrural Direction anterior > posterior Grade III Body Position Supine Reps/Duration 3 minutes Comments with active DF and manual stretch using contract/relax MTP Joint MTP 1-5 Direction dorsal and plantar Grade III Body Position Hooklying Reps/Duration 5 minutes Comments greatest restriction at digits 2-3 PT-OP-R Modalities Start: 04/09/19 13:49 Freq: Status: Active Protocol: Document 05/06/19 13:41 AW (Rec: 05/06/19 15:23 AW [email or web address]) Hot Pack/Cold Pack Treatment Cold Pack Location right ankle Patient Position Hooklying Treatment Duration (minutes) 15 Patient Tolerance Good Comments cryo cuff PT-OP-S Aquatic Treatment Start: 04/09/19 13:49 Freq: Status: Active Protocol: Document 05/11/19 11:00 (Rec: 05/11/19 15:48 [id number]) Aquatics Treatment Pool Entry/Exit Pool Entry/Exit Method Stairs Comments step-to pattern Water Walking on heels and on toes Water Level Chest Level Level of Assistance Verbal Cues [place] Water Level Chest Level Level of Assistance Verbal Cues Comments modified with smaller steps fwd,bck,side, march, soldier august Water Level Chest Level Level of Assistance Standby Assistance,Verbal Cues Lower Extremity Exercises hip flex/ext Body Position Standing Water Level Chest Level Reps/Duration 10x Comments UE support Hip ab/ad Body Position Standing Reps/Duration 10x Comments UE support squats Body Position Standing Water Level Chest Level Reps/Duration 10x Lower Extremity Stretches HS Body Position Standing Water Level Chest Level Equipment Large Noodle gastroc Body Position Standing Water Level Chest Level Reps/Duration 2x30 Comments wall; rocking foot Balance reverse squats on noodle Water Level [place] Reps/Duration 2 min standing on noodle Water Level Chest Level Equipment lg noodle Reps/Duration 6 min Comments various foot positions [place] Activities [place] Activities Bicycle,Cross Country,Running Other Activities standing on noodle paddling forward PT-OP-T Assessment and Plan Start: 04/09/19 13:49 Freq: Status: Active Protocol: Document 05/11/19 11:00 (Rec: 05/11/19 15:48 [id number]) Physical Therapy Assessment Goals 5 Impairment Pt scores 30/84 on FAAM ADL subscale Short Term Goal (STG) Pt will score 45/84 on FAAM ADL subscale to demonstrate increased independence with ADL's STG Duration 05/20/19 Detention Goal (LTG) Pt will score 60/84 on FAAM ADL subscale to demonstrate increased independence with ADL's LTG Duration 07/01/19 4 Impairment 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 STG Duration 05/06/19 Detention Goal (LTG) Pt will tolerate 7+ hours standing work (with appropriate breaks) without foot fatigue/tenderness LTG Duration 1/22/20 3 Impairment Pt unable to walk on uneven terrain Short Term Goal (STG) Pt will walk 15 minutes on uneven terrain with least restrictive assistive device STG Duration 05/20/19 [employer] Branch [employer] Operator Goal (LTG) Pt will walk 30 minutes on uneven terrain/forest trails with least restrictive assistive device. LTG Duration 07/01/19 2 Impairment Pt scores 33/80 on LEFS Short Term Goal (STG) Pt will score 45 or greater on LEFS to demonstrate improved function in daily activities. STG Duration 05/20/19 [employer] Operator Goal (LTG) Pt will score 60 or greater on LEFS to represent improved function in daily activities. LTG Duration 07/01/19 1 Impairment Pt with no appropriate HEP Short Term Goal (STG) Pt will be independent with HEP for support of therapy services provided in clinic. STG Duration 05/06/19 [employer] Operator Goal (LTG) Pt will be independent with maintenance HEP to maintain functional progress achieved in therapy. LTG Duration 07/01/19 Assessment Summary Assessment Pt tolerated treatment and higher level balancing exercises involving noodle. Requires verbal cueing for posture and proper squat mechanics. Physical Therapy Plan Frequency and Duration Frequency of Treatment 3x/Week Duration of Treatment 12 weeks Plan of Care Start Date 04/08/19 Plan of Care End Date 07/01/19 Therapeutic Interventions Therapeutic Interventions Aquatic Therapy,Balance Training,Gait Training,Home Exercise Program,Joint Mobilizations,Manual Therapy, Neuromuscular Re-education, Orthotic/Prosthetic Management ,Patient/Caregiver Education, Self-Care/Home Management, Sensory Integration,Soft Tissue Mobilization,Taping, Therapeutic Activities, Therapeutic Exercises Other Therapeutic Interventions cryo-cuff Next Visit Focus/Plan Next Note Type Treatment Note Next Visit Plan progress strengthening and balance activities with focus on ankle strengthening. Suggest hydrobike for LE strengthening and ankle ROM
--- NOTE | 2019-05-13 14:37 | PT.OTN ---
Current Diagnoses Encounter for other orthopedic aftercare (05/13/19) Arthrodesis status (05/13/19) Physical Therapy Treatment Note PT-OP-A Visit Information Start: 04/09/19 13:49 Freq: Status: Active Protocol: Document 05/13/19 14:24 AW (Rec: 05/13/19 14:37 AW [email or web address]) Out-Patient Physical Therapy Visit Information Visit Information Visit Type Treatment Note Visit Start Time 10:30 Visit Stop Time 11:30 Total Visit Minutes 60 Visit Number 13 Number of VALVE REPAIRER Visits 1 Evaluation Information Evaluation Date 04/08/19 PT-OP-B Current Condition Start: 04/09/19 13:49 Freq: Status: Active Protocol: Document 04/08/19 13:50 AW (Rec: 04/09/19 14:31 AW [email or web address]) Current Condition History of Current Condition Onset Date years Current Complaints left ankle swelling and limited range of motion History of Current Condition Lea vega sprained his left ankle in 1989 as a result of a fall down a 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 He has dealt with ongoing ankle pain for years, culminating finally in ankle arthrodesis and Achilles lengthening on . Pt unable to identify which bones were fused. Per protocol, he has been in a cam boot for all mobility for the past three months. He primarily used a knee scooter during that time, but has progressively increased his weightbearing in the boot for short distances. He is now allowed full weightbearing in the boot. In the past 10 days, he switched to an articulated cane held in the right hand. He has returned to driving. 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 He reports minimal pain since surgery, but does endorse generalized tenderness of the plantar foot since beginning to walk with a cane. He denies any falls or near falls since surgery. Prior Treatments and Tests Ankle arthrodesis and Achilles lengthening 12/31/18. History of a-fib, HTN, pacemaker. Future Testing and Treatments Planned None identified Treatment Goals Patient/Caregiver Goals Pt would like to hike [employer] and to be able to work standing 6 hours daily without fatigue or foot tenderness. 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 Current Functional Impairments (Reported) Functional Limitations- ADL's No known impairments Functional Limitations- Mobility/Gait Requires articulated cane and is limited in ambulation distance. Lacks confidence on uneven ground. Functional Limitations- Work/School Unable to stand for 6 hour shifts without foot/ankle fatigue and without tenderness of plantar foot. Functional Limitations- Recreation/ Unable to hike forest trails Hobbies Personal Factors Other Personal Factors That May Effect chronicity of deficits, Therapy/Recovery tendency to work through pain. PT-OP-C Subjective Start: 04/09/19 13:49 Freq: Status: Active Protocol: Document 05/13/19 14:24 AW (Rec: 05/13/19 14:37 AW [email or web address]) OP-PT Subjective Patient Comments Patient Comments Pt is out of the walking boot full-time and has been walking around his house without shoes occasioanally. PT-OP-D Balance Start: 04/09/19 13:49 Freq: Status: Active Protocol: Document 04/08/19 13:50 AW (Rec: 04/09/19 14:31 AW [email or web address]) OP-PT Balance Assessment Sitting Balance Static Sitting Balance Ability Normal Dynamic Sitting Balance Ability Normal Standing Balance Static Standing Balance Ability Fair Dynamic Standing Balance Ability Fair Device Used no boot, no AD Evans Fall Scale Copyright Permission PT-OP-F Manual Assessment Start: 04/09/19 13:49 Freq: Status: Active Protocol: Document 04/08/19 13:50 AW (Rec: 04/09/19 14:31 AW [email or web address]) Manual Assessments Joint Mobility Assessment Joint Mobility Assessment Minimal subtalar movement. No dorsal/plantar restriction at MTP's 1-5 bilaterally. Difficult to assess tibiotalar mobility due to swelling. Other Manual Assessments Other Manual Assessments No point tenderness along plantar surface, 5th digit tuberosity, navicular, Achilles insertion. Generalized tenderness along plantar surface noted by patient PT-OP-G Mobility & Gait Start: 04/09/19 13:49 Freq: Status: Active Protocol: Document 04/08/19 13:50 AW (Rec: 04/09/19 14:31 AW [email or web address]) OP Gait Assessment Gait Gait Assistance Required: Standby Assistance Distance (Feet) 100 Able to Maintain Weight Bearing Status Yes During Gait Gait Deviations General Gait Pattern Within Normal Limits,Antalgic, Decreased Stride Length, Decreased Feet Clearance,Wide Based Gait Factors Limiting Gait Function Factors Limiting Gait Function Decreased Activity Tolerance, Decreased Strength,Limited Range of Motion,Poor Balance Comments Gait Comments Pt ambulates with WBOS, forefoot landing (L>R), decreased stance time on LLE and decreaed step length RLE. He vaults over the LLE and exhibits right lateral lean in right stance. PT-OP-J Posture/Palpation/Skin Start: 04/09/19 13:49 Freq: Status: Active Protocol: Document 04/08/19 13:50 AW (Rec: 04/09/19 14:31 AW [email or web address]) Posture Evaluation Position Standing Knee Posture (L) Genu Valgus,(R) Genu Valgus Ankle/Foot Posture (L) Forefoot Abducted,(R) Forefoot Abducted Foot Arch (L) Low Arch,(R) Low Arch Skin Assessment Edema Assessment left ankle/foot Edema Type Non-Pitting Edema Appearance Discolored,Taut Comments Talar arch: Left 39 cm, Right 33 cm Horizontal at level of bilateral malleoli: Left 41 cm , Right 35 cm PT-OP-K Range of Motion Start: 04/09/19 13:49 Freq: Status: Active Protocol: Document 04/08/19 13:50 AW (Rec: 04/09/19 14:31 AW [email or web address]) Knee Goniometric Range of Motion Knee Left Knee ROM WFL Yes Patient Position Supine Ankle and Foot Goniometric Range of Motion Ankle and Foot Right Active Ankle/Foot ROM WFL No Testing Position Supine Dorsiflexion with Knee Flexed 5 Dorsiflexion with Knee Extended 5 Plantarflexion 40 Left Active Ankle/Foot ROM WFL No Testing Position Supine Dorsiflexion with Knee Flexed 0 Dorsiflexion with Knee Extended 0 Plantarflexion 20 Ankle and Foot ROM Limitations ROM Limitations Bony Restriction Toe Range of Motion Toes ROM Limitations Comments Pt lacks active left great toe extension PT-OP-M Strength Start: 04/09/19 13:49 Freq: Status: Active Protocol: Document 04/08/19 13:50 AW (Rec: 04/10/19 09:07 AW [email or web address]) Ankle/Foot Strength Ankle and Foot Manual Muscle Testing Right Dorsiflexion (L4) 4- Good- Plantarflexion (S1) 4- Good- Inversion 4 Good Eversion (S1) 4 Good Left Dorsiflexion (L4) 3 Fair Plantarflexion (S1) 3+ Fair+ Inversion 4- Good- Eversion (S1) 4- Good- Comments Pt can dorsiflex from extended position, but has no AROM past 0. Unable to test PF in standing due to safety concerns. Toe Strength Toe Manual Muscle Testing Right Great Toe Flexion 5 Normal Left Great Toe Flexion 4 Good PT-OP-Q Treatments Start: 04/09/19 13:49 Freq: Status: Active Protocol: Document 05/13/19 14:24 AW (Rec: 05/13/19 14:37 AW [email or web address]) Therapeutic Exercises Supine Exercises supine DF and PF Supine Exercise Name supine DF/PF Side left Resistance level 2 Equipment Used t band Reps/Minutes 2 minutes Standing Exercises lunge on step Standing Exercise Name lunge on step Side left Equipment Used 12 step Reps/Minutes 15 sec hold x 8 heel raise Standing Exercise Name eccentric plantar flexion Side left Equipment Used 6 step Reps/Minutes 15 reps; 8 reps Comments 1st set bilateral, 2nd set left only with UE support standing calf stretch Standing Exercise Name calf stretch Side left Equipment Used LEA Reps/Minutes 1 minute x 2 Comments cues for hip extension Manual Therapy Treatment Soft Tissue Mobilization edema managment Body Location lower LE Mobilization Type Myofascial Release,Rolling Intensity/Depth Moderate Body Position Supine Comments upward stroke/retrograde manual and with rolling pin Joint Mobilizations talocrural Joint talocrural Direction anterior > posterior Grade III Body Position Supine Reps/Duration 3 minutes Comments with active DF and manual stretch using contract/relax MTP Joint MTP 1-5 Direction dorsal and plantar Grade III Body Position Hooklying Reps/Duration 5 minutes Comments greatest restriction at digits 2-3 PT-OP-R Modalities Start: 04/09/19 13:49 Freq: Status: Active Protocol: Document 05/13/19 14:24 AW (Rec: 05/13/19 14:37 AW [email or web address]) Hot Pack/Cold Pack Treatment Cold Pack Location right ankle Patient Position Hooklying Treatment Duration (minutes) 15 Patient Tolerance Good Comments cryo cuff PT-OP-S Aquatic Treatment Start: 04/09/19 13:49 Freq: Status: Active Protocol: Document 05/11/19 11:00 LJ (Rec: 05/11/19 15:48 LJ [email or web address]) Aquatics Treatment Pool Entry/Exit Pool Entry/Exit Method Stairs Comments step-to pattern Water Walking on heels and on toes Water Level Chest Level Level of Assistance Verbal Cues [place] Water Level Chest Level Level of Assistance Verbal Cues Comments modified with smaller steps fwd,bck,side, august, soldier august Water Level Chest Level Level of Assistance Standby Assistance,Verbal Cues Lower Extremity Exercises hip flex/ext Body Position Standing Water Level Chest Level Reps/Duration 10x Comments UE support Hip ab/ad Body Position Standing Reps/Duration 10x Comments UE support squats Body Position Standing Water Level Chest Level Reps/Duration 10x Lower Extremity Stretches HS Body Position Standing Water Level Chest Level Equipment Large Noodle gastroc Body Position Standing Water Level Chest Level Reps/Duration 2x30 Comments wall; rocking foot Balance reverse squats on noodle Water Level [place] Reps/Duration 2 min standing on noodle Water Level Chest Level Equipment lg noodle Reps/Duration 6 min Comments various foot positions [place] Activities [place] Activities Bicycle,Cross Country,Running Other Activities standing on noodle paddling forward PT-OP-T Assessment and Plan Start: 04/09/19 13:49 Freq: Status: Active Protocol: Document 05/13/19 14:24 AW (Rec: 05/13/19 14:37 AW [email or web address]) Physical Therapy Assessment Goals 5 Impairment Pt scores 30/84 on FAAM ADL subscale Short Term Goal (STG) Pt will score 45/84 on FAAM ADL subscale to demonstrate increased independence with ADL's STG Duration 05/20/19 City Dispatch Supervisor Goal (LTG) Pt will score 60/84 on FAAM ADL subscale to demonstrate increased independence with ADL's LTG Duration 07/01/19 4 Impairment 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 STG Duration 05/06/19 Usp Goal (LTG) Pt will tolerate 7+ hours standing work (with appropriate breaks) without foot fatigue/tenderness LTG Duration 07/01/19 3 Impairment Pt unable to walk on uneven terrain Short Term Goal (STG) Pt will walk 15 minutes on uneven terrain with least restrictive assistive device STG Duration 05/20/19 City Dispatch Supervisor Goal (LTG) Pt will walk 30 minutes on uneven terrain/forest trails with least restrictive assistive device. LTG Duration 07/01/19 2 Impairment Pt scores 33/80 on LEFS Short Term Goal (STG) Pt will score 45 or greater on LEFS to demonstrate improved function in daily activities. STG Duration 05/20/19 City Dispatch Supervisor Goal (LTG) Pt will score 60 or greater on LEFS to represent improved function in daily activities. LTG Duration 07/01/19 1 Impairment Pt with no appropriate HEP Short Term Goal (STG) Pt will be independent with HEP for support of therapy services provided in clinic. 05/13/19 MET STG Duration 05/06/19 Usp Goal (LTG) Pt will be independent with maintenance HEP to maintain functional progress achieved in therapy. LTG Duration 07/01/19 Assessment Summary Assessment Left ankle appears left edematous. He is now 100% weightbearing out of the boot and tolerating it well. He reports stiffness of the left ankle limiting dorsiflexion which is noticable in gait. Spent increased time today on manual edema management and joint mobilizations in order to preserve forefoot range of motion in light of hindfoot fixation. Physical Therapy Plan Frequency and Duration Frequency of Treatment 3x/Week Duration of Treatment 12 weeks Plan of Care Start Date 04/08/19 Plan of Care End Date 07/01/19 Therapeutic Interventions Therapeutic Interventions Aquatic Therapy,Balance Training,Gait Training,Home Exercise Program,Joint Mobilizations,Manual Therapy, Neuromuscular Re-education, Orthotic/Prosthetic Management ,Patient/Caregiver Education, Self-Care/Home Management, Sensory Integration,Soft Tissue Mobilization,Taping, Therapeutic Activities, Therapeutic Exercises Other Therapeutic Interventions cryo-cuff Next Visit Focus/Plan Next Note Type Treatment Note Next Visit Plan progress strengthening and balance activities with focus on ankle strengthening all planes
--- NOTE | 2019-05-15 11:40 | PT.OTN ---
Current Diagnoses Encounter for other orthopedic aftercare (05/15/19) Arthrodesis status (05/15/19) Physical Therapy Treatment Note PT-OP-A Visit Information Start: 04/09/19 13:49 Freq: Status: Active Protocol: Document 05/15/19 10:35 SP (Rec: 05/15/19 11:37 SP [id number]) Out-Patient Physical Therapy Visit Information Visit Information Visit Type Treatment Note Visit Start Time 10:40 Visit Stop Time 11:40 Total Visit Minutes 60 Visit Number 14 Number of BUFFING MACHINE TENDER Visits 1 PT-OP-B Current Condition Start: 04/09/19 13:49 Freq: Status: Active Protocol: Document 04/08/19 13:50 AW (Rec: 04/09/19 14:31 AW [email or web address]) Current Condition History of Current Condition Onset Date years Current Complaints left ankle swelling and limited range of motion History of Current Condition Lea vega sprained his left ankle in 1989 as a result of a fall down a 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 He has dealt with ongoing ankle pain for years, culminating finally in ankle arthrodesis and Achilles lengthening on . Pt unable to identify which bones were fused. Per protocol, he has been in a cam boot for all mobility for the past three months. He primarily used a knee scooter during that time, but has progressively increased his weightbearing in the boot for short distances. He is now allowed full weightbearing in the boot. In the past 10 days, he switched to an articulated cane held in the right hand. He has returned to driving. 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 He reports minimal pain since surgery, but does endorse generalized tenderness of the plantar foot since beginning to walk with a cane. He denies any falls or near falls since surgery. Prior Treatments and Tests Ankle arthrodesis and Achilles lengthening 12/31/18. History of a-fib, HTN, pacemaker. Future Testing and Treatments Planned None identified Treatment Goals Patient/Caregiver Goals Pt would like to hike [place] and to be able to work standing 6 hours daily without fatigue or foot tenderness. 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 Current Functional Impairments (Reported) Functional Limitations- ADL's No known impairments Functional Limitations- Mobility/Gait Requires articulated cane and is limited in ambulation distance. Lacks confidence on uneven ground. Functional Limitations- Work/School Unable to stand for 6 hour shifts without foot/ankle fatigue and without tenderness of plantar foot. Functional Limitations- Recreation/ Unable to hike forest trails Hobbies Personal Factors Other Personal Factors That May Effect chronicity of deficits, Therapy/Recovery tendency to work through pain. PT-OP-C Subjective Start: 04/09/19 13:49 Freq: Status: Active Protocol: Document 05/15/19 10:35 SP (Rec: 05/15/19 11:37 SP [id number]) OP-PT Subjective Patient Comments Patient Comments Pt stated not pain just tender when initially start walking, from driving here. Pt stated hasn't wore the cam boot for 3 -4 days and not going to, mainly walking with sneaker donned. Does short distances walk bare foot at home with no significant problems. PT-OP-D Balance Start: 04/09/19 13:49 Freq: Status: Active Protocol: Document 04/08/19 13:50 AW (Rec: 04/09/19 14:31 AW [email or web address]) OP-PT Balance Assessment Sitting Balance Static Sitting Balance Ability Normal Dynamic Sitting Balance Ability Normal Standing Balance Static Standing Balance Ability Fair Dynamic Standing Balance Ability Fair Device Used no boot, no AD Evans Fall Scale Copyright Permission PT-OP-F Manual Assessment Start: 04/09/19 13:49 Freq: Status: Active Protocol: Document 04/08/19 13:50 AW (Rec: 04/09/19 14:31 AW [email or web address]) Manual Assessments Joint Mobility Assessment Joint Mobility Assessment Minimal subtalar movement. No dorsal/plantar restriction at MTP's 1-5 bilaterally. Difficult to assess tibiotalar mobility due to swelling. Other Manual Assessments Other Manual Assessments No point tenderness along plantar surface, 5th digit tuberosity, navicular, Achilles insertion. Generalized tenderness along plantar surface noted by patient PT-OP-G Mobility & Gait Start: 04/09/19 13:49 Freq: Status: Active Protocol: Document 04/08/19 13:50 AW (Rec: 04/09/19 14:31 AW [email or web address]) OP Gait Assessment Gait Gait Assistance Required: Standby Assistance Distance (Feet) 100 Able to Maintain Weight Bearing Status Yes During Gait Gait Deviations General Gait Pattern Within Normal Limits,Antalgic, Decreased Stride Length, Decreased Feet Clearance,Wide Based Gait Factors Limiting Gait Function Factors Limiting Gait Function Decreased Activity Tolerance, Decreased Strength,Limited Range of Motion,Poor Balance Comments Gait Comments Pt ambulates with WBOS, forefoot landing (L>R), decreased stance time on LLE and decreaed step length RLE. He vaults over the LLE and exhibits right lateral lean in right stance. PT-OP-J Posture/Palpation/Skin Start: 04/09/19 13:49 Freq: Status: Active Protocol: Document 04/08/19 13:50 AW (Rec: 04/09/19 14:31 AW [email or web address]) Posture Evaluation Position Standing Knee Posture (L) Genu Valgus,(R) Genu Valgus Ankle/Foot Posture (L) Forefoot Abducted,(R) Forefoot Abducted Foot Arch (L) Low Arch,(R) Low Arch Skin Assessment Edema Assessment left ankle/foot Edema Type Non-Pitting Edema Appearance Discolored,Taut Comments Talar arch: Left 39 cm, Right 33 cm Horizontal at level of bilateral malleoli: Left 41 cm , Right 35 cm PT-OP-K Range of Motion Start: 04/09/19 13:49 Freq: Status: Active Protocol: Document 04/08/19 13:50 AW (Rec: 04/09/19 14:31 AW [email or web address]) Knee Goniometric Range of Motion Knee Left Knee ROM WFL Yes Patient Position Supine Ankle and Foot Goniometric Range of Motion Ankle and Foot Right Active Ankle/Foot ROM WFL No Testing Position Supine Dorsiflexion with Knee Flexed 5 Dorsiflexion with Knee Extended 5 Plantarflexion 40 Left Active Ankle/Foot ROM WFL No Testing Position Supine Dorsiflexion with Knee Flexed 0 Dorsiflexion with Knee Extended 0 Plantarflexion 20 Ankle and Foot ROM Limitations ROM Limitations Bony Restriction Toe Range of Motion Toes ROM Limitations Comments Pt lacks active left great toe extension PT-OP-M Strength Start: 04/09/19 13:49 Freq: Status: Active Protocol: Document 04/08/19 13:50 AW (Rec: 11/01/19 09:07 AW [email or web address]) Ankle/Foot Strength Ankle and Foot Manual Muscle Testing Right Dorsiflexion (L4) 4- Good- Plantarflexion (S1) 4- Good- Inversion 4 Good Eversion (S1) 4 Good Left Dorsiflexion (L4) 3 Fair Plantarflexion (S1) 3+ Fair+ Inversion 4- Good- Eversion (S1) 4- Good- Comments Pt can dorsiflex from extended position, but has no AROM past 0. Unable to test PF in standing due to safety concerns. Toe Strength Toe Manual Muscle Testing Right Great Toe Flexion 5 Normal Left Great Toe Flexion 4 Good PT-OP-N Lymphedema Start: 04/09/19 13:49 Freq: Status: Active Protocol: Document 05/15/19 10:40 SP (Rec: 05/15/19 11:44 SP [id number]) Lymphedema Measurements Lower Extremity Circumference Measurements L ankle foot MT Heads 34 cm Comments Lymphedema Comments -10 cm proximal MT heads 34 cm pre manual, 33 cm post - circumference calcaneus around ankle anteriorly ( anterior med/lat malleolus) 43 cm pre and post - figure 4 around ankle 74 cm pre and post - circumference med/lat malleolus 38.5 cm pre 37.5 cm post PT-OP-Q Treatments Start: 04/09/19 13:49 Freq: Status: Active Protocol: Document 05/15/19 10:35 SP (Rec: 05/15/19 11:37 SP [id number]) Therapeutic Exercises Standing Exercises ankle mobility Standing Exercise Name DF ROM Side left Resistance AROM Equipment Used LEA Reps/Minutes hold 3 sec x5 reps (2 sets) single stance Standing Exercise Name modified stance PF/DF ROM Side left Resistance AROM Equipment Used BOSU Comments contact RLE on side on BOSU lunge on step Standing Exercise Name lunge on step Side left Equipment Used 12 step Reps/Minutes 15 sec hold x 8 heel raise Standing Exercise Name eccentric plantar flexion Side left Equipment Used 6 step Reps/Minutes 15 reps; 8 reps Comments 1st set bilateral, 2nd set left only with UE support standing calf stretch Standing Exercise Name calf stretch Side left Equipment Used LEA Reps/Minutes 1 minute x 2 Comments cues for hip extension Gait Training Gait Activity heel toe gait Description cueing parallel foot heel toe gait phases Device Used none Surface level Distance/Duration 50 ft x2 Treatment Focus improved L ankle ROM Comments slow quality heel toe gait phases (toe off DF, eccentric PF) Manual Therapy Treatment Soft Tissue Mobilization edema managment Body Location lower LE Mobilization Type Myofascial Release,Rolling Intensity/Depth Moderate Body Position Supine Comments upward stroke/retrograde manual Joint Mobilizations talocrural Joint talocrural Direction anterior > posterior Grade III Body Position Supine Reps/Duration 3 minutes Comments with active DF and manual stretch using contract/relax MTP Joint MTP 1-5 Direction dorsal and plantar Grade III Body Position Hooklying Reps/Duration 5 minutes Comments greatest restriction at digits 2-3 PT-OP-R Modalities Start: 04/09/19 13:49 Freq: Status: Active Protocol: Document 05/15/19 10:35 SP (Rec: 05/15/19 11:37 SP [id number]) Hot Pack/Cold Pack Treatment Cold Pack Location L ankle Patient Position Hooklying Treatment Duration (minutes) 15 Patient Tolerance Good Comments cryo cuff PT-OP-S Aquatic Treatment Start: 04/09/19 13:49 Freq: Status: Active Protocol: Document 05/11/19 11:00 LJ (Rec: 05/11/19 15:48 LJ [id number]) Aquatics Treatment Pool Entry/Exit Pool Entry/Exit Method Stairs Comments step-to pattern Water Walking on heels and on toes Water Level Chest Level Level of Assistance Verbal Cues [place] Water Level Chest Level Level of Assistance Verbal Cues Comments modified with smaller steps fwd,bck,side, august, soldier august Water Level Chest Level Level of Assistance Standby Assistance,Verbal Cues Lower Extremity Exercises hip flex/ext Body Position Standing Water Level Chest Level Reps/Duration 10x Comments UE support Hip ab/ad Body Position Standing Reps/Duration 10x Comments UE support squats Body Position Standing Water Level Chest Level Reps/Duration 10x Lower Extremity Stretches HS Body Position Standing Water Level Chest Level Equipment Large Noodle gastroc Body Position Standing Water Level Chest Level Reps/Duration 2x30 Comments wall; rocking foot Balance reverse squats on noodle Water Level [place] Reps/Duration 2 min standing on noodle Water Level Chest Level Equipment lg noodle Reps/Duration 6 min Comments various foot positions [place] Activities [place] Activities Bicycle,Cross Country,Running Other Activities standing on noodle paddling forward PT-OP-T Assessment and Plan Start: 04/09/19 13:49 Freq: Status: Active Protocol: Document 05/15/19 10:35 SP (Rec: 05/15/19 11:37 SP [email or web address]) Physical Therapy Assessment Goals 5 Impairment Pt scores 30/84 on FAAM ADL subscale Short Term Goal (STG) Pt will score 45/84 on FAAM ADL subscale to demonstrate increased independence with ADL's STG Duration 05/20/19 Gymnasium Teacher Goal (LTG) Pt will score 60/84 on FAAM ADL subscale to demonstrate increased independence with ADL's LTG Duration 07/01/19 4 Impairment 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 STG Duration 05/06/19 Gymnasium Teacher Goal (LTG) Pt will tolerate 7+ hours standing work (with appropriate breaks) without foot fatigue/tenderness LTG Duration 07/01/19 3 Impairment Pt unable to walk on uneven terrain Short Term Goal (STG) Pt will walk 15 minutes on uneven terrain with least restrictive assistive device STG Duration 05/20/19 Snf Goal (LTG) Pt will walk 30 minutes on uneven terrain/forest trails with least restrictive assistive device. LTG Duration 07/01/19 2 Impairment Pt scores 33/80 on LEFS Short Term Goal (STG) Pt will score 45 or greater on LEFS to demonstrate improved function in daily activities. STG Duration 05/20/19 Gymnasium Teacher Goal (LTG) Pt will score 60 or greater on LEFS to represent improved function in daily activities. LTG Duration 07/01/19 1 Impairment Pt with no appropriate HEP Short Term Goal (STG) Pt will be independent with HEP for support of therapy services provided in clinic. 05/13/19 MET STG Duration 05/06/19 Gymnasium Teacher Goal (LTG) Pt will be independent with maintenance HEP to maintain functional progress achieved in therapy. LTG Duration 07/01/19 Assessment Summary Assessment Left ankle appears edematous. Demonstrates antalgic gait with L foot turned out laterally up on arrival. Cued parallel foot position with education on gait heel toe patterning phases (see gait details). Tx focused on decreasing edema with noted 1 cm decrease with measurements. Improvement in heel toe patterning end of tx post ther ex and mobs. Educated to slower pacing to improve quality of movement toward normal gait with verbal understanding. Completed and see L ankle/foot circumference measurements. Physical Therapy Plan Frequency and Duration Frequency of Treatment 3x/Week Duration of Treatment 12 weeks Plan of Care Start Date 04/08/19 Plan of Care End Date 07/01/19 Therapeutic Interventions Therapeutic Interventions Aquatic Therapy,Balance Training,Gait Training,Home Exercise Program,Joint Mobilizations,Manual Therapy, Neuromuscular Re-education, Orthotic/Prosthetic Management ,Patient/Caregiver Education, Self-Care/Home Management, Sensory Integration,Soft Tissue Mobilization,Taping, Therapeutic Activities, Therapeutic Exercises Other Therapeutic Interventions cryo-cuff Next Visit Focus/Plan Next Note Type Treatment Note Next Visit Plan progress strengthening and balance activities with focus on ankle strengthening all planes
--- NOTE | 2019-05-18 15:40 | PT.OTN ---
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 He has dealt with ongoing ankle pain for years, culminating finally in ankle arthrodesis and Achilles lengthening on . Pt unable to identify which bones were fused. Per protocol, he has been in a cam boot for all mobility for the past three months. He primarily used a knee scooter during that time, but has progressively increased his weightbearing in the boot for short distances. He is now allowed full weightbearing in the boot. In the past 10 days, he switched to an articulated cane held in the right hand. He has returned to driving. 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 He reports minimal pain since surgery, but does endorse generalized tenderness of the plantar foot since beginning to walk with a cane. He denies any falls or near falls since surgery. Prior Treatments and Tests Ankle arthrodesis and Achilles lengthening 12/31/18. History of a-fib, HTN, pacemaker. Future Testing and Treatments Planned None identified Treatment Goals Patient/Caregiver Goals Pt would like to hike [employer] and to be able to work standing 6 hours daily without fatigue or foot tenderness. 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 Current Functional Impairments (Reported) Functional Limitations- ADL's No known impairments Functional Limitations- Mobility/Gait Requires articulated cane and is limited in ambulation distance. Lacks confidence on uneven ground. Functional Limitations- Work/School Unable to stand for 6 hour shifts without foot/ankle fatigue and without tenderness of plantar foot. Functional Limitations- Recreation/ Unable to hike forest trails Hobbies Personal Factors Other Personal Factors That May Effect chronicity of deficits, Therapy/Recovery tendency to work through pain. PT-OP-C Subjective Start: 04/09/19 13:49 Freq: Status: Active Protocol: Document 05/18/19 11:00 LJ (Rec: 05/18/19 15:40 LJ [email or web address]) OP-PT Subjective Patient Comments Patient Comments Pt states he worked this weekend and his ankle is somewhat swollen. He says that he is not having much pain with walking PT-OP-D Balance Start: 04/09/19 13:49 Freq: Status: Active Protocol: Document 04/08/19 13:50 AW (Rec: 04/09/19 14:31 AW [email or web address]) OP-PT Balance Assessment Sitting Balance Static Sitting Balance Ability Normal Dynamic Sitting Balance Ability Normal Standing Balance Static Standing Balance Ability Fair Dynamic Standing Balance Ability Fair Device Used no boot, no AD Evans Fall Scale Copyright Permission PT-OP-F Manual Assessment Start: 04/09/19 13:49 Freq: Status: Active Protocol: Document 04/08/19 13:50 AW (Rec: 04/09/19 14:31 AW [email or web address]) Manual Assessments Joint Mobility Assessment Joint Mobility Assessment Minimal subtalar movement. No dorsal/plantar restriction at MTP's 1-5 bilaterally. Difficult to assess tibiotalar mobility due to swelling. Other Manual Assessments Other Manual Assessments No point tenderness along plantar surface, 5th digit tuberosity, navicular, Achilles insertion. Generalized tenderness along plantar surface noted by patient PT-OP-G Mobility & Gait Start: 04/09/19 13:49 Freq: Status: Active Protocol: Document 04/08/19 13:50 AW (Rec: 04/09/19 14:31 AW [email or web address]) OP Gait Assessment Gait Gait Assistance Required: Standby Assistance Distance (Feet) 100 Able to Maintain Weight Bearing Status Yes During Gait Gait Deviations General Gait Pattern Within Normal Limits,Antalgic, Decreased Stride Length, Decreased Feet Clearance,Wide Based Gait Factors Limiting Gait Function Factors Limiting Gait Function Decreased Activity Tolerance, Decreased Strength,Limited Range of Motion,Poor Balance Comments Gait Comments Pt ambulates with WBOS, forefoot landing (L>R), decreased stance time on LLE and decreaed step length RLE. He vaults over the LLE and exhibits right lateral lean in right stance. PT-OP-J Posture/Palpation/Skin Start: 04/09/19 13:49 Freq: Status: Active Protocol: Document 04/08/19 13:50 AW (Rec: 04/09/19 14:31 AW [email or web address]) Posture Evaluation Position Standing Knee Posture (L) Genu Valgus,(R) Genu Valgus Ankle/Foot Posture (L) Forefoot Abducted,(R) Forefoot Abducted Foot Arch (L) Low Arch,(R) Low Arch Skin Assessment Edema Assessment left ankle/foot Edema Type Non-Pitting Edema Appearance Discolored,Taut Comments Talar arch: Left 39 cm, Right 33 cm Horizontal at level of bilateral malleoli: Left 41 cm , Right 35 cm PT-OP-K Range of Motion Start: 04/09/19 13:49 Freq: Status: Active Protocol: Document 04/08/19 13:50 AW (Rec: 04/09/19 14:31 AW [email or web address]) Knee Goniometric Range of Motion Knee Left Knee ROM WFL Yes Patient Position Supine Ankle and Foot Goniometric Range of Motion Ankle and Foot Right Active Ankle/Foot ROM WFL No Testing Position Supine Dorsiflexion with Knee Flexed 5 Dorsiflexion with Knee Extended 5 Plantarflexion 40 Left Active Ankle/Foot ROM WFL No Testing Position Supine Dorsiflexion with Knee Flexed 0 Dorsiflexion with Knee Extended 0 Plantarflexion 20 Ankle and Foot ROM Limitations ROM Limitations Bony Restriction Toe Range of Motion Toes ROM Limitations Comments Pt lacks active left great toe extension PT-OP-M Strength Start: 04/09/19 13:49 Freq: Status: Active Protocol: Document 04/08/19 13:50 AW (Rec: 04/10/19 09:07 AW [email or web address]) Ankle/Foot Strength Ankle and Foot Manual Muscle Testing Right Dorsiflexion (L4) 4- Good- Plantarflexion (S1) 4- Good- Inversion 4 Good Eversion (S1) 4 Good Left Dorsiflexion (L4) 3 Fair Plantarflexion (S1) 3+ Fair+ Inversion 4- Good- Eversion (S1) 4- Good- Comments Pt can dorsiflex from extended position, but has no AROM past 0. Unable to test PF in standing due to safety concerns. Toe Strength Toe Manual Muscle Testing Right Great Toe Flexion 5 Normal Left Great Toe Flexion 4 Good PT-OP-N Lymphedema Start: 04/09/19 13:49 Freq: Status: Active Protocol: Document 05/15/19 10:40 SP (Rec: 05/15/19 11:44 SP [id number]) Lymphedema Measurements Lower Extremity Circumference Measurements L ankle foot MT Heads 34 cm Comments Lymphedema Comments -10 cm proximal MT heads 34 cm pre manual, 33 cm post - circumference calcaneus around ankle anteriorly ( anterior med/lat malleolus) 43 cm pre and post - figure 4 around ankle 74 cm pre and post - circumference med/lat malleolus 38.5 cm pre 37.5 cm post PT-OP-Q Treatments Start: 04/09/19 13:49 Freq: Status: Active Protocol: Document 05/15/19 10:35 SP (Rec: 05/15/19 11:37 SP [id number]) Therapeutic Exercises Standing Exercises ankle mobility Standing Exercise Name DF ROM Side left Resistance AROM Equipment Used LEA Reps/Minutes hold 3 sec x5 reps (2 sets) single stance Standing Exercise Name modified stance PF/DF ROM Side left Resistance AROM Equipment Used BOSU Comments contact RLE on side on BOSU lunge on step Standing Exercise Name lunge on step Side left Equipment Used 12 step Reps/Minutes 15 sec hold x 8 heel raise Standing Exercise Name eccentric plantar flexion Side left Equipment Used 6 step Reps/Minutes 15 reps; 8 reps Comments 1st set bilateral, 2nd set left only with UE support standing calf stretch Standing Exercise Name calf stretch Side left Equipment Used LEA Reps/Minutes 1 minute x 2 Comments cues for hip extension Gait Training Gait Activity heel toe gait Description cueing parallel foot heel toe gait phases Device Used none Surface level Distance/Duration 50 ft x2 Treatment Focus improved L ankle ROM Comments slow quality heel toe gait phases (toe off DF, eccentric PF) Manual Therapy Treatment Soft Tissue Mobilization edema managment Body Location lower LE Mobilization Type Myofascial Release,Rolling Intensity/Depth Moderate Body Position Supine Comments upward stroke/retrograde manual Joint Mobilizations talocrural Joint talocrural Direction anterior > posterior Grade III Body Position Supine Reps/Duration 3 minutes Comments with active DF and manual stretch using contract/relax MTP Joint MTP 1-5 Direction dorsal and plantar Grade III Body Position Hooklying Reps/Duration 5 minutes Comments greatest restriction at digits 2-3 PT-OP-R Modalities Start: 04/09/19 13:49 Freq: Status: Active Protocol: Document 05/15/19 10:35 SP (Rec: 05/15/19 11:37 SP [id number]) Hot Pack/Cold Pack Treatment Cold Pack Location L ankle Patient Position Hooklying Treatment Duration (minutes) 15 Patient Tolerance Good Comments cryo cuff PT-OP-S Aquatic Treatment Start: 04/09/19 13:49 Freq: Status: Active Protocol: Document 05/18/19 11:00 LJ (Rec: 05/18/19 15:40 LJ [email or web address]) Aquatics Treatment Pool Entry/Exit Pool Entry/Exit Method Stairs Comments step-to pattern Water Walking start stop Water Level Chest Level Walking Equipment Ankle Weight- 5.0# on heels and on toes Water Level Chest Level Walking Equipment Ankle Weight- 5.0# Level of Assistance Verbal Cues [place] Water Level Chest Level Walking Equipment Ankle Weight- 5.0# Level of Assistance Verbal Cues Comments modified with smaller steps fwd,bck,side, august, soldier august Water Level Chest Level Walking Equipment Ankle Weight- 5.0# Level of Assistance Standby Assistance,Verbal Cues Lower Extremity Exercises hip flex/ext Body Position Standing Water Level Chest Level Equipment Ankle Weight- 5.0# Reps/Duration 10x2 Comments UE support Hip ab/ad Body Position Standing Water Level Chest Level Equipment Ankle Weight- 5.0# Reps/Duration 10x2 Comments UE support squats Body Position Standing Water Level Waist Level Equipment Ankle Weight- 5.0# Reps/Duration 10x2 knee flex/ext Body Position Standing Water Level Chest Level Equipment Ankle Weight- 5.0# Reps/Duration 10x Comments UE support heel raise, toe raise Body Position Standing Water Level Chest Level Equipment Ankle Weight- 5.0# Reps/Duration 10x Lower Extremity Stretches quads Body Position Standing Water Level Chest Level Equipment Large Noodle Reps/Duration 2x45 HS Body Position Standing Water Level Chest Level Equipment Large Noodle Reps/Duration 2x45 gastroc Body Position Standing Water Level Chest Level Reps/Duration 2x45 Comments wall; rocking foot Balance noodle under foot-flex ext Body Position Standing Water Level Chest Level Reps/Duration 10x2 bilat reverse squats on noodle Water Level Roann Reps/Duration 2 min standing on noodle Water Level Chest Level Equipment lg noodle Reps/Duration 5 min Comments various foot positions Roann Activities Roann Activities Bicycle,Cross Country,Running PT-OP-T Assessment and Plan Start: 04/09/19 13:49 Freq: Status: Active Protocol: Document 05/18/19 11:00 MAGDALENE (Rec: 05/18/19 15:40 [email or web address]) Physical Therapy Assessment Rehab Potential Rehabilitation Potential Good Evaluation Complexity Number of Personal Factors/Comorbidities 1-2 Number of Body Systems Impaired 1-2 Clinical Presentation at Evaluation Stable Impairments Impairments Activity Tolerance,Balance, Edema,Functional Activities, Functional Mobility,Gait, Integument,Posture,ROM,Soft Tissue Mobility,Strength Other Concerns Fall Risk high risk of falls Goals 5 Impairment Pt scores 30/84 on FAAM ADL subscale Short Term Goal (STG) Pt will score 45/84 on FAAM ADL subscale to demonstrate increased independence with ADL's STG Duration 05/20/19 Long-Term Goal (LTG) Pt will score 60/84 on FAAM ADL subscale to demonstrate increased independence with ADL's LTG Duration 07/01/19 4 Impairment 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 STG Duration 05/06/19 Printer Slotter Operator Goal (LTG) Pt will tolerate 7+ hours standing work (with appropriate breaks) without foot fatigue/tenderness LTG Duration 07/01/19 3 Impairment Pt unable to walk on uneven terrain Short Term Goal (STG) Pt will walk 15 minutes on uneven terrain with least restrictive assistive device STG Duration 05/20/19 Printer Slotter Operator Goal (LTG) Pt will walk 30 minutes on uneven terrain/forest trails with least restrictive assistive device. LTG Duration 07/01/19 2 Impairment Pt scores 33/80 on LEFS Short Term Goal (STG) Pt will score 45 or greater on LEFS to demonstrate improved function in daily activities. STG Duration 05/20/19 Long-Term Goal (LTG) Pt will score 60 or greater on LEFS to represent improved function in daily activities. LTG Duration 07/01/19 1 Impairment Pt with no appropriate HEP Short Term Goal (STG) Pt will be independent with HEP for support of therapy services provided in clinic. 05/13/19 MET STG Duration 05/06/19 Printer Slotter Operator Goal (LTG) Pt will be independent with maintenance HEP to maintain functional progress achieved in therapy. LTG Duration 07/01/19 Assessment Summary Assessment Pt uses upper body for inertia in walking exercises. Cued for limiting upper body sway during exercises and maintaining upright posture. Pt tends to exercise with large ROM rather than controlled and stable body position. Physical Therapy Plan Frequency and Duration Frequency of Treatment 3x/Week Duration of Treatment 12 weeks Plan of Care Start Date 04/08/19 Plan of Care End Date 07/01/19 Therapeutic Interventions Therapeutic Interventions Aquatic Therapy,Balance Training,Gait Training,Home Exercise Program,Joint Mobilizations,Manual Therapy, Neuromuscular Re-education, Orthotic/Prosthetic Management ,Patient/Caregiver Education, Self-Care/Home Management, Sensory Integration,Soft Tissue Mobilization,Taping, Therapeutic Activities, Therapeutic Exercises Other Therapeutic Interventions cryo-cuff Next Visit Focus/Plan Next Note Type Treatment Note Next Visit Plan progress strengthening and balance activities with focus on ankle strengthening all planes
--- NOTE | 2019-05-20 16:52 | PT.OTN ---
Current Diagnoses Encounter for other orthopedic aftercare (05/20/19) Arthrodesis status (05/20/19) Physical Therapy Treatment Note PT-OP-A Visit Information Start: 04/09/19 13:49 Freq: Status: Active Protocol: Document 05/20/19 15:39 AW (Rec: 05/20/19 16:52 AW [email or web address]) Out-Patient Physical Therapy Visit Information Visit Information Visit Type Treatment Note Visit Start Time 10:30 Visit Stop Time 11:13 Total Visit Minutes 43 Visit Number 16 Number of COLON AND RECTAL SURGEON Visits 0 PT-OP-B Current Condition Start: 04/09/19 13:49 Freq: Status: Active Protocol: Document 04/08/19 13:50 AW (Rec: 04/09/19 14:31 AW [email or web address]) Current Condition History of Current Condition Onset Date years Current Complaints left ankle swelling and limited range of motion History of Current Condition Vamsi vega sprained his left ankle in 1989 as a result of a fall down a 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 He has dealt with ongoing ankle pain for years, culminating finally in ankle arthrodesis and Achilles lengthening on . Pt unable to identify which bones were fused. Per protocol, he has been in a cam boot for all mobility for the past three months. He primarily used a knee scooter during that time, but has progressively increased his weightbearing in the boot for short distances. He is now allowed full weightbearing in the boot. In the past 10 days, he switched to an articulated cane held in the right hand. He has returned to driving. 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 He reports minimal pain since surgery, but does endorse generalized tenderness of the plantar foot since beginning to walk with a cane. He denies any falls or near falls since surgery. Prior Treatments and Tests Ankle arthrodesis and Achilles lengthening 12/31/18. History of a-fib, HTN, pacemaker. Future Testing and Treatments Planned None identified Treatment Goals Patient/Caregiver Goals Pt would like to hike [place] and to be able to work standing 6 hours daily without fatigue or foot tenderness. 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 Current Functional Impairments (Reported) Functional Limitations- ADL's No known impairments Functional Limitations- Mobility/Gait Requires articulated cane and is limited in ambulation distance. Lacks confidence on uneven ground. Functional Limitations- Work/School Unable to stand for 6 hour shifts without foot/ankle fatigue and without tenderness of plantar foot. Functional Limitations- Recreation/ Unable to hike forest trails Hobbies Personal Factors Other Personal Factors That May Effect chronicity of deficits, Therapy/Recovery tendency to work through pain. PT-OP-C Subjective Start: 04/09/19 13:49 Freq: Status: Active Protocol: Document 05/20/19 15:39 AW (Rec: 05/20/19 16:52 AW [email or web address]) OP-PT Subjective Patient Comments Patient Comments Pt reports decreased pain with walking except for tenderness associated with the first steps. He walked in with the cane today but has not been using it at all times PT-OP-D Balance Start: 04/09/19 13:49 Freq: Status: Active Protocol: Document 04/08/19 13:50 AW (Rec: 04/09/19 14:31 AW [email or web address]) OP-PT Balance Assessment Sitting Balance Static Sitting Balance Ability Normal Dynamic Sitting Balance Ability Normal Standing Balance Static Standing Balance Ability Fair Dynamic Standing Balance Ability Fair Device Used no boot, no AD Evans Fall Scale Copyright Permission PT-OP-F Manual Assessment Start: 04/09/19 13:49 Freq: Status: Active Protocol: Document 04/08/19 13:50 AW (Rec: 04/09/19 14:31 AW [email or web address]) Manual Assessments Joint Mobility Assessment Joint Mobility Assessment Minimal subtalar movement. No dorsal/plantar restriction at MTP's 1-5 bilaterally. Difficult to assess tibiotalar mobility due to swelling. Other Manual Assessments Other Manual Assessments No point tenderness along plantar surface, 5th digit tuberosity, navicular, Achilles insertion. Generalized tenderness along plantar surface noted by patient PT-OP-G Mobility & Gait Start: 04/09/19 13:49 Freq: Status: Active Protocol: Document 04/08/19 13:50 AW (Rec: 04/09/19 14:31 AW [email or web address]) OP Gait Assessment Gait Gait Assistance Required: Standby Assistance Distance (Feet) 100 Able to Maintain Weight Bearing Status Yes During Gait Gait Deviations General Gait Pattern Within Normal Limits,Antalgic, Decreased Stride Length, Decreased Feet Clearance,Wide Based Gait Factors Limiting Gait Function Factors Limiting Gait Function Decreased Activity Tolerance, Decreased Strength,Limited Range of Motion,Poor Balance Comments Gait Comments Pt ambulates with WBOS, forefoot landing (L>R), decreased stance time on LLE and decreaed step length RLE. He vaults over the LLE and exhibits right lateral lean in right stance. PT-OP-J Posture/Palpation/Skin Start: 04/09/19 13:49 Freq: Status: Active Protocol: Document 04/08/19 13:50 AW (Rec: 04/09/19 14:31 AW [email or web address]) Posture Evaluation Position Standing Knee Posture (L) Genu Valgus,(R) Genu Valgus Ankle/Foot Posture (L) Forefoot Abducted,(R) Forefoot Abducted Foot Arch (L) Low Arch,(R) Low Arch Skin Assessment Edema Assessment left ankle/foot Edema Type Non-Pitting Edema Appearance Discolored,Taut Comments Talar arch: Left 39 cm, Right 33 cm Horizontal at level of bilateral malleoli: Left 41 cm , Right 35 cm PT-OP-K Range of Motion Start: 04/09/19 13:49 Freq: Status: Active Protocol: Document 04/08/19 13:50 AW (Rec: 04/09/19 14:31 AW [email or web address]) Knee Goniometric Range of Motion Knee Left Knee ROM WFL Yes Patient Position Supine Ankle and Foot Goniometric Range of Motion Ankle and Foot Right Active Ankle/Foot ROM WFL No Testing Position Supine Dorsiflexion with Knee Flexed 5 Dorsiflexion with Knee Extended 5 Plantarflexion 40 Left Active Ankle/Foot ROM WFL No Testing Position Supine Dorsiflexion with Knee Flexed 0 Dorsiflexion with Knee Extended 0 Plantarflexion 20 Ankle and Foot ROM Limitations ROM Limitations Bony Restriction Toe Range of Motion Toes ROM Limitations Comments Pt lacks active left great toe extension PT-OP-M Strength Start: 04/09/19 13:49 Freq: Status: Active Protocol: Document 04/08/19 13:50 AW (Rec: 04/10/19 09:07 AW [email or web address]) Ankle/Foot Strength Ankle and Foot Manual Muscle Testing Right Dorsiflexion (L4) 4- Good- Plantarflexion (S1) 4- Good- Inversion 4 Good Eversion (S1) 4 Good Left Dorsiflexion (L4) 3 Fair Plantarflexion (S1) 3+ Fair+ Inversion 4- Good- Eversion (S1) 4- Good- Comments Pt can dorsiflex from extended position, but has no AROM past 0. Unable to test PF in standing due to safety concerns. Toe Strength Toe Manual Muscle Testing Right Great Toe Flexion 5 Normal Left Great Toe Flexion 4 Good PT-OP-N Lymphedema Start: 04/09/19 13:49 Freq: Status: Active Protocol: Document 05/15/19 10:40 SP (Rec: 05/15/19 11:44 SP [id number]) Lymphedema Measurements Lower Extremity Circumference Measurements L ankle foot MT Heads 34 cm Comments Lymphedema Comments -10 cm proximal MT heads 34 cm pre manual, 33 cm post - circumference calcaneus around ankle anteriorly ( anterior med/lat malleolus) 43 cm pre and post - figure 4 around ankle 74 cm pre and post - circumference med/lat malleolus 38.5 cm pre 37.5 cm post PT-OP-Q Treatments Start: 04/09/19 13:49 Freq: Status: Active Protocol: Document 05/20/19 15:39 AW (Rec: 05/20/19 16:52 AW [email or web address]) Therapeutic Exercises Supine Exercises supine INV and EV Supine Exercise Name supine inversion Side left Resistance level 4 Equipment Used t band Reps/Minutes 10 x 1 supine DF and PF Supine Exercise Name supine DF/PF Side left Resistance level 4 Equipment Used t band Reps/Minutes 10 x 1 Standing Exercises arch creation Standing Exercise Name arch creation Side left Resistance bodyweight Reps/Minutes 2x10 reps Comments barefoot eversion Standing Exercise Name eversion Side left Resistance bodyweight Reps/Minutes 2x15 reps Comments barefoot; min lift at lateral border, but with detectable muscle activation single stance Standing Exercise Name single leg stance Side bilateral Equipment Used rail for support Comments up to 15 seconds each side heel raise Standing Exercise Name eccentric plantar flexion Side left Equipment Used 6 step Reps/Minutes 15 reps; 8 reps Comments 1st set bilateral, 2nd set left only with UE support Gait Training Gait Activity heel toe gait Description cueing parallel foot heel toe gait phases Device Used none Surface level Distance/Duration 50 ft x2 Treatment Focus improved L ankle ROM Comments slow quality heel toe gait phases (toe off DF, eccentric PF) Manual Therapy Treatment Soft Tissue Mobilization edema managment Body Location lower LE Mobilization Type Myofascial Release,Rolling Intensity/Depth Moderate Body Position Supine Comments upward stroke/retrograde manual Joint Mobilizations talocrural Joint talocrural Direction anterior > posterior Grade III Body Position Supine Reps/Duration 3 minutes Comments with active DF and manual stretch using contract/relax MTP Joint MTP 1-5 Direction dorsal and plantar Grade III Body Position Hooklying Reps/Duration 5 minutes Comments greatest restriction at digits 2-3 PT-OP-R Modalities Start: 04/09/19 13:49 Freq: Status: Active Protocol: Document 05/15/19 10:35 SP (Rec: 05/15/19 11:37 SP [id number]) Hot Pack/Cold Pack Treatment Cold Pack Location L ankle Patient Position Hooklying Treatment Duration (minutes) 15 Patient Tolerance Good Comments cryo cuff PT-OP-S Aquatic Treatment Start: 04/09/19 13:49 Freq: Status: Active Protocol: Document 05/18/19 11:00 LJ (Rec: 05/18/19 15:40 LJ [email or web address]) Aquatics Treatment Pool Entry/Exit Pool Entry/Exit Method Stairs Comments step-to pattern Water Walking start stop Water Level Chest Level Walking Equipment Ankle Weight- 5.0# on heels and on toes Water Level Chest Level Walking Equipment Ankle Weight- 5.0# Level of Assistance Verbal Cues [place] Water Level Chest Level Walking Equipment Ankle Weight- 5.0# Level of Assistance Verbal Cues Comments modified with smaller steps fwd,bck,side, august, soldier august Water Level Chest Level Walking Equipment Ankle Weight- 5.0# Level of Assistance Standby Assistance,Verbal Cues Lower Extremity Exercises hip flex/ext Body Position Standing Water Level Chest Level Equipment Ankle Weight- 5.0# Reps/Duration 10x2 Comments UE support Hip ab/ad Body Position Standing Water Level Chest Level Equipment Ankle Weight- 5.0# Reps/Duration 10x2 Comments UE support squats Body Position Standing Water Level Waist Level Equipment Ankle Weight- 5.0# Reps/Duration 10x2 knee flex/ext Body Position Standing Water Level Chest Level Equipment Ankle Weight- 5.0# Reps/Duration 10x Comments UE support heel raise, toe raise Body Position Standing Water Level Chest Level Equipment Ankle Weight- 5.0# Reps/Duration 10x Lower Extremity Stretches quads Body Position Standing Water Level Chest Level Equipment Large Noodle Reps/Duration 2x45 HS Body Position Standing Water Level Chest Level Equipment Large Noodle Reps/Duration 2x45 gastroc Body Position Standing Water Level Chest Level Reps/Duration 2x45 Comments wall; rocking foot Balance noodle under foot-flex ext Body Position Standing Water Level Chest Level Reps/Duration 10x2 bilat reverse squats on noodle Water Level [place] Reps/Duration 2 min standing on noodle Water Level Chest Level Equipment lg noodle Reps/Duration 5 min Comments various foot positions [place] Activities [place] Activities Bicycle,Cross Country,Running PT-OP-T Assessment and Plan Start: 04/09/19 13:49 Freq: Status: Active Protocol: Document 05/20/19 15:39 AW (Rec: 05/20/19 16:52 AW [email or web address]) Physical Therapy Assessment Other Concerns Fall Risk high risk of falls Goals 5 Impairment Pt scores 30/84 on FAAM ADL subscale Short Term Goal (STG) Pt will score 45/84 on FAAM ADL subscale to demonstrate increased independence with ADL's 05/20/19 MET Pt scores 63/84. 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 STG Duration 05/06/19 Fdc Goal (LTG) Pt will tolerate 7+ hours standing work (with appropriate breaks) without foot fatigue/tenderness LTG Duration 07/01/19 3 Impairment Pt unable to walk on uneven terrain Short Term Goal (STG) Pt will walk 15 minutes on uneven terrain with least restrictive assistive device STG Duration 05/20/19 Data Warehousing Manager Goal (LTG) Pt will walk 30 minutes on uneven terrain/forest trails with least restrictive assistive device. LTG Duration 07/01/19 2 Impairment Pt scores 33/80 on LEFS Short Term Goal (STG) Pt will score 45 or greater on LEFS to demonstrate improved function in daily activities. 05/20/19: MET Pt scores 46/80 on LEFS STG Duration 05/20/19 Fdc Goal (LTG) Pt will score 60 or greater on LEFS to represent improved function in daily activities. LTG Duration 07/01/19 1 Impairment Pt with no appropriate HEP Short Term Goal (STG) Pt will be independent with HEP for support of therapy services provided in clinic. 05/13/19 MET STG Duration 05/06/19 Data Warehousing Manager Goal (LTG) Pt will be independent with maintenance HEP to maintain functional progress achieved in therapy. LTG Duration 07/01/19 Assessment Summary Assessment Short term goals assessed today with patient reported outcome measures showing excellent improvement in daily function. Vamsi continues to benefit from PT to address impaired ankle range of motion and strength. Focus is likely to shift more toward gait training as pt tolerates. Physical Therapy Plan Frequency and Duration Frequency of Treatment 3x/Week Duration of Treatment 12 weeks Plan of Care Start Date 04/08/19 Plan of Care End Date 07/01/19 Therapeutic Interventions Therapeutic Interventions Aquatic Therapy,Balance Training,Gait Training,Home Exercise Program,Joint Mobilizations,Manual Therapy, Neuromuscular Re-education, Orthotic/Prosthetic Management ,Patient/Caregiver Education, Self-Care/Home Management, Sensory Integration,Soft Tissue Mobilization,Taping, Therapeutic Activities, Therapeutic Exercises Other Therapeutic Interventions cryo-cuff Next Visit Focus/Plan Next Note Type Treatment Note Next Visit Plan Progress strengthening and balance activities with focus on ankle strengthening all planes. Initiate formal gait training with attention to symmetric weightbearing during stance phase and heelstrike at initial contact.
--- NOTE | 2019-05-21 12:13 | PT.OTN ---
Current Diagnoses Encounter for other orthopedic aftercare (05/21/19) Arthrodesis status (05/21/19) Physical Therapy Treatment Note PT-OP-A Visit Information Start: 04/09/19 13:49 Freq: Status: Active Protocol: Document 05/21/19 10:32 HH (Rec: 05/21/19 12:13 HH [id number]) Out-Patient Physical Therapy Visit Information Visit Information Visit Type Treatment Note Visit Start Time 10:32 Visit Stop Time 11:15 Total Visit Minutes 43 Visit Number 17 Number of INSTRUCTOR OF SPANISH Visits 0 PT-OP-B Current Condition Start: 04/09/19 13:49 Freq: Status: Active Protocol: Document 04/08/19 13:50 AW (Rec: 04/09/19 14:31 AW [email or web address]) Current Condition History of Current Condition Onset Date years Current Complaints left ankle swelling and limited range of motion History of Current Condition Vamsi vega sprained his left ankle in 1989 as a result of a fall down a 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 He has dealt with ongoing ankle pain for years, culminating finally in ankle arthrodesis and Achilles lengthening on . Pt unable to identify which bones were fused. Per protocol, he has been in a cam boot for all mobility for the past three months. He primarily used a knee scooter during that time, but has progressively increased his weightbearing in the boot for short distances. He is now allowed full weightbearing in the boot. In the past 10 days, he switched to an articulated cane held in the right hand. He has returned to driving. 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 He reports minimal pain since surgery, but does endorse generalized tenderness of the plantar foot since beginning to walk with a cane. He denies any falls or near falls since surgery. Prior Treatments and Tests Ankle arthrodesis and Achilles lengthening 12/31/18. History of a-fib, HTN, pacemaker. Future Testing and Treatments Planned None identified Treatment Goals Patient/Caregiver Goals Pt would like to hike [place] and to be able to work standing 6 hours daily without fatigue or foot tenderness. 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 Current Functional Impairments (Reported) Functional Limitations- ADL's No known impairments Functional Limitations- Mobility/Gait Requires articulated cane and is limited in ambulation distance. Lacks confidence on uneven ground. Functional Limitations- Work/School Unable to stand for 6 hour shifts without foot/ankle fatigue and without tenderness of plantar foot. Functional Limitations- Recreation/ Unable to hike forest trails Hobbies Personal Factors Other Personal Factors That May Effect chronicity of deficits, Therapy/Recovery tendency to work through pain. PT-OP-C Subjective Start: 04/09/19 13:49 Freq: Status: Active Protocol: Document 05/21/19 10:32 HH (Rec: 05/21/19 12:13 HH [id number]) OP-PT Subjective Patient Comments Patient Comments I walked a lot yesterday so my ankle feels a little stiffer today but otherwise it has been doing better. I usually take water pills but didn't today so my ankle looks swollen. PT-OP-D Balance Start: 04/09/19 13:49 Freq: Status: Active Protocol: Document 04/08/19 13:50 AW (Rec: 04/09/19 14:31 AW [email or web address]) OP-PT Balance Assessment Sitting Balance Static Sitting Balance Ability Normal Dynamic Sitting Balance Ability Normal Standing Balance Static Standing Balance Ability Fair Dynamic Standing Balance Ability Fair Device Used no boot, no AD Evans Fall Scale Copyright Permission PT-OP-F Manual Assessment Start: 04/09/19 13:49 Freq: Status: Active Protocol: Document 04/08/19 13:50 AW (Rec: 04/09/19 14:31 AW [email or web address]) Manual Assessments Joint Mobility Assessment Joint Mobility Assessment Minimal subtalar movement. No dorsal/plantar restriction at MTP's 1-5 bilaterally. Difficult to assess tibiotalar mobility due to swelling. Other Manual Assessments Other Manual Assessments No point tenderness along plantar surface, 5th digit tuberosity, navicular, Achilles insertion. Generalized tenderness along plantar surface noted by patient PT-OP-G Mobility & Gait Start: 04/09/19 13:49 Freq: Status: Active Protocol: Document 04/08/19 13:50 AW (Rec: 04/09/19 14:31 AW [email or web address]) OP Gait Assessment Gait Gait Assistance Required: Standby Assistance Distance (Feet) 100 Able to Maintain Weight Bearing Status Yes During Gait Gait Deviations General Gait Pattern Within Normal Limits,Antalgic, Decreased Stride Length, Decreased Feet Clearance,Wide Based Gait Factors Limiting Gait Function Factors Limiting Gait Function Decreased Activity Tolerance, Decreased Strength,Limited Range of Motion,Poor Balance Comments Gait Comments Pt ambulates with WBOS, forefoot landing (L>R), decreased stance time on LLE and decreaed step length RLE. He vaults over the LLE and exhibits right lateral lean in right stance. PT-OP-J Posture/Palpation/Skin Start: 04/09/19 13:49 Freq: Status: Active Protocol: Document 04/08/19 13:50 AW (Rec: 04/09/19 14:31 AW [email or web address]) Posture Evaluation Position Standing Knee Posture (L) Genu Valgus,(R) Genu Valgus Ankle/Foot Posture (L) Forefoot Abducted,(R) Forefoot Abducted Foot Arch (L) Low Arch,(R) Low Arch Skin Assessment Edema Assessment left ankle/foot Edema Type Non-Pitting Edema Appearance Discolored,Taut Comments Talar arch: Left 39 cm, Right 33 cm Horizontal at level of bilateral malleoli: Left 41 cm , Right 35 cm PT-OP-K Range of Motion Start: 04/09/19 13:49 Freq: Status: Active Protocol: Document 04/08/19 13:50 AW (Rec: 04/09/19 14:31 AW [email or web address]) Knee Goniometric Range of Motion Knee Left Knee ROM WFL Yes Patient Position Supine Ankle and Foot Goniometric Range of Motion Ankle and Foot Right Active Ankle/Foot ROM WFL No Testing Position Supine Dorsiflexion with Knee Flexed 5 Dorsiflexion with Knee Extended 5 Plantarflexion 40 Left Active Ankle/Foot ROM WFL No Testing Position Supine Dorsiflexion with Knee Flexed 0 Dorsiflexion with Knee Extended 0 Plantarflexion 20 Ankle and Foot ROM Limitations ROM Limitations Bony Restriction Toe Range of Motion Toes ROM Limitations Comments Pt lacks active left great toe extension PT-OP-M Strength Start: 04/09/19 13:49 Freq: Status: Active Protocol: Document 04/08/19 13:50 AW (Rec: 04/10/19 09:07 AW [email or web address]) Ankle/Foot Strength Ankle and Foot Manual Muscle Testing Right Dorsiflexion (L4) 4- Good- Plantarflexion (S1) 4- Good- Inversion 4 Good Eversion (S1) 4 Good Left Dorsiflexion (L4) 3 Fair Plantarflexion (S1) 3+ Fair+ Inversion 4- Good- Eversion (S1) 4- Good- Comments Pt can dorsiflex from extended position, but has no AROM past 0. Unable to test PF in standing due to safety concerns. Toe Strength Toe Manual Muscle Testing Right Great Toe Flexion 5 Normal Left Great Toe Flexion 4 Good PT-OP-N Lymphedema Start: 04/09/19 13:49 Freq: Status: Active Protocol: Document 05/15/19 10:40 SP (Rec: 05/15/19 11:44 SP [id number]) Lymphedema Measurements Lower Extremity Circumference Measurements L ankle foot MT Heads 34 cm Comments Lymphedema Comments -10 cm proximal MT heads 34 cm pre manual, 33 cm post - circumference calcaneus around ankle anteriorly ( anterior med/lat malleolus) 43 cm pre and post - figure 4 around ankle 74 cm pre and post - circumference med/lat malleolus 38.5 cm pre 37.5 cm post PT-OP-Q Treatments Start: 04/09/19 13:49 Freq: Status: Active Protocol: Document 05/21/19 10:32 HH (Rec: 05/21/19 12:13 HH [id number]) Cardio Equipment Recumbent Stepper (Sci-Fit) Duration (Minutes) 4 Resistance 3.0 Gym Equipment Shuttle Balance DF/PF/IV/EV Details blue Reps/Duration 5 min Comments using ankle to weight shift forward/backward, laterally Therapeutic Exercises Supine Exercises ankle circles Side left Reps/Minutes 15x2 supine INV and EV Supine Exercise Name supine inversion Side left Resistance manual Reps/Minutes 10 x 2 supine DF and PF Supine Exercise Name supine DF/PF Side left Resistance manual Reps/Minutes 10 x 2 Standing Exercises marching Standing Exercise Name high knee walking Side bilateral Comments cuing for L LE weight acceptance hurdles Standing Exercise Name heel/toe step Side bilateral Equipment Used 6 danae Reps/Minutes 15x3 Comments difficulty clearing danae L stance > R, poor balance; fingertip support single stance Standing Exercise Name single leg stance Side bilateral Equipment Used rail for support Comments up to 15 seconds each side Gait Training Gait Activity heel toe gait Device Used none Surface level Distance/Duration 10 ft x 4 Comments // bars, cuing to attempt without UE support Manual Therapy Treatment Soft Tissue Mobilization edema managment Body Location lower LE Mobilization Type Myofascial Release,Rolling Intensity/Depth Moderate Body Position Supine Comments upward stroke/retrograde manual PT-OP-R Modalities Start: 04/09/19 13:49 Freq: Status: Active Protocol: Document 05/15/19 10:35 SP (Rec: 05/15/19 11:37 SP [id number]) Hot Pack/Cold Pack Treatment Cold Pack Location L ankle Patient Position Hooklying Treatment Duration (minutes) 15 Patient Tolerance Good Comments cryo cuff PT-OP-S Aquatic Treatment Start: 04/09/19 13:49 Freq: Status: Active Protocol: Document 05/18/19 11:00 LJ (Rec: 05/18/19 15:40 LJ [email or web address]) Aquatics Treatment Pool Entry/Exit Pool Entry/Exit Method Stairs Comments step-to pattern Water Walking start stop Water Level Chest Level Walking Equipment Ankle Weight- 5.0# on heels and on toes Water Level Chest Level Walking Equipment Ankle Weight- 5.0# Level of Assistance Verbal Cues Carman Water Level Chest Level Walking Equipment Ankle Weight- 5.0# Level of Assistance Verbal Cues Comments modified with smaller steps fwd,bck,side, august, august Water Level Chest Level Walking Equipment Ankle Weight- 5.0# Level of Assistance Standby Assistance,Verbal Cues Lower Extremity Exercises hip flex/ext Body Position Standing Water Level Chest Level Equipment Ankle Weight- 5.0# Reps/Duration 10x2 Comments UE support Hip ab/ad Body Position Standing Water Level Chest Level Equipment Ankle Weight- 5.0# Reps/Duration 10x2 Comments UE support squats Body Position Standing Water Level Waist Level Equipment Ankle Weight- 5.0# Reps/Duration 10x2 knee flex/ext Body Position Standing Water Level Chest Level Equipment Ankle Weight- 5.0# Reps/Duration 10x Comments UE support heel raise, toe raise Body Position Standing Water Level Chest Level Equipment Ankle Weight- 5.0# Reps/Duration 10x Lower Extremity Stretches quads Body Position Standing Water Level Chest Level Equipment Large Noodle Reps/Duration 2x45 HS Body Position Standing Water Level Chest Level Equipment Large Noodle Reps/Duration 2x45 gastroc Body Position Standing Water Level Chest Level Reps/Duration 2x45 Comments wall; rocking foot Balance noodle under foot-flex ext Body Position Standing Water Level Chest Level Reps/Duration 10x2 bilat reverse squats on noodle Water Level Aubrey Reps/Duration 2 min standing on noodle Water Level Chest Level Equipment lg noodle Reps/Duration 5 min Comments various foot positions Aubrey Activities Aubrey Activities Bicycle,Cross Country,Running PT-OP-T Assessment and Plan Start: 04/09/19 13:49 Freq: Status: Active Protocol: Document 05/21/19 10:32 HH (Rec: 05/21/19 12:13 [email or web address]) Physical Therapy Assessment Goals 5 Impairment Pt scores 30/84 on FAAM ADL subscale Short Term Goal (STG) Pt will score 45/84 on FAAM ADL subscale to demonstrate increased independence with ADL's 05/20/19 MET Pt scores 63/84. 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 STG Duration 05/06/19 Genomics Scientist Goal (LTG) Pt will tolerate 7+ hours standing work (with appropriate breaks) without foot fatigue/tenderness LTG Duration 07/01/19 3 Impairment Pt unable to walk on uneven terrain Short Term Goal (STG) Pt will walk 15 minutes on uneven terrain with least restrictive assistive device STG Duration 05/20/19 Genomics Scientist Goal (LTG) Pt will walk 30 minutes on uneven terrain/forest trails with least restrictive assistive device. LTG Duration 07/01/19 2 Impairment Pt scores 33/80 on LEFS Short Term Goal (STG) Pt will score 45 or greater on LEFS to demonstrate improved function in daily activities. 05/20/19: MET Pt scores 46/80 on LEFS STG Duration 05/20/19 Genomics Scientist Goal (LTG) Pt will score 60 or greater on LEFS to represent improved function in daily activities. LTG Duration 07/01/19 1 Impairment Pt with no appropriate HEP Short Term Goal (STG) Pt will be independent with HEP for support of therapy services provided in clinic. 05/13/19 MET STG Duration 05/06/19 Senior Care Goal (LTG) Pt will be independent with maintenance HEP to maintain functional progress achieved in therapy. LTG Duration 07/01/19 Assessment Summary Assessment Pt demonstrates limited tolerance for ther ex, and becomes SOB after 4 min on stepper. Pt demonstrates poor SL balance L>R and limited weight acceptance on L LE. Tx focused on SL strength/balance and normalizing gait. Physical Therapy Plan Next Visit Focus/Plan Next Note Type Treatment Note Next Visit Plan Progress strengthening and balance activities with focus on ankle strengthening all planes. Initiate formal gait training with attention to symmetric weightbearing during stance phase and heelstrike at initial contact.
--- NOTE | 2019-05-25 15:52 | PT.OTN ---
Current Diagnoses Encounter for other orthopedic aftercare (05/25/19) Arthrodesis status (05/25/19) Physical Therapy Treatment Note PT-OP-A Visit Information Start: 04/09/19 13:49 Freq: Status: Active Protocol: Document 05/25/19 11:00 LJ (Rec: 05/25/19 15:52 LJ [id number]) Out-Patient Physical Therapy Visit Information Visit Information Visit Type Aquatic Treatment Note Visit Start Time 11:00 Visit Stop Time 11:45 Total Visit Minutes 43 Visit Number 18 Number of TRANSPORTATION DRIVER Visits 1 PT-OP-B Current Condition Start: 04/09/19 13:49 Freq: Status: Active Protocol: Document 04/08/19 13:50 AW (Rec: 04/09/19 14:31 AW [email or web address]) Current Condition History of Current Condition Onset Date years Current Complaints left ankle swelling and limited range of motion History of Current Condition Vamsi vega sprained his left ankle in 1989 as a result of a fall down a 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 He has dealt with ongoing ankle pain for years, culminating finally in ankle arthrodesis and Achilles lengthening on . Pt unable to identify which bones were fused. Per protocol, he has been in a cam boot for all mobility for the past three months. He primarily used a knee scooter during that time, but has progressively increased his weightbearing in the boot for short distances. He is now allowed full weightbearing in the boot. In the past 10 days, he switched to an articulated cane held in the right hand. He has returned to driving. 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 He reports minimal pain since surgery, but does endorse generalized tenderness of the plantar foot since beginning to walk with a cane. He denies any falls or near falls since surgery. Prior Treatments and Tests Ankle arthrodesis and Achilles lengthening 12/31/18. History of a-fib, HTN, pacemaker. Future Testing and Treatments Planned None identified Treatment Goals Patient/Caregiver Goals Pt would like to hike [employer] and to be able to work standing 6 hours daily without fatigue or foot tenderness. 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 Current Functional Impairments (Reported) Functional Limitations- ADL's No known impairments Functional Limitations- Mobility/Gait Requires articulated cane and is limited in ambulation distance. Lacks confidence on uneven ground. Functional Limitations- Work/School Unable to stand for 6 hour shifts without foot/ankle fatigue and without tenderness of plantar foot. Functional Limitations- Recreation/ Unable to hike forest trails Hobbies Personal Factors Other Personal Factors That May Effect chronicity of deficits, Therapy/Recovery tendency to work through pain. PT-OP-C Subjective Start: 04/09/19 13:49 Freq: Status: Active Protocol: Document 05/25/19 11:00 LJ (Rec: 05/25/19 15:52 LJ [id number]) OP-PT Subjective Patient Comments Patient Comments Pt reports that lhis ankle feels stiff for a bit in the morning but loosens up after being up for a while. States that he has greater ROM and less pain. PT-OP-D Balance Start: 04/09/19 13:49 Freq: Status: Active Protocol: Document 04/08/19 13:50 AW (Rec: 04/09/19 14:31 AW [email or web address]) OP-PT Balance Assessment Sitting Balance Static Sitting Balance Ability Normal Dynamic Sitting Balance Ability Normal Standing Balance Static Standing Balance Ability Fair Dynamic Standing Balance Ability Fair Device Used no boot, no AD Evans Fall Scale Copyright Permission PT-OP-F Manual Assessment Start: 04/09/19 13:49 Freq: Status: Active Protocol: Document 04/08/19 13:50 AW (Rec: 04/09/19 14:31 AW [email or web address]) Manual Assessments Joint Mobility Assessment Joint Mobility Assessment Minimal subtalar movement. No dorsal/plantar restriction at MTP's 1-5 bilaterally. Difficult to assess tibiotalar mobility due to swelling. Other Manual Assessments Other Manual Assessments No point tenderness along plantar surface, 5th digit tuberosity, navicular, Achilles insertion. Generalized tenderness along plantar surface noted by patient PT-OP-G Mobility & Gait Start: 04/09/19 13:49 Freq: Status: Active Protocol: Document 04/08/19 13:50 AW (Rec: 04/09/19 14:31 AW [email or web address]) OP Gait Assessment Gait Gait Assistance Required: Standby Assistance Distance (Feet) 100 Able to Maintain Weight Bearing Status Yes During Gait Gait Deviations General Gait Pattern Within Normal Limits,Antalgic, Decreased Stride Length, Decreased Feet Clearance,Wide Based Gait Factors Limiting Gait Function Factors Limiting Gait Function Decreased Activity Tolerance, Decreased Strength,Limited Range of Motion,Poor Balance Comments Gait Comments Pt ambulates with WBOS, forefoot landing (L>R), decreased stance time on LLE and decreaed step length RLE. He vaults over the LLE and exhibits right lateral lean in right stance. PT-OP-J Posture/Palpation/Skin Start: 04/09/19 13:49 Freq: Status: Active Protocol: Document 04/08/19 13:50 AW (Rec: 04/09/19 14:31 AW [email or web address]) Posture Evaluation Position Standing Knee Posture (L) Genu Valgus,(R) Genu Valgus Ankle/Foot Posture (L) Forefoot Abducted,(R) Forefoot Abducted Foot Arch (L) Low Arch,(R) Low Arch Skin Assessment Edema Assessment left ankle/foot Edema Type Non-Pitting Edema Appearance Discolored,Taut Comments Talar arch: Left 39 cm, Right 33 cm Horizontal at level of bilateral malleoli: Left 41 cm , Right 35 cm PT-OP-K Range of Motion Start: 04/09/19 13:49 Freq: Status: Active Protocol: Document 04/08/19 13:50 AW (Rec: 04/09/19 14:31 AW [email or web address]) Knee Goniometric Range of Motion Knee Left Knee ROM WFL Yes Patient Position Supine Ankle and Foot Goniometric Range of Motion Ankle and Foot Right Active Ankle/Foot ROM WFL No Testing Position Supine Dorsiflexion with Knee Flexed 5 Dorsiflexion with Knee Extended 5 Plantarflexion 40 Left Active Ankle/Foot ROM WFL No Testing Position Supine Dorsiflexion with Knee Flexed 0 Dorsiflexion with Knee Extended 0 Plantarflexion 20 Ankle and Foot ROM Limitations ROM Limitations Bony Restriction Toe Range of Motion Toes ROM Limitations Comments Pt lacks active left great toe extension PT-OP-M Strength Start: 04/09/19 13:49 Freq: Status: Active Protocol: Document 04/08/19 13:50 AW (Rec: 04/10/19 09:07 AW [email or web address]) Ankle/Foot Strength Ankle and Foot Manual Muscle Testing Right Dorsiflexion (L4) 4- Good- Plantarflexion (S1) 4- Good- Inversion 4 Good Eversion (S1) 4 Good Left Dorsiflexion (L4) 3 Fair Plantarflexion (S1) 3+ Fair+ Inversion 4- Good- Eversion (S1) 4- Good- Comments Pt can dorsiflex from extended position, but has no AROM past 0. Unable to test PF in standing due to safety concerns. Toe Strength Toe Manual Muscle Testing Right Great Toe Flexion 5 Normal Left Great Toe Flexion 4 Good PT-OP-N Lymphedema Start: 04/09/19 13:49 Freq: Status: Active Protocol: Document 05/15/19 10:40 SP (Rec: 05/15/19 11:44 SP [id number]) Lymphedema Measurements Lower Extremity Circumference Measurements L ankle foot MT Heads 34 cm Comments Lymphedema Comments -10 cm proximal MT heads 34 cm pre manual, 33 cm post - circumference calcaneus around ankle anteriorly ( anterior med/lat malleolus) 43 cm pre and post - figure 4 around ankle 74 cm pre and post - circumference med/lat malleolus 38.5 cm pre 37.5 cm post PT-OP-Q Treatments Start: 04/09/19 13:49 Freq: Status: Active Protocol: Document 05/21/19 10:32 HH (Rec: 05/21/19 12:13 HH [id number]) Cardio Equipment Recumbent Stepper (Sci-Fit) Duration (Minutes) 4 Resistance 3.0 Gym Equipment Shuttle Balance DF/PF/IV/EV Details blue Reps/Duration 5 min Comments using ankle to weight shift forward/backward, laterally Therapeutic Exercises Supine Exercises ankle circles Side left Reps/Minutes 15x2 supine INV and EV Supine Exercise Name supine inversion Side left Resistance manual Reps/Minutes 10 x 2 supine DF and PF Supine Exercise Name supine DF/PF Side left Resistance manual Reps/Minutes 10 x 2 Standing Exercises marching Standing Exercise Name high knee walking Side bilateral Comments cuing for L LE weight acceptance hurdles Standing Exercise Name heel/toe step Side bilateral Equipment Used 6 danae Reps/Minutes 15x3 Comments difficulty clearing danae L stance > R, poor balance; fingertip support single stance Standing Exercise Name single leg stance Side bilateral Equipment Used rail for support Comments up to 15 seconds each side Gait Training Gait Activity heel toe gait Device Used none Surface level Distance/Duration 10 ft x 4 Comments // bars, cuing to attempt without UE support Manual Therapy Treatment Soft Tissue Mobilization edema managment Body Location lower LE Mobilization Type Myofascial Release,Rolling Intensity/Depth Moderate Body Position Supine Comments upward stroke/retrograde manual PT-OP-R Modalities Start: 04/09/19 13:49 Freq: Status: Active Protocol: Document 05/15/19 10:35 SP (Rec: 05/15/19 11:37 SP [id number]) Hot Pack/Cold Pack Treatment Cold Pack Location L ankle Patient Position Hooklying Treatment Duration (minutes) 15 Patient Tolerance Good Comments cryo cuff PT-OP-S Aquatic Treatment Start: 04/09/19 13:49 Freq: Status: Active Protocol: Document 05/25/19 11:00 LJ (Rec: 05/25/19 15:52 LJ [id number]) Aquatics Treatment Pool Entry/Exit Pool Entry/Exit Method Edge of Pool Comments jump into deep Water Walking forward Water Level Chest Level Walking Equipment lg noodles under feet start stop Water Level Chest Level Walking Equipment Ankle Weight- 5.0# on heels and on toes Water Level Chest Level Walking Equipment Ankle Weight- 5.0# Level of Assistance Verbal Cues [place] Water Level Chest Level Walking Equipment Ankle Weight- 5.0# Level of Assistance Verbal Cues Comments modified with smaller steps fwd,bck,side, august, soldier august Water Level Chest Level Walking Equipment small float on feet Level of Assistance Standby Assistance,Verbal Cues Lower Extremity Exercises squats Body Position Standing Water Level Waist Level Equipment Large Noodle Reps/Duration 20 Comments reverse squats knee flex/ext Body Position Standing Water Level Chest Level Equipment Ankle Weight- 5.0# Reps/Duration 10x Comments UE support heel raise, toe raise Body Position Standing Water Level Chest Level Equipment Large Noodle Reps/Duration 10x Lower Extremity Stretches foot rolling Water Level Chest Level Equipment sm BBs quads Body Position Standing Water Level Chest Level Equipment Large Noodle Reps/Duration 2x45 HS Body Position Standing Water Level Chest Level Equipment Large Noodle Reps/Duration 2x45 gastroc Body Position Standing Water Level Chest Level Reps/Duration 2x45 Comments wall; rocking foot Balance noodle under foot-flex ext Body Position Standing Water Level Chest Level Reps/Duration 10x2 bilat standing on noodle Water Level Chest Level Equipment lg noodle Reps/Duration 5 min Comments various foot positions [place] Activities [place] Activities Bicycle,Cross Country,Running Other Activities burpees 3 ways x2 Duration 12 PT-OP-T Assessment and Plan Start: 04/09/19 13:49 Freq: Status: Active Protocol: Document 05/25/19 11:00 LJ (Rec: 05/25/19 15:52 LJ [id number]) Physical Therapy Assessment Rehab Potential Rehabilitation Potential Good Evaluation Complexity Number of Personal Factors/Comorbidities 1-2 Number of Body Systems Impaired 1-2 Clinical Presentation at Evaluation Stable Impairments Impairments Activity Tolerance,Balance, Edema,Functional Activities, Functional Mobility,Gait, Integument,Posture,ROM,Soft Tissue Mobility,Strength Other Concerns Fall Risk high risk of falls Goals 5 Impairment Pt scores 30/84 on FAAM ADL subscale Short Term Goal (STG) Pt will score 45/84 on FAAM ADL subscale to demonstrate increased independence with ADL's 05/20/19 MET Pt scores 63/84. 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 STG Duration 05/06/19 Armored Service Technician Goal (LTG) Pt will tolerate 7+ hours standing work (with appropriate breaks) without foot fatigue/tenderness LTG Duration 07/01/19 3 Impairment Pt unable to walk on uneven terrain Short Term Goal (STG) Pt will walk 15 minutes on uneven terrain with least restrictive assistive device STG Duration 05/20/19 Armored Service Technician Goal (LTG) Pt will walk 30 minutes on uneven terrain/forest trails with least restrictive assistive device. LTG Duration 07/01/19 2 Impairment Pt scores 33/80 on LEFS Short Term Goal (STG) Pt will score 45 or greater on LEFS to demonstrate improved function in daily activities. 05/20/19: MET Pt scores 46/80 on LEFS STG Duration 05/20/19 [facility] Goal (LTG) Pt will score 60 or greater on LEFS to represent improved function in daily activities. LTG Duration 07/01/19 1 Impairment Pt with no appropriate HEP Short Term Goal (STG) Pt will be independent with HEP for support of therapy services provided in clinic. 05/13/19 MET STG Duration 05/06/19 [facility] Goal (LTG) Pt will be independent with maintenance HEP to maintain functional progress achieved in therapy. LTG Duration 07/01/19 Assessment Summary Assessment Pt demonstrated good tolerance for exercises this session. Increased core involvement with challenging balance exercises. Continues to plow through the water rather than slowing down to improve movement patterns and balance. Physical Therapy Plan Frequency and Duration Frequency of Treatment 3x/Week Duration of Treatment 12 weeks Plan of Care Start Date 04/08/19 Plan of Care End Date 07/01/19 Therapeutic Interventions Therapeutic Interventions Aquatic Therapy,Balance Training,Gait Training,Home Exercise Program,Joint Mobilizations,Manual Therapy, Neuromuscular Re-education, Orthotic/Prosthetic Management ,Patient/Caregiver Education, Self-Care/Home Management, Sensory Integration,Soft Tissue Mobilization,Taping, Therapeutic Activities, Therapeutic Exercises Other Therapeutic Interventions cryo-cuff Next Visit Focus/Plan Next Note Type Treatment Note Next Visit Plan Progress strengthening and balance activities with focus on ankle strengthening all planes. Initiate formal gait training with attention to symmetric weight bearing during stance phase and heel strike at initial contact.
--- NOTE | 2019-05-27 12:53 | PT.OTN ---
Current Diagnoses Encounter for other orthopedic aftercare (05/27/19) Arthrodesis status (05/27/19) Physical Therapy Treatment Note PT-OP-A Visit Information Start: 04/09/19 13:49 Freq: Status: Active Protocol: Document 05/27/19 12:41 AW (Rec: 05/27/19 12:52 AW [email or web address]) Out-Patient Physical Therapy Visit Information Visit Information Visit Type Treatment Note Visit Start Time 10:32 Visit Stop Time 11:15 Total Visit Minutes 43 Visit Number 19 Number of INORGANIC CHEMISTRY PROFESSOR Visits 0 PT-OP-B Current Condition Start: 04/09/19 13:49 Freq: Status: Active Protocol: Document 04/08/19 13:50 AW (Rec: 04/09/19 14:31 AW [email or web address]) Current Condition History of Current Condition Onset Date years Current Complaints left ankle swelling and limited range of motion History of Current Condition Lea vega sprained his left ankle in 1989 as a result of a fall down a 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 He has dealt with ongoing ankle pain for years, culminating finally in ankle arthrodesis and Achilles lengthening on . Pt unable to identify which bones were fused. Per protocol, he has been in a cam boot for all mobility for the past three months. He primarily used a knee scooter during that time, but has progressively increased his weightbearing in the boot for short distances. He is now allowed full weightbearing in the boot. In the past 10 days, he switched to an articulated cane held in the right hand. He has returned to driving. 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 He reports minimal pain since surgery, but does endorse generalized tenderness of the plantar foot since beginning to walk with a cane. He denies any falls or near falls since surgery. Prior Treatments and Tests Ankle arthrodesis and Achilles lengthening 12/31/18. History of a-fib, HTN, pacemaker. Future Testing and Treatments Planned None identified Treatment Goals Patient/Caregiver Goals Pt would like to hike [place] and to be able to work standing 6 hours daily without fatigue or foot tenderness. 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 Current Functional Impairments (Reported) Functional Limitations- ADL's No known impairments Functional Limitations- Mobility/Gait Requires articulated cane and is limited in ambulation distance. Lacks confidence on uneven ground. Functional Limitations- Work/School Unable to stand for 6 hour shifts without foot/ankle fatigue and without tenderness of plantar foot. Functional Limitations- Recreation/ Unable to hike forest trails Hobbies Personal Factors Other Personal Factors That May Effect chronicity of deficits, Therapy/Recovery tendency to work through pain. PT-OP-C Subjective Start: 04/09/19 13:49 Freq: Status: Active Protocol: Document 05/27/19 12:41 AW (Rec: 05/27/19 12:52 AW [email or web address]) OP-PT Subjective Patient Comments Patient Comments Pt feels a little stiff and sore left ankle after pool therapy on Saturday. PT-OP-D Balance Start: 04/09/19 13:49 Freq: Status: Active Protocol: Document 04/08/19 13:50 AW (Rec: 04/09/19 14:31 AW [email or web address]) OP-PT Balance Assessment Sitting Balance Static Sitting Balance Ability Normal Dynamic Sitting Balance Ability Normal Standing Balance Static Standing Balance Ability Fair Dynamic Standing Balance Ability Fair Device Used no boot, no AD Evans Fall Scale Copyright Permission PT-OP-F Manual Assessment Start: 04/09/19 13:49 Freq: Status: Active Protocol: Document 04/08/19 13:50 AW (Rec: 04/09/19 14:31 AW [email or web address]) Manual Assessments Joint Mobility Assessment Joint Mobility Assessment Minimal subtalar movement. No dorsal/plantar restriction at MTP's 1-5 bilaterally. Difficult to assess tibiotalar mobility due to swelling. Other Manual Assessments Other Manual Assessments No point tenderness along plantar surface, 5th digit tuberosity, navicular, Achilles insertion. Generalized tenderness along plantar surface noted by patient PT-OP-G Mobility & Gait Start: 04/09/19 13:49 Freq: Status: Active Protocol: Document 04/08/19 13:50 AW (Rec: 04/09/19 14:31 AW [email or web address]) OP Gait Assessment Gait Gait Assistance Required: Standby Assistance Distance (Feet) 100 Able to Maintain Weight Bearing Status Yes During Gait Gait Deviations General Gait Pattern Within Normal Limits,Antalgic, Decreased Stride Length, Decreased Feet Clearance,Wide Based Gait Factors Limiting Gait Function Factors Limiting Gait Function Decreased Activity Tolerance, Decreased Strength,Limited Range of Motion,Poor Balance Comments Gait Comments Pt ambulates with WBOS, forefoot landing (L>R), decreased stance time on LLE and decreaed step length RLE. He vaults over the LLE and exhibits right lateral lean in right stance. PT-OP-J Posture/Palpation/Skin Start: 04/09/19 13:49 Freq: Status: Active Protocol: Document 04/08/19 13:50 AW (Rec: 04/09/19 14:31 AW [email or web address]) Posture Evaluation Position Standing Knee Posture (L) Genu Valgus,(R) Genu Valgus Ankle/Foot Posture (L) Forefoot Abducted,(R) Forefoot Abducted Foot Arch (L) Low Arch,(R) Low Arch Skin Assessment Edema Assessment left ankle/foot Edema Type Non-Pitting Edema Appearance Discolored,Taut Comments Talar arch: Left 39 cm, Right 33 cm Horizontal at level of bilateral malleoli: Left 41 cm , Right 35 cm PT-OP-K Range of Motion Start: 04/09/19 13:49 Freq: Status: Active Protocol: Document 04/08/19 13:50 AW (Rec: 04/09/19 14:31 AW [email or web address]) Knee Goniometric Range of Motion Knee Left Knee ROM WFL Yes Patient Position Supine Ankle and Foot Goniometric Range of Motion Ankle and Foot Right Active Ankle/Foot ROM WFL No Testing Position Supine Dorsiflexion with Knee Flexed 5 Dorsiflexion with Knee Extended 5 Plantarflexion 40 Left Active Ankle/Foot ROM WFL No Testing Position Supine Dorsiflexion with Knee Flexed 0 Dorsiflexion with Knee Extended 0 Plantarflexion 20 Ankle and Foot ROM Limitations ROM Limitations Bony Restriction Toe Range of Motion Toes ROM Limitations Comments Pt lacks active left great toe extension PT-OP-M Strength Start: 04/09/19 13:49 Freq: Status: Active Protocol: Document 04/08/19 13:50 AW (Rec: 04/10/19 09:07 AW [email or web address]) Ankle/Foot Strength Ankle and Foot Manual Muscle Testing Right Dorsiflexion (L4) 4- Good- Plantarflexion (S1) 4- Good- Inversion 4 Good Eversion (S1) 4 Good Left Dorsiflexion (L4) 3 Fair Plantarflexion (S1) 3+ Fair+ Inversion 4- Good- Eversion (S1) 4- Good- Comments Pt can dorsiflex from extended position, but has no AROM past 0. Unable to test PF in standing due to safety concerns. Toe Strength Toe Manual Muscle Testing Right Great Toe Flexion 5 Normal Left Great Toe Flexion 4 Good PT-OP-N Lymphedema Start: 04/09/19 13:49 Freq: Status: Active Protocol: Document 05/15/19 10:40 SP (Rec: 05/15/19 11:44 SP [id number]) Lymphedema Measurements Lower Extremity Circumference Measurements L ankle foot MT Heads 34 cm Comments Lymphedema Comments -10 cm proximal MT heads 34 cm pre manual, 33 cm post - circumference calcaneus around ankle anteriorly ( anterior med/lat malleolus) 43 cm pre and post - figure 4 around ankle 74 cm pre and post - circumference med/lat malleolus 38.5 cm pre 37.5 cm post PT-OP-Q Treatments Start: 04/09/19 13:49 Freq: Status: Active Protocol: Document 05/27/19 12:41 AW (Rec: 05/27/19 12:52 AW [email or web address]) Cardio Equipment Recumbent Stepper (Sci-Fit) Duration (Minutes) 4 Resistance 3.0 Seat Position 14 Other cues for DF/keep heel down Therapeutic Exercises Supine Exercises supine INV and EV Supine Exercise Name supine inversion and eversion Side left Resistance manual Reps/Minutes 10 each direction supine DF and PF Supine Exercise Name supine DF/PF Side left Resistance manual Reps/Minutes 10 each direction Standing Exercises hurdles Standing Exercise Name heel/toe step Side bilateral Resistance 4 hurdles, // bars Equipment Used 6 danae Reps/Minutes 10 feet x 10 Comments fading UE support; pt with tendency to circumduct left hip eversion Standing Exercise Name eversion Side left Resistance bodyweight Reps/Minutes 2x15 reps Comments barefoot; min lift at lateral border, but with detectable muscle activation standing calf stretch Standing Exercise Name calf stretch Side left Equipment Used LEA Reps/Minutes 1 minute x 2 Comments cues for hip extension Gait Training Gait Activity heel toe gait Description heel toe gait Device Used none Level of Assistance SBA Surface level Distance/Duration 50' x 2 Treatment Focus heelstrike, hip flexion Comments visual demonstration and cues to avoid circumduction L LE Manual Therapy Treatment Soft Tissue Mobilization edema managment Body Location lower LE Mobilization Type Myofascial Release,Rolling Intensity/Depth Moderate Body Position Supine Comments upward stroke/retrograde manual Joint Mobilizations talocrural Joint talocrural Direction anterior > posterior Grade III Body Position Supine Reps/Duration 3 minutes Comments with active DF and manual stretch using contract/relax MTP Joint MTP 1-5 Direction dorsal and plantar Grade III Body Position Hooklying Reps/Duration 5 minutes Comments greatest restriction at digits 2-3 PT-OP-R Modalities Start: 04/09/19 13:49 Freq: Status: Active Protocol: Document 05/15/19 10:35 SP (Rec: 05/15/19 11:37 SP [id number]) Hot Pack/Cold Pack Treatment Cold Pack Location L ankle Patient Position Hooklying Treatment Duration (minutes) 15 Patient Tolerance Good Comments cryo cuff PT-OP-S Aquatic Treatment Start: 04/09/19 13:49 Freq: Status: Active Protocol: Document 05/25/19 11:00 LJ (Rec: 05/25/19 15:52 LJ [id number]) Aquatics Treatment Pool Entry/Exit Pool Entry/Exit Method Edge of Pool Comments jump into deep Water Walking forward Water Level Chest Level Walking Equipment lg noodles under feet start stop Water Level Chest Level Walking Equipment Ankle Weight- 5.0# on heels and on toes Water Level Chest Level Walking Equipment Ankle Weight- 5.0# Level of Assistance Verbal Cues [place] Water Level Chest Level Walking Equipment Ankle Weight- 5.0# Level of Assistance Verbal Cues Comments modified with smaller steps fwd,bck,side, march, soldier august Water Level Chest Level Walking Equipment small float on feet Level of Assistance Standby Assistance,Verbal Cues Lower Extremity Exercises squats Body Position Standing Water Level Waist Level Equipment Large Noodle Reps/Duration 20 Comments reverse squats knee flex/ext Body Position Standing Water Level Chest Level Equipment Ankle Weight- 5.0# Reps/Duration 10x Comments UE support heel raise, toe raise Body Position Standing Water Level Chest Level Equipment Large Noodle Reps/Duration 10x Lower Extremity Stretches foot rolling Water Level Chest Level Equipment sm BBs quads Body Position Standing Water Level Chest Level Equipment Large Noodle Reps/Duration 2x45 HS Body Position Standing Water Level Chest Level Equipment Large Noodle Reps/Duration 2x45 gastroc Body Position Standing Water Level Chest Level Reps/Duration 2x45 Comments wall; rocking foot Balance noodle under foot-flex ext Body Position Standing Water Level Chest Level Reps/Duration 10x2 bilat standing on noodle Water Level Chest Level Equipment lg noodle Reps/Duration 5 min Comments various foot positions [place] Activities [place] Activities Bicycle,Cross Country,Running Other Activities burpees 3 ways x2 Duration 12 PT-OP-T Assessment and Plan Start: 04/09/19 13:49 Freq: Status: Active Protocol: Document 05/27/19 12:41 AW (Rec: 05/27/19 12:52 AW [email or web address]) Physical Therapy Assessment Rehab Potential Rehabilitation Potential Good Evaluation Complexity Number of Personal Factors/Comorbidities 1-2 Number of Body Systems Impaired 1-2 Clinical Presentation at Evaluation Stable Impairments Impairments Activity Tolerance,Balance, Edema,Functional Activities, Functional Mobility,Gait, Integument,Posture,ROM,Soft Tissue Mobility,Strength Other Concerns Fall Risk high risk of falls Goals 5 Impairment Pt scores 30/84 on FAAM ADL subscale Short Term Goal (STG) Pt will score 45/84 on FAAM ADL subscale to demonstrate increased independence with ADL's 05/20/19 MET Pt scores 63/84. 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 STG Duration 05/06/19 Child Monitor Goal (LTG) Pt will tolerate 7+ hours standing work (with appropriate breaks) without foot fatigue/tenderness LTG Duration 07/01/19 3 Impairment Pt unable to walk on uneven terrain Short Term Goal (STG) Pt will walk 15 minutes on uneven terrain with least restrictive assistive device STG Duration 05/20/19 Senior Living Goal (LTG) Pt will walk 30 minutes on uneven terrain/forest trails with least restrictive assistive device. LTG Duration 07/01/19 2 Impairment Pt scores 33/80 on LEFS Short Term Goal (STG) Pt will score 45 or greater on LEFS to demonstrate improved function in daily activities. 05/20/19: MET Pt scores 46/80 on LEFS STG Duration 05/20/19 Senior Living Goal (LTG) Pt will score 60 or greater on LEFS to represent improved function in daily activities. LTG Duration 07/01/19 1 Impairment Pt with no appropriate HEP Short Term Goal (STG) Pt will be independent with HEP for support of therapy services provided in clinic. 05/13/19 MET STG Duration 05/06/19 Senior Living Goal (LTG) Pt will be independent with maintenance HEP to maintain functional progress achieved in therapy. LTG Duration 07/01/19 Assessment Summary Assessment Pt with continued low tolerance for cardiovascular effort, limited to 4 minutes on biodex recumbent stepper. Improving subtalar range of motion evident in resisted inversion/eversion with less noticeable dependance on forefoot for motion. Physical Therapy Plan Frequency and Duration Frequency of Treatment 3x/Week Duration of Treatment 12 weeks Plan of Care Start Date 04/08/19 Plan of Care End Date 07/01/19 Therapeutic Interventions Therapeutic Interventions Aquatic Therapy,Balance Training,Gait Training,Home Exercise Program,Joint Mobilizations,Manual Therapy, Neuromuscular Re-education, Orthotic/Prosthetic Management ,Patient/Caregiver Education, Self-Care/Home Management, Sensory Integration,Soft Tissue Mobilization,Taping, Therapeutic Activities, Therapeutic Exercises Other Therapeutic Interventions cryo-cuff Next Visit Focus/Plan Next Note Type Treatment Note Next Visit Plan Progress strengthening and balance activities with focus on ankle strengthening all planes. Initiate formal gait training with attention to symmetric weightbearing during stance phase and heelstrike at initial contact. Consider recumbent bike vs stepper for fluid ankle motion and cardiovascular conditioning
--- NOTE | 2019-05-29 10:50 | PT-OP ANOTE ---
Pt called [phone] this morning (less than 24 hrs) to cancel today's appt secondary to family emergency and needing to leave town [place]. NEEDLE BOARD REPAIRER spoke with patient and reminded of next appt 06/08/19.
--- NOTE | 2019-06-01 14:51 | PT-OP ANOTE ---
Pt did not show for Outpatient PT today. ROTARY BAR OPERATOR called and patient accidently went to the pool and realized mixed up his days so just did self exercises at the pool. ROTARY BAR OPERATOR reminded next land appt is 06/05/19 and next aquatic tx is 06/08/19 with verbal confirmation.
--- NOTE | 2019-06-05 11:25 | PT.OTN ---
Current Diagnoses Encounter for other orthopedic aftercare (06/05/19) Arthrodesis status (06/05/19) Physical Therapy Treatment Note PT-OP-A Visit Information Start: 04/09/19 13:49 Freq: Status: Active Protocol: Document 06/05/19 10:30 SP (Rec: 06/05/19 11:39 SP [id number]) Out-Patient Physical Therapy Visit Information Visit Information Visit Type Treatment Note Visit Start Time 10:30 Visit Stop Time 11:25 Total Visit Minutes 55 Visit Number 20 Number of CRIMINAL ATTORNEY Visits 1 PT-OP-B Current Condition Start: 04/09/19 13:49 Freq: Status: Active Protocol: Document 04/08/19 13:50 AW (Rec: 04/09/19 14:31 AW [email or web address]) Current Condition History of Current Condition Onset Date years Current Complaints left ankle swelling and limited range of motion History of Current Condition Vamsi vega sprained his left ankle in 1989 as a result of a fall down a 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 He has dealt with ongoing ankle pain for years, culminating finally in ankle arthrodesis and Achilles lengthening on . Pt unable to identify which bones were fused. Per protocol, he has been in a cam boot for all mobility for the past three months. He primarily used a knee scooter during that time, but has progressively increased his weightbearing in the boot for short distances. He is now allowed full weightbearing in the boot. In the past 10 days, he switched to an articulated cane held in the right hand. He has returned to driving. 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 He reports minimal pain since surgery, but does endorse generalized tenderness of the plantar foot since beginning to walk with a cane. He denies any falls or near falls since surgery. Prior Treatments and Tests Ankle arthrodesis and Achilles lengthening 12/31/18. History of a-fib, HTN, pacemaker. Future Testing and Treatments Planned None identified Treatment Goals Patient/Caregiver Goals Pt would like to hike [email or web address] and to be able to work standing 6 hours daily without fatigue or foot tenderness. 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 Current Functional Impairments (Reported) Functional Limitations- ADL's No known impairments Functional Limitations- Mobility/Gait Requires articulated cane and is limited in ambulation distance. Lacks confidence on uneven ground. Functional Limitations- Work/School Unable to stand for 6 hour shifts without foot/ankle fatigue and without tenderness of plantar foot. Functional Limitations- Recreation/ Unable to hike forest trails Hobbies Personal Factors Other Personal Factors That May Effect chronicity of deficits, Therapy/Recovery tendency to work through pain. PT-OP-C Subjective Start: 04/09/19 13:49 Freq: Status: Active Protocol: Document 06/05/19 10:30 SP (Rec: 06/05/19 11:39 SP [id number]) OP-PT Subjective Patient Comments Patient Comments Pt stated L ankle sore, took a water pills so swelling isn't as bad. Has been pretty busy on his feel over the holidays, trying to be as compliant as can with HEP. PT-OP-D Balance Start: 04/09/19 13:49 Freq: Status: Active Protocol: Document 04/08/19 13:50 AW (Rec: 04/09/19 14:31 AW [email or web address]) OP-PT Balance Assessment Sitting Balance Static Sitting Balance Ability Normal Dynamic Sitting Balance Ability Normal Standing Balance Static Standing Balance Ability Fair Dynamic Standing Balance Ability Fair Device Used no boot, no AD Evans Fall Scale Copyright Permission PT-OP-F Manual Assessment Start: 04/09/19 13:49 Freq: Status: Active Protocol: Document 04/08/19 13:50 AW (Rec: 04/09/19 14:31 AW [email or web address]) Manual Assessments Joint Mobility Assessment Joint Mobility Assessment Minimal subtalar movement. No dorsal/plantar restriction at MTP's 1-5 bilaterally. Difficult to assess tibiotalar mobility due to swelling. Other Manual Assessments Other Manual Assessments No point tenderness along plantar surface, 5th digit tuberosity, navicular, Achilles insertion. Generalized tenderness along plantar surface noted by patient PT-OP-G Mobility & Gait Start: 04/09/19 13:49 Freq: Status: Active Protocol: Document 04/08/19 13:50 AW (Rec: 04/09/19 14:31 AW [email or web address]) OP Gait Assessment Gait Gait Assistance Required: Standby Assistance Distance (Feet) 100 Able to Maintain Weight Bearing Status Yes During Gait Gait Deviations General Gait Pattern Within Normal Limits,Antalgic, Decreased Stride Length, Decreased Feet Clearance,Wide Based Gait Factors Limiting Gait Function Factors Limiting Gait Function Decreased Activity Tolerance, Decreased Strength,Limited Range of Motion,Poor Balance Comments Gait Comments Pt ambulates with WBOS, forefoot landing (L>R), decreased stance time on LLE and decreaed step length RLE. He vaults over the LLE and exhibits right lateral lean in right stance. PT-OP-J Posture/Palpation/Skin Start: 04/09/19 13:49 Freq: Status: Active Protocol: Document 04/08/19 13:50 AW (Rec: 04/09/19 14:31 AW [email or web address]) Posture Evaluation Position Standing Knee Posture (L) Genu Valgus,(R) Genu Valgus Ankle/Foot Posture (L) Forefoot Abducted,(R) Forefoot Abducted Foot Arch (L) Low Arch,(R) Low Arch Skin Assessment Edema Assessment left ankle/foot Edema Type Non-Pitting Edema Appearance Discolored,Taut Comments Talar arch: Left 39 cm, Right 33 cm Horizontal at level of bilateral malleoli: Left 41 cm , Right 35 cm PT-OP-K Range of Motion Start: 04/09/19 13:49 Freq: Status: Active Protocol: Document 04/08/19 13:50 AW (Rec: 04/09/19 14:31 AW [email or web address]) Knee Goniometric Range of Motion Knee Left Knee ROM WFL Yes Patient Position Supine Ankle and Foot Goniometric Range of Motion Ankle and Foot Right Active Ankle/Foot ROM WFL No Testing Position Supine Dorsiflexion with Knee Flexed 5 Dorsiflexion with Knee Extended 5 Plantarflexion 40 Left Active Ankle/Foot ROM WFL No Testing Position Supine Dorsiflexion with Knee Flexed 0 Dorsiflexion with Knee Extended 0 Plantarflexion 20 Ankle and Foot ROM Limitations ROM Limitations Bony Restriction Toe Range of Motion Toes ROM Limitations Comments Pt lacks active left great toe extension PT-OP-M Strength Start: 04/09/19 13:49 Freq: Status: Active Protocol: Document 04/08/19 13:50 AW (Rec: 04/10/19 09:07 AW [email or web address]) Ankle/Foot Strength Ankle and Foot Manual Muscle Testing Right Dorsiflexion (L4) 4- Good- Plantarflexion (S1) 4- Good- Inversion 4 Good Eversion (S1) 4 Good Left Dorsiflexion (L4) 3 Fair Plantarflexion (S1) 3+ Fair+ Inversion 4- Good- Eversion (S1) 4- Good- Comments Pt can dorsiflex from extended position, but has no AROM past 0. Unable to test PF in standing due to safety concerns. Toe Strength Toe Manual Muscle Testing Right Great Toe Flexion 5 Normal Left Great Toe Flexion 4 Good PT-OP-N Lymphedema Start: 04/09/19 13:49 Freq: Status: Active Protocol: Document 05/15/19 10:40 SP (Rec: 05/15/19 11:44 SP [id number]) Lymphedema Measurements Lower Extremity Circumference Measurements L ankle foot MT Heads 34 cm Comments Lymphedema Comments -10 cm proximal MT heads 34 cm pre manual, 33 cm post - circumference calcaneus around ankle anteriorly ( anterior med/lat malleolus) 43 cm pre and post - figure 4 around ankle 74 cm pre and post - circumference med/lat malleolus 38.5 cm pre 37.5 cm post PT-OP-Q Treatments Start: 04/09/19 13:49 Freq: Status: Active Protocol: Document 06/05/19 10:30 SP (Rec: 06/05/19 11:39 SP [id number]) Cardio Equipment Recumbent Elliptical (Biodex) Duration (Minutes) 8 Resistance 8 Other 60 SPM Therapeutic Exercises Supine Exercises supine INV and EV Supine Exercise Name supine inversion and eversion Side left Resistance AAROM, manual assist Reps/Minutes 10 each direction supine DF and PF Supine Exercise Name supine DF/PF Side left Resistance AAROM, manual assist Reps/Minutes 10 each direction Standing Exercises heel raise Standing Exercise Name eccentric plantar flexion Side left Equipment Used 6 step Reps/Minutes x10 Gait Training Gait Activity heel toe gait Description heel toe gait Device Used none Level of Assistance SBA Surface level Distance/Duration 10 ft x3 laps Treatment Focus heelstrike, knee & hip flexion Comments cued for knee flexion and heel strike level pelvis, slow pacing to decrease circumduction compensations Manual Therapy Treatment Soft Tissue Mobilization ant and gastro Body Location proximal gastroc, peroneals Mobilization Type Rolling,Sustained Pressure, Trigger Point Release Intensity/Depth Moderate Body Position Supine Comments upward stroke edema managment Body Location lower LE Mobilization Type Myofascial Release,Rolling Intensity/Depth Moderate Body Position Supine Comments upward stroke/retrograde manual Joint Mobilizations talocrural Joint talocrural Direction anterior > posterior Grade III Body Position Supine Reps/Duration 3 minutes Comments with active DF and manual stretch using contract/relax MTP Joint MTP 1-5 Direction dorsal and plantar Grade III Body Position Hooklying Reps/Duration 5 minutes Comments greatest restriction at digits 2-3 Neuro Re-Education Treatment Balance Activities stepping over hurdles Details forward /side stepping Surface floor Equipment 6 hurdles Reps/Duration 2 laps single stance step over danae Details step over/ back danae Surface floor Equipment 1 danae Reps/Duration 2x5 shuttle balance Details NBOS, WBOS EO/EC/head turns Equipment red clips Reps/Duration 4 min PT-OP-R Modalities Start: 04/09/19 13:49 Freq: Status: Active Protocol: Document 06/05/19 10:30 SP (Rec: 06/05/19 11:39 SP [id number]) Hot Pack/Cold Pack Treatment Cold Pack Location L ankle Patient Position Hooklying Treatment Duration (minutes) 15 Patient Tolerance Good Comments cryo cuff PT-OP-S Aquatic Treatment Start: 04/09/19 13:49 Freq: Status: Active Protocol: Document 05/25/19 11:00 LJ (Rec: 05/25/19 15:52 LJ [id number]) Aquatics Treatment Pool Entry/Exit Pool Entry/Exit Method Edge of Pool Comments jump into deep Water Walking forward Water Level Chest Level Walking Equipment lg noodles under feet start stop Water Level Chest Level Walking Equipment Ankle Weight- 5.0# on heels and on toes Water Level Chest Level Walking Equipment Ankle Weight- 5.0# Level of Assistance Verbal Cues [place] Water Level Chest Level Walking Equipment Ankle Weight- 5.0# Level of Assistance Verbal Cues Comments modified with smaller steps fwd,bck,side, august, soldier august Water Level Chest Level Walking Equipment small float on feet Level of Assistance Standby Assistance,Verbal Cues Lower Extremity Exercises squats Body Position Standing Water Level Waist Level Equipment Large Noodle Reps/Duration 20 Comments reverse squats knee flex/ext Body Position Standing Water Level Chest Level Equipment Ankle Weight- 5.0# Reps/Duration 10x Comments UE support heel raise, toe raise Body Position Standing Water Level Chest Level Equipment Large Noodle Reps/Duration 10x Lower Extremity Stretches foot rolling Water Level Chest Level Equipment sm BBs quads Body Position Standing Water Level Chest Level Equipment Large Noodle Reps/Duration 2x45 HS Body Position Standing Water Level Chest Level Equipment Large Noodle Reps/Duration 2x45 gastroc Body Position Standing Water Level Chest Level Reps/Duration 2x45 Comments wall; rocking foot Balance noodle under foot-flex ext Body Position Standing Water Level Chest Level Reps/Duration 10x2 bilat standing on noodle Water Level Chest Level Equipment lg noodle Reps/Duration 5 min Comments various foot positions Cardwell Activities Cardwell Activities Bicycle,Cross Country,Running Other Activities burpees 3 ways x2 Duration 12 PT-OP-T Assessment and Plan Start: 04/09/19 13:49 Freq: Status: Active Protocol: Document 06/05/19 10:30 SP (Rec: 06/05/19 11:39 SP [id number]) Physical Therapy Assessment Goals 5 Impairment Pt scores 30/84 on FAAM ADL subscale Short Term Goal (STG) Pt will score 45/84 on FAAM ADL subscale to demonstrate increased independence with ADL's 05/20/19 MET Pt scores 63/84. 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 STG Duration 05/06/19 Senior Living Goal (LTG) Pt will tolerate 7+ hours standing work (with appropriate breaks) without foot fatigue/tenderness LTG Duration 07/01/19 3 Impairment Pt unable to walk on uneven terrain Short Term Goal (STG) Pt will walk 15 minutes on uneven terrain with least restrictive assistive device STG Duration 05/20/19 Gas Line Installer Supervisor Goal (LTG) Pt will walk 30 minutes on uneven terrain/forest trails with least restrictive assistive device. LTG Duration 07/01/19 2 Impairment Pt scores 33/80 on LEFS Short Term Goal (STG) Pt will score 45 or greater on LEFS to demonstrate improved function in daily activities. 05/20/19: MET Pt scores 46/80 on LEFS STG Duration 05/20/19 Senior Living Goal (LTG) Pt will score 60 or greater on LEFS to represent improved function in daily activities. LTG Duration 07/01/19 1 Impairment Pt with no appropriate HEP Short Term Goal (STG) Pt will be independent with HEP for support of therapy services provided in clinic. 05/13/19 MET STG Duration 05/06/19 Senior Living Goal (LTG) Pt will be independent with maintenance HEP to maintain functional progress achieved in therapy. LTG Duration 07/01/19 Assessment Summary Assessment Pt tolerated cardio effort today with ability to maintain 60 SPM for 8 min at resistance 8. Requested manual to posterior L knee secondary to tightness upon arrival, did loosen up on bike though. Pt improved SLS stance time post balance activities initially step taps over hurdles then f/b/side stepping hurdles and shuttle balance NBOS/WBOS EO/EC/head turns for strengthening recovery for improving walking uneven surfaces and heel toe gait phases. Pt demonstrated improvement in gait L ankle mechanics after balance activities. Pt requested coldmodality end of tx to assist swelling and warmed up calf after exercises. Physical Therapy Plan Frequency and Duration Frequency of Treatment 3x/Week Duration of Treatment 12 weeks Plan of Care Start Date 04/08/19 Plan of Care End Date 07/01/19 Therapeutic Interventions Therapeutic Interventions Aquatic Therapy,Balance Training,Gait Training,Home Exercise Program,Joint Mobilizations,Manual Therapy, Neuromuscular Re-education, Orthotic/Prosthetic Management ,Patient/Caregiver Education, Self-Care/Home Management, Sensory Integration,Soft Tissue Mobilization,Taping, Therapeutic Activities, Therapeutic Exercises Other Therapeutic Interventions cryo-cuff Next Visit Focus/Plan Next Note Type Treatment Note Next Visit Plan Assess response to balance activities last tx : hurdles, shuttle balance. Progress strengthening and balance activities with focus on ankle strengthening all planes. Initiate formal gait training with attention to symmetric weightbearing during stance phase and heelstrike at initial contact. Consider recumbent bike vs stepper for fluid ankle motion and cardiovascular conditioning
--- NOTE | 2019-06-08 14:10 | PT.OTN ---
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 He has dealt with ongoing ankle pain for years, culminating finally in ankle arthrodesis and Achilles lengthening on . Pt unable to identify which bones were fused. Per protocol, he has been in a cam boot for all mobility for the past three months. He primarily used a knee scooter during that time, but has progressively increased his weightbearing in the boot for short distances. He is now allowed full weightbearing in the boot. In the past 10 days, he switched to an articulated cane held in the right hand. He has returned to driving. 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 He reports minimal pain since surgery, but does endorse generalized tenderness of the plantar foot since beginning to walk with a cane. He denies any falls or near falls since surgery. Prior Treatments and Tests Ankle arthrodesis and Achilles lengthening 12/31/18. History of a-fib, HTN, pacemaker. Future Testing and Treatments Planned None identified Treatment Goals Patient/Caregiver Goals Pt would like to hike [employer] and to be able to work standing 6 hours daily without fatigue or foot tenderness. 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 Current Functional Impairments (Reported) Functional Limitations- ADL's No known impairments Functional Limitations- Mobility/Gait Requires articulated cane and is limited in ambulation distance. Lacks confidence on uneven ground. Functional Limitations- Work/School Unable to stand for 6 hour shifts without foot/ankle fatigue and without tenderness of plantar foot. Functional Limitations- Recreation/ Unable to hike forest trails Hobbies Personal Factors Other Personal Factors That May Effect chronicity of deficits, Therapy/Recovery tendency to work through pain. PT-OP-C Subjective Start: 04/09/19 13:49 Freq: Status: Active Protocol: Document 06/08/19 11:45 LJ (Rec: 06/08/19 14:10 LJ [id number]) OP-PT Subjective Patient Comments Patient Comments Pt states he has been working a lot over the holidays and his ankle is sore but nothing more than normal. PT-OP-D Balance Start: 04/09/19 13:49 Freq: Status: Active Protocol: Document 04/08/19 13:50 AW (Rec: 04/09/19 14:31 AW [email or web address]) OP-PT Balance Assessment Sitting Balance Static Sitting Balance Ability Normal Dynamic Sitting Balance Ability Normal Standing Balance Static Standing Balance Ability Fair Dynamic Standing Balance Ability Fair Device Used no boot, no AD Evans Fall Scale Copyright Permission PT-OP-F Manual Assessment Start: 04/09/19 13:49 Freq: Status: Active Protocol: Document 04/08/19 13:50 AW (Rec: 04/09/19 14:31 AW [email or web address]) Manual Assessments Joint Mobility Assessment Joint Mobility Assessment Minimal subtalar movement. No dorsal/plantar restriction at MTP's 1-5 bilaterally. Difficult to assess tibiotalar mobility due to swelling. Other Manual Assessments Other Manual Assessments No point tenderness along plantar surface, 5th digit tuberosity, navicular, Achilles insertion. Generalized tenderness along plantar surface noted by patient PT-OP-G Mobility & Gait Start: 04/09/19 13:49 Freq: Status: Active Protocol: Document 04/08/19 13:50 AW (Rec: 04/09/19 14:31 AW [email or web address]) OP Gait Assessment Gait Gait Assistance Required: Standby Assistance Distance (Feet) 100 Able to Maintain Weight Bearing Status Yes During Gait Gait Deviations General Gait Pattern Within Normal Limits,Antalgic, Decreased Stride Length, Decreased Feet Clearance,Wide Based Gait Factors Limiting Gait Function Factors Limiting Gait Function Decreased Activity Tolerance, Decreased Strength,Limited Range of Motion,Poor Balance Comments Gait Comments Pt ambulates with WBOS, forefoot landing (L>R), decreased stance time on LLE and decreaed step length RLE. He vaults over the LLE and exhibits right lateral lean in right stance. PT-OP-J Posture/Palpation/Skin Start: 04/09/19 13:49 Freq: Status: Active Protocol: Document 04/08/19 13:50 AW (Rec: 04/09/19 14:31 AW [email or web address]) Posture Evaluation Position Standing Knee Posture (L) Genu Valgus,(R) Genu Valgus Ankle/Foot Posture (L) Forefoot Abducted,(R) Forefoot Abducted Foot Arch (L) Low Arch,(R) Low Arch Skin Assessment Edema Assessment left ankle/foot Edema Type Non-Pitting Edema Appearance Discolored,Taut Comments Talar arch: Left 39 cm, Right 33 cm Horizontal at level of bilateral malleoli: Left 41 cm , Right 35 cm PT-OP-K Range of Motion Start: 04/09/19 13:49 Freq: Status: Active Protocol: Document 04/08/19 13:50 AW (Rec: 04/09/19 14:31 AW [email or web address]) Knee Goniometric Range of Motion Knee Left Knee ROM WFL Yes Patient Position Supine Ankle and Foot Goniometric Range of Motion Ankle and Foot Right Active Ankle/Foot ROM WFL No Testing Position Supine Dorsiflexion with Knee Flexed 5 Dorsiflexion with Knee Extended 5 Plantarflexion 40 Left Active Ankle/Foot ROM WFL No Testing Position Supine Dorsiflexion with Knee Flexed 0 Dorsiflexion with Knee Extended 0 Plantarflexion 20 Ankle and Foot ROM Limitations ROM Limitations Bony Restriction Toe Range of Motion Toes ROM Limitations Comments Pt lacks active left great toe extension PT-OP-M Strength Start: 04/09/19 13:49 Freq: Status: Active Protocol: Document 04/08/19 13:50 AW (Rec: 04/10/19 09:07 AW [email or web address]) Ankle/Foot Strength Ankle and Foot Manual Muscle Testing Right Dorsiflexion (L4) 4- Good- Plantarflexion (S1) 4- Good- Inversion 4 Good Eversion (S1) 4 Good Left Dorsiflexion (L4) 3 Fair Plantarflexion (S1) 3+ Fair+ Inversion 4- Good- Eversion (S1) 4- Good- Comments Pt can dorsiflex from extended position, but has no AROM past 0. Unable to test PF in standing due to safety concerns. Toe Strength Toe Manual Muscle Testing Right Great Toe Flexion 5 Normal Left Great Toe Flexion 4 Good PT-OP-N Lymphedema Start: 04/09/19 13:49 Freq: Status: Active Protocol: Document 05/15/19 10:40 SP (Rec: 05/15/19 11:44 SP [id number]) Lymphedema Measurements Lower Extremity Circumference Measurements L ankle foot MT Heads 34 cm Comments Lymphedema Comments -10 cm proximal MT heads 34 cm pre manual, 33 cm post - circumference calcaneus around ankle anteriorly ( anterior med/lat malleolus) 43 cm pre and post - figure 4 around ankle 74 cm pre and post - circumference med/lat malleolus 38.5 cm pre 37.5 cm post PT-OP-Q Treatments Start: 04/09/19 13:49 Freq: Status: Active Protocol: Document 06/05/19 10:30 SP (Rec: 06/05/19 11:39 SP [id number]) Cardio Equipment Recumbent Elliptical (Biodex) Duration (Minutes) 8 Resistance 8 Other 60 SPM Therapeutic Exercises Supine Exercises supine INV and EV Supine Exercise Name supine inversion and eversion Side left Resistance AAROM, manual assist Reps/Minutes 10 each direction supine DF and PF Supine Exercise Name supine DF/PF Side left Resistance AAROM, manual assist Reps/Minutes 10 each direction Standing Exercises heel raise Standing Exercise Name eccentric plantar flexion Side left Equipment Used 6 step Reps/Minutes x10 Gait Training Gait Activity heel toe gait Description heel toe gait Device Used none Level of Assistance SBA Surface level Distance/Duration 10 ft x3 laps Treatment Focus heelstrike, knee & hip flexion Comments cued for knee flexion and heel strike level pelvis, slow pacing to decrease circumduction compensations Manual Therapy Treatment Soft Tissue Mobilization ant and gastro Body Location proximal gastroc, peroneals Mobilization Type Rolling,Sustained Pressure, Trigger Point Release Intensity/Depth Moderate Body Position Supine Comments upward stroke edema managment Body Location lower LE Mobilization Type Myofascial Release,Rolling Intensity/Depth Moderate Body Position Supine Comments upward stroke/retrograde manual Joint Mobilizations talocrural Joint talocrural Direction anterior > posterior Grade III Body Position Supine Reps/Duration 3 minutes Comments with active DF and manual stretch using contract/relax MTP Joint MTP 1-5 Direction dorsal and plantar Grade III Body Position Hooklying Reps/Duration 5 minutes Comments greatest restriction at digits 2-3 Neuro Re-Education Treatment Balance Activities stepping over hurdles Details forward /side stepping Surface floor Equipment 6 hurdles Reps/Duration 2 laps single stance step over danae Details step over/ back danae Surface floor Equipment 1 danae Reps/Duration 2x5 shuttle balance Details NBOS, WBOS EO/EC/head turns Equipment red clips Reps/Duration 4 min PT-OP-R Modalities Start: 04/09/19 13:49 Freq: Status: Active Protocol: Document 06/05/19 10:30 SP (Rec: 06/05/19 11:39 SP [id number]) Hot Pack/Cold Pack Treatment Cold Pack Location L ankle Patient Position Hooklying Treatment Duration (minutes) 15 Patient Tolerance Good Comments cryo cuff PT-OP-S Aquatic Treatment Start: 04/09/19 13:49 Freq: Status: Active Protocol: Document 06/08/19 11:45 LJ (Rec: 06/08/19 14:10 LJ [id number]) Aquatics Treatment Pool Entry/Exit Pool Entry/Exit Method Edge of Pool Comments jump into deep Water Walking forward Water Level Chest Level Walking Equipment blue andreafski noodles under feet on heels and on toes Water Level Chest Level Walking Equipment blue andreafski noodles Level of Assistance Verbal Cues [place] Water Level Chest Level Level of Assistance Verbal Cues Comments modified with smaller steps fwd,bck,side, march, soldier march Water Level Chest Level Walking Equipment blue andreafski noodles on feet Level of Assistance Standby Assistance,Verbal Cues Lower Extremity Exercises squats Body Position Standing Water Level Waist Level Equipment blue andreafski floats Reps/Duration 20 Comments focus on form, floats for greater ankle ROM heel raise, toe raise Body Position Standing Water Level Chest Level Reps/Duration 20x Lower Extremity Stretches quads Body Position Standing Water Level Chest Level Equipment Large Noodle Reps/Duration 2x45 HS Body Position Standing Water Level Chest Level Equipment Large Noodle Reps/Duration 2x45 gastroc Body Position Standing Water Level Chest Level Reps/Duration 2x45 Comments wall; rocking foot Balance SLS with opposite LE movement Body Position Standing Water Level Waist Level Reps/Duration 2 min bilateral Comments pt had difficulty Halfway Activities Halfway Activities Bicycle,Bicycle Backwards, Cross Country Other Activities burpees 3 ways x2 Duration 12 PT-OP-T Assessment and Plan Start: 04/09/19 13:49 Freq: Status: Active Protocol: Document 06/08/19 11:45 MAGDALENE (Rec: 06/08/19 14:10 LJ [id number]) Physical Therapy Assessment Rehab Potential Rehabilitation Potential Good Evaluation Complexity Number of Personal Factors/Comorbidities 1-2 Number of Body Systems Impaired 1-2 Clinical Presentation at Evaluation Stable Impairments Impairments Activity Tolerance,Balance, Edema,Functional Activities, Functional Mobility,Gait, Integument,Posture,ROM,Soft Tissue Mobility,Strength Goals 5 Impairment Pt scores 30/84 on FAAM ADL subscale Short Term Goal (STG) Pt will score 45/84 on FAAM ADL subscale to demonstrate increased independence with ADL's 05/20/19 MET Pt scores 63/84. 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 STG Duration 05/06/19 Air Pollution Control Engineer Goal (LTG) Pt will tolerate 7+ hours standing work (with appropriate breaks) without foot fatigue/tenderness LTG Duration 07/01/19 3 Impairment Pt unable to walk on uneven terrain Short Term Goal (STG) Pt will walk 15 minutes on uneven terrain with least restrictive assistive device STG Duration 05/20/19 Air Pollution Control Engineer Goal (LTG) Pt will walk 30 minutes on uneven terrain/forest trails with least restrictive assistive device. LTG Duration 07/01/19 2 Impairment Pt scores 33/80 on LEFS Short Term Goal (STG) Pt will score 45 or greater on LEFS to demonstrate improved function in daily activities. 05/20/19: MET Pt scores 46/80 on LEFS STG Duration 05/20/19 [facility] Goal (LTG) Pt will score 60 or greater on LEFS to represent improved function in daily activities. LTG Duration 07/01/19 1 Impairment Pt with no appropriate HEP Short Term Goal (STG) Pt will be independent with HEP for support of therapy services provided in clinic. 05/13/19 MET STG Duration 05/06/19 [facility] Goal (LTG) Pt will be independent with maintenance HEP to maintain functional progress achieved in therapy. LTG Duration 07/01/19 Assessment Summary Assessment Pt was challenged with SLS balance exercise as well as walking with noodles under feet. In deep water pt was instructed in specific ankle movement with each exercise and he was unable to get much ROM in inversion or eversion. Physical Therapy Plan Frequency and Duration Frequency of Treatment 3x/Week Duration of Treatment 12 weeks Plan of Care Start Date 04/08/19 Plan of Care End Date 07/01/19 Therapeutic Interventions Therapeutic Interventions Aquatic Therapy,Balance Training,Gait Training,Home Exercise Program,Joint Mobilizations,Manual Therapy, Neuromuscular Re-education, Orthotic/Prosthetic Management ,Patient/Caregiver Education, Self-Care/Home Management, Sensory Integration,Soft Tissue Mobilization,Taping, Therapeutic Activities, Therapeutic Exercises Other Therapeutic Interventions cryo-cuff Next Visit Focus/Plan Next Note Type Treatment Note Next Visit Plan Assess response to balance activities last tx : hurdles, shuttle balance. Progress strengthening and balance activities with focus on ankle strengthening all planes. Initiate formal gait training with attention to symmetric weightbearing during stance phase and heelstrike at initial contact. Consider recumbent bike vs stepper for fluid ankle motion and cardiovascular conditioning. I pool, increase intensity and core stabilization exercises and minimize UE use for balance and propulsion
--- NOTE | 2019-06-09 11:31 | PT.OTN ---
Current Diagnoses Encounter for other orthopedic aftercare (06/09/19) Arthrodesis status (06/09/19) Physical Therapy Treatment Note PT-OP-A Visit Information Start: 04/09/19 13:49 Freq: Status: Active Protocol: Document 06/09/19 10:35 SP (Rec: 06/09/19 11:48 SP [id number]) Out-Patient Physical Therapy Visit Information Visit Information Visit Type Treatment Note Visit Start Time 10:35 Visit Stop Time 11:31 Total Visit Minutes 56 Visit Number 22 Number of POWER SAW OPERATOR Visits 3 PT-OP-B Current Condition Start: 04/09/19 13:49 Freq: Status: Active Protocol: Document 04/08/19 13:50 AW (Rec: 04/09/19 14:31 AW [email or web address]) Current Condition History of Current Condition Onset Date years Current Complaints left ankle swelling and limited range of motion History of Current Condition Vamsi vega sprained his left ankle in 1989 as a result of a fall down a 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 He has dealt with ongoing ankle pain for years, culminating finally in ankle arthrodesis and Achilles lengthening on . Pt unable to identify which bones were fused. Per protocol, he has been in a cam boot for all mobility for the past three months. He primarily used a knee scooter during that time, but has progressively increased his weightbearing in the boot for short distances. He is now allowed full weightbearing in the boot. In the past 10 days, he switched to an articulated cane held in the right hand. He has returned to driving. 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 He reports minimal pain since surgery, but does endorse generalized tenderness of the plantar foot since beginning to walk with a cane. He denies any falls or near falls since surgery. Prior Treatments and Tests Ankle arthrodesis and Achilles lengthening 12/31/18. History of a-fib, HTN, pacemaker. Future Testing and Treatments Planned None identified Treatment Goals Patient/Caregiver Goals Pt would like to hike [place] [employer] and to be able to work standing 6 hours daily without fatigue or foot tenderness. 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 Current Functional Impairments (Reported) Functional Limitations- ADL's No known impairments Functional Limitations- Mobility/Gait Requires articulated cane and is limited in ambulation distance. Lacks confidence on uneven ground. Functional Limitations- Work/School Unable to stand for 6 hour shifts without foot/ankle fatigue and without tenderness of plantar foot. Functional Limitations- Recreation/ Unable to hike forest trails Hobbies Personal Factors Other Personal Factors That May Effect chronicity of deficits, Therapy/Recovery tendency to work through pain. PT-OP-C Subjective Start: 04/09/19 13:49 Freq: Status: Active Protocol: Document 06/09/19 10:35 SP (Rec: 06/09/19 11:48 SP [id number]) OP-PT Subjective Patient Comments Patient Comments Pt stated ankle sore pre PT, antalgic gait with L knee extended, L foot everted decreased heel toe movement. PT-OP-D Balance Start: 04/09/19 13:49 Freq: Status: Active Protocol: Document 04/08/19 13:50 AW (Rec: 04/09/19 14:31 AW [email or web address]) OP-PT Balance Assessment Sitting Balance Static Sitting Balance Ability Normal Dynamic Sitting Balance Ability Normal Standing Balance Static Standing Balance Ability Fair Dynamic Standing Balance Ability Fair Device Used no boot, no AD Evans Fall Scale Copyright Permission PT-OP-F Manual Assessment Start: 04/09/19 13:49 Freq: Status: Active Protocol: Document 04/08/19 13:50 AW (Rec: 04/09/19 14:31 AW [email or web address]) Manual Assessments Joint Mobility Assessment Joint Mobility Assessment Minimal subtalar movement. No dorsal/plantar restriction at MTP's 1-5 bilaterally. Difficult to assess tibiotalar mobility due to swelling. Other Manual Assessments Other Manual Assessments No point tenderness along plantar surface, 5th digit tuberosity, navicular, Achilles insertion. Generalized tenderness along plantar surface noted by patient PT-OP-G Mobility & Gait Start: 04/09/19 13:49 Freq: Status: Active Protocol: Document 04/08/19 13:50 AW (Rec: 04/09/19 14:31 AW [email or web address]) OP Gait Assessment Gait Gait Assistance Required: Standby Assistance Distance (Feet) 100 Able to Maintain Weight Bearing Status Yes During Gait Gait Deviations General Gait Pattern Within Normal Limits,Antalgic, Decreased Stride Length, Decreased Feet Clearance,Wide Based Gait Factors Limiting Gait Function Factors Limiting Gait Function Decreased Activity Tolerance, Decreased Strength,Limited Range of Motion,Poor Balance Comments Gait Comments Pt ambulates with WBOS, forefoot landing (L>R), decreased stance time on LLE and decreaed step length RLE. He vaults over the LLE and exhibits right lateral lean in right stance. PT-OP-J Posture/Palpation/Skin Start: 04/09/19 13:49 Freq: Status: Active Protocol: Document 04/08/19 13:50 AW (Rec: 04/09/19 14:31 AW [email or web address]) Posture Evaluation Position Standing Knee Posture (L) Genu Valgus,(R) Genu Valgus Ankle/Foot Posture (L) Forefoot Abducted,(R) Forefoot Abducted Foot Arch (L) Low Arch,(R) Low Arch Skin Assessment Edema Assessment left ankle/foot Edema Type Non-Pitting Edema Appearance Discolored,Taut Comments Talar arch: Left 39 cm, Right 33 cm Horizontal at level of bilateral malleoli: Left 41 cm , Right 35 cm PT-OP-K Range of Motion Start: 04/09/19 13:49 Freq: Status: Active Protocol: Document 04/08/19 13:50 AW (Rec: 04/09/19 14:31 AW [email or web address]) Knee Goniometric Range of Motion Knee Left Knee ROM WFL Yes Patient Position Supine Ankle and Foot Goniometric Range of Motion Ankle and Foot Right Active Ankle/Foot ROM WFL No Testing Position Supine Dorsiflexion with Knee Flexed 5 Dorsiflexion with Knee Extended 5 Plantarflexion 40 Left Active Ankle/Foot ROM WFL No Testing Position Supine Dorsiflexion with Knee Flexed 0 Dorsiflexion with Knee Extended 0 Plantarflexion 20 Ankle and Foot ROM Limitations ROM Limitations Bony Restriction Toe Range of Motion Toes ROM Limitations Comments Pt lacks active left great toe extension PT-OP-M Strength Start: 04/09/19 13:49 Freq: Status: Active Protocol: Document 04/08/19 13:50 AW (Rec: 04/10/19 09:07 AW [email or web address]) Ankle/Foot Strength Ankle and Foot Manual Muscle Testing Right Dorsiflexion (L4) 4- Good- Plantarflexion (S1) 4- Good- Inversion 4 Good Eversion (S1) 4 Good Left Dorsiflexion (L4) 3 Fair Plantarflexion (S1) 3+ Fair+ Inversion 4- Good- Eversion (S1) 4- Good- Comments Pt can dorsiflex from extended position, but has no AROM past 0. Unable to test PF in standing due to safety concerns. Toe Strength Toe Manual Muscle Testing Right Great Toe Flexion 5 Normal Left Great Toe Flexion 4 Good PT-OP-N Lymphedema Start: 04/09/19 13:49 Freq: Status: Active Protocol: Document 05/15/19 10:40 SP (Rec: 05/15/19 11:44 SP [id number]) Lymphedema Measurements Lower Extremity Circumference Measurements L ankle foot MT Heads 34 cm Comments Lymphedema Comments -10 cm proximal MT heads 34 cm pre manual, 33 cm post - circumference calcaneus around ankle anteriorly ( anterior med/lat malleolus) 43 cm pre and post - figure 4 around ankle 74 cm pre and post - circumference med/lat malleolus 38.5 cm pre 37.5 cm post PT-OP-Q Treatments Start: 04/09/19 13:49 Freq: Status: Active Protocol: Document 06/09/19 10:35 SP (Rec: 06/09/19 11:48 SP [id number]) Cardio Equipment Recumbent Elliptical (Biodex) Duration (Minutes) 8 Resistance 8 Other 67 SPM Therapeutic Exercises Standing Exercises calf raises Standing Exercise Name double leg Equipment Used blue foam cushion, contact support Reps/Minutes 4x10 single stance Standing Exercise Name single leg stance Side bilateral Equipment Used //bar 41 support during LLE> RLE, blue foam cushion Comments alternate LE Manual Therapy Treatment Soft Tissue Mobilization ant and gastro Body Location gastroc/soleus full length Mobilization Type Cross-Friction,Myofascial Release Intensity/Depth Moderate Body Position Prone edema managment Body Location lower LE Mobilization Type Myofascial Release,Rolling Intensity/Depth Moderate Body Position Supine Comments upward stroke/retrograde manual Joint Mobilizations femur, tibia Joint L knee Direction AP Grade II Body Position Supine Comments tolerated well Tibfib Joint L tib fib Direction AP Grade III Body Position Hooklying Comments tolerated well Neuro Re-Education Treatment Balance Activities stepping over hurdles Details forward /side stepping Surface floor Equipment 6 hurdles Reps/Duration 3 laps Comments Min A for recovery balance decreased L knee flexion, improved as reps progressed, cued slow pacing shuttle balance Details NBOS, WBOS EO/EC/head turns, split stance ball throw rebound Equipment red clips Reps/Duration 4 min PT-OP-R Modalities Start: 04/09/19 13:49 Freq: Status: Active Protocol: Document 06/05/19 10:30 SP (Rec: 06/05/19 11:39 SP [id number]) Hot Pack/Cold Pack Treatment Cold Pack Location L ankle Patient Position Hooklying Treatment Duration (minutes) 15 Patient Tolerance Good Comments cryo cuff PT-OP-S Aquatic Treatment Start: 04/09/19 13:49 Freq: Status: Active Protocol: Document 06/08/19 11:45 LJ (Rec: 06/08/19 14:10 LJ [id number]) Aquatics Treatment Pool Entry/Exit Pool Entry/Exit Method Edge of Pool Comments jump into deep Water Walking forward Water Level Chest Level Walking Equipment blue takotna noodles under feet on heels and on toes Water Level Chest Level Walking Equipment blue takotna noodles Level of Assistance Verbal Cues [place] Water Level Chest Level Level of Assistance Verbal Cues Comments modified with smaller steps fwd,bck,side, march, soldier august Water Level Chest Level Walking Equipment blue takotna noodles on feet Level of Assistance Standby Assistance,Verbal Cues Lower Extremity Exercises squats Body Position Standing Water Level Waist Level Equipment blue takotna floats Reps/Duration 20 Comments focus on form, floats for greater ankle ROM heel raise, toe raise Body Position Standing Water Level Chest Level Reps/Duration 20x Lower Extremity Stretches quads Body Position Standing Water Level Chest Level Equipment Large Noodle Reps/Duration 2x45 HS Body Position Standing Water Level Chest Level Equipment Large Noodle Reps/Duration 2x45 gastroc Body Position Standing Water Level Chest Level Reps/Duration 2x45 Comments wall; rocking foot Balance SLS with opposite LE movement Body Position Standing Water Level Waist Level Reps/Duration 2 min bilateral Comments pt had difficulty [place] Activities [place] Activities Bicycle,Bicycle Backwards, Cross Country Other Activities burpees 3 ways x2 Duration 12 PT-OP-T Assessment and Plan Start: 04/09/19 13:49 Freq: Status: Active Protocol: Document 06/09/19 10:35 SP (Rec: 06/09/19 11:48 SP [id number]) Physical Therapy Assessment Goals 5 Impairment Pt scores 30/84 on FAAM ADL subscale Short Term Goal (STG) Pt will score 45/84 on FAAM ADL subscale to demonstrate increased independence with ADL's 05/20/19 MET Pt scores 63/84. 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 STG Duration 05/06/19 Penitentiary Goal (LTG) Pt will tolerate 7+ hours standing work (with appropriate breaks) without foot fatigue/tenderness LTG Duration 07/01/19 3 Impairment Pt unable to walk on uneven terrain Short Term Goal (STG) Pt will walk 15 minutes on uneven terrain with least restrictive assistive device STG Duration 05/20/19 Penitentiary Goal (LTG) Pt will walk 30 minutes on uneven terrain/forest trails with least restrictive assistive device. LTG Duration 07/01/19 2 Impairment Pt scores 33/80 on LEFS Short Term Goal (STG) Pt will score 45 or greater on LEFS to demonstrate improved function in daily activities. 05/20/19: MET Pt scores 46/80 on LEFS STG Duration 05/20/19 Penitentiary Goal (LTG) Pt will score 60 or greater on LEFS to represent improved function in daily activities. LTG Duration 07/01/19 1 Impairment Pt with no appropriate HEP Short Term Goal (STG) Pt will be independent with HEP for support of therapy services provided in clinic. 05/13/19 MET STG Duration 05/06/19 Penitentiary Goal (LTG) Pt will be independent with maintenance HEP to maintain functional progress achieved in therapy. LTG Duration 07/01/19 Assessment Summary Assessment Tx focused on ROM and ankle stability strengthening. Pt was challenged with SLS on foam pad, cued for foot triangle KATELIN over COG for working on stability. Progressed to shuttle balance red clips split stance throwing/catching ball into trampoline with Min support for safe recovery. Pt is tolerating cardio with incresaed time and SPM same resistance 8. Pt reported very tight and low level pain posterior L knee during hurdles, cued for slow pacing for safety alternating BLE step patterning. Pt welcoming to manual to post L knee gastroc, soleus and achilles, AP tib/fib & tibialfemorat jts to allow for increase ROm with cold modality at end of tx with positive results. Cued patient parallel feet and ankle heel toe patterning to decrease antalgic gait with improvement with cues. Physical Therapy Plan Frequency and Duration Frequency of Treatment 3x/Week Duration of Treatment 12 weeks Plan of Care Start Date 04/08/19 Plan of Care End Date 07/01/19 Therapeutic Interventions Therapeutic Interventions Aquatic Therapy,Balance Training,Gait Training,Home Exercise Program,Joint Mobilizations,Manual Therapy, Neuromuscular Re-education, Orthotic/Prosthetic Management ,Patient/Caregiver Education, Self-Care/Home Management, Sensory Integration,Soft Tissue Mobilization,Taping, Therapeutic Activities, Therapeutic Exercises Other Therapeutic Interventions cryo-cuff Next Visit Focus/Plan Next Note Type Treatment Note Next Visit Plan Assess response to balance activities last tx : hurdles, shuttle balance. Progress strengthening and balance activities with focus on ankle strengthening all planes. Initiate formal gait training with attention to symmetric weightbearing during stance phase and heelstrike at initial contact. In pool, increase intensity and core stabilization exercises and minimize UE use for bbalance and propulsion
--- NOTE | 2019-06-12 11:25 | PT.OTN ---
Current Diagnoses Encounter for other orthopedic aftercare (06/12/19) Arthrodesis status (06/12/19) Physical Therapy Treatment Note PT-OP-A Visit Information Start: 04/09/19 13:49 Freq: Status: Active Protocol: Document 06/12/19 10:34 SP (Rec: 06/12/19 11:27 SP [id number]) Out-Patient Physical Therapy Visit Information Visit Information Visit Type Treatment Note Visit Start Time 10:34 Visit Stop Time 11:25 Total Visit Minutes 51 Visit Number 23 Number of ADMINISTRATOR OF HOME HEALTH Visits 4 PT-OP-B Current Condition Start: 04/09/19 13:49 Freq: Status: Active Protocol: Document 04/08/19 13:50 AW (Rec: 04/09/19 14:31 AW [email or web address]) Current Condition History of Current Condition Onset Date years Current Complaints left ankle swelling and limited range of motion History of Current Condition Lea vega sprained his left ankle in 1989 as a result of a fall down a 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 He has dealt with ongoing ankle pain for years, culminating finally in ankle arthrodesis and Achilles lengthening on . Pt unable to identify which bones were fused. Per protocol, he has been in a cam boot for all mobility for the past three months. He primarily used a knee scooter during that time, but has progressively increased his weightbearing in the boot for short distances. He is now allowed full weightbearing in the boot. In the past 10 days, he switched to an articulated cane held in the right hand. He has returned to driving. 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 He reports minimal pain since surgery, but does endorse generalized tenderness of the plantar foot since beginning to walk with a cane. He denies any falls or near falls since surgery. Prior Treatments and Tests Ankle arthrodesis and Achilles lengthening 12/31/18. History of a-fib, HTN, pacemaker. Future Testing and Treatments Planned None identified Treatment Goals Patient/Caregiver Goals Pt would like to hike [place] and to be able to work standing 6 hours daily without fatigue or foot tenderness. 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 Current Functional Impairments (Reported) Functional Limitations- ADL's No known impairments Functional Limitations- Mobility/Gait Requires articulated cane and is limited in ambulation distance. Lacks confidence on uneven ground. Functional Limitations- Work/School Unable to stand for 6 hour shifts without foot/ankle fatigue and without tenderness of plantar foot. Functional Limitations- Recreation/ Unable to hike forest trails Hobbies Personal Factors Other Personal Factors That May Effect chronicity of deficits, Therapy/Recovery tendency to work through pain. PT-OP-C Subjective Start: 04/09/19 13:49 Freq: Status: Active Protocol: Document 06/12/19 10:34 SP (Rec: 06/12/19 11:27 SP [id number]) OP-PT Subjective Patient Comments Patient Comments Pt stated back of L knee was bugging him last night and MHP helped. Less swelling today. PT-OP-D Balance Start: 04/09/19 13:49 Freq: Status: Active Protocol: Document 04/08/19 13:50 AW (Rec: 04/09/19 14:31 AW [email or web address]) OP-PT Balance Assessment Sitting Balance Static Sitting Balance Ability Normal Dynamic Sitting Balance Ability Normal Standing Balance Static Standing Balance Ability Fair Dynamic Standing Balance Ability Fair Device Used no boot, no AD Evans Fall Scale Copyright Permission PT-OP-F Manual Assessment Start: 04/09/19 13:49 Freq: Status: Active Protocol: Document 04/08/19 13:50 AW (Rec: 04/09/19 14:31 AW [email or web address]) Manual Assessments Joint Mobility Assessment Joint Mobility Assessment Minimal subtalar movement. No dorsal/plantar restriction at MTP's 1-5 bilaterally. Difficult to assess tibiotalar mobility due to swelling. Other Manual Assessments Other Manual Assessments No point tenderness along plantar surface, 5th digit tuberosity, navicular, Achilles insertion. Generalized tenderness along plantar surface noted by patient PT-OP-G Mobility & Gait Start: 04/09/19 13:49 Freq: Status: Active Protocol: Document 04/08/19 13:50 AW (Rec: 04/09/19 14:31 AW [email or web address]) OP Gait Assessment Gait Gait Assistance Required: Standby Assistance Distance (Feet) 100 Able to Maintain Weight Bearing Status Yes During Gait Gait Deviations General Gait Pattern Within Normal Limits,Antalgic, Decreased Stride Length, Decreased Feet Clearance,Wide Based Gait Factors Limiting Gait Function Factors Limiting Gait Function Decreased Activity Tolerance, Decreased Strength,Limited Range of Motion,Poor Balance Comments Gait Comments Pt ambulates with WBOS, forefoot landing (L>R), decreased stance time on LLE and decreaed step length RLE. He vaults over the LLE and exhibits right lateral lean in right stance. PT-OP-J Posture/Palpation/Skin Start: 04/09/19 13:49 Freq: Status: Active Protocol: Document 04/08/19 13:50 AW (Rec: 04/09/19 14:31 AW [email or web address]) Posture Evaluation Position Standing Knee Posture (L) Genu Valgus,(R) Genu Valgus Ankle/Foot Posture (L) Forefoot Abducted,(R) Forefoot Abducted Foot Arch (L) Low Arch,(R) Low Arch Skin Assessment Edema Assessment left ankle/foot Edema Type Non-Pitting Edema Appearance Discolored,Taut Comments Talar arch: Left 39 cm, Right 33 cm Horizontal at level of bilateral malleoli: Left 41 cm , Right 35 cm PT-OP-K Range of Motion Start: 04/09/19 13:49 Freq: Status: Active Protocol: Document 04/08/19 13:50 AW (Rec: 04/09/19 14:31 AW [email or web address]) Knee Goniometric Range of Motion Knee Left Knee ROM WFL Yes Patient Position Supine Ankle and Foot Goniometric Range of Motion Ankle and Foot Right Active Ankle/Foot ROM WFL No Testing Position Supine Dorsiflexion with Knee Flexed 5 Dorsiflexion with Knee Extended 5 Plantarflexion 40 Left Active Ankle/Foot ROM WFL No Testing Position Supine Dorsiflexion with Knee Flexed 0 Dorsiflexion with Knee Extended 0 Plantarflexion 20 Ankle and Foot ROM Limitations ROM Limitations Bony Restriction Toe Range of Motion Toes ROM Limitations Comments Pt lacks active left great toe extension PT-OP-M Strength Start: 04/09/19 13:49 Freq: Status: Active Protocol: Document 04/08/19 13:50 AW (Rec: 04/10/19 09:07 AW [email or web address]) Ankle/Foot Strength Ankle and Foot Manual Muscle Testing Right Dorsiflexion (L4) 4- Good- Plantarflexion (S1) 4- Good- Inversion 4 Good Eversion (S1) 4 Good Left Dorsiflexion (L4) 3 Fair Plantarflexion (S1) 3+ Fair+ Inversion 4- Good- Eversion (S1) 4- Good- Comments Pt can dorsiflex from extended position, but has no AROM past 0. Unable to test PF in standing due to safety concerns. Toe Strength Toe Manual Muscle Testing Right Great Toe Flexion 5 Normal Left Great Toe Flexion 4 Good PT-OP-N Lymphedema Start: 04/09/19 13:49 Freq: Status: Active Protocol: Document 05/15/19 10:40 SP (Rec: 05/15/19 11:44 SP [id number]) Lymphedema Measurements Lower Extremity Circumference Measurements L ankle foot MT Heads 34 cm Comments Lymphedema Comments -10 cm proximal MT heads 34 cm pre manual, 33 cm post - circumference calcaneus around ankle anteriorly ( anterior med/lat malleolus) 43 cm pre and post - figure 4 around ankle 74 cm pre and post - circumference med/lat malleolus 38.5 cm pre 37.5 cm post PT-OP-Q Treatments Start: 04/09/19 13:49 Freq: Status: Active Protocol: Document 06/12/19 10:34 SP (Rec: 06/12/19 11:27 SP [id number]) Cardio Equipment Recumbent Elliptical (Biodex) Duration (Minutes) 8 Resistance 8 Other 68spm Gym Equipment Shuttle Recovery Unilateral Squats Resistance 100# Shuttle Recovery Platform Stable Reps/Time 3x10 Bilateral squat Resistance 150# Shuttle Recovery Platform Stable Reps/Time 3x10 Therapeutic Exercises Supine Exercises supine INV and EV Supine Exercise Name supine inversion and eversion Side left Resistance AAROM, manual assist Reps/Minutes 10 each direction supine DF and PF Supine Exercise Name supine DF/PF Side left Resistance AAROM, manual assist Reps/Minutes 10 each direction Standing Exercises hip abd w/ SLS Resistance TB #1 Reps/Minutes x10 ankle mobility Standing Exercise Name DF ROM Side left Resistance AROM Equipment Used LEA Reps/Minutes hold 3 sec x5 reps (2 sets) Neuro Re-Education Treatment Balance Activities shuttle balance Details NBOS, WBOS EO/EC/head turns, split stance ball throw rebound Equipment red clips Reps/Duration 4 min Comments Required Mod A EC, cued KATELIN beteen BLE PT-OP-R Modalities Start: 04/09/19 13:49 Freq: Status: Active Protocol: Document 06/12/19 10:34 SP (Rec: 06/12/19 11:29 SP [id number]) Hot Pack/Cold Pack Treatment Cold Pack Location L ankle Patient Position Hooklying Treatment Duration (minutes) 15 Patient Tolerance Good Comments cryo cuff PT-OP-S Aquatic Treatment Start: 04/09/19 13:49 Freq: Status: Active Protocol: Document 06/08/19 11:45 LJ (Rec: 06/08/19 14:10 LJ [id number]) Aquatics Treatment Pool Entry/Exit Pool Entry/Exit Method Edge of Pool Comments jump into deep Water Walking forward Water Level Chest Level Walking Equipment blue [place] noodles under feet on heels and on toes Water Level Chest Level Walking Equipment blue [place] noodles Level of Assistance Verbal Cues [place] Water Level Chest Level Level of Assistance Verbal Cues Comments modified with smaller steps fwd,bck,side, august, soldier august Water Level Chest Level Walking Equipment blue [place] noodles on feet Level of Assistance Standby Assistance,Verbal Cues Lower Extremity Exercises squats Body Position Standing Water Level Waist Level Equipment blue [place] floats Reps/Duration 20 Comments focus on form, floats for greater ankle ROM heel raise, toe raise Body Position Standing Water Level Chest Level Reps/Duration 20x Lower Extremity Stretches quads Body Position Standing Water Level Chest Level Equipment Large Noodle Reps/Duration 2x45 HS Body Position Standing Water Level Chest Level Equipment Large Noodle Reps/Duration 2x45 gastroc Body Position Standing Water Level Chest Level Reps/Duration 2x45 Comments wall; rocking foot Balance SLS with opposite LE movement Body Position Standing Water Level Waist Level Reps/Duration 2 min bilateral Comments pt had difficulty Carpenter Activities Carpenter Activities Bicycle,Bicycle Backwards, Cross Country Other Activities burpees 3 ways x2 Duration 12 PT-OP-T Assessment and Plan Start: 04/09/19 13:49 Freq: Status: Active Protocol: Document 06/12/19 10:34 SP (Rec: 06/12/19 11:27 SP [id number]) Physical Therapy Assessment Goals 5 Impairment Pt scores 30/84 on FAAM ADL subscale Short Term Goal (STG) Pt will score 45/84 on FAAM ADL subscale to demonstrate increased independence with ADL's 05/20/19 MET Pt scores 63/84. 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 STG Duration 05/06/19 Nursing Home Goal (LTG) Pt will tolerate 7+ hours standing work (with appropriate breaks) without foot fatigue/tenderness LTG Duration 07/01/19 3 Impairment Pt unable to walk on uneven terrain Short Term Goal (STG) Pt will walk 15 minutes on uneven terrain with least restrictive assistive device STG Duration 05/20/19 Nursing Home Goal (LTG) Pt will walk 30 minutes on uneven terrain/forest trails with least restrictive assistive device. LTG Duration 07/01/19 2 Impairment Pt scores 33/80 on LEFS Short Term Goal (STG) Pt will score 45 or greater on LEFS to demonstrate improved function in daily activities. 05/20/19: MET Pt scores 46/80 on LEFS STG Duration 05/20/19 Nursing Home Goal (LTG) Pt will score 60 or greater on LEFS to represent improved function in daily activities. LTG Duration 07/01/19 1 Impairment Pt with no appropriate HEP Short Term Goal (STG) Pt will be independent with HEP for support of therapy services provided in clinic. 05/13/19 MET STG Duration 05/06/19 Concrete Hopper Operator Goal (LTG) Pt will be independent with maintenance HEP to maintain functional progress achieved in therapy. LTG Duration 07/01/19 Assessment Summary Assessment Tx focused on ROM and L ankle stability strengthening. Reviewed shuttle recovery and balance as previous treatments . Added 4 way hip with emphasis on SL stability multdirectional with TB and contact support as needed for balance. Noted decreased swelling pre and no increase during tx. Cued for heel down for ankle mobility into DF range during shuttle recovery and LEA's stretching. Physical Therapy Plan Frequency and Duration Frequency of Treatment 3x/Week Duration of Treatment 12 weeks Plan of Care Start Date 04/08/19 Plan of Care End Date 07/01/19 Therapeutic Interventions Therapeutic Interventions Aquatic Therapy,Balance Training,Gait Training,Home Exercise Program,Joint Mobilizations,Manual Therapy, Neuromuscular Re-education, Orthotic/Prosthetic Management ,Patient/Caregiver Education, Self-Care/Home Management, Sensory Integration,Soft Tissue Mobilization,Taping, Therapeutic Activities, Therapeutic Exercises Other Therapeutic Interventions cryo-cuff Next Visit Focus/Plan Next Note Type Treatment Note Next Visit Plan Assess response to added 4 way hip, shuttle recovery and balance focus last tx. Continue per PT POC: Progress strengthening and balance activities with focus on ankle strengthening all planes. Initiate formal gait training with attention to symmetric weightbearing during stance phase and heelstrike at initial contact. In pool, increase intensity and core stabilization exercises and minimize UE use for bbalance and propulsion
--- NOTE | 2019-06-15 13:29 | PT.OTN ---
Current Diagnoses Encounter for other orthopedic aftercare (06/12/19) Arthrodesis status (06/12/19) Physical Therapy Treatment Note PT-OP-A Visit Information Start: 04/09/19 13:49 Freq: Status: Active Protocol: Document 06/15/19 13:23 SAK (Rec: 06/15/19 13:29 SAK [id number]) Out-Patient Physical Therapy Visit Information Visit Information Visit Type Treatment Note Visit Start Time 10:15 Visit Stop Time 11:00 Total Visit Minutes 45 Visit Number 24 Number of STILE RIPSAW OPERATOR Visits 0 PT-OP-B Current Condition Start: 04/09/19 13:49 Freq: Status: Active Protocol: Document 04/08/19 13:50 AW (Rec: 04/09/19 14:31 AW [email or web address]) Current Condition History of Current Condition Onset Date years Current Complaints left ankle swelling and limited range of motion History of Current Condition Lea vega sprained his left ankle in 1989 as a result of a fall down a 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 He has dealt with ongoing ankle pain for years, culminating finally in ankle arthrodesis and Achilles lengthening on . Pt unable to identify which bones were fused. Per protocol, he has been in a cam boot for all mobility for the past three months. He primarily used a knee scooter during that time, but has progressively increased his weightbearing in the boot for short distances. He is now allowed full weightbearing in the boot. In the past 10 days, he switched to an articulated cane held in the right hand. He has returned to driving. 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 He reports minimal pain since surgery, but does endorse generalized tenderness of the plantar foot since beginning to walk with a cane. He denies any falls or near falls since surgery. Prior Treatments and Tests Ankle arthrodesis and Achilles lengthening 12/31/18. History of a-fib, HTN, pacemaker. Future Testing and Treatments Planned None identified Treatment Goals Patient/Caregiver Goals Pt would like to hike [place] and to be able to work standing 6 hours daily without fatigue or foot tenderness. 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 Current Functional Impairments (Reported) Functional Limitations- ADL's No known impairments Functional Limitations- Mobility/Gait Requires articulated cane and is limited in ambulation distance. Lacks confidence on uneven ground. Functional Limitations- Work/School Unable to stand for 6 hour shifts without foot/ankle fatigue and without tenderness of plantar foot. Functional Limitations- Recreation/ Unable to hike forest trails Hobbies Personal Factors Other Personal Factors That May Effect chronicity of deficits, Therapy/Recovery tendency to work through pain. PT-OP-C Subjective Start: 04/09/19 13:49 Freq: Status: Active Protocol: Document 06/15/19 13:23 SAK (Rec: 06/15/19 13:29 SAK [id number]) OP-PT Subjective Patient Comments Patient Comments A little more sweling today, on feet a lot over weekend. PT-OP-D Balance Start: 04/09/19 13:49 Freq: Status: Active Protocol: Document 04/08/19 13:50 AW (Rec: 04/09/19 14:31 AW [email or web address]) OP-PT Balance Assessment Sitting Balance Static Sitting Balance Ability Normal Dynamic Sitting Balance Ability Normal Standing Balance Static Standing Balance Ability Fair Dynamic Standing Balance Ability Fair Device Used no boot, no AD Evans Fall Scale Copyright Permission PT-OP-F Manual Assessment Start: 04/09/19 13:49 Freq: Status: Active Protocol: Document 04/08/19 13:50 AW (Rec: 04/09/19 14:31 AW [email or web address]) Manual Assessments Joint Mobility Assessment Joint Mobility Assessment Minimal subtalar movement. No dorsal/plantar restriction at MTP's 1-5 bilaterally. Difficult to assess tibiotalar mobility due to swelling. Other Manual Assessments Other Manual Assessments No point tenderness along plantar surface, 5th digit tuberosity, navicular, Achilles insertion. Generalized tenderness along plantar surface noted by patient PT-OP-G Mobility & Gait Start: 04/09/19 13:49 Freq: Status: Active Protocol: Document 04/08/19 13:50 AW (Rec: 04/09/19 14:31 AW [email or web address]) OP Gait Assessment Gait Gait Assistance Required: Standby Assistance Distance (Feet) 100 Able to Maintain Weight Bearing Status Yes During Gait Gait Deviations General Gait Pattern Within Normal Limits,Antalgic, Decreased Stride Length, Decreased Feet Clearance,Wide Based Gait Factors Limiting Gait Function Factors Limiting Gait Function Decreased Activity Tolerance, Decreased Strength,Limited Range of Motion,Poor Balance Comments Gait Comments Pt ambulates with WBOS, forefoot landing (L>R), decreased stance time on LLE and decreaed step length RLE. He vaults over the LLE and exhibits right lateral lean in right stance. PT-OP-J Posture/Palpation/Skin Start: 04/09/19 13:49 Freq: Status: Active Protocol: Document 04/08/19 13:50 AW (Rec: 04/09/19 14:31 AW [email or web address]) Posture Evaluation Position Standing Knee Posture (L) Genu Valgus,(R) Genu Valgus Ankle/Foot Posture (L) Forefoot Abducted,(R) Forefoot Abducted Foot Arch (L) Low Arch,(R) Low Arch Skin Assessment Edema Assessment left ankle/foot Edema Type Non-Pitting Edema Appearance Discolored,Taut Comments Talar arch: Left 39 cm, Right 33 cm Horizontal at level of bilateral malleoli: Left 41 cm , Right 35 cm PT-OP-K Range of Motion Start: 04/09/19 13:49 Freq: Status: Active Protocol: Document 04/08/19 13:50 AW (Rec: 04/09/19 14:31 AW [email or web address]) Knee Goniometric Range of Motion Knee Left Knee ROM WFL Yes Patient Position Supine Ankle and Foot Goniometric Range of Motion Ankle and Foot Right Active Ankle/Foot ROM WFL No Testing Position Supine Dorsiflexion with Knee Flexed 5 Dorsiflexion with Knee Extended 5 Plantarflexion 40 Left Active Ankle/Foot ROM WFL No Testing Position Supine Dorsiflexion with Knee Flexed 0 Dorsiflexion with Knee Extended 0 Plantarflexion 20 Ankle and Foot ROM Limitations ROM Limitations Bony Restriction Toe Range of Motion Toes ROM Limitations Comments Pt lacks active left great toe extension PT-OP-M Strength Start: 04/09/19 13:49 Freq: Status: Active Protocol: Document 04/08/19 13:50 AW (Rec: 04/10/19 09:07 AW [email or web address]) Ankle/Foot Strength Ankle and Foot Manual Muscle Testing Right Dorsiflexion (L4) 4- Good- Plantarflexion (S1) 4- Good- Inversion 4 Good Eversion (S1) 4 Good Left Dorsiflexion (L4) 3 Fair Plantarflexion (S1) 3+ Fair+ Inversion 4- Good- Eversion (S1) 4- Good- Comments Pt can dorsiflex from extended position, but has no AROM past 0. Unable to test PF in standing due to safety concerns. Toe Strength Toe Manual Muscle Testing Right Great Toe Flexion 5 Normal Left Great Toe Flexion 4 Good PT-OP-N Lymphedema Start: 04/09/19 13:49 Freq: Status: Active Protocol: Document 05/15/19 10:40 SP (Rec: 05/15/19 11:44 SP [id number]) Lymphedema Measurements Lower Extremity Circumference Measurements L ankle foot MT Heads 34 cm Comments Lymphedema Comments -10 cm proximal MT heads 34 cm pre manual, 33 cm post - circumference calcaneus around ankle anteriorly ( anterior med/lat malleolus) 43 cm pre and post - figure 4 around ankle 74 cm pre and post - circumference med/lat malleolus 38.5 cm pre 37.5 cm post PT-OP-Q Treatments Start: 04/09/19 13:49 Freq: Status: Active Protocol: Document 06/12/19 10:34 SP (Rec: 06/12/19 11:27 SP [id number]) Cardio Equipment Recumbent Elliptical (Biodex) Duration (Minutes) 8 Resistance 8 Other 68spm Gym Equipment Shuttle Recovery Unilateral Squats Resistance 100# Shuttle Recovery Platform Stable Reps/Time 3x10 Bilateral squat Resistance 150# Shuttle Recovery Platform Stable Reps/Time 3x10 Therapeutic Exercises Supine Exercises supine INV and EV Supine Exercise Name supine inversion and eversion Side left Resistance AAROM, manual assist Reps/Minutes 10 each direction supine DF and PF Supine Exercise Name supine DF/PF Side left Resistance AAROM, manual assist Reps/Minutes 10 each direction Standing Exercises hip abd w/ SLS Resistance TB #1 Reps/Minutes x10 ankle mobility Standing Exercise Name DF ROM Side left Resistance AROM Equipment Used LEA Reps/Minutes hold 3 sec x5 reps (2 sets) Neuro Re-Education Treatment Balance Activities shuttle balance Details NBOS, WBOS EO/EC/head turns, split stance ball throw rebound Equipment red clips Reps/Duration 4 min Comments Required Mod A EC, cued KATELIN beteen BLE PT-OP-R Modalities Start: 04/09/19 13:49 Freq: Status: Active Protocol: Document 06/12/19 10:34 SP (Rec: 06/12/19 11:29 SP [id number]) Hot Pack/Cold Pack Treatment Cold Pack Location L ankle Patient Position Hooklying Treatment Duration (minutes) 15 Patient Tolerance Good Comments cryo cuff PT-OP-S Aquatic Treatment Start: 04/09/19 13:49 Freq: Status: Active Protocol: Document 06/15/19 13:23 SAK (Rec: 06/15/19 13:29 SAK [id number]) Aquatics Treatment Water Walking forward Water Level Chest Level Walking Equipment [place] noodles under feet on heels and on toes Water Level Chest Level Walking Equipment [place] noodles Level of Assistance Verbal Cues Schulter Water Level Chest Level Level of Assistance Verbal Cues Comments modified with smaller steps fwd,bck,side, august, soldier august Water Level Chest Level Walking Equipment [place] noodles on feet Level of Assistance Standby Assistance,Verbal Cues Lower Extremity Exercises squats Body Position Standing Water Level Waist Level Equipment [place] floats Reps/Duration 20 Comments focus on form, floats for greater ankle ROM heel raise, toe raise Body Position Standing Water Level Chest Level Reps/Duration 20x Lower Extremity Stretches quads Body Position Standing Water Level Chest Level Equipment Large Noodle Reps/Duration 2x45 HS Body Position Standing Water Level Chest Level Equipment Large Noodle Reps/Duration 2x45 gastroc Body Position Standing Water Level Chest Level Reps/Duration 2x45 Comments wall; rocking foot Balance SLS with opposite LE movement Body Position Standing Water Level Waist Level Reps/Duration 2 min bilateral reverse squats on noodle Water Level [place] Reps/Duration 10x ea Comments ch[place] and unil standing on noodle Water Level Chest Level Equipment lg noodle Reps/Duration 5 min Comments various foot positions [place] Activities [place] Activities Bicycle,Bicycle Backwards, Cross Country,Running,Sit Kicks Equipment large noodle Duration 12 Swim Strokes Flutter Equipment Noodle Laps/Duration 3 min Comments gentle PT-OP-T Assessment and Plan Start: 04/09/19 13:49 Freq: Status: Active Protocol: Document 06/15/19 13:23 SAK (Rec: 06/15/19 13:29 SAK [id number]) Physical Therapy Assessment Goals 5 Impairment Pt scores 30/84 on FAAM ADL subscale Short Term Goal (STG) Pt will score 45/84 on FAAM ADL subscale to demonstrate increased independence with ADL's 05/20/19 MET Pt scores 63/84. 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 STG Duration 05/06/19 Retirement Goal (LTG) Pt will tolerate 7+ hours standing work (with appropriate breaks) without foot fatigue/tenderness LTG Duration 07/01/19 3 Impairment Pt unable to walk on uneven terrain Short Term Goal (STG) Pt will walk 15 minutes on uneven terrain with least restrictive assistive device STG Duration 05/20/19 Retirement Goal (LTG) Pt will walk 30 minutes on uneven terrain/forest trails with least restrictive assistive device. LTG Duration 07/01/19 2 Impairment Pt scores 33/80 on LEFS Short Term Goal (STG) Pt will score 45 or greater on LEFS to demonstrate improved function in daily activities. 05/20/19: MET Pt scores 46/80 on LEFS STG Duration 05/20/19 Retirement Goal (LTG) Pt will score 60 or greater on LEFS to represent improved function in daily activities. LTG Duration 07/01/19 1 Impairment Pt with no appropriate HEP Short Term Goal (STG) Pt will be independent with HEP for support of therapy services provided in clinic. 05/13/19 MET STG Duration 05/06/19 Retirement Goal (LTG) Pt will be independent with maintenance HEP to maintain functional progress achieved in therapy. LTG Duration 07/01/19 Assessment Summary Assessment Tolerated addition of reverse squats in deep water, progression of shallow balance exercises. Physical Therapy Plan Frequency and Duration Frequency of Treatment 3x/Week Duration of Treatment 12 weeks Plan of Care Start Date 04/08/19 Plan of Care End Date 07/01/19 Therapeutic Interventions Therapeutic Interventions Aquatic Therapy,Balance Training,Gait Training,Home Exercise Program,Joint Mobilizations,Manual Therapy, Neuromuscular Re-education, Orthotic/Prosthetic Management ,Patient/Caregiver Education, Self-Care/Home Management, Sensory Integration,Soft Tissue Mobilization,Taping, Therapeutic Activities, Therapeutic Exercises Other Therapeutic Interventions cryo-cuff Next Visit Focus/Plan Next Note Type Treatment Note Next Visit Plan Continue combination aquatic and land-based PT for strengthening, balance, flexibility per POC.
--- NOTE | 2019-06-17 12:36 | PT.OTN ---
Current Diagnoses Encounter for other orthopedic aftercare (06/17/19) Arthrodesis status (06/17/19) Physical Therapy Treatment Note PT-OP-A Visit Information Start: 04/09/19 13:49 Freq: Status: Active Protocol: Document 06/17/19 12:24 AW (Rec: 06/17/19 12:35 AW [email or web address]) Out-Patient Physical Therapy Visit Information Visit Information Visit Type Treatment Note Visit Start Time 10:30 Visit Stop Time 11:30 Total Visit Minutes 60 Visit Number 25 Number of TECHNICAL CUSTOMER SUPPORT SPECIALIST Visits 0 PT-OP-B Current Condition Start: 04/09/19 13:49 Freq: Status: Active Protocol: Document 04/08/19 13:50 AW (Rec: 04/09/19 14:31 AW [email or web address]) Current Condition History of Current Condition Onset Date years Current Complaints left ankle swelling and limited range of motion History of Current Condition Lea vega sprained his left ankle in 1989 as a result of a fall down a 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 He has dealt with ongoing ankle pain for years, culminating finally in ankle arthrodesis and Achilles lengthening on . Pt unable to identify which bones were fused. Per protocol, he has been in a cam boot for all mobility for the past three months. He primarily used a knee scooter during that time, but has progressively increased his weightbearing in the boot for short distances. He is now allowed full weightbearing in the boot. In the past 10 days, he switched to an articulated cane held in the right hand. He has returned to driving. 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 He reports minimal pain since surgery, but does endorse generalized tenderness of the plantar foot since beginning to walk with a cane. He denies any falls or near falls since surgery. Prior Treatments and Tests Ankle arthrodesis and Achilles lengthening 12/31/18. History of a-fib, HTN, pacemaker. Future Testing and Treatments Planned None identified Treatment Goals Patient/Caregiver Goals Pt would like to hike [place] and to be able to work standing 6 hours daily without fatigue or foot tenderness. 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 Current Functional Impairments (Reported) Functional Limitations- ADL's No known impairments Functional Limitations- Mobility/Gait Requires articulated cane and is limited in ambulation distance. Lacks confidence on uneven ground. Functional Limitations- Work/School Unable to stand for 6 hour shifts without foot/ankle fatigue and without tenderness of plantar foot. Functional Limitations- Recreation/ Unable to hike forest trails Hobbies Personal Factors Other Personal Factors That May Effect chronicity of deficits, Therapy/Recovery tendency to work through pain. PT-OP-C Subjective Start: 04/09/19 13:49 Freq: Status: Active Protocol: Document 06/17/19 12:24 AW (Rec: 06/17/19 12:35 AW [email or web address]) OP-PT Subjective Patient Comments Patient Comments Still experiencing swelling but is better with diuretics and compression sock. PT-OP-D Balance Start: 04/09/19 13:49 Freq: Status: Active Protocol: Document 04/08/19 13:50 AW (Rec: 04/09/19 14:31 AW [email or web address]) OP-PT Balance Assessment Sitting Balance Static Sitting Balance Ability Normal Dynamic Sitting Balance Ability Normal Standing Balance Static Standing Balance Ability Fair Dynamic Standing Balance Ability Fair Device Used no boot, no AD Evans Fall Scale Copyright Permission PT-OP-F Manual Assessment Start: 04/09/19 13:49 Freq: Status: Active Protocol: Document 04/08/19 13:50 AW (Rec: 04/09/19 14:31 AW [email or web address]) Manual Assessments Joint Mobility Assessment Joint Mobility Assessment Minimal subtalar movement. No dorsal/plantar restriction at MTP's 1-5 bilaterally. Difficult to assess tibiotalar mobility due to swelling. Other Manual Assessments Other Manual Assessments No point tenderness along plantar surface, 5th digit tuberosity, navicular, Achilles insertion. Generalized tenderness along plantar surface noted by patient PT-OP-G Mobility & Gait Start: 04/09/19 13:49 Freq: Status: Active Protocol: Document 04/08/19 13:50 AW (Rec: 04/09/19 14:31 AW [email or web address]) OP Gait Assessment Gait Gait Assistance Required: Standby Assistance Distance (Feet) 100 Able to Maintain Weight Bearing Status Yes During Gait Gait Deviations General Gait Pattern Within Normal Limits,Antalgic, Decreased Stride Length, Decreased Feet Clearance,Wide Based Gait Factors Limiting Gait Function Factors Limiting Gait Function Decreased Activity Tolerance, Decreased Strength,Limited Range of Motion,Poor Balance Comments Gait Comments Pt ambulates with WBOS, forefoot landing (L>R), decreased stance time on LLE and decreaed step length RLE. He vaults over the LLE and exhibits right lateral lean in right stance. PT-OP-J Posture/Palpation/Skin Start: 04/09/19 13:49 Freq: Status: Active Protocol: Document 04/08/19 13:50 AW (Rec: 04/09/19 14:31 AW [email or web address]) Posture Evaluation Position Standing Knee Posture (L) Genu Valgus,(R) Genu Valgus Ankle/Foot Posture (L) Forefoot Abducted,(R) Forefoot Abducted Foot Arch (L) Low Arch,(R) Low Arch Skin Assessment Edema Assessment left ankle/foot Edema Type Non-Pitting Edema Appearance Discolored,Taut Comments Talar arch: Left 39 cm, Right 33 cm Horizontal at level of bilateral malleoli: Left 41 cm , Right 35 cm PT-OP-K Range of Motion Start: 04/09/19 13:49 Freq: Status: Active Protocol: Document 04/08/19 13:50 AW (Rec: 04/09/19 14:31 AW [email or web address]) Knee Goniometric Range of Motion Knee Left Knee ROM WFL Yes Patient Position Supine Ankle and Foot Goniometric Range of Motion Ankle and Foot Right Active Ankle/Foot ROM WFL No Testing Position Supine Dorsiflexion with Knee Flexed 5 Dorsiflexion with Knee Extended 5 Plantarflexion 40 Left Active Ankle/Foot ROM WFL No Testing Position Supine Dorsiflexion with Knee Flexed 0 Dorsiflexion with Knee Extended 0 Plantarflexion 20 Ankle and Foot ROM Limitations ROM Limitations Bony Restriction Toe Range of Motion Toes ROM Limitations Comments Pt lacks active left great toe extension PT-OP-M Strength Start: 04/09/19 13:49 Freq: Status: Active Protocol: Document 04/08/19 13:50 AW (Rec: 04/10/19 09:07 AW [email or web address]) Ankle/Foot Strength Ankle and Foot Manual Muscle Testing Right Dorsiflexion (L4) 4- Good- Plantarflexion (S1) 4- Good- Inversion 4 Good Eversion (S1) 4 Good Left Dorsiflexion (L4) 3 Fair Plantarflexion (S1) 3+ Fair+ Inversion 4- Good- Eversion (S1) 4- Good- Comments Pt can dorsiflex from extended position, but has no AROM past 0. Unable to test PF in standing due to safety concerns. Toe Strength Toe Manual Muscle Testing Right Great Toe Flexion 5 Normal Left Great Toe Flexion 4 Good PT-OP-N Lymphedema Start: 04/09/19 13:49 Freq: Status: Active Protocol: Document 05/15/19 10:40 SP (Rec: 05/15/19 11:44 SP [id number]) Lymphedema Measurements Lower Extremity Circumference Measurements L ankle foot MT Heads 34 cm Comments Lymphedema Comments -10 cm proximal MT heads 34 cm pre manual, 33 cm post - circumference calcaneus around ankle anteriorly ( anterior med/lat malleolus) 43 cm pre and post - figure 4 around ankle 74 cm pre and post - circumference med/lat malleolus 38.5 cm pre 37.5 cm post PT-OP-Q Treatments Start: 04/09/19 13:49 Freq: Status: Active Protocol: Document 06/17/19 12:24 AW (Rec: 06/17/19 12:35 AW [email or web address]) Cardio Equipment Recumbent Elliptical (Biodex) Duration (Minutes) 8 Resistance 6 Other 68spm Therapeutic Exercises Supine Exercises supine INV and EV Supine Exercise Name supine inversion and eversion Side left Resistance AROM with manual resistance Reps/Minutes 10 each direction supine DF and PF Supine Exercise Name supine DF/PF Side left Resistance AROM with manual resistance Reps/Minutes 10 each direction Standing Exercises hip ext w/ SLS Standing Exercise Name hip ext w/ SLS Side left Equipment Used TB#2 Reps/Minutes x10 Comments cues for upright posture hip abd w/ SLS Standing Exercise Name hip abd w/ SLS Side left Resistance TB #2 Reps/Minutes x10 Comments cues to limit trunk lean arch creation Standing Exercise Name arch creation Side left Resistance bodyweight Reps/Minutes 2x10 reps Comments barefoot eversion Standing Exercise Name eversion and inversion Side left Resistance bodyweight Reps/Minutes 2x10 reps Comments barefoot ankle mobility Standing Exercise Name DF ROM Side left Resistance AROM Equipment Used LEA Reps/Minutes hold 3 sec x5 reps (2 sets) Manual Therapy Treatment Soft Tissue Mobilization edema managment Body Location left lower LE Mobilization Type Myofascial Release,Rolling Intensity/Depth Moderate Body Position Supine Comments upward stroke/retrograde manual Joint Mobilizations talocrural Joint talocrural Direction anterior > posterior Grade III Body Position Supine Reps/Duration 3 minutes Comments with active DF and manual stretch using contract/relax Neuro Re-Education Treatment Balance Activities shuttle balance Details NBOS, WBOS EO/EC, weight shift A/P and lateral with flat feet Equipment red clips Reps/Duration 10 min Comments Required Mod A EC PT-OP-R Modalities Start: 04/09/19 13:49 Freq: Status: Active Protocol: Document 06/17/19 12:24 AW (Rec: 06/17/19 12:35 AW [email or web address]) Hot Pack/Cold Pack Treatment Cold Pack Location L ankle Patient Position Hooklying Treatment Duration (minutes) 15 Patient Tolerance Good Comments cryo cuff PT-OP-S Aquatic Treatment Start: 04/09/19 13:49 Freq: Status: Active Protocol: Document 06/15/19 13:23 SAK (Rec: 06/15/19 13:29 SAK [id number]) Aquatics Treatment Water Walking forward Water Level Chest Level Walking Equipment [place] noodles under feet on heels and on toes Water Level Chest Level Walking Equipment [place] noodles Level of Assistance Verbal Cues [place] Water Level Chest Level Level of Assistance Verbal Cues Comments modified with smaller steps fwd,bck,side, august, soldier august Water Level Chest Level Walking Equipment [place] noodles on feet Level of Assistance Standby Assistance,Verbal Cues Lower Extremity Exercises squats Body Position Standing Water Level Waist Level Equipment [place] floats Reps/Duration 20 Comments focus on form, floats for greater ankle ROM heel raise, toe raise Body Position Standing Water Level Chest Level Reps/Duration 20x Lower Extremity Stretches quads Body Position Standing Water Level Chest Level Equipment Large Noodle Reps/Duration 2x45 HS Body Position Standing Water Level Chest Level Equipment Large Noodle Reps/Duration 2x45 gastroc Body Position Standing Water Level Chest Level Reps/Duration 2x45 Comments wall; rocking foot Balance SLS with opposite LE movement Body Position Standing Water Level Waist Level Reps/Duration 2 min bilateral reverse squats on noodle Water Level [place] Reps/Duration 10x ea Comments [place] and unil standing on noodle Water Level Chest Level Equipment lg noodle Reps/Duration 5 min Comments various foot positions [place] Activities [place] Activities Bicycle,Bicycle Backwards, Cross Country,Running,Sit Kicks Equipment large noodle Duration 12 Swim Strokes Flutter Equipment Noodle Laps/Duration 3 min Comments gentle PT-OP-T Assessment and Plan Start: 04/09/19 13:49 Freq: Status: Active Protocol: Document 06/17/19 12:24 AW (Rec: 06/17/19 12:35 AW [email or web address]) Physical Therapy Assessment Goals 5 Impairment Pt scores 30/84 on FAAM ADL subscale Short Term Goal (STG) Pt will score 45/84 on FAAM ADL subscale to demonstrate increased independence with ADL's 05/20/19 MET Pt scores 63/84. 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 STG Duration 05/06/19 Detention Goal (LTG) Pt will tolerate 7+ hours standing work (with appropriate breaks) without foot fatigue/tenderness LTG Duration 07/01/19 3 Impairment Pt unable to walk on uneven terrain Short Term Goal (STG) Pt will walk 15 minutes on uneven terrain with least restrictive assistive device STG Duration 05/20/19 Senior Assistant Manager Goal (LTG) Pt will walk 30 minutes on uneven terrain/forest trails with least restrictive assistive device. LTG Duration 07/01/19 2 Impairment Pt scores 33/80 on LEFS Short Term Goal (STG) Pt will score 45 or greater on LEFS to demonstrate improved function in daily activities. 05/20/19: MET Pt scores 46/80 on LEFS STG Duration 05/20/19 Senior Assistant Manager Goal (LTG) Pt will score 60 or greater on LEFS to represent improved function in daily activities. LTG Duration 07/01/19 1 Impairment Pt with no appropriate HEP Short Term Goal (STG) Pt will be independent with HEP for support of therapy services provided in clinic. 05/13/19 MET STG Duration 05/06/19 Senior Assistant Manager Goal (LTG) Pt will be independent with maintenance HEP to maintain functional progress achieved in therapy. LTG Duration 07/01/19 Assessment Summary Assessment Pt has improved subtalar movement with palpable tilt during inversion/eversion. Also improved intrinsic foot muscle activation with arch lift. He continues to be limited by swelling, but notes he has less tenderness when initiating gait. Physical Therapy Plan Frequency and Duration Frequency of Treatment 3x/Week Duration of Treatment 12 weeks Plan of Care Start Date 04/08/19 Plan of Care End Date 07/01/19 Therapeutic Interventions Therapeutic Interventions Aquatic Therapy,Balance Training,Gait Training,Home Exercise Program,Joint Mobilizations,Manual Therapy, Neuromuscular Re-education, Orthotic/Prosthetic Management ,Patient/Caregiver Education, Self-Care/Home Management, Sensory Integration,Soft Tissue Mobilization,Taping, Therapeutic Activities, Therapeutic Exercises Other Therapeutic Interventions cryo-cuff Next Visit Focus/Plan Next Note Type Treatment Note Next Visit Plan Continue combination aquatic and land-based PT for strengthening, balance, flexibility per POC.
--- NOTE | 2019-06-19 11:33 | PT.OTN ---
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 He has dealt with ongoing ankle pain for years, culminating finally in ankle arthrodesis and Achilles lengthening on . Pt unable to identify which bones were fused. Per protocol, he has been in a cam boot for all mobility for the past three months. He primarily used a knee scooter during that time, but has progressively increased his weightbearing in the boot for short distances. He is now allowed full weightbearing in the boot. In the past 10 days, he switched to an articulated cane held in the right hand. He has returned to driving. 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 He reports minimal pain since surgery, but does endorse generalized tenderness of the plantar foot since beginning to walk with a cane. He denies any falls or near falls since surgery. Prior Treatments and Tests Ankle arthrodesis and Achilles lengthening 12/31/18. History of a-fib, HTN, pacemaker. Future Testing and Treatments Planned None identified Treatment Goals Patient/Caregiver Goals Pt would like to hike [employer] and to be able to work standing 6 hours daily without fatigue or foot tenderness. 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 Current Functional Impairments (Reported) Functional Limitations- ADL's No known impairments Functional Limitations- Mobility/Gait Requires articulated cane and is limited in ambulation distance. Lacks confidence on uneven ground. Functional Limitations- Work/School Unable to stand for 6 hour shifts without foot/ankle fatigue and without tenderness of plantar foot. Functional Limitations- Recreation/ Unable to hike forest trails Hobbies Personal Factors Other Personal Factors That May Effect chronicity of deficits, Therapy/Recovery tendency to work through pain. PT-OP-C Subjective Start: 04/09/19 13:49 Freq: Status: Active Protocol: Document 06/19/19 10:40 SP (Rec: 06/19/19 11:36 SP [id number]) OP-PT Subjective Patient Comments Patient Comments Pt stated L ankle gradually getting better and still slight pain but improves as moves around alway stiff when initially gets up. Donned compression sock today and better with diuretics. PT-OP-D Balance Start: 04/09/19 13:49 Freq: Status: Active Protocol: Document 04/08/19 13:50 AW (Rec: 04/09/19 14:31 AW [email or web address]) OP-PT Balance Assessment Sitting Balance Static Sitting Balance Ability Normal Dynamic Sitting Balance Ability Normal Standing Balance Static Standing Balance Ability Fair Dynamic Standing Balance Ability Fair Device Used no boot, no AD Evans Fall Scale Copyright Permission PT-OP-F Manual Assessment Start: 04/09/19 13:49 Freq: Status: Active Protocol: Document 04/08/19 13:50 AW (Rec: 04/09/19 14:31 AW [email or web address]) Manual Assessments Joint Mobility Assessment Joint Mobility Assessment Minimal subtalar movement. No dorsal/plantar restriction at MTP's 1-5 bilaterally. Difficult to assess tibiotalar mobility due to swelling. Other Manual Assessments Other Manual Assessments No point tenderness along plantar surface, 5th digit tuberosity, navicular, Achilles insertion. Generalized tenderness along plantar surface noted by patient PT-OP-G Mobility & Gait Start: 04/09/19 13:49 Freq: Status: Active Protocol: Document 04/08/19 13:50 AW (Rec: 04/09/19 14:31 AW [email or web address]) OP Gait Assessment Gait Gait Assistance Required: Standby Assistance Distance (Feet) 100 Able to Maintain Weight Bearing Status Yes During Gait Gait Deviations General Gait Pattern Within Normal Limits,Antalgic, Decreased Stride Length, Decreased Feet Clearance,Wide Based Gait Factors Limiting Gait Function Factors Limiting Gait Function Decreased Activity Tolerance, Decreased Strength,Limited Range of Motion,Poor Balance Comments Gait Comments Pt ambulates with WBOS, forefoot landing (L>R), decreased stance time on LLE and decreaed step length RLE. He vaults over the LLE and exhibits right lateral lean in right stance. PT-OP-J Posture/Palpation/Skin Start: 04/09/19 13:49 Freq: Status: Active Protocol: Document 04/08/19 13:50 AW (Rec: 04/09/19 14:31 AW [email or web address]) Posture Evaluation Position Standing Knee Posture (L) Genu Valgus,(R) Genu Valgus Ankle/Foot Posture (L) Forefoot Abducted,(R) Forefoot Abducted Foot Arch (L) Low Arch,(R) Low Arch Skin Assessment Edema Assessment left ankle/foot Edema Type Non-Pitting Edema Appearance Discolored,Taut Comments Talar arch: Left 39 cm, Right 33 cm Horizontal at level of bilateral malleoli: Left 41 cm , Right 35 cm PT-OP-K Range of Motion Start: 04/09/19 13:49 Freq: Status: Active Protocol: Document 04/08/19 13:50 AW (Rec: 04/09/19 14:31 AW [email or web address]) Knee Goniometric Range of Motion Knee Left Knee ROM WFL Yes Patient Position Supine Ankle and Foot Goniometric Range of Motion Ankle and Foot Right Active Ankle/Foot ROM WFL No Testing Position Supine Dorsiflexion with Knee Flexed 5 Dorsiflexion with Knee Extended 5 Plantarflexion 40 Left Active Ankle/Foot ROM WFL No Testing Position Supine Dorsiflexion with Knee Flexed 0 Dorsiflexion with Knee Extended 0 Plantarflexion 20 Ankle and Foot ROM Limitations ROM Limitations Bony Restriction Toe Range of Motion Toes ROM Limitations Comments Pt lacks active left great toe extension PT-OP-M Strength Start: 04/09/19 13:49 Freq: Status: Active Protocol: Document 04/08/19 13:50 AW (Rec: 04/10/19 09:07 AW [email or web address]) Ankle/Foot Strength Ankle and Foot Manual Muscle Testing Right Dorsiflexion (L4) 4- Good- Plantarflexion (S1) 4- Good- Inversion 4 Good Eversion (S1) 4 Good Left Dorsiflexion (L4) 3 Fair Plantarflexion (S1) 3+ Fair+ Inversion 4- Good- Eversion (S1) 4- Good- Comments Pt can dorsiflex from extended position, but has no AROM past 0. Unable to test PF in standing due to safety concerns. Toe Strength Toe Manual Muscle Testing Right Great Toe Flexion 5 Normal Left Great Toe Flexion 4 Good PT-OP-N Lymphedema Start: 04/09/19 13:49 Freq: Status: Active Protocol: Document 05/15/19 10:40 SP (Rec: 05/15/19 11:44 SP [id number]) Lymphedema Measurements Lower Extremity Circumference Measurements L ankle foot MT Heads 34 cm Comments Lymphedema Comments -10 cm proximal MT heads 34 cm pre manual, 33 cm post - circumference calcaneus around ankle anteriorly ( anterior med/lat malleolus) 43 cm pre and post - figure 4 around ankle 74 cm pre and post - circumference med/lat malleolus 38.5 cm pre 37.5 cm post PT-OP-Q Treatments Start: 04/09/19 13:49 Freq: Status: Active Protocol: Document 06/19/19 10:40 SP (Rec: 06/19/19 11:36 SP [id number]) Gym Equipment Sport Cord forward/backward/side stepping Exercise Details forward/backward/side stepping Cord/Resistance blue around waist Reps/Duration 3 x 10 step each direction Comments cuing accentuated ankle ROM and knee flex/ext and heel toe resisted forward, toe heel backward/ side stepping. Therapeutic Exercises Sitting Exercises ankle AROM Sitting Exercise Name ankle TB DF, PF, inversion, eversion Side left Resistance level 2 Reps/Minutes 3x10 Standing Exercises hip ext w/ SLS Standing Exercise Name hip ext w/ SLS Side left Equipment Used TB#2 Reps/Minutes x10 Comments cues for upright posture hip abd w/ SLS Standing Exercise Name hip abd w/ SLS Side left Resistance TB #2 Reps/Minutes x10 Comments cues to limit trunk lean Manual Therapy Treatment Soft Tissue Mobilization ant and gastro Body Location achilles Mobilization Type Cross-Friction,Myofascial Release Intensity/Depth Moderate Body Position Hooklying Comments proximal glide with DF AROM edema managment Body Location left lower LE Mobilization Type Myofascial Release,Rolling Intensity/Depth Moderate Body Position Supine Comments upward stroke/retrograde manual Joint Mobilizations talocrural Joint talocrural Direction anterior > posterior Grade III Body Position Supine Reps/Duration 3 minutes Comments with active DF and manual stretch using contract/relax MTP Joint MTP 1-5 Direction dorsal and plantar Grade III Body Position Hooklying Reps/Duration 5 minutes Comments greatest restriction at digits 2-3 PT-OP-R Modalities Start: 04/09/19 13:49 Freq: Status: Active Protocol: Document 06/19/19 11:36 SP (Rec: 06/19/19 11:36 SP [id number]) Hot Pack/Cold Pack Treatment Cold Pack Location L ankle Patient Position Hooklying Treatment Duration (minutes) 15 Patient Tolerance Good Comments cryo cuff PT-OP-S Aquatic Treatment Start: 04/09/19 13:49 Freq: Status: Active Protocol: Document 06/15/19 13:23 SAK (Rec: 06/15/19 13:29 SAK [id number]) Aquatics Treatment Water Walking forward Water Level Chest Level Walking Equipment blue council noodles under feet on heels and on toes Water Level Chest Level Walking Equipment blue council noodles Level of Assistance Verbal Cues [place] Water Level Chest Level Level of Assistance Verbal Cues Comments modified with smaller steps fwd,bck,side, august, soldier august Water Level Chest Level Walking Equipment blue council noodles on feet Level of Assistance Standby Assistance,Verbal Cues Lower Extremity Exercises squats Body Position Standing Water Level Waist Level Equipment blue council floats Reps/Duration 20 Comments focus on form, floats for greater ankle ROM heel raise, toe raise Body Position Standing Water Level Chest Level Reps/Duration 20x Lower Extremity Stretches quads Body Position Standing Water Level Chest Level Equipment Large Noodle Reps/Duration 2x45 HS Body Position Standing Water Level Chest Level Equipment Large Noodle Reps/Duration 2x45 gastroc Body Position Standing Water Level Chest Level Reps/Duration 2x45 Comments wall; rocking foot Balance SLS with opposite LE movement Body Position Standing Water Level Waist Level Reps/Duration 2 min bilateral reverse squats on noodle Water Level [place] Reps/Duration 10x ea Comments chico and unil standing on noodle Water Level Chest Level Equipment lg noodle Reps/Duration 5 min Comments various foot positions Moody Activities [place] Activities Bicycle,Bicycle Backwards, Cross [place],Running,Sit Kicks Equipment large noodle Duration 12 Swim Strokes Flutter Equipment Noodle Laps/Duration 3 min Comments gentle PT-OP-T Assessment and Plan Start: 04/09/19 13:49 Freq: Status: Active Protocol: Document 06/19/19 10:40 SP (Rec: 06/19/19 11:36 SP [id number]) Physical Therapy Assessment Goals 5 Impairment Pt scores 30/84 on FAAM ADL subscale Short Term Goal (STG) Pt will score 45/84 on FAAM ADL subscale to demonstrate increased independence with ADL's 05/20/19 MET Pt scores 63/84. 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 STG Duration 05/06/19 Penitentiary Goal (LTG) Pt will tolerate 7+ hours standing work (with appropriate breaks) without foot fatigue/tenderness LTG Duration 07/01/19 3 Impairment Pt unable to walk on uneven terrain Short Term Goal (STG) Pt will walk 15 minutes on uneven terrain with least restrictive assistive device STG Duration 05/20/19 Spr[place]yer Goal (LTG) Pt will walk 30 minutes on uneven terrain/forest trails with least restrictive assistive device. LTG Duration 07/01/19 2 Impairment Pt scores 33/80 on LEFS Short Term Goal (STG) Pt will score 45 or greater on LEFS to demonstrate improved function in daily activities. 05/20/19: MET Pt scores 46/80 on LEFS STG Duration 05/20/19 Spray Dyer Goal (LTG) Pt will score 60 or greater on LEFS to represent improved function in daily activities. LTG Duration 07/01/19 1 Impairment Pt with no appropriate HEP Short Term Goal (STG) Pt will be independent with HEP for support of therapy services provided in clinic. 05/13/19 MET STG Duration 05/06/19 Spray Dyer Goal (LTG) Pt will be independent with maintenance HEP to maintain functional progress achieved in therapy. LTG Duration 07/01/19 Assessment Summary Assessment Pt tolerated tx well today, focus on ROM and strengthening L ankle progressed to ankle stability HEP and L knee soft knee to allow ankle mobility, added sport cord forward/ backward resisted stepping with cuing for excentuating knee flexion and L ankle DF heel toe/ toe heel mobility to improve gait performance with noted improved demonstration when leaving with increased self awareness. Physical Therapy Plan Frequency and Duration Frequency of Treatment 3x/Week Duration of Treatment 12 weeks Plan of Care Start Date 04/08/19 Plan of Care End Date 07/01/19 Therapeutic Interventions Therapeutic Interventions Aquatic Therapy,Balance Training,Gait Training,Home Exercise Program,Joint Mobilizations,Manual Therapy, Neuromuscular Re-education, Orthotic/Prosthetic Management ,Patient/Caregiver Education, Self-Care/Home Management, Sensory Integration,Soft Tissue Mobilization,Taping, Therapeutic Activities, Therapeutic Exercises Other Therapeutic Interventions cryo-cuff Next Visit Focus/Plan Next Note Type Treatment Note Next Visit Plan Assess added sport cord and resisited gait focused on mobility during gait. Continue combination aquatic and land-based PT for strengthening, balance, flexibility per POC.
--- NOTE | 2019-06-22 17:13 | PT.OTN ---
Current Diagnoses Encounter for other orthopedic aftercare (06/22/19) Arthrodesis status (06/22/19) Physical Therapy Treatment Note PT-OP-A Visit Information Start: 04/09/19 13:49 Freq: Status: Active Protocol: Document 06/22/19 10:15 LJ (Rec: 06/22/19 17:13 LJ [id number]) Out-Patient Physical Therapy Visit Information Visit Information Visit Type Aquatic Treatment Note Visit Start Time 10:15 Visit Stop Time 11:00 Total Visit Minutes 45 Visit Number 27 Number of DIRECTOR [employer]AGE ENGINEERING Visits 2 PT-OP-B Current Condition Start: 04/09/19 13:49 Freq: Status: Active Protocol: Document 04/08/19 13:50 AW (Rec: 04/09/19 14:31 AW [email or web address]) Current Condition History of Current Condition Onset Date years Current Complaints left ankle swelling and limited range of motion History of Current Condition Vamsi vega sprained his left ankle in 1989 as a result of a fall down a 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 He has dealt with ongoing ankle pain for years, culminating finally in ankle arthrodesis and Achilles lengthening on . Pt unable to identify which bones were fused. Per protocol, he has been in a cam boot for all mobility for the past three months. He primarily used a knee scooter during that time, but has progressively increased his weightbearing in the boot for short distances. He is now allowed full weightbearing in the boot. In the past 10 days, he switched to an articulated cane held in the right hand. He has returned to driving. 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 He reports minimal pain since surgery, but does endorse generalized tenderness of the plantar foot since beginning to walk with a cane. He denies any falls or near falls since surgery. Prior Treatments and Tests Ankle arthrodesis and Achilles lengthening 12/31/18. History of a-fib, HTN, pacemaker. Future Testing and Treatments Planned None identified Treatment Goals Patient/Caregiver Goals Pt would like to hike [employer] and to be able to work standing 6 hours daily without fatigue or foot tenderness. 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 Current Functional Impairments (Reported) Functional Limitations- ADL's No known impairments Functional Limitations- Mobility/Gait Requires articulated cane and is limited in ambulation distance. Lacks confidence on uneven ground. Functional Limitations- Work/School Unable to stand for 6 hour shifts without foot/ankle fatigue and without tenderness of plantar foot. Functional Limitations- Recreation/ Unable to hike forest trails Hobbies Personal Factors Other Personal Factors That May Effect chronicity of deficits, Therapy/Recovery tendency to work through pain. PT-OP-C Subjective Start: 04/09/19 13:49 Freq: Status: Active Protocol: Document 06/22/19 10:15 LJ (Rec: 06/22/19 17:13 LJ [id number]) OP-PT Subjective Patient Comments Patient Comments Pt stated his ankle getting better but his compression sock does not fit well because his foot is so large. PT-OP-D Balance Start: 04/09/19 13:49 Freq: Status: Active Protocol: Document 04/08/19 13:50 AW (Rec: 04/09/19 14:31 AW [email or web address]) OP-PT Balance Assessment Sitting Balance Static Sitting Balance Ability Normal Dynamic Sitting Balance Ability Normal Standing Balance Static Standing Balance Ability Fair Dynamic Standing Balance Ability Fair Device Used no boot, no AD Evans Fall Scale Copyright Permission PT-OP-F Manual Assessment Start: 04/09/19 13:49 Freq: Status: Active Protocol: Document 04/08/19 13:50 AW (Rec: 04/09/19 14:31 AW [email or web address]) Manual Assessments Joint Mobility Assessment Joint Mobility Assessment Minimal subtalar movement. No dorsal/plantar restriction at MTP's 1-5 bilaterally. Difficult to assess tibiotalar mobility due to swelling. Other Manual Assessments Other Manual Assessments No point tenderness along plantar surface, 5th digit tuberosity, navicular, Achilles insertion. Generalized tenderness along plantar surface noted by patient PT-OP-G Mobility & Gait Start: 04/09/19 13:49 Freq: Status: Active Protocol: Document 04/08/19 13:50 AW (Rec: 04/09/19 14:31 AW [email or web address]) OP Gait Assessment Gait Gait Assistance Required: Standby Assistance Distance (Feet) 100 Able to Maintain Weight Bearing Status Yes During Gait Gait Deviations General Gait Pattern Within Normal Limits,Antalgic, Decreased Stride Length, Decreased Feet Clearance,Wide Based Gait Factors Limiting Gait Function Factors Limiting Gait Function Decreased Activity Tolerance, Decreased Strength,Limited Range of Motion,Poor Balance Comments Gait Comments Pt ambulates with WBOS, forefoot landing (L>R), decreased stance time on LLE and decreaed step length RLE. He vaults over the LLE and exhibits right lateral lean in right stance. PT-OP-J Posture/Palpation/Skin Start: 04/09/19 13:49 Freq: Status: Active Protocol: Document 04/08/19 13:50 AW (Rec: 04/09/19 14:31 AW [email or web address]) Posture Evaluation Position Standing Knee Posture (L) Genu Valgus,(R) Genu Valgus Ankle/Foot Posture (L) Forefoot Abducted,(R) Forefoot Abducted Foot Arch (L) Low Arch,(R) Low Arch Skin Assessment Edema Assessment left ankle/foot Edema Type Non-Pitting Edema Appearance Discolored,Taut Comments Talar arch: Left 39 cm, Right 33 cm Horizontal at level of bilateral malleoli: Left 41 cm , Right 35 cm PT-OP-K Range of Motion Start: 04/09/19 13:49 Freq: Status: Active Protocol: Document 04/08/19 13:50 AW (Rec: 04/09/19 14:31 AW [email or web address]) Knee Goniometric Range of Motion Knee Left Knee ROM WFL Yes Patient Position Supine Ankle and Foot Goniometric Range of Motion Ankle and Foot Right Active Ankle/Foot ROM WFL No Testing Position Supine Dorsiflexion with Knee Flexed 5 Dorsiflexion with Knee Extended 5 Plantarflexion 40 Left Active Ankle/Foot ROM WFL No Testing Position Supine Dorsiflexion with Knee Flexed 0 Dorsiflexion with Knee Extended 0 Plantarflexion 20 Ankle and Foot ROM Limitations ROM Limitations Bony Restriction Toe Range of Motion Toes ROM Limitations Comments Pt lacks active left great toe extension PT-OP-M Strength Start: 04/09/19 13:49 Freq: Status: Active Protocol: Document 04/08/19 13:50 AW (Rec: 04/10/19 09:07 AW [email or web address]) Ankle/Foot Strength Ankle and Foot Manual Muscle Testing Right Dorsiflexion (L4) 4- Good- Plantarflexion (S1) 4- Good- Inversion 4 Good Eversion (S1) 4 Good Left Dorsiflexion (L4) 3 Fair Plantarflexion (S1) 3+ Fair+ Inversion 4- Good- Eversion (S1) 4- Good- Comments Pt can dorsiflex from extended position, but has no AROM past 0. Unable to test PF in standing due to safety concerns. Toe Strength Toe Manual Muscle Testing Right Great Toe Flexion 5 Normal Left Great Toe Flexion 4 Good PT-OP-N Lymphedema Start: 04/09/19 13:49 Freq: Status: Active Protocol: Document 05/15/19 10:40 SP (Rec: 05/15/19 11:44 SP [id number]) Lymphedema Measurements Lower Extremity Circumference Measurements L ankle foot MT Heads 34 cm Comments Lymphedema Comments -10 cm proximal MT heads 34 cm pre manual, 33 cm post - circumference calcaneus around ankle anteriorly ( anterior med/lat malleolus) 43 cm pre and post - figure 4 around ankle 74 cm pre and post - circumference med/lat malleolus 38.5 cm pre 37.5 cm post PT-OP-Q Treatments Start: 04/09/19 13:49 Freq: Status: Active Protocol: Document 06/19/19 10:40 SP (Rec: 06/19/19 11:36 SP [id number]) Gym Equipment Sport Cord forward/backward/side stepping Exercise Details forward/backward/side stepping Cord/Resistance blue around waist Reps/Duration 3 x 10 step each direction Comments cuing accentuated ankle ROM and knee flex/ext and heel toe resisted forward, toe heel backward/ side stepping. Therapeutic Exercises Sitting Exercises ankle AROM Sitting Exercise Name ankle TB DF, PF, inversion, eversion Side left Resistance level 2 Reps/Minutes 3x10 Standing Exercises hip ext w/ SLS Standing Exercise Name hip ext w/ SLS Side left Equipment Used TB#2 Reps/Minutes x10 Comments cues for upright posture hip abd w/ SLS Standing Exercise Name hip abd w/ SLS Side left Resistance TB #2 Reps/Minutes x10 Comments cues to limit trunk lean Manual Therapy Treatment Soft Tissue Mobilization ant and gastro Body Location achilles Mobilization Type Cross-Friction,Myofascial Release Intensity/Depth Moderate Body Position Hooklying Comments proximal glide with DF AROM edema managment Body Location left lower LE Mobilization Type Myofascial Release,Rolling Intensity/Depth Moderate Body Position Supine Comments upward stroke/retrograde manual Joint Mobilizations talocrural Joint talocrural Direction anterior > posterior Grade III Body Position Supine Reps/Duration 3 minutes Comments with active DF and manual stretch using contract/relax MTP Joint MTP 1-5 Direction dorsal and plantar Grade III Body Position Hooklying Reps/Duration 5 minutes Comments greatest restriction at digits 2-3 PT-OP-R Modalities Start: 04/09/19 13:49 Freq: Status: Active Protocol: Document 06/19/19 11:36 SP (Rec: 06/19/19 11:36 SP [id number]) Hot Pack/Cold Pack Treatment Cold Pack Location L ankle Patient Position Hooklying Treatment Duration (minutes) 15 Patient Tolerance Good Comments cryo cuff PT-OP-S Aquatic Treatment Start: 04/09/19 13:49 Freq: Status: Active Protocol: Document 06/22/19 10:15 LJ (Rec: 06/22/19 17:13 LJ [id number]) Aquatics Treatment Pool Entry/Exit Pool Entry/Exit Method Stairs Water Walking forward Water Level Chest Level on heels and on toes Water Level Chest Level Walking Equipment Resistance Fins Level of Assistance Verbal Cues fwd,bck,side, august, soldier august Water Level Chest Level Walking Equipment Resistance Fins Level of Assistance Standby Assistance,Verbal Cues Lower Extremity Exercises hydroband ankle inv/ev Body Position Standing Water Level Waist Level Equipment green hydroband Reps/Duration 20 each direction Comments position 5 hip flex/ext Body Position Standing Water Level Chest Level Equipment Resistance Fins Reps/Duration 10x2 Comments UE support Hip ab/ad Body Position Standing Water Level Chest Level Equipment Resistance Fins Reps/Duration 10x2 Comments UE support squats Body Position Standing Water Level Waist Level Equipment Resistance Fins Reps/Duration 15 heel raise, toe raise Body Position Standing Water Level Chest Level Reps/Duration 20x Lower Extremity Stretches foot rolling Water Level Chest Level Equipment sm BBs quads Body Position Standing Water Level Chest Level Equipment Large Noodle Reps/Duration 2x45 HS Body Position Standing Water Level Chest Level Equipment Large Noodle Reps/Duration 2x45 gastroc Body Position Standing Water Level Chest Level Reps/Duration 2x45 Comments wall; rocking foot Balance SLS with opposite LE movement Body Position Standing Water Level Waist Level Reps/Duration 2 min bilateral standing on noodle Water Level Chest Level Equipment lg noodle Reps/Duration 3 min Comments various foot positions [place] Activities [place] Activities Bicycle,Bicycle Backwards, Cross Country,Running,Sit Kicks Equipment large noodle Duration 8 Swim Strokes Breaststroke Equipment Noodle Laps/Duration 30M Flutter Equipment Noodle Laps/Duration 30M PT-OP-T Assessment and Plan Start: 04/09/19 13:49 Freq: Status: Active Protocol: Document 06/22/19 10:15 MAGDALENE (Rec: 06/22/19 17:13 [email or web address] [id number]) Physical Therapy Assessment Rehab Potential Rehabilitation Potential Good Evaluation Complexity Number of Personal Factors/Comorbidities 1-2 Number of Body Systems Impaired 1-2 Clinical Presentation at Evaluation Stable Impairments Impairments Activity Tolerance,Balance, Edema,Functional Activities, Functional Mobility,Gait, Integument,Posture,ROM,Soft Tissue Mobility,Strength Other Concerns Fall Risk high risk of falls Goals 5 Impairment Pt scores 30/84 on FAAM ADL subscale Short Term Goal (STG) Pt will score 45/84 on FAAM ADL subscale to demonstrate increased independence with ADL's 05/20/19 MET Pt scores 63/84. 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 STG Duration 05/06/19 Fpc Goal (LTG) Pt will tolerate 7+ hours standing work (with appropriate breaks) without foot fatigue/tenderness LTG Duration 07/01/19 3 Impairment Pt unable to walk on uneven terrain Short Term Goal (STG) Pt will walk 15 minutes on uneven terrain with least restrictive assistive device STG Duration 05/20/19 Crm Coordinator Goal (LTG) Pt will walk 30 minutes on uneven terrain/forest trails with least restrictive assistive device. LTG Duration 07/01/19 2 Impairment Pt scores 33/80 on LEFS Short Term Goal (STG) Pt will score 45 or greater on LEFS to demonstrate improved function in daily activities. 05/20/19: MET Pt scores 46/80 on LEFS STG Duration 05/20/19 Crm Coordinator Goal (LTG) Pt will score 60 or greater on LEFS to represent improved function in daily activities. LTG Duration 07/01/19 1 Impairment Pt with no appropriate HEP Short Term Goal (STG) Pt will be independent with HEP for support of therapy services provided in clinic. 05/13/19 MET STG Duration 05/06/19 Fpc Goal (LTG) Pt will be independent with maintenance HEP to maintain functional progress achieved in therapy. LTG Duration 07/01/19 Assessment Summary Assessment Pt tolerated trreatment without increase in pain. Increased ankle mobility noticed with squats and stretching. Pt able to perform breast stroke kick with slight eversion of L foot. Gait in pool still lumbering rather than controllled Physical Therapy Plan Frequency and Duration Frequency of Treatment 3x/Week Duration of Treatment 12 weeks Plan of Care Start Date 04/08/19 Plan of Care End Date 07/01/19 Therapeutic Interventions Therapeutic Interventions Aquatic Therapy,Balance Training,Gait Training,Home Exercise Program,Joint Mobilizations,Manual Therapy, Neuromuscular Re-education, Orthotic/Prosthetic Management ,Patient/Caregiver Education, Self-Care/Home Management, Sensory Integration,Soft Tissue Mobilization,Taping, Therapeutic Activities, Therapeutic Exercises Other Therapeutic Interventions cryo-cuff Next Visit Focus/Plan Next Note Type Treatment Note Next Visit Plan Continue combination aquatic and land-based PT for strengthening, balance, flexibility per POC.
--- NOTE | 2019-06-26 10:21 | PT-OP ANOTE ---
Pt cancelled less than 24 hr notice secondary to poor snow driving conditions and unable to todays appt. Left a message has one more appt scheduled on 07/01/19 at 1345 with his PT and possible needing more appts scheduled if continuing care.
--- NOTE | 2019-07-01 17:25 | PT.OTN ---
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 He has dealt with ongoing ankle pain for years, culminating finally in ankle arthrodesis and Achilles lengthening on . Pt unable to identify which bones were fused. Per protocol, he has been in a cam boot for all mobility for the past three months. He primarily used a knee scooter during that time, but has progressively increased his weightbearing in the boot for short distances. He is now allowed full weightbearing in the boot. In the past 10 days, he switched to an articulated cane held in the right hand. He has returned to driving. 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 He reports minimal pain since surgery, but does endorse generalized tenderness of the plantar foot since beginning to walk with a cane. He denies any falls or near falls since surgery. Prior Treatments and Tests Ankle arthrodesis and Achilles lengthening 12/31/18. History of a-fib, HTN, pacemaker. Future Testing and Treatments Planned None identified Treatment Goals Patient/Caregiver Goals Pt would like to hike [employer] and to be able to work standing 6 hours daily without fatigue or foot tenderness. 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 Current Functional Impairments (Reported) Functional Limitations- ADL's No known impairments Functional Limitations- Mobility/Gait Requires articulated cane and is limited in ambulation distance. Lacks confidence on uneven ground. Functional Limitations- Work/School Unable to stand for 6 hour shifts without foot/ankle fatigue and without tenderness of plantar foot. Functional Limitations- Recreation/ Unable to hike forest trails Hobbies Personal Factors Other Personal Factors That May Effect chronicity of deficits, Therapy/Recovery tendency to work through pain. PT-OP-C Subjective Start: 04/09/19 13:49 Freq: Status: Active Protocol: Document 07/01/19 17:10 AW (Rec: 07/01/19 17:25 AW [email or web address]) OP-PT Subjective Patient Comments Patient Comments Pt states his compression garment is losing compressive force but he has been unable to find another one big enough for his limb. He has an appointment with [facility] surgeon tomorrow. PT-OP-D Balance Start: 04/09/19 13:49 Freq: Status: Active Protocol: Document 04/08/19 13:50 AW (Rec: 04/09/19 14:31 AW [email or web address]) OP-PT Balance Assessment Sitting Balance Static Sitting Balance Ability Normal Dynamic Sitting Balance Ability Normal Standing Balance Static Standing Balance Ability Fair Dynamic Standing Balance Ability Fair Device Used no boot, no AD Evans Fall Scale Copyright Permission PT-OP-F Manual Assessment Start: 04/09/19 13:49 Freq: Status: Active Protocol: Document 04/08/19 13:50 AW (Rec: 04/09/19 14:31 AW [email or web address]) Manual Assessments Joint Mobility Assessment Joint Mobility Assessment Minimal subtalar movement. No dorsal/plantar restriction at MTP's 1-5 bilaterally. Difficult to assess tibiotalar mobility due to swelling. Other Manual Assessments Other Manual Assessments No point tenderness along plantar surface, 5th digit tuberosity, navicular, Achilles insertion. Generalized tenderness along plantar surface noted by patient PT-OP-G Mobility & Gait Start: 04/09/19 13:49 Freq: Status: Active Protocol: Document 04/08/19 13:50 AW (Rec: 04/09/19 14:31 AW [email or web address]) OP Gait Assessment Gait Gait Assistance Required: Standby Assistance Distance (Feet) 100 Able to Maintain Weight Bearing Status Yes During Gait Gait Deviations General Gait Pattern Within Normal Limits,Antalgic, Decreased Stride Length, Decreased Feet Clearance,Wide Based Gait Factors Limiting Gait Function Factors Limiting Gait Function Decreased Activity Tolerance, Decreased Strength,Limited Range of Motion,Poor Balance Comments Gait Comments Pt ambulates with WBOS, forefoot landing (L>R), decreased stance time on LLE and decreaed step length RLE. He vaults over the LLE and exhibits right lateral lean in right stance. PT-OP-J Posture/Palpation/Skin Start: 04/09/19 13:49 Freq: Status: Active Protocol: Document 04/08/19 13:50 AW (Rec: 04/09/19 14:31 AW [email or web address]) Posture Evaluation Position Standing Knee Posture (L) Genu Valgus,(R) Genu Valgus Ankle/Foot Posture (L) Forefoot Abducted,(R) Forefoot Abducted Foot Arch (L) Low Arch,(R) Low Arch Skin Assessment Edema Assessment left ankle/foot Edema Type Non-Pitting Edema Appearance Discolored,Taut Comments Talar arch: Left 39 cm, Right 33 cm Horizontal at level of bilateral malleoli: Left 41 cm , Right 35 cm PT-OP-K Range of Motion Start: 04/09/19 13:49 Freq: Status: Active Protocol: Document 04/08/19 13:50 AW (Rec: 04/09/19 14:31 AW [email or web address]) Knee Goniometric Range of Motion Knee Left Knee ROM WFL Yes Patient Position Supine Ankle and Foot Goniometric Range of Motion Ankle and Foot Right Active Ankle/Foot ROM WFL No Testing Position Supine Dorsiflexion with Knee Flexed 5 Dorsiflexion with Knee Extended 5 Plantarflexion 40 Left Active Ankle/Foot ROM WFL No Testing Position Supine Dorsiflexion with Knee Flexed 0 Dorsiflexion with Knee Extended 0 Plantarflexion 20 Ankle and Foot ROM Limitations ROM Limitations Bony Restriction Toe Range of Motion Toes ROM Limitations Comments Pt lacks active left great toe extension PT-OP-M Strength Start: 04/09/19 13:49 Freq: Status: Active Protocol: Document 04/08/19 13:50 AW (Rec: 04/10/19 09:07 AW [email or web address]) Ankle/Foot Strength Ankle and Foot Manual Muscle Testing Right Dorsiflexion (L4) 4- Good- Plantarflexion (S1) 4- Good- Inversion 4 Good Eversion (S1) 4 Good Left Dorsiflexion (L4) 3 Fair Plantarflexion (S1) 3+ Fair+ Inversion 4- Good- Eversion (S1) 4- Good- Comments Pt can dorsiflex from extended position, but has no AROM past 0. Unable to test PF in standing due to safety concerns. Toe Strength Toe Manual Muscle Testing Right Great Toe Flexion 5 Normal Left Great Toe Flexion 4 Good PT-OP-N Lymphedema Start: 04/09/19 13:49 Freq: Status: Active Protocol: Document 05/15/19 10:40 SP (Rec: 05/15/19 11:44 SP [id number]) Lymphedema Measurements Lower Extremity Circumference Measurements L ankle foot MT Heads 34 cm Comments Lymphedema Comments -10 cm proximal MT heads 34 cm pre manual, 33 cm post - circumference calcaneus around ankle anteriorly ( anterior med/lat malleolus) 43 cm pre and post - figure 4 around ankle 74 cm pre and post - circumference med/lat malleolus 38.5 cm pre 37.5 cm post PT-OP-Q Treatments Start: 04/09/19 13:49 Freq: Status: Active Protocol: Document 07/01/19 17:10 AW (Rec: 07/01/19 17:25 AW [email or web address]) Cardio Equipment Recumbent Elliptical (Biodex) Duration (Minutes) 8 Resistance 6 Gym Equipment Shuttle Recovery Unilateral Squats Resistance 100# Shuttle Recovery Platform Stable Reps/Time 2x10 with cues for flat foot Bilateral squat Resistance 150# Shuttle Recovery Platform Stable Reps/Time 2x10 Therapeutic Exercises Supine Exercises supine INV and EV Supine Exercise Name supine inversion and eversion Side left Resistance AROM with manual resistance Reps/Minutes 10 each direction supine DF and PF Supine Exercise Name supine DF/PF Side left Resistance AROM with manual resistance Reps/Minutes 10 each direction Standing Exercises arch creation Standing Exercise Name arch creation Side left Resistance bodyweight Reps/Minutes 2x10 reps Comments barefoot; cues for equal weightbearing eversion Standing Exercise Name eversion and inversion Side left Resistance bodyweight Reps/Minutes 2x10 reps Comments cues for equal weightbearing lunge on step Standing Exercise Name lunge on step Side left Equipment Used 12 step Reps/Minutes 15 sec hold x 8 standing calf stretch Standing Exercise Name calf stretch Side left Equipment Used LEA Reps/Minutes 1 minute x 2 Comments cues for hip extension Manual Therapy Treatment Soft Tissue Mobilization ant and gastro Body Location achilles Mobilization Type Cross-Friction,Myofascial Release Intensity/Depth Moderate Body Position Hooklying Comments proximal glide with DF AROM edema managment Body Location left lower LE Mobilization Type Myofascial Release,Rolling Intensity/Depth Moderate Body Position Hooklying Comments upward stroke/retrograde manual Joint Mobilizations talocrural Joint talocrural Direction anterior > posterior Grade III Body Position Supine Reps/Duration 3 minutes Comments with active DF and manual stretch using contract/relax MTP Joint MTP 1-5 Direction dorsal and plantar Grade III Body Position Hooklying Reps/Duration 5 minutes Comments greatest restriction at digits 2-3 PT-OP-R Modalities Start: 04/09/19 13:49 Freq: Status: Active Protocol: Document 07/01/19 17:10 AW (Rec: 07/01/19 17:25 AW [email or web address]) Hot Pack/Cold Pack Treatment Cold Pack Location L ankle Patient Position Hooklying Treatment Duration (minutes) 10 Patient Tolerance Good Comments cryo cuff PT-OP-S Aquatic Treatment Start: 04/09/19 13:49 Freq: Status: Active Protocol: Document 06/22/19 10:15 LJ (Rec: 06/22/19 17:13 LJ [id number]) Aquatics Treatment Pool Entry/Exit Pool Entry/Exit Method Stairs Water Walking forward Water Level Chest Level on heels and on toes Water Level Chest Level Walking Equipment Resistance Fins Level of Assistance Verbal Cues fwd,bck,side, august, soldier august Water Level Chest Level Walking Equipment Resistance Fins Level of Assistance Standby Assistance,Verbal Cues Lower Extremity Exercises hydroband ankle inv/ev Body Position Standing Water Level Waist Level Equipment green hydroband Reps/Duration 20 each direction Comments position 5 hip flex/ext Body Position Standing Water Level Chest Level Equipment Resistance Fins Reps/Duration 10x2 Comments UE support Hip ab/ad Body Position Standing Water Level Chest Level Equipment Resistance Fins Reps/Duration 10x2 Comments UE support squats Body Position Standing Water Level Waist Level Equipment Resistance Fins Reps/Duration 15 heel raise, toe raise Body Position Standing Water Level Chest Level Reps/Duration 20x Lower Extremity Stretches foot rolling Water Level Chest Level Equipment sm BBs quads Body Position Standing Water Level Chest Level Equipment Large Noodle Reps/Duration 2x45 HS Body Position Standing Water Level Chest Level Equipment Large Noodle Reps/Duration 2x45 gastroc Body Position Standing Water Level Chest Level Reps/Duration 2x45 Comments wall; rocking foot Balance SLS with opposite LE movement Body Position Standing Water Level Waist Level Reps/Duration 2 min bilateral standing on noodle Water Level Chest Level Equipment lg noodle Reps/Duration 3 min Comments various foot positions Alma Activities Alma Activities Bicycle,Bicycle Backwards, Cross Country,Running,Sit Kicks Equipment large noodle Duration 8 Swim Strokes Breaststroke Equipment Noodle Laps/Duration 30M Flutter Equipment Noodle Laps/Duration 30M PT-OP-T Assessment and Plan Start: 04/09/19 13:49 Freq: Status: Active Protocol: Document 07/01/19 17:10 AW (Rec: 07/01/19 17:25 AW [email or web address]) Physical Therapy Assessment Rehab Potential Rehabilitation Potential Good Evaluation Complexity Number of Personal Factors/Comorbidities 1-2 Number of Body Systems Impaired 1-2 Clinical Presentation at Evaluation Stable Impairments Impairments Activity Tolerance,Balance, Edema,Functional Activities, Functional Mobility,Gait, Integument,Posture,ROM,Soft Tissue Mobility,Strength Goals 5 Impairment Pt scores 30/84 on FAAM ADL subscale Short Term Goal (STG) Pt will score 45/84 on FAAM ADL subscale to demonstrate increased independence with ADL's 05/20/19 MET Pt scores 63/84. 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 STG Duration 05/06/19 Tape Editor Goal (LTG) Pt will tolerate 7+ hours standing work (with appropriate breaks) without foot fatigue/tenderness LTG Duration 07/01/19 3 Impairment Pt unable to walk on uneven terrain Short Term Goal (STG) Pt will walk 15 minutes on uneven terrain with least restrictive assistive device STG Duration 05/20/19 Mcfp Goal (LTG) Pt will walk 30 minutes on uneven terrain/forest trails with least restrictive assistive device. LTG Duration 07/01/19 2 Impairment Pt scores 33/80 on LEFS Short Term Goal (STG) Pt will score 45 or greater on LEFS to demonstrate improved function in daily activities. 05/20/19: MET Pt scores 46/80 on LEFS STG Duration 05/20/19 Mcfp Goal (LTG) Pt will score 60 or greater on LEFS to represent improved function in daily activities. LTG Duration 07/01/19 1 Impairment Pt with no appropriate HEP Short Term Goal (STG) Pt will be independent with HEP for support of therapy services provided in clinic. 05/13/19 MET STG Duration 05/06/19 Tape Editor Goal (LTG) Pt will be independent with maintenance HEP to maintain functional progress achieved in therapy. LTG Duration 07/01/19 Assessment Summary Assessment Pt has increased subtalar range of motion and improved weightbearing on the LLE during gait but continues to be limited by edema. He will benefit from continued therapy to address left ankle range of motion, strength, edema, and functional activities. Physical Therapy Plan Frequency and Duration Frequency of Treatment 2x/Week Duration of Treatment 8 weeks Plan of Care Start Date 07/06/19 Plan of Care End Date 08/31/19 Therapeutic Interventions Therapeutic Interventions Aquatic Therapy,Balance Training,Gait Training,Home Exercise Program,Joint Mobilizations,Manual Therapy, Neuromuscular Re-education, Orthotic/Prosthetic Management ,Patient/Caregiver Education, Self-Care/Home Management, Sensory Integration,Soft Tissue Mobilization,Taping, Therapeutic Activities, Therapeutic Exercises Modalities Cold Pack/Ice Massage Other Therapeutic Interventions cryo-cuff Next Visit Focus/Plan Next Note Type Treatment Note Next Visit Plan Follow up on surgeon visit Assess goals
--- NOTE | 2019-07-01 17:25 | PT.OPPOC ---
Physical, Occupational & Speech Therapy At [facility] Current Diagnoses Encounter for other orthopedic aftercare (07/01/19) Arthrodesis status (07/01/19) Visit Care Team Role Provider Type Jh Mooney MD Primary Care Provider Physician Specialty: Family Practice Address: [address] [place] [address], [id number] Email: [email or web address] Beltran Dc MD Attending Provider Non-Staff Specialty: Orthopedics Address: [address] [place] [address], [address], [place], [phone] Fax: Email: Plan Of Care PT-OP-T Assessment and Plan Start: 04/09/19 13:49 Freq: Status: Active Protocol: Document 07/01/19 17:10 AW (Rec: 07/01/19 17:25 AW [email or web address]) Physical Therapy Assessment Rehab Potential Rehabilitation Potential Good Evaluation Complexity Number of Personal Factors/Comorbidities 1-2 Number of Body Systems Impaired 1-2 Clinical Presentation at Evaluation Stable Impairments Impairments Activity Tolerance,Balance, Edema,Functional Activities, Functional Mobility,Gait, Integument,Posture,ROM,Soft Tissue Mobility,Strength Goals 5 Impairment Pt scores 30/84 on FAAM ADL subscale Short Term Goal (STG) Pt will score 45/84 on FAAM ADL subscale to demonstrate increased independence with ADL's 05/20/19 MET Pt scores 63/84. 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 STG Duration 05/06/19 Mcfp Goal (LTG) Pt will tolerate 7+ hours standing work (with appropriate breaks) without foot fatigue/tenderness LTG Duration 07/01/19 3 Impairment Pt unable to walk on uneven terrain Short Term Goal (STG) Pt will walk 15 minutes on uneven terrain with least restrictive assistive device STG Duration 05/20/19 [employer] Hcm Consultant Goal (LTG) Pt will walk 30 minutes on uneven terrain/forest trails with least restrictive assistive device. LTG Duration 07/01/19 2 Impairment Pt scores 33/80 on LEFS Short Term Goal (STG) Pt will score 45 or greater on LEFS to demonstrate improved function in daily activities. 05/20/19: MET Pt scores 46/80 on LEFS STG Duration 05/20/19 [employer] Hcm Consultant Goal (LTG) Pt will score 60 or greater on LEFS to represent improved function in daily activities. LTG Duration 07/01/19 1 Impairment Pt with no appropriate HEP Short Term Goal (STG) Pt will be independent with HEP for support of therapy services provided in clinic. 05/13/19 MET STG Duration 05/06/19 [employer] Hcm Consultant Goal (LTG) Pt will be independent with maintenance HEP to maintain functional progress achieved in therapy. LTG Duration 07/01/19 Assessment Summary Assessment Pt has increased subtalar range of motion and improved weightbearing on the LLE during gait but continues to be limited by edema. He will benefit from continued therapy to address left ankle range of motion, strength, edema, and functional activities. Physical Therapy Plan Frequency and Duration Frequency of Treatment 2x/Week Duration of Treatment 8 weeks Plan of Care Start Date 07/06/19 Plan of Care End Date 08/31/19 Therapeutic Interventions Therapeutic Interventions Aquatic Therapy,Balance Training,Gait Training,Home Exercise Program,Joint Mobilizations,Manual Therapy, Neuromuscular Re-education, Orthotic/Prosthetic Management ,Patient/Caregiver Education, Self-Care/Home Management, Sensory Integration,Soft Tissue Mobilization,Taping, Therapeutic Activities, Therapeutic Exercises Modalities Cold Pack/Ice Massage Other Therapeutic Interventions cryo-cuff Next Visit Focus/Plan Next Note Type Treatment Note Next Visit Plan Follow up on surgeon visit Assess goals Plan of Care Dates Plan of Care Start Date 07/06/19 Plan of Care End Date 08/31/19 Electronically Signed by: Lucille Stone, PT 07/01/19 [id number] Please Sign and Return: I have reviewed this Plan of Care and certify that the skilled therapy services above are required to meet the patient?s needs. Physician Signature Date Printed Name and Credentials Clinical Instructor Signature Printed Name and Credentials
--- NOTE | 2019-07-06 13:17 | PT.OTN ---
Current Diagnoses Encounter for other orthopedic aftercare (07/06/19) Arthrodesis status (07/06/19) Physical Therapy Treatment Note PT-OP-A Visit Information Start: 04/09/19 13:49 Freq: Status: Active Protocol: Document 07/06/19 12:17 SP (Rec: 07/06/19 15:28 SP [id number]) Out-Patient Physical Therapy Visit Information Visit Information Visit Type Treatment Note Visit Start Time 12:17 Visit Stop Time 13:17 Total Visit Minutes 60 Visit Number 29 Number of [employer] Visits 1 PT-OP-B Current Condition Start: 04/09/19 13:49 Freq: Status: Active Protocol: Document 04/08/19 13:50 AW (Rec: 04/09/19 14:31 AW [email or web address]) Current Condition History of Current Condition Onset Date years Current Complaints left ankle swelling and limited range of motion History of Current Condition Vamsi vega sprained his left ankle in 1989 as a result of a fall down a 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 He has dealt with ongoing ankle pain for years, culminating finally in ankle arthrodesis and Achilles lengthening on . Pt unable to identify which bones were fused. Per protocol, he has been in a cam boot for all mobility for the past three months. He primarily used a knee scooter during that time, but has progressively increased his weightbearing in the boot for short distances. He is now allowed full weightbearing in the boot. In the past 10 days, he switched to an articulated cane held in the right hand. He has returned to driving. 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 He reports minimal pain since surgery, but does endorse generalized tenderness of the plantar foot since beginning to walk with a cane. He denies any falls or near falls since surgery. Prior Treatments and Tests Ankle arthrodesis and Achilles lengthening 12/31/18. History of a-fib, HTN, pacemaker. Future Testing and Treatments Planned None identified Treatment Goals Patient/Caregiver Goals Pt would like to hike [place] and to be able to work standing 6 hours daily without fatigue or foot tenderness. 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 Current Functional Impairments (Reported) Functional Limitations- ADL's No known impairments Functional Limitations- Mobility/Gait Requires articulated cane and is limited in ambulation distance. Lacks confidence on uneven ground. Functional Limitations- Work/School Unable to stand for 6 hour shifts without foot/ankle fatigue and without tenderness of plantar foot. Functional Limitations- Recreation/ Unable to hike forest trails Hobbies Personal Factors Other Personal Factors That May Effect chronicity of deficits, Therapy/Recovery tendency to work through pain. PT-OP-C Subjective Start: 04/09/19 13:49 Freq: Status: Active Protocol: Document 07/06/19 12:17 SP (Rec: 07/06/19 15:28 SP [id number]) OP-PT Subjective Patient Comments Patient Comments Pt reported ankle pretty sore today: performed lots of stairs at a show, trip over dog and fell on son's deck over the weekend. Pt stated saw surgeon since last visit and clear from his perspective and not needing to return unless concerns. PT-OP-D Balance Start: 04/09/19 13:49 Freq: Status: Active Protocol: Document 04/08/19 13:50 AW (Rec: 04/09/19 14:31 AW [email or web address]) OP-PT Balance Assessment Sitting Balance Static Sitting Balance Ability Normal Dynamic Sitting Balance Ability Normal Standing Balance Static Standing Balance Ability Fair Dynamic Standing Balance Ability Fair Device Used no boot, no AD Evans Fall Scale Copyright Permission PT-OP-F Manual Assessment Start: 04/09/19 13:49 Freq: Status: Active Protocol: Document 04/08/19 13:50 AW (Rec: 04/09/19 14:31 AW [email or web address]) Manual Assessments Joint Mobility Assessment Joint Mobility Assessment Minimal subtalar movement. No dorsal/plantar restriction at MTP's 1-5 bilaterally. Difficult to assess tibiotalar mobility due to swelling. Other Manual Assessments Other Manual Assessments No point tenderness along plantar surface, 5th digit tuberosity, navicular, Achilles insertion. Generalized tenderness along plantar surface noted by patient PT-OP-G Mobility & Gait Start: 04/09/19 13:49 Freq: Status: Active Protocol: Document 04/08/19 13:50 AW (Rec: 04/09/19 14:31 AW [email or web address]) OP Gait Assessment Gait Gait Assistance Required: Standby Assistance Distance (Feet) 100 Able to Maintain Weight Bearing Status Yes During Gait Gait Deviations General Gait Pattern Within Normal Limits,Antalgic, Decreased Stride Length, Decreased Feet Clearance,Wide Based Gait Factors Limiting Gait Function Factors Limiting Gait Function Decreased Activity Tolerance, Decreased Strength,Limited Range of Motion,Poor Balance Comments Gait Comments Pt ambulates with WBOS, forefoot landing (L>R), decreased stance time on LLE and decreaed step length RLE. He vaults over the LLE and exhibits right lateral lean in right stance. PT-OP-J Posture/Palpation/Skin Start: 04/09/19 13:49 Freq: Status: Active Protocol: Document 04/08/19 13:50 AW (Rec: 04/09/19 14:31 AW [email or web address]) Posture Evaluation Position Standing Knee Posture (L) Genu Valgus,(R) Genu Valgus Ankle/Foot Posture (L) Forefoot Abducted,(R) Forefoot Abducted Foot Arch (L) Low Arch,(R) Low Arch Skin Assessment Edema Assessment left ankle/foot Edema Type Non-Pitting Edema Appearance Discolored,Taut Comments Talar arch: Left 39 cm, Right 33 cm Horizontal at level of bilateral malleoli: Left 41 cm , Right 35 cm PT-OP-K Range of Motion Start: 04/09/19 13:49 Freq: Status: Active Protocol: Document 04/08/19 13:50 AW (Rec: 04/09/19 14:31 AW [email or web address]) Knee Goniometric Range of Motion Knee Left Knee ROM WFL Yes Patient Position Supine Ankle and Foot Goniometric Range of Motion Ankle and Foot Right Active Ankle/Foot ROM WFL No Testing Position Supine Dorsiflexion with Knee Flexed 5 Dorsiflexion with Knee Extended 5 Plantarflexion 40 Left Active Ankle/Foot ROM WFL No Testing Position Supine Dorsiflexion with Knee Flexed 0 Dorsiflexion with Knee Extended 0 Plantarflexion 20 Ankle and Foot ROM Limitations ROM Limitations Bony Restriction Toe Range of Motion Toes ROM Limitations Comments Pt lacks active left great toe extension PT-OP-M Strength Start: 04/09/19 13:49 Freq: Status: Active Protocol: Document 04/08/19 13:50 AW (Rec: 04/10/19 09:07 AW [email or web address]) Ankle/Foot Strength Ankle and Foot Manual Muscle Testing Right Dorsiflexion (L4) 4- Good- Plantarflexion (S1) 4- Good- Inversion 4 Good Eversion (S1) 4 Good Left Dorsiflexion (L4) 3 Fair Plantarflexion (S1) 3+ Fair+ Inversion 4- Good- Eversion (S1) 4- Good- Comments Pt can dorsiflex from extended position, but has no AROM past 0. Unable to test PF in standing due to safety concerns. Toe Strength Toe Manual Muscle Testing Right Great Toe Flexion 5 Normal Left Great Toe Flexion 4 Good PT-OP-N Lymphedema Start: 04/09/19 13:49 Freq: Status: Active Protocol: Document 05/15/19 10:40 SP (Rec: 05/15/19 11:44 SP [id number]) Lymphedema Measurements Lower Extremity Circumference Measurements L ankle foot MT Heads 34 cm Comments Lymphedema Comments -10 cm proximal MT heads 34 cm pre manual, 33 cm post - circumference calcaneus around ankle anteriorly ( anterior med/lat malleolus) 43 cm pre and post - figure 4 around ankle 74 cm pre and post - circumference med/lat malleolus 38.5 cm pre 37.5 cm post PT-OP-Q Treatments Start: 04/09/19 13:49 Freq: Status: Active Protocol: Document 07/06/19 12:17 SP (Rec: 07/06/19 15:28 SP [id number]) Cardio Equipment Recumbent Bicycle Duration (Minutes) 5 Resistance 11 Seat Position 9 Gym Equipment Shuttle Recovery Unilateral Squats Resistance 100# Shuttle Recovery Platform Stable Reps/Time 2x10 with cues for flat foot and slow movement Bilateral squat Resistance 150# Shuttle Recovery Platform Stable Reps/Time 2x10 Shuttle Balance DF/PF/IV/EV Details red Comments using ankle to weight shift forward/backward, laterally, normal stance eyes closed, trampoline throws and catches Therapeutic Exercises Supine Exercises supine DF and PF Supine Exercise Name supine DF/PF Side left Resistance AROM with manual resistance Reps/Minutes 10 each direction Manual Therapy Treatment Soft Tissue Mobilization edema managment Body Location left lower LE Mobilization Type Myofascial Release,Rolling Intensity/Depth Moderate Body Position Hooklying Comments upward stroke/retrograde manual Joint Mobilizations talocrural Joint talocrural Direction anterior > posterior Grade III Body Position Supine Reps/Duration 3 minutes Comments with active DF and manual stretch using contract/relax MTP Joint MTP 1-5 Direction dorsal and plantar Grade III Body Position Hooklying Reps/Duration 5 minutes Comments greatest restriction at digits 2-3 Neuro Re-Education Treatment Balance Activities stepping over hurdles Details forward step to & step through Surface floor Equipment 6 hurdles Reps/Duration 6 laps single stance step over danae Details step over/ back danae Surface floor Equipment 1 danae Reps/Duration x5 Comments prep stepping to gait and wt shift toward SLS for gait PT-OP-R Modalities Start: 04/09/19 13:49 Freq: Status: Active Protocol: Document 07/06/19 12:17 SP (Rec: 07/06/19 15:28 SP [id number]) Hot Pack/Cold Pack Treatment Cold Pack Location L ankle Patient Position Hooklying Treatment Duration (minutes) 10 Patient Tolerance Good Comments cryo cuff PT-OP-S Aquatic Treatment Start: 04/09/19 13:49 Freq: Status: Active Protocol: Document 06/22/19 10:15 LJ (Rec: 06/22/19 17:13 LJ [id number]) Aquatics Treatment Pool Entry/Exit Pool Entry/Exit Method Stairs Water Walking forward Water Level Chest Level on heels and on toes Water Level Chest Level Walking Equipment Resistance Fins Level of Assistance Verbal Cues fwd,bck,side, august, august Water Level Chest Level Walking Equipment Resistance Fins Level of Assistance Standby Assistance,Verbal Cues Lower Extremity Exercises hydroband ankle inv/ev Body Position Standing Water Level Waist Level Equipment green hydroband Reps/Duration 20 each direction Comments position 5 hip flex/ext Body Position Standing Water Level Chest Level Equipment Resistance Fins Reps/Duration 10x2 Comments UE support Hip ab/ad Body Position Standing Water Level Chest Level Equipment Resistance Fins Reps/Duration 10x2 Comments UE support squats Body Position Standing Water Level Waist Level Equipment Resistance Fins Reps/Duration 15 heel raise, toe raise Body Position Standing Water Level Chest Level Reps/Duration 20x Lower Extremity Stretches foot rolling Water Level Chest Level Equipment sm BBs quads Body Position Standing Water Level Chest Level Equipment Large Noodle Reps/Duration 2x45 HS Body Position Standing Water Level Chest Level Equipment Large Noodle Reps/Duration 2x45 gastroc Body Position Standing Water Level Chest Level Reps/Duration 2x45 Comments wall; rocking foot Balance SLS with opposite LE movement Body Position Standing Water Level Waist Level Reps/Duration 2 min bilateral standing on noodle Water Level Chest Level Equipment lg noodle Reps/Duration 3 min Comments various foot positions [place] Activities [place] Activities Bicycle,Bicycle Backwards, Cross Country,Running,Sit Kicks Equipment large noodle Duration 8 Swim Strokes Breaststroke Equipment Noodle Laps/Duration 30M Flutter Equipment Noodle Laps/Duration 30M PT-OP-T Assessment and Plan Start: 04/09/19 13:49 Freq: Status: Active Protocol: Document 07/06/19 12:17 SP (Rec: 07/06/19 15:28 SP [id number]) Physical Therapy Assessment Goals 5 Impairment Pt scores 30/84 on FAAM ADL subscale Short Term Goal (STG) Pt will score 45/84 on FAAM ADL subscale to demonstrate increased independence with ADL's 05/20/19 MET Pt scores 63/84. 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 LTG Duration 07/01/19 2 Impairment Pt scores 33/80 on LEFS Short Term Goal (STG) Pt will score 45 or greater on LEFS to demonstrate improved function in daily activities. 05/20/19: MET Pt scores 46/80 on LEFS STG Duration 05/20/19 Residential Goal (LTG) Pt will score 60 or greater on LEFS to represent improved function in daily activities. LTG Duration 07/01/19 1 Impairment Pt with no appropriate HEP Short Term Goal (STG) Pt will be independent with HEP for support of therapy services provided in clinic. 05/13/19 MET STG Duration 05/06/19 Residential Goal (LTG) Pt will be independent with maintenance HEP to maintain functional progress achieved in therapy. LTG Duration 07/01/19 Assessment Summary Assessment Pt improved ROM PF/DF than IV/ EV and continued to be challenged during shuttle balance lateral wt shifts and danae stepping, improved post cues for glut facilitation and awareness of slow wt shift COG over KATELIN improved and able to perform step over step with decreased circumduction R>LLE. Pt improved heel toe gait post balance activities. Physical Therapy Plan Frequency and Duration Frequency of Treatment 2x/Week Duration of Treatment 8 weeks Plan of Care Start Date 07/06/19 Plan of Care End Date 08/31/19 Therapeutic Interventions Therapeutic Interventions Aquatic Therapy,Balance Training,Gait Training,Home Exercise Program,Joint Mobilizations,Manual Therapy, Neuromuscular Re-education, Orthotic/Prosthetic Management ,Patient/Caregiver Education, Self-Care/Home Management, Sensory Integration,Soft Tissue Mobilization,Taping, Therapeutic Activities, Therapeutic Exercises Modalities Cold Pack/Ice Massage Other Therapeutic Interventions cryo-cuff Next Visit Focus/Plan Next Note Type Treatment Note Next Visit Plan Assess reponse to shuttle balance/ danae stepping last tx. PT suggested assess goals and surgeon follow up note.
--- NOTE | 2019-07-08 16:43 | PT.OTN ---
Current Diagnoses Encounter for other orthopedic aftercare (07/08/19) Arthrodesis status (07/08/19) Physical Therapy Treatment Note PT-OP-A Visit Information Start: 04/09/19 13:49 Freq: Status: Active Protocol: Document 07/08/19 11:00 LJ (Rec: 07/08/19 16:42 LJ [id number]) Out-Patient Physical Therapy Visit Information Visit Information Visit Type Aquatic Treatment Note Visit Start Time 11:00 Visit Stop Time 11:45 Total Visit Minutes 45 Visit Number 30 Number of LIFELINE REPRESENTATIVES Visits 2 PT-OP-B Current Condition Start: 04/09/19 13:49 Freq: Status: Active Protocol: Document 04/08/19 13:50 AW (Rec: 04/09/19 14:31 AW [email or web address]) Current Condition History of Current Condition Onset Date years Current Complaints left ankle swelling and limited range of motion History of Current Condition Vamsi vega sprained his left ankle in 1989 as a result of a fall down a 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 He has dealt with ongoing ankle pain for years, culminating finally in ankle arthrodesis and Achilles lengthening on . Pt unable to identify which bones were fused. Per protocol, he has been in a cam boot for all mobility for the past three months. He primarily used a knee scooter during that time, but has progressively increased his weightbearing in the boot for short distances. He is now allowed full weightbearing in the boot. In the past 10 days, he switched to an articulated cane held in the right hand. He has returned to driving. 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 He reports minimal pain since surgery, but does endorse generalized tenderness of the plantar foot since beginning to walk with a cane. He denies any falls or near falls since surgery. Prior Treatments and Tests Ankle arthrodesis and Achilles lengthening 12/31/18. History of a-fib, HTN, pacemaker. Future Testing and Treatments Planned None identified Treatment Goals Patient/Caregiver Goals Pt would like to hike [employer] and to be able to work standing 6 hours daily without fatigue or foot tenderness. 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 Current Functional Impairments (Reported) Functional Limitations- ADL's No known impairments Functional Limitations- Mobility/Gait Requires articulated cane and is limited in ambulation distance. Lacks confidence on uneven ground. Functional Limitations- Work/School Unable to stand for 6 hour shifts without foot/ankle fatigue and without tenderness of plantar foot. Functional Limitations- Recreation/ Unable to hike forest trails Hobbies Personal Factors Other Personal Factors That May Effect chronicity of deficits, Therapy/Recovery tendency to work through pain. PT-OP-C Subjective Start: 04/09/19 13:49 Freq: Status: Active Protocol: Document 07/08/19 11:00 LJ (Rec: 07/08/19 16:42 LJ [id number]) OP-PT Subjective Patient Comments Patient Comments Pt reported ankle soreness due to walking up many stairs at an event the past weekend PT-OP-D Balance Start: 04/09/19 13:49 Freq: Status: Active Protocol: Document 04/08/19 13:50 AW (Rec: 04/09/19 14:31 AW [email or web address]) OP-PT Balance Assessment Sitting Balance Static Sitting Balance Ability Normal Dynamic Sitting Balance Ability Normal Standing Balance Static Standing Balance Ability Fair Dynamic Standing Balance Ability Fair Device Used no boot, no AD Evans Fall Scale Copyright Permission PT-OP-F Manual Assessment Start: 04/09/19 13:49 Freq: Status: Active Protocol: Document 04/08/19 13:50 AW (Rec: 04/09/19 14:31 AW [email or web address]) Manual Assessments Joint Mobility Assessment Joint Mobility Assessment Minimal subtalar movement. No dorsal/plantar restriction at MTP's 1-5 bilaterally. Difficult to assess tibiotalar mobility due to swelling. Other Manual Assessments Other Manual Assessments No point tenderness along plantar surface, 5th digit tuberosity, navicular, Achilles insertion. Generalized tenderness along plantar surface noted by patient PT-OP-G Mobility & Gait Start: 04/09/19 13:49 Freq: Status: Active Protocol: Document 04/08/19 13:50 AW (Rec: 04/09/19 14:31 AW [email or web address]) OP Gait Assessment Gait Gait Assistance Required: Standby Assistance Distance (Feet) 100 Able to Maintain Weight Bearing Status Yes During Gait Gait Deviations General Gait Pattern Within Normal Limits,Antalgic, Decreased Stride Length, Decreased Feet Clearance,Wide Based Gait Factors Limiting Gait Function Factors Limiting Gait Function Decreased Activity Tolerance, Decreased Strength,Limited Range of Motion,Poor Balance Comments Gait Comments Pt ambulates with WBOS, forefoot landing (L>R), decreased stance time on LLE and decreaed step length RLE. He vaults over the LLE and exhibits right lateral lean in right stance. PT-OP-J Posture/Palpation/Skin Start: 04/09/19 13:49 Freq: Status: Active Protocol: Document 04/08/19 13:50 AW (Rec: 04/09/19 14:31 AW [email or web address]) Posture Evaluation Position Standing Knee Posture (L) Genu Valgus,(R) Genu Valgus Ankle/Foot Posture (L) Forefoot Abducted,(R) Forefoot Abducted Foot Arch (L) Low Arch,(R) Low Arch Skin Assessment Edema Assessment left ankle/foot Edema Type Non-Pitting Edema Appearance Discolored,Taut Comments Talar arch: Left 39 cm, Right 33 cm Horizontal at level of bilateral malleoli: Left 41 cm , Right 35 cm PT-OP-K Range of Motion Start: 04/09/19 13:49 Freq: Status: Active Protocol: Document 04/08/19 13:50 AW (Rec: 04/09/19 14:31 AW [email or web address]) Knee Goniometric Range of Motion Knee Left Knee ROM WFL Yes Patient Position Supine Ankle and Foot Goniometric Range of Motion Ankle and Foot Right Active Ankle/Foot ROM WFL No Testing Position Supine Dorsiflexion with Knee Flexed 5 Dorsiflexion with Knee Extended 5 Plantarflexion 40 Left Active Ankle/Foot ROM WFL No Testing Position Supine Dorsiflexion with Knee Flexed 0 Dorsiflexion with Knee Extended 0 Plantarflexion 20 Ankle and Foot ROM Limitations ROM Limitations Bony Restriction Toe Range of Motion Toes ROM Limitations Comments Pt lacks active left great toe extension PT-OP-M Strength Start: 04/09/19 13:49 Freq: Status: Active Protocol: Document 04/08/19 13:50 AW (Rec: 04/10/19 09:07 AW [email or web address]) Ankle/Foot Strength Ankle and Foot Manual Muscle Testing Right Dorsiflexion (L4) 4- Good- Plantarflexion (S1) 4- Good- Inversion 4 Good Eversion (S1) 4 Good Left Dorsiflexion (L4) 3 Fair Plantarflexion (S1) 3+ Fair+ Inversion 4- Good- Eversion (S1) 4- Good- Comments Pt can dorsiflex from extended position, but has no AROM past 0. Unable to test PF in standing due to safety concerns. Toe Strength Toe Manual Muscle Testing Right Great Toe Flexion 5 Normal Left Great Toe Flexion 4 Good PT-OP-N Lymphedema Start: 04/09/19 13:49 Freq: Status: Active Protocol: Document 05/15/19 10:40 SP (Rec: 05/15/19 11:44 SP [id number]) Lymphedema Measurements Lower Extremity Circumference Measurements L ankle foot MT Heads 34 cm Comments Lymphedema Comments -10 cm proximal MT heads 34 cm pre manual, 33 cm post - circumference calcaneus around ankle anteriorly ( anterior med/lat malleolus) 43 cm pre and post - figure 4 around ankle 74 cm pre and post - circumference med/lat malleolus 38.5 cm pre 37.5 cm post PT-OP-Q Treatments Start: 04/09/19 13:49 Freq: Status: Active Protocol: Document 07/06/19 12:17 SP (Rec: 07/06/19 15:28 SP [id number]) Cardio Equipment Recumbent Bicycle Duration (Minutes) 5 Resistance 11 Seat Position 9 Gym Equipment Shuttle Recovery Unilateral Squats Resistance 100# Shuttle Recovery Platform Stable Reps/Time 2x10 with cues for flat foot and slow movement Bilateral squat Resistance 150# Shuttle Recovery Platform Stable Reps/Time 2x10 Shuttle Balance DF/PF/IV/EV Details red Comments using ankle to weight shift forward/backward, laterally, normal stance eyes closed, trampoline throws and catches Therapeutic Exercises Supine Exercises supine DF and PF Supine Exercise Name supine DF/PF Side left Resistance AROM with manual resistance Reps/Minutes 10 each direction Manual Therapy Treatment Soft Tissue Mobilization edema managment Body Location left lower LE Mobilization Type Myofascial Release,Rolling Intensity/Depth Moderate Body Position Hooklying Comments upward stroke/retrograde manual Joint Mobilizations talocrural Joint talocrural Direction anterior > posterior Grade III Body Position Supine Reps/Duration 3 minutes Comments with active DF and manual stretch using contract/relax MTP Joint MTP 1-5 Direction dorsal and plantar Grade III Body Position Hooklying Reps/Duration 5 minutes Comments greatest restriction at digits 2-3 Neuro Re-Education Treatment Balance Activities stepping over hurdles Details forward step to & step through Surface floor Equipment 6 hurdles Reps/Duration 6 laps single stance step over danae Details step over/ back danae Surface floor Equipment 1 danae Reps/Duration x5 Comments prep stepping to gait and wt shift toward SLS for gait PT-OP-R Modalities Start: 04/09/19 13:49 Freq: Status: Active Protocol: Document 07/06/19 12:17 SP (Rec: 07/06/19 15:28 SP [id number]) Hot Pack/Cold Pack Treatment Cold Pack Location L ankle Patient Position Hooklying Treatment Duration (minutes) 10 Patient Tolerance Good Comments cryo cuff PT-OP-S Aquatic Treatment Start: 04/09/19 13:49 Freq: Status: Active Protocol: Document 07/08/19 11:00 LJ (Rec: 07/08/19 16:42 LJ [id number]) Aquatics Treatment Pool Entry/Exit Pool Entry/Exit Method Edge of Pool Water Walking obstacle course Water Level Waist Level Walking Equipment boxes Level of Assistance Verbal Cues Comments up,down sideways, forward, backwards forward Water Level Chest Level start stop Water Level Chest Level Walking Equipment Ankle Weight- 5.0# on heels and on toes Water Level Chest Level Walking Equipment Resistance Fins Level of Assistance Verbal Cues fwd,bck,side, august, soldier august Water Level Chest Level Walking Equipment Resistance Fins Level of Assistance Standby Assistance,Verbal Cues Lower Extremity Exercises hydroband ankle inv/ev Body Position Standing Water Level Waist Level Equipment green hydroband Reps/Duration 20 each direction Comments position 5 squats Body Position Standing Water Level Waist Level Reps/Duration 15 Comments on stairs Lower Extremity Stretches foot rolling Water Level Chest Level Equipment sm BBs HS Body Position Standing Water Level Chest Level Equipment Large Noodle Reps/Duration 2x45 Balance SLS with opposite LE movement Body Position Standing Water Level Waist Level Reps/Duration 2 min bilateral noodle under foot-flex ext Body Position Standing Water Level Chest Level Reps/Duration 10x2 bilat [place] Activities Other Activities whip kick flutter kick breast stroke kick Swim Strokes Breaststroke Equipment Noodle Laps/Duration 30M Flutter Equipment Noodle Laps/Duration 30M PT-OP-T Assessment and Plan Start: 04/09/19 13:49 Freq: Status: Active Protocol: Document 07/08/19 11:00 MAGDALENE (Rec: 07/08/19 16:42 [email or web address] [id number]) Physical Therapy Assessment Rehab Potential Rehabilitation Potential Good Evaluation Complexity Number of Personal Factors/Comorbidities 1-2 Number of Body Systems Impaired 1-2 Clinical Presentation at Evaluation Stable Impairments Impairments Activity Tolerance,Balance, Edema,Functional Activities, Functional Mobility,Gait, Integument,Posture,ROM,Soft Tissue Mobility,Strength Goals 5 Impairment Pt scores 30/84 on FAAM ADL subscale Short Term Goal (STG) Pt will score 45/84 on FAAM ADL subscale to demonstrate increased independence with ADL's 05/20/19 MET Pt scores 63/84. 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 STG Duration 05/06/19 [employer] Specialist Goal (LTG) Pt will tolerate 7+ hours standing work (with appropriate breaks) without foot fatigue/tenderness LTG Duration 07/01/19 3 Impairment Pt unable to walk on uneven terrain Short Term Goal (STG) Pt will walk 15 minutes on uneven terrain with least restrictive assistive device STG Duration 05/20/19 Assisted Goal (LTG) Pt will walk 30 minutes on uneven terrain/forest trails with least restrictive assistive device. LTG Duration 07/01/19 2 Impairment Pt scores 33/80 on LEFS Short Term Goal (STG) Pt will score 45 or greater on LEFS to demonstrate improved function in daily activities. 05/20/19: MET Pt scores 46/80 on LEFS STG Duration 05/20/19 Assisted Goal (LTG) Pt will score 60 or greater on LEFS to represent improved function in daily activities. LTG Duration 07/01/19 1 Impairment Pt with no appropriate HEP Short Term Goal (STG) Pt will be independent with HEP for support of therapy services provided in clinic. 05/13/19 MET STG Duration 05/06/19 Assisted Goal (LTG) Pt will be independent with maintenance HEP to maintain functional progress achieved in therapy. LTG Duration 07/01/19 Assessment Summary Assessment Pt challenged with obstacle course losing balance several times and self correcting. Water shallower than most exercises but pt was able to self correct or fall over into the water. He improved with practice. Unable to alley ankles for proper BS kick or whip kick. Physical Therapy Plan Frequency and Duration Frequency of Treatment 2x/Week Duration of Treatment 8 weeks Plan of Care Start Date 07/06/19 Plan of Care End Date 08/31/19 Therapeutic Interventions Therapeutic Interventions Aquatic Therapy,Balance Training,Gait Training,Home Exercise Program,Joint Mobilizations,Manual Therapy, Neuromuscular Re-education, Orthotic/Prosthetic Management ,Patient/Caregiver Education, Self-Care/Home Management, Sensory Integration,Soft Tissue Mobilization,Taping, Therapeutic Activities, Therapeutic Exercises Modalities Cold Pack/Ice Massage Other Therapeutic Interventions cryo-cuff Next Visit Focus/Plan Next Note Type Treatment Note Next Visit Plan Assess reponse to shuttle balance/ danae stepping last tx. PT suggested assess goals and surgeon follow up note.
--- NOTE | 2019-07-13 08:28 | PT-OP ANOTE ---
Pt did not show for today's appt. SEATING UPHOLSTERER called/ spoke with patient regarding missing 815 appt, stated forgot, SEATING UPHOLSTERER suggested could reschedule to early pm today, patient declined stating not feeling up to it today. SEATING UPHOLSTERER reminded of next appt 07/15/19 with PT, verbal confirmation would be attending.
--- NOTE | 2019-07-21 14:32 | PT.OTN ---
Current Diagnoses Encounter for other orthopedic aftercare (07/21/19) Arthrodesis status (07/21/19) Physical Therapy Treatment Note PT-OP-A Visit Information Start: 04/09/19 13:49 Freq: Status: Active Protocol: Document 07/21/19 13:52 HH (Rec: 07/21/19 14:32 HH [id number]) Out-Patient Physical Therapy Visit Information Visit Information Visit Type Treatment Note Visit Start Time 13:52 Visit Stop Time 14:37 Total Visit Minutes 45 Visit Number 31 Number of DESIGN CELL ENGINEER Visits 0 PT-OP-B Current Condition Start: 04/09/19 13:49 Freq: Status: Active Protocol: Document 04/08/19 13:50 AW (Rec: 04/09/19 14:31 AW [email or web address]) Current Condition History of Current Condition Onset Date years Current Complaints left ankle swelling and limited range of motion History of Current Condition Vamsi vega sprained his left ankle in 1989 as a result of a fall down a 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 He has dealt with ongoing ankle pain for years, culminating finally in ankle arthrodesis and Achilles lengthening on . Pt unable to identify which bones were fused. Per protocol, he has been in a cam boot for all mobility for the past three months. He primarily used a knee scooter during that time, but has progressively increased his weightbearing in the boot for short distances. He is now allowed full weightbearing in the boot. In the past 10 days, he switched to an articulated cane held in the right hand. He has returned to driving. 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 He reports minimal pain since surgery, but does endorse generalized tenderness of the plantar foot since beginning to walk with a cane. He denies any falls or near falls since surgery. Prior Treatments and Tests Ankle arthrodesis and Achilles lengthening 12/31/18. History of a-fib, HTN, pacemaker. Future Testing and Treatments Planned None identified Treatment Goals Patient/Caregiver Goals Pt would like to hike [employer] and to be able to work standing 6 hours daily without fatigue or foot tenderness. 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 Current Functional Impairments (Reported) Functional Limitations- ADL's No known impairments Functional Limitations- Mobility/Gait Requires articulated cane and is limited in ambulation distance. Lacks confidence on uneven ground. Functional Limitations- Work/School Unable to stand for 6 hour shifts without foot/ankle fatigue and without tenderness of plantar foot. Functional Limitations- Recreation/ Unable to hike forest trails Hobbies Personal Factors Other Personal Factors That May Effect chronicity of deficits, Therapy/Recovery tendency to work through pain. PT-OP-C Subjective Start: 04/09/19 13:49 Freq: Status: Active Protocol: Document 07/21/19 13:52 HH (Rec: 07/21/19 14:32 HH [id number]) OP-PT Subjective Patient Comments Patient Comments Everything is getting better especially my walking and getting in and out of bathtub. Getting up from sitting position always make my ankle stiff and it takes a few mins to adjust. Patient Reported Progress Improving PT-OP-D Balance Start: 04/09/19 13:49 Freq: Status: Active Protocol: Document 04/08/19 13:50 AW (Rec: 04/09/19 14:31 AW [email or web address]) OP-PT Balance Assessment Sitting Balance Static Sitting Balance Ability Normal Dynamic Sitting Balance Ability Normal Standing Balance Static Standing Balance Ability Fair Dynamic Standing Balance Ability Fair Device Used no boot, no AD Evans Fall Scale Copyright Permission PT-OP-F Manual Assessment Start: 04/09/19 13:49 Freq: Status: Active Protocol: Document 04/08/19 13:50 AW (Rec: 04/09/19 14:31 AW [email or web address]) Manual Assessments Joint Mobility Assessment Joint Mobility Assessment Minimal subtalar movement. No dorsal/plantar restriction at MTP's 1-5 bilaterally. Difficult to assess tibiotalar mobility due to swelling. Other Manual Assessments Other Manual Assessments No point tenderness along plantar surface, 5th digit tuberosity, navicular, Achilles insertion. Generalized tenderness along plantar surface noted by patient PT-OP-G Mobility & Gait Start: 04/09/19 13:49 Freq: Status: Active Protocol: Document 04/08/19 13:50 AW (Rec: 04/09/19 14:31 AW [email or web address]) OP Gait Assessment Gait Gait Assistance Required: Standby Assistance Distance (Feet) 100 Able to Maintain Weight Bearing Status Yes During Gait Gait Deviations General Gait Pattern Within Normal Limits,Antalgic, Decreased Stride Length, Decreased Feet Clearance,Wide Based Gait Factors Limiting Gait Function Factors Limiting Gait Function Decreased Activity Tolerance, Decreased Strength,Limited Range of Motion,Poor Balance Comments Gait Comments Pt ambulates with WBOS, forefoot landing (L>R), decreased stance time on LLE and decreaed step length RLE. He vaults over the LLE and exhibits right lateral lean in right stance. PT-OP-J Posture/Palpation/Skin Start: 04/09/19 13:49 Freq: Status: Active Protocol: Document 04/08/19 13:50 AW (Rec: 04/09/19 14:31 AW [email or web address]) Posture Evaluation Position Standing Knee Posture (L) Genu Valgus,(R) Genu Valgus Ankle/Foot Posture (L) Forefoot Abducted,(R) Forefoot Abducted Foot Arch (L) Low Arch,(R) Low Arch Skin Assessment Edema Assessment left ankle/foot Edema Type Non-Pitting Edema Appearance Discolored,Taut Comments Talar arch: Left 39 cm, Right 33 cm Horizontal at level of bilateral malleoli: Left 41 cm , Right 35 cm PT-OP-K Range of Motion Start: 04/09/19 13:49 Freq: Status: Active Protocol: Document 04/08/19 13:50 AW (Rec: 04/09/19 14:31 AW [email or web address]) Knee Goniometric Range of Motion Knee Left Knee ROM WFL Yes Patient Position Supine Ankle and Foot Goniometric Range of Motion Ankle and Foot Right Active Ankle/Foot ROM WFL No Testing Position Supine Dorsiflexion with Knee Flexed 5 Dorsiflexion with Knee Extended 5 Plantarflexion 40 Left Active Ankle/Foot ROM WFL No Testing Position Supine Dorsiflexion with Knee Flexed 0 Dorsiflexion with Knee Extended 0 Plantarflexion 20 Ankle and Foot ROM Limitations ROM Limitations Bony Restriction Toe Range of Motion Toes ROM Limitations Comments Pt lacks active left great toe extension PT-OP-M Strength Start: 04/09/19 13:49 Freq: Status: Active Protocol: Document 04/08/19 13:50 AW (Rec: 04/10/19 09:07 AW [email or web address]) Ankle/Foot Strength Ankle and Foot Manual Muscle Testing Right Dorsiflexion (L4) 4- Good- Plantarflexion (S1) 4- Good- Inversion 4 Good Eversion (S1) 4 Good Left Dorsiflexion (L4) 3 Fair Plantarflexion (S1) 3+ Fair+ Inversion 4- Good- Eversion (S1) 4- Good- Comments Pt can dorsiflex from extended position, but has no AROM past 0. Unable to test PF in standing due to safety concerns. Toe Strength Toe Manual Muscle Testing Right Great Toe Flexion 5 Normal Left Great Toe Flexion 4 Good PT-OP-N Lymphedema Start: 04/09/19 13:49 Freq: Status: Active Protocol: Document 05/15/19 10:40 SP (Rec: 05/15/19 11:44 SP [id number]) Lymphedema Measurements Lower Extremity Circumference Measurements L ankle foot MT Heads 34 cm Comments Lymphedema Comments -10 cm proximal MT heads 34 cm pre manual, 33 cm post - circumference calcaneus around ankle anteriorly ( anterior med/lat malleolus) 43 cm pre and post - figure 4 around ankle 74 cm pre and post - circumference med/lat malleolus 38.5 cm pre 37.5 cm post PT-OP-Q Treatments Start: 04/09/19 13:49 Freq: Status: Active Protocol: Document 07/21/19 13:52 HH (Rec: 07/21/19 14:32 HH [id number]) Cardio Equipment Recumbent Stepper (Sci-Fit) Duration (Minutes) 5 Resistance 3.0 MET Gym Equipment Shuttle Recovery Unilateral Squats Resistance 100# Shuttle Recovery Platform Stable Reps/Time 2x10 with cues for flat foot and slow movement Bilateral squat Resistance 150# Shuttle Recovery Platform Stable Reps/Time 2x10 Shuttle Balance DF/PF/IV/EV Details red Comments using ankle to weight shift forward/backward, laterally, normal stance eyes closed, trampoline throws and catches Therapeutic Exercises Standing Exercises hurdles Standing Exercise Name cues on weight acceptance for Lfoot Equipment Used danae Comments gait training single stance Standing Exercise Name blue foam Resistance with table support Reps/Minutes 8 mins Comments finger toch on table. PT-OP-R Modalities Start: 04/09/19 13:49 Freq: Status: Active Protocol: Document 07/21/19 13:52 HH (Rec: 07/21/19 14:32 HH [id number]) Hot Pack/Cold Pack Treatment Cold Pack Location L ankle Patient Position Hooklying Treatment Duration (minutes) 10 Patient Tolerance Good Comments cryo cuff PT-OP-S Aquatic Treatment Start: 04/09/19 13:49 Freq: Status: Active Protocol: Document 07/08/19 11:00 LJ (Rec: 07/08/19 16:42 LJ [id number]) Aquatics Treatment Pool Entry/Exit Pool Entry/Exit Method Edge of Pool Water Walking obstacle course Water Level Waist Level Walking Equipment boxes Level of Assistance Verbal Cues Comments up,down sideways, forward, backwards forward Water Level Chest Level start stop Water Level Chest Level Walking Equipment Ankle Weight- 5.0# on heels and on toes Water Level Chest Level Walking Equipment Resistance Fins Level of Assistance Verbal Cues fwd,bck,side, august, august Water Level Chest Level Walking Equipment Resistance Fins Level of Assistance Standby Assistance,Verbal Cues Lower Extremity Exercises hydroband ankle inv/ev Body Position Standing Water Level Waist Level Equipment green hydroband Reps/Duration 20 each direction Comments position 5 squats Body Position Standing Water Level Waist Level Reps/Duration 15 Comments on stairs Lower Extremity Stretches foot rolling Water Level Chest Level Equipment sm BBs HS Body Position Standing Water Level Chest Level Equipment Large Noodle Reps/Duration 2x45 Balance SLS with opposite LE movement Body Position Standing Water Level Waist Level Reps/Duration 2 min bilateral noodle under foot-flex ext Body Position Standing Water Level Chest Level Reps/Duration 10x2 bilat [place] Activities Other Activities whip kick flutter kick breast stroke kick Swim Strokes Breaststroke Equipment Noodle Laps/Duration 30M Flutter Equipment Noodle Laps/Duration 30M PT-OP-T Assessment and Plan Start: 04/09/19 13:49 Freq: Status: Active Protocol: Document 07/21/19 13:52 (Rec: 07/21/19 14:32 [id number]) Physical Therapy Assessment Goals 5 Impairment Pt scores 30/84 on FAAM ADL subscale Short Term Goal (STG) Pt will score 45/84 on FAAM ADL subscale to demonstrate increased independence with ADL's 05/20/19 MET Pt scores 63/84. 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 STG Duration 05/06/19 Maintenance Department Manager Goal (LTG) Pt will tolerate 7+ hours standing work (with appropriate breaks) without foot fatigue/tenderness LTG Duration 07/01/19 3 Impairment Pt unable to walk on uneven terrain Short Term Goal (STG) Pt will walk 15 minutes on uneven terrain with least restrictive assistive device STG Duration 05/20/19 Maintenance Department Manager Goal (LTG) Pt will walk 30 minutes on uneven terrain/forest trails with least restrictive assistive device. LTG Duration 07/01/19 2 Impairment Pt scores 33/80 on LEFS Short Term Goal (STG) Pt will score 45 or greater on LEFS to demonstrate improved function in daily activities. 05/20/19: MET Pt scores 46/80 on LEFS STG Duration 05/20/19 Maintenance Department Manager Goal (LTG) Pt will score 60 or greater on LEFS to represent improved function in daily activities. LTG Duration 07/01/19 1 Impairment Pt with no appropriate HEP Short Term Goal (STG) Pt will be independent with HEP for support of therapy services provided in clinic. 05/13/19 MET STG Duration 05/06/19 Maintenance Department Manager Goal (LTG) Pt will be independent with maintenance HEP to maintain functional progress achieved in therapy. LTG Duration 07/01/19 Assessment Summary Assessment Pt cont to improve. Noticed his gait has less lateral weight shift/ wobbling compared to his last visit with this PT. Tx focused on ankle stability and balance and gait training. Physical Therapy Plan Next Visit Focus/Plan Next Note Type Treatment Note Next Visit Plan Assess reponse to shuttle balance/ danae stepping last tx. Assess goal SLS and gait training. PT suggested assess goals and surgeon follow up note.
--- NOTE | 2019-07-23 14:45 | PT.OTN ---
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 He has dealt with ongoing ankle pain for years, culminating finally in ankle arthrodesis and Achilles lengthening on . Pt unable to identify which bones were fused. Per protocol, he has been in a cam boot for all mobility for the past three months. He primarily used a knee scooter during that time, but has progressively increased his weightbearing in the boot for short distances. He is now allowed full weightbearing in the boot. In the past 10 days, he switched to an articulated cane held in the right hand. He has returned to driving. 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 He reports minimal pain since surgery, but does endorse generalized tenderness of the plantar foot since beginning to walk with a cane. He denies any falls or near falls since surgery. Prior Treatments and Tests Ankle arthrodesis and Achilles lengthening 12/31/18. History of a-fib, HTN, pacemaker. Future Testing and Treatments Planned None identified Treatment Goals Patient/Caregiver Goals Pt would like to hike [employer] and to be able to work standing 6 hours daily without fatigue or foot tenderness. 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 Current Functional Impairments (Reported) Functional Limitations- ADL's No known impairments Functional Limitations- Mobility/Gait Requires articulated cane and is limited in ambulation distance. Lacks confidence on uneven ground. Functional Limitations- Work/School Unable to stand for 6 hour shifts without foot/ankle fatigue and without tenderness of plantar foot. Functional Limitations- Recreation/ Unable to hike forest trails Hobbies Personal Factors Other Personal Factors That May Effect chronicity of deficits, Therapy/Recovery tendency to work through pain. PT-OP-C Subjective Start: 04/09/19 13:49 Freq: Status: Active Protocol: Document 07/23/19 13:48 HH (Rec: 07/23/19 14:44 HH [id number]) OP-PT Subjective Patient Comments Patient Comments I think im pretty much ready to get d/c maybe next time. My thighs did get sore after last visit but its okay. Patient Reported Progress Improving PT-OP-D Balance Start: 04/09/19 13:49 Freq: Status: Active Protocol: Document 04/08/19 13:50 AW (Rec: 04/09/19 14:31 AW [email or web address]) OP-PT Balance Assessment Sitting Balance Static Sitting Balance Ability Normal Dynamic Sitting Balance Ability Normal Standing Balance Static Standing Balance Ability Fair Dynamic Standing Balance Ability Fair Device Used no boot, no AD Evans Fall Scale Copyright Permission PT-OP-F Manual Assessment Start: 04/09/19 13:49 Freq: Status: Active Protocol: Document 04/08/19 13:50 AW (Rec: 04/09/19 14:31 AW [email or web address]) Manual Assessments Joint Mobility Assessment Joint Mobility Assessment Minimal subtalar movement. No dorsal/plantar restriction at MTP's 1-5 bilaterally. Difficult to assess tibiotalar mobility due to swelling. Other Manual Assessments Other Manual Assessments No point tenderness along plantar surface, 5th digit tuberosity, navicular, Achilles insertion. Generalized tenderness along plantar surface noted by patient PT-OP-G Mobility & Gait Start: 04/09/19 13:49 Freq: Status: Active Protocol: Document 04/08/19 13:50 AW (Rec: 04/09/19 14:31 AW [email or web address]) OP Gait Assessment Gait Gait Assistance Required: Standby Assistance Distance (Feet) 100 Able to Maintain Weight Bearing Status Yes During Gait Gait Deviations General Gait Pattern Within Normal Limits,Antalgic, Decreased Stride Length, Decreased Feet Clearance,Wide Based Gait Factors Limiting Gait Function Factors Limiting Gait Function Decreased Activity Tolerance, Decreased Strength,Limited Range of Motion,Poor Balance Comments Gait Comments Pt ambulates with WBOS, forefoot landing (L>R), decreased stance time on LLE and decreaed step length RLE. He vaults over the LLE and exhibits right lateral lean in right stance. PT-OP-J Posture/Palpation/Skin Start: 04/09/19 13:49 Freq: Status: Active Protocol: Document 04/08/19 13:50 AW (Rec: 04/09/19 14:31 AW [email or web address]) Posture Evaluation Position Standing Knee Posture (L) Genu Valgus,(R) Genu Valgus Ankle/Foot Posture (L) Forefoot Abducted,(R) Forefoot Abducted Foot Arch (L) Low Arch,(R) Low Arch Skin Assessment Edema Assessment left ankle/foot Edema Type Non-Pitting Edema Appearance Discolored,Taut Comments Talar arch: Left 39 cm, Right 33 cm Horizontal at level of bilateral malleoli: Left 41 cm , Right 35 cm PT-OP-K Range of Motion Start: 04/09/19 13:49 Freq: Status: Active Protocol: Document 04/08/19 13:50 AW (Rec: 04/09/19 14:31 AW [email or web address]) Knee Goniometric Range of Motion Knee Left Knee ROM WFL Yes Patient Position Supine Ankle and Foot Goniometric Range of Motion Ankle and Foot Right Active Ankle/Foot ROM WFL No Testing Position Supine Dorsiflexion with Knee Flexed 5 Dorsiflexion with Knee Extended 5 Plantarflexion 40 Left Active Ankle/Foot ROM WFL No Testing Position Supine Dorsiflexion with Knee Flexed 0 Dorsiflexion with Knee Extended 0 Plantarflexion 20 Ankle and Foot ROM Limitations ROM Limitations Bony Restriction Toe Range of Motion Toes ROM Limitations Comments Pt lacks active left great toe extension PT-OP-M Strength Start: 04/09/19 13:49 Freq: Status: Active Protocol: Document 04/08/19 13:50 AW (Rec: 04/10/19 09:07 AW [email or web address]) Ankle/Foot Strength Ankle and Foot Manual Muscle Testing Right Dorsiflexion (L4) 4- Good- Plantarflexion (S1) 4- Good- Inversion 4 Good Eversion (S1) 4 Good Left Dorsiflexion (L4) 3 Fair Plantarflexion (S1) 3+ Fair+ Inversion 4- Good- Eversion (S1) 4- Good- Comments Pt can dorsiflex from extended position, but has no AROM past 0. Unable to test PF in standing due to safety concerns. Toe Strength Toe Manual Muscle Testing Right Great Toe Flexion 5 Normal Left Great Toe Flexion 4 Good PT-OP-N Lymphedema Start: 04/09/19 13:49 Freq: Status: Active Protocol: Document 05/15/19 10:40 SP (Rec: 05/15/19 11:44 SP [id number]) Lymphedema Measurements Lower Extremity Circumference Measurements L ankle foot MT Heads 34 cm Comments Lymphedema Comments -10 cm proximal MT heads 34 cm pre manual, 33 cm post - circumference calcaneus around ankle anteriorly ( anterior med/lat malleolus) 43 cm pre and post - figure 4 around ankle 74 cm pre and post - circumference med/lat malleolus 38.5 cm pre 37.5 cm post PT-OP-Q Treatments Start: 04/09/19 13:49 Freq: Status: Active Protocol: Document 07/23/19 13:48 HH (Rec: 07/23/19 14:44 HH [id number]) Cardio Equipment Recumbent Stepper (Sci-Fit) Duration (Minutes) 5 Resistance 5.0 MET Gym Equipment Shuttle Balance DF/PF/IV/EV Details red Comments using ankle to weight shift forward/backward, laterally, normal stance eyes closed, trampoline throws and catches Therapeutic Exercises Supine Exercises SLR Supine Exercise Name passive with ankle DF Side left Reps/Minutes 10 x2 supine knee ext Supine Exercise Name hip at flexion 90 degrees Side left Reps/Minutes 8 x2 Standing Exercises standing TKE Standing Exercise Name for HEP Side left Equipment Used level 2 Reps/Minutes 10 x2 Comments slow eccentric control Manual Therapy Treatment Soft Tissue Mobilization posterior knee joint Body Location popliteal Mobilization Type Sustained Pressure,Trigger Point Release Intensity/Depth Moderate Body Position Sidelying Neuro Re-Education Treatment Balance Activities heel toe Details half tandem Surface ground level Equipment next to grab bar Comments facilitate heel toe pattern stepping over hurdles Details 1 danae Surface ground level Equipment next to grab bar Reps/Duration 8 mins Comments facilitate SLS on L ankle and heel strike PT-OP-R Modalities Start: 04/09/19 13:49 Freq: Status: Active Protocol: Document 07/23/19 13:48 HH (Rec: 07/23/19 14:44 HH [id number]) Hot Pack/Cold Pack Treatment Cold Pack Location L ankle Patient Position Hooklying Treatment Duration (minutes) 10 Patient Tolerance Good Comments cryo cuff PT-OP-S Aquatic Treatment Start: 04/09/19 13:49 Freq: Status: Active Protocol: Document 07/08/19 11:00 LJ (Rec: 07/08/19 16:42 LJ [email or web address]) Aquatics Treatment Pool Entry/Exit Pool Entry/Exit Method Edge of Pool Water Walking obstacle course Water Level Waist Level Walking Equipment boxes Level of Assistance Verbal Cues Comments up,down sideways, forward, backwards forward Water Level Chest Level start stop Water Level Chest Level Walking Equipment Ankle Weight- 5.0# on heels and on toes Water Level Chest Level Walking Equipment Resistance Fins Level of Assistance Verbal Cues fwd,bck,side, august, soldier august Water Level Chest Level Walking Equipment Resistance Fins Level of Assistance Standby Assistance,Verbal Cues Lower Extremity Exercises hydroband ankle inv/ev Body Position Standing Water Level Waist Level Equipment green hydroband Reps/Duration 20 each direction Comments position 5 squats Body Position Standing Water Level Waist Level Reps/Duration 15 Comments on stairs Lower Extremity Stretches foot rolling Water Level Chest Level Equipment sm BBs HS Body Position Standing Water Level Chest Level Equipment Large Noodle Reps/Duration 2x45 Balance SLS with opposite LE movement Body Position Standing Water Level Waist Level Reps/Duration 2 min bilateral noodle under foot-flex ext Body Position Standing Water Level Chest Level Reps/Duration 10x2 bilat [place] Activities Other Activities whip kick flutter kick breast stroke kick Swim Strokes Breaststroke Equipment Noodle Laps/Duration 30M Flutter Equipment Noodle Laps/Duration 30M PT-OP-T Assessment and Plan Start: 04/09/19 13:49 Freq: Status: Active Protocol: Document 07/23/19 13:48 HH (Rec: 07/23/19 14:44 HH [id number]) Physical Therapy Assessment Goals 5 Impairment Pt scores 30/84 on FAAM ADL subscale Short Term Goal (STG) Pt will score 45/84 on FAAM ADL subscale to demonstrate increased independence with ADL's 05/20/19 MET Pt scores 63/84. 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 STG Duration 05/06/19 Manufacturing Clerk Goal (LTG) Pt will tolerate 7+ hours standing work (with appropriate breaks) without foot fatigue/tenderness LTG Duration 07/01/19 3 Impairment Pt unable to walk on uneven terrain Short Term Goal (STG) Pt will walk 15 minutes on uneven terrain with least restrictive assistive device STG Duration 05/20/19 Fpc Goal (LTG) Pt will walk 30 minutes on uneven terrain/forest trails with least restrictive assistive device. LTG Duration 07/01/19 2 Impairment Pt scores 33/80 on LEFS Short Term Goal (STG) Pt will score 45 or greater on LEFS to demonstrate improved function in daily activities. 05/20/19: MET Pt scores 46/80 on LEFS STG Duration 05/20/19 Manufacturing Clerk Goal (LTG) Pt will score 60 or greater on LEFS to represent improved function in daily activities. LTG Duration 07/01/19 1 Impairment Pt with no appropriate HEP Short Term Goal (STG) Pt will be independent with HEP for support of therapy services provided in clinic. 05/13/19 MET STG Duration 05/06/19 Fpc Goal (LTG) Pt will be independent with maintenance HEP to maintain functional progress achieved in therapy. LTG Duration 07/01/19 Assessment Summary Assessment Pt c/o ongoing posterior knee pain since his surgery. Noticed pt has pain primarily walking and knee flexion from extended position. Suspect popliteal strain possibly due to his previous walking boot and heel lift which possibly increase L knee extension moment. Pt did not feel pain after SLR, knee extension eccentric ex and STM. Pt consider d/c for next visit Physical Therapy Plan Next Visit Focus/Plan Next Note Type Treatment Note Next Visit Plan assess pt's posterior knee pain Assess goals SLS and gait training. PT suggested assess goals and surgeon follow up note.
--- NOTE | 2019-07-29 10:46 | PT.OTN ---
Current Diagnoses Encounter for other orthopedic aftercare (07/29/19) Arthrodesis status (07/29/19) Physical Therapy Treatment Note PT-OP-A Visit Information Start: 04/09/19 13:49 Freq: Status: Active Protocol: Document 07/29/19 08:47 AW (Rec: 07/29/19 10:46 AW [id number]) Out-Patient Physical Therapy Visit Information Visit Information Visit Type Discharge Summary Visit Start Time 09:48 Visit Stop Time 10:34 Total Visit Minutes 46 Visit Number 33 Number of [employer] Visits 0 PT-OP-B Current Condition Start: 04/09/19 13:49 Freq: Status: Active Protocol: Document 04/08/19 13:50 AW (Rec: 04/09/19 14:31 AW [email or web address]) Current Condition History of Current Condition Onset Date years Current Complaints left ankle swelling and limited range of motion History of Current Condition Lea vega sprained his left ankle in 1989 as a result of a fall down a 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 He has dealt with ongoing ankle pain for years, culminating finally in ankle arthrodesis and Achilles lengthening on . Pt unable to identify which bones were fused. Per protocol, he has been in a cam boot for all mobility for the past three months. He primarily used a knee scooter during that time, but has progressively increased his weightbearing in the boot for short distances. He is now allowed full weightbearing in the boot. In the past 10 days, he switched to an articulated cane held in the right hand. He has returned to driving. 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 He reports minimal pain since surgery, but does endorse generalized tenderness of the plantar foot since beginning to walk with a cane. He denies any falls or near falls since surgery. Prior Treatments and Tests Ankle arthrodesis and Achilles lengthening 12/31/18. History of a-fib, HTN, pacemaker. Future Testing and Treatments Planned None identified Treatment Goals Patient/Caregiver Goals Pt would like to hike [employer] and to be able to work standing 6 hours daily without fatigue or foot tenderness. 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 Current Functional Impairments (Reported) Functional Limitations- ADL's No known impairments Functional Limitations- Mobility/Gait Requires articulated cane and is limited in ambulation distance. Lacks confidence on uneven ground. Functional Limitations- Work/School Unable to stand for 6 hour shifts without foot/ankle fatigue and without tenderness of plantar foot. Functional Limitations- Recreation/ Unable to hike forest trails Hobbies Personal Factors Other Personal Factors That May Effect chronicity of deficits, Therapy/Recovery tendency to work through pain. PT-OP-C Subjective Start: 04/09/19 13:49 Freq: Status: Active Protocol: Document 07/29/19 08:47 AW (Rec: 07/29/19 10:46 AW [id number]) OP-PT Subjective Patient Comments Patient Comments We had an extremely busy weekend at the restaurant, so of course I overdid it and seem to have increased swelling today. Patient Reported Progress Improving PT-OP-D Balance Start: 04/09/19 13:49 Freq: Status: Active Protocol: Document 04/08/19 13:50 AW (Rec: 04/09/19 14:31 AW [email or web address]) OP-PT Balance Assessment Sitting Balance Static Sitting Balance Ability Normal Dynamic Sitting Balance Ability Normal Standing Balance Static Standing Balance Ability Fair Dynamic Standing Balance Ability Fair Device Used no boot, no AD Evans Fall Scale Copyright Permission PT-OP-F Manual Assessment Start: 04/09/19 13:49 Freq: Status: Active Protocol: Document 04/08/19 13:50 AW (Rec: 04/09/19 14:31 AW [email or web address]) Manual Assessments Joint Mobility Assessment Joint Mobility Assessment Minimal subtalar movement. No dorsal/plantar restriction at MTP's 1-5 bilaterally. Difficult to assess tibiotalar mobility due to swelling. Other Manual Assessments Other Manual Assessments No point tenderness along plantar surface, 5th digit tuberosity, navicular, Achilles insertion. Generalized tenderness along plantar surface noted by patient PT-OP-G Mobility & Gait Start: 04/09/19 13:49 Freq: Status: Active Protocol: Document 04/08/19 13:50 AW (Rec: 04/09/19 14:31 AW [email or web address]) OP Gait Assessment Gait Gait Assistance Required: Standby Assistance Distance (Feet) 100 Able to Maintain Weight Bearing Status Yes During Gait Gait Deviations General Gait Pattern Within Normal Limits,Antalgic, Decreased Stride Length, Decreased Feet Clearance,Wide Based Gait Factors Limiting Gait Function Factors Limiting Gait Function Decreased Activity Tolerance, Decreased Strength,Limited Range of Motion,Poor Balance Comments Gait Comments Pt ambulates with WBOS, forefoot landing (L>R), decreased stance time on LLE and decreaed step length RLE. He vaults over the LLE and exhibits right lateral lean in right stance. PT-OP-J Posture/Palpation/Skin Start: 04/09/19 13:49 Freq: Status: Active Protocol: Document 04/08/19 13:50 AW (Rec: 04/09/19 14:31 AW [email or web address]) Posture Evaluation Position Standing Knee Posture (L) Genu Valgus,(R) Genu Valgus Ankle/Foot Posture (L) Forefoot Abducted,(R) Forefoot Abducted Foot Arch (L) Low Arch,(R) Low Arch Skin Assessment Edema Assessment left ankle/foot Edema Type Non-Pitting Edema Appearance Discolored,Taut Comments Talar arch: Left 39 cm, Right 33 cm Horizontal at level of bilateral malleoli: Left 41 cm , Right 35 cm PT-OP-K Range of Motion Start: 04/09/19 13:49 Freq: Status: Active Protocol: Document 04/08/19 13:50 AW (Rec: 04/09/19 14:31 AW [email or web address]) Knee Goniometric Range of Motion Knee Left Knee ROM WFL Yes Patient Position Supine Ankle and Foot Goniometric Range of Motion Ankle and Foot Right Active Ankle/Foot ROM WFL No Testing Position Supine Dorsiflexion with Knee Flexed 5 Dorsiflexion with Knee Extended 5 Plantarflexion 40 Left Active Ankle/Foot ROM WFL No Testing Position Supine Dorsiflexion with Knee Flexed 0 Dorsiflexion with Knee Extended 0 Plantarflexion 20 Ankle and Foot ROM Limitations ROM Limitations Bony Restriction Toe Range of Motion Toes ROM Limitations Comments Pt lacks active left great toe extension PT-OP-M Strength Start: 04/09/19 13:49 Freq: Status: Active Protocol: Document 04/08/19 13:50 AW (Rec: 04/10/19 09:07 AW [email or web address]) Ankle/Foot Strength Ankle and Foot Manual Muscle Testing Right Dorsiflexion (L4) 4- Good- Plantarflexion (S1) 4- Good- Inversion 4 Good Eversion (S1) 4 Good Left Dorsiflexion (L4) 3 Fair Plantarflexion (S1) 3+ Fair+ Inversion 4- Good- Eversion (S1) 4- Good- Comments Pt can dorsiflex from extended position, but has no AROM past 0. Unable to test PF in standing due to safety concerns. Toe Strength Toe Manual Muscle Testing Right Great Toe Flexion 5 Normal Left Great Toe Flexion 4 Good PT-OP-N Lymphedema Start: 04/09/19 13:49 Freq: Status: Active Protocol: Document 05/15/19 10:40 SP (Rec: 05/15/19 11:44 SP [id number]) Lymphedema Measurements Lower Extremity Circumference Measurements L ankle foot MT Heads 34 cm Comments Lymphedema Comments -10 cm proximal MT heads 34 cm pre manual, 33 cm post - circumference calcaneus around ankle anteriorly ( anterior med/lat malleolus) 43 cm pre and post - figure 4 around ankle 74 cm pre and post - circumference med/lat malleolus 38.5 cm pre 37.5 cm post PT-OP-Q Treatments Start: 04/09/19 13:49 Freq: Status: Active Protocol: Document 07/29/19 08:47 AW (Rec: 07/29/19 10:46 AW [id number]) Therapeutic Exercises Supine Exercises supine DF and PF Supine Exercise Name supine DF/PF Side left Resistance AROM with manual resistance Reps/Minutes 10 each direction Comments in combination with STM for edema management Standing Exercises standing TKE Standing Exercise Name TKE Side left Equipment Used level 3 Reps/Minutes 25 reps Comments slow eccentric control; cues for 50% weightbearing eversion Standing Exercise Name eversion and inversion Side left Resistance bodyweight Reps/Minutes 2x10 reps Comments cues for equal weightbearing heel raise Standing Exercise Name eccentric plantar flexion Side left Equipment Used 6 step Reps/Minutes 10 reps x 2 standing calf stretch Standing Exercise Name calf stretch Side left Equipment Used LEA Reps/Minutes 1 minute x 2 Comments gastroc and soleus Gait Training Gait Activity heel toe gait Description heel toe gait Device Used none Level of Assistance SBA Surface level Distance/Duration 50 ft x 6 laps Treatment Focus heelstrike, knee & hip flexion Comments cued for knee flexion and heel strike level pelvis, slow pacing to decrease circumduction compensations Manual Therapy Treatment Soft Tissue Mobilization posterior knee joint Body Location popliteal Mobilization Type Sustained Pressure,Trigger Point Release Intensity/Depth Moderate Body Position Sidelying edema managment Body Location left lower LE Mobilization Type Myofascial Release,Rolling Intensity/Depth Moderate Body Position Hooklying Comments upward stroke/retrograde manual PT-OP-R Modalities Start: 04/09/19 13:49 Freq: Status: Active Protocol: Document 07/29/19 08:47 AW (Rec: 07/29/19 10:46 AW [id number]) Hot Pack/Cold Pack Treatment Cold Pack Location L ankle Patient Position Hooklying Treatment Duration (minutes) 10 Patient Tolerance Good Comments cryo cuff PT-OP-S Aquatic Treatment Start: 04/09/19 13:49 Freq: Status: Active Protocol: Document 07/08/19 11:00 LJ (Rec: 07/08/19 16:42 LJ [id number]) Aquatics Treatment Pool Entry/Exit Pool Entry/Exit Method Edge of Pool Water Walking obstacle course Water Level Waist Level Walking Equipment boxes Level of Assistance Verbal Cues Comments up,down sideways, forward, backwards forward Water Level Chest Level start stop Water Level Chest Level Walking Equipment Ankle Weight- 5.0# on heels and on toes Water Level Chest Level Walking Equipment Resistance Fins Level of Assistance Verbal Cues fwd,bck,side, august, august Water Level Chest Level Walking Equipment Resistance Fins Level of Assistance Standby Assistance,Verbal Cues Lower Extremity Exercises hydroband ankle inv/ev Body Position Standing Water Level Waist Level Equipment green hydroband Reps/Duration 20 each direction Comments position 5 squats Body Position Standing Water Level Waist Level Reps/Duration 15 Comments on stairs Lower Extremity Stretches foot rolling Water Level Chest Level Equipment sm BBs HS Body Position Standing Water Level Chest Level Equipment Large Noodle Reps/Duration 2x45 Balance SLS with opposite LE movement Body Position Standing Water Level Waist Level Reps/Duration 2 min bilateral noodle under foot-flex ext Body Position Standing Water Level Chest Level Reps/Duration 10x2 bilat [place] Activities Other Activities whip kick flutter kick breast stroke kick Swim Strokes Breaststroke Equipment Noodle Laps/Duration 30M Flutter Equipment Noodle Laps/Duration 30M PT-OP-T Assessment and Plan Start: 04/09/19 13:49 Freq: Status: Active Protocol: Document 07/29/19 08:47 AW (Rec: 07/29/19 10:46 AW [email or web address]) Physical Therapy Assessment Goals 5 Impairment Pt scores 30/84 on FAAM ADL subscale Short Term Goal (STG) Pt will score 45/84 on FAAM ADL subscale to demonstrate increased independence with ADL's 05/20/19 MET Pt scores 63/84. STG Duration 05/20/19 Software Database Architect Goal (LTG) Pt will score 60/84 on FAAM ADL subscale to demonstrate increased independence with ADL's 07/29/19 - NOT MET Pt scored 47 /84 after a weekend of heavy activity which may be affecting results LTG Duration 07/01/19 4 Impairment 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 STG Duration 05/06/19 Usp Goal (LTG) Pt will tolerate 7+ hours standing work (with appropriate breaks) without foot fatigue/tenderness 07/29/19 PROGRESSING Pt works > 4 hours without increase in foot fatigue but not 7+ hours. LTG Duration 07/01/19 3 Impairment Pt unable to walk on uneven terrain Short Term Goal (STG) Pt will walk 15 minutes on uneven terrain with least restrictive assistive device STG Duration 05/20/19 Usp Goal (LTG) Pt will walk 30 minutes on uneven terrain/forest trails with least restrictive assistive device. LTG Duration 07/01/19 2 Impairment Pt scores 33/80 on LEFS Short Term Goal (STG) Pt will score 45 or greater on LEFS to demonstrate improved function in daily activities. 05/20/19: MET Pt scores 46/80 on LEFS STG Duration 05/20/19 Usp Goal (LTG) Pt will score 60 or greater on LEFS to represent improved function in daily activities. LTG Duration 07/01/19 1 Impairment Pt with no appropriate HEP Short Term Goal (STG) Pt will be independent with HEP for support of therapy services provided in clinic. 05/13/19 MET STG Duration 05/06/19 Software Database Architect Goal (LTG) Pt will be independent with maintenance HEP to maintain functional progress achieved in therapy. 07/29/19 MET LTG Duration 07/01/19 Assessment Summary Assessment Pt felt discouraged after working a busy weekend at the restaurant and admitting to overdoing it. Counseled pt that days like that may be unavoidable occasionally and pt felt he had the tools to cope now. Pt was advised to consider breaking up his time on feet if at all possible and to acquire a new compression garment for improved edema management. Pt had reduced swelling of the left ankle following STM. He committed to working in therapy one more week and then canceling all remaining appointments as he is feeling independent with home exercise and is more confident with his mobility. Physical Therapy Plan Next Visit Focus/Plan Next Note Type Treatment Note Next Visit Plan Assess remaining goals, including LEFS and gait on uneven terrain SLS and gait training.
--- NOTE | 2019-07-31 12:44 | PT.OTN ---
Current Diagnoses Encounter for other orthopedic aftercare (07/29/19) Arthrodesis status (07/29/19) Physical Therapy Treatment Note PT-OP-A Visit Information Start: 04/09/19 13:49 Freq: Status: Active Protocol: Document 07/31/19 10:20 LJ (Rec: 07/31/19 12:44 LJ [email or web address]) Out-Patient Physical Therapy Visit Information Visit Information Visit Type Treatment Note Visit Start Time 10:20 Visit Stop Time 11:00 Total Visit Minutes 40 Visit Number 34 Number of [employer] Visits 1 PT-OP-B Current Condition Start: 04/09/19 13:49 Freq: Status: Active Protocol: Document 04/08/19 13:50 AW (Rec: 04/09/19 14:31 AW [email or web address]) Current Condition History of Current Condition Onset Date years Current Complaints left ankle swelling and limited range of motion History of Current Condition Lea vega sprained his left ankle in 1989 as a result of a fall down a 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 He has dealt with ongoing ankle pain for years, culminating finally in ankle arthrodesis and Achilles lengthening on . Pt unable to identify which bones were fused. Per protocol, he has been in a cam boot for all mobility for the past three months. He primarily used a knee scooter during that time, but has progressively increased his weightbearing in the boot for short distances. He is now allowed full weightbearing in the boot. In the past 10 days, he switched to an articulated cane held in the right hand. He has returned to driving. 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 He reports minimal pain since surgery, but does endorse generalized tenderness of the plantar foot since beginning to walk with a cane. He denies any falls or near falls since surgery. Prior Treatments and Tests Ankle arthrodesis and Achilles lengthening 12/31/18. History of a-fib, HTN, pacemaker. Future Testing and Treatments Planned None identified Treatment Goals Patient/Caregiver Goals Pt would like to hike [employer] and to be able to work standing 6 hours daily without fatigue or foot tenderness. 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 Current Functional Impairments (Reported) Functional Limitations- ADL's No known impairments Functional Limitations- Mobility/Gait Requires articulated cane and is limited in ambulation distance. Lacks confidence on uneven ground. Functional Limitations- Work/School Unable to stand for 6 hour shifts without foot/ankle fatigue and without tenderness of plantar foot. Functional Limitations- Recreation/ Unable to hike forest trails Hobbies Personal Factors Other Personal Factors That May Effect chronicity of deficits, Therapy/Recovery tendency to work through pain. PT-OP-C Subjective Start: 04/09/19 13:49 Freq: Status: Active Protocol: Document 07/31/19 10:20 LJ (Rec: 07/31/19 12:44 LJ [email or web address]) OP-PT Subjective Patient Comments Patient Comments Pt states he knows what to do for his LE and is ready to be independent with his exercises . PT-OP-D Balance Start: 04/09/19 13:49 Freq: Status: Active Protocol: Document 04/08/19 13:50 AW (Rec: 04/09/19 14:31 AW [email or web address]) OP-PT Balance Assessment Sitting Balance Static Sitting Balance Ability Normal Dynamic Sitting Balance Ability Normal Standing Balance Static Standing Balance Ability Fair Dynamic Standing Balance Ability Fair Device Used no boot, no AD Evans Fall Scale Copyright Permission PT-OP-F Manual Assessment Start: 04/09/19 13:49 Freq: Status: Active Protocol: Document 04/08/19 13:50 AW (Rec: 04/09/19 14:31 AW [email or web address]) Manual Assessments Joint Mobility Assessment Joint Mobility Assessment Minimal subtalar movement. No dorsal/plantar restriction at MTP's 1-5 bilaterally. Difficult to assess tibiotalar mobility due to swelling. Other Manual Assessments Other Manual Assessments No point tenderness along plantar surface, 5th digit tuberosity, navicular, Achilles insertion. Generalized tenderness along plantar surface noted by patient PT-OP-G Mobility & Gait Start: 04/09/19 13:49 Freq: Status: Active Protocol: Document 04/08/19 13:50 AW (Rec: 04/09/19 14:31 AW [email or web address]) OP Gait Assessment Gait Gait Assistance Required: Standby Assistance Distance (Feet) 100 Able to Maintain Weight Bearing Status Yes During Gait Gait Deviations General Gait Pattern Within Normal Limits,Antalgic, Decreased Stride Length, Decreased Feet Clearance,Wide Based Gait Factors Limiting Gait Function Factors Limiting Gait Function Decreased Activity Tolerance, Decreased Strength,Limited Range of Motion,Poor Balance Comments Gait Comments Pt ambulates with WBOS, forefoot landing (L>R), decreased stance time on LLE and decreaed step length RLE. He vaults over the LLE and exhibits right lateral lean in right stance. PT-OP-J Posture/Palpation/Skin Start: 04/09/19 13:49 Freq: Status: Active Protocol: Document 04/08/19 13:50 AW (Rec: 04/09/19 14:31 AW [email or web address]) Posture Evaluation Position Standing Knee Posture (L) Genu Valgus,(R) Genu Valgus Ankle/Foot Posture (L) Forefoot Abducted,(R) Forefoot Abducted Foot Arch (L) Low Arch,(R) Low Arch Skin Assessment Edema Assessment left ankle/foot Edema Type Non-Pitting Edema Appearance Discolored,Taut Comments Talar arch: Left 39 cm, Right 33 cm Horizontal at level of bilateral malleoli: Left 41 cm , Right 35 cm PT-OP-K Range of Motion Start: 04/09/19 13:49 Freq: Status: Active Protocol: Document 04/08/19 13:50 AW (Rec: 04/09/19 14:31 AW [email or web address]) Knee Goniometric Range of Motion Knee Left Knee ROM WFL Yes Patient Position Supine Ankle and Foot Goniometric Range of Motion Ankle and Foot Right Active Ankle/Foot ROM WFL No Testing Position Supine Dorsiflexion with Knee Flexed 5 Dorsiflexion with Knee Extended 5 Plantarflexion 40 Left Active Ankle/Foot ROM WFL No Testing Position Supine Dorsiflexion with Knee Flexed 0 Dorsiflexion with Knee Extended 0 Plantarflexion 20 Ankle and Foot ROM Limitations ROM Limitations Bony Restriction Toe Range of Motion Toes ROM Limitations Comments Pt lacks active left great toe extension PT-OP-M Strength Start: 04/09/19 13:49 Freq: Status: Active Protocol: Document 04/08/19 13:50 AW (Rec: 04/10/19 09:07 AW [email or web address]) Ankle/Foot Strength Ankle and Foot Manual Muscle Testing Right Dorsiflexion (L4) 4- Good- Plantarflexion (S1) 4- Good- Inversion 4 Good Eversion (S1) 4 Good Left Dorsiflexion (L4) 3 Fair Plantarflexion (S1) 3+ Fair+ Inversion 4- Good- Eversion (S1) 4- Good- Comments Pt can dorsiflex from extended position, but has no AROM past 0. Unable to test PF in standing due to safety concerns. Toe Strength Toe Manual Muscle Testing Right Great Toe Flexion 5 Normal Left Great Toe Flexion 4 Good PT-OP-N Lymphedema Start: 04/09/19 13:49 Freq: Status: Active Protocol: Document 05/15/19 10:40 SP (Rec: 05/15/19 11:44 SP [id number]) Lymphedema Measurements Lower Extremity Circumference Measurements L ankle foot MT Heads 34 cm Comments Lymphedema Comments -10 cm proximal MT heads 34 cm pre manual, 33 cm post - circumference calcaneus around ankle anteriorly ( anterior med/lat malleolus) 43 cm pre and post - figure 4 around ankle 74 cm pre and post - circumference med/lat malleolus 38.5 cm pre 37.5 cm post PT-OP-Q Treatments Start: 04/09/19 13:49 Freq: Status: Active Protocol: Document 07/29/19 08:47 AW (Rec: 07/29/19 10:46 AW [id number]) Therapeutic Exercises Supine Exercises supine DF and PF Supine Exercise Name supine DF/PF Side left Resistance AROM with manual resistance Reps/Minutes 10 each direction Comments in combination with STM for edema management Standing Exercises standing TKE Standing Exercise Name TKE Side left Equipment Used level 3 Reps/Minutes 25 reps Comments slow eccentric control; cues for 50% weightbearing eversion Standing Exercise Name eversion and inversion Side left Resistance bodyweight Reps/Minutes 2x10 reps Comments cues for equal weightbearing heel raise Standing Exercise Name eccentric plantar flexion Side left Equipment Used 6 step Reps/Minutes 10 reps x 2 standing calf stretch Standing Exercise Name calf stretch Side left Equipment Used LEA Reps/Minutes 1 minute x 2 Comments gastroc and soleus Gait Training Gait Activity heel toe gait Description heel toe gait Device Used none Level of Assistance SBA Surface level Distance/Duration 50 ft x 6 laps Treatment Focus heelstrike, knee & hip flexion Comments cued for knee flexion and heel strike level pelvis, slow pacing to decrease circumduction compensations Manual Therapy Treatment Soft Tissue Mobilization posterior knee joint Body Location popliteal Mobilization Type Sustained Pressure,Trigger Point Release Intensity/Depth Moderate Body Position Sidelying edema managment Body Location left lower LE Mobilization Type Myofascial Release,Rolling Intensity/Depth Moderate Body Position Hooklying Comments upward stroke/retrograde manual PT-OP-R Modalities Start: 04/09/19 13:49 Freq: Status: Active Protocol: Document 07/29/19 08:47 AW (Rec: 07/29/19 10:46 AW [email or web address]) Hot Pack/Cold Pack Treatment Cold Pack Location L ankle Patient Position Hooklying Treatment Duration (minutes) 10 Patient Tolerance Good Comments cryo cuff PT-OP-S Aquatic Treatment Start: 04/09/19 13:49 Freq: Status: Active Protocol: Document 07/31/19 10:20 LJ (Rec: 07/31/19 12:44 LJ [email or web address]) Aquatics Treatment Pool Entry/Exit Pool Entry/Exit Method Edge of Pool Water Walking Tandem Gait Water Level Chest Level Comments emphasis on toe to heel roll start stop Water Level Chest Level Walking Equipment Ankle Weight- 5.0# on heels and on toes Water Level Chest Level Walking Equipment Resistance Fins Level of Assistance Verbal Cues [place] Water Level Chest Level Level of Assistance Verbal Cues Comments modified with smaller steps fwd,bck,side, august, soldier august Water Level Chest Level Walking Equipment Resistance Fins Level of Assistance Standby Assistance,Verbal Cues Lower Extremity Exercises hip flex/ext Body Position Standing Water Level Chest Level Equipment Resistance Fins Reps/Duration 10x2 Hip ab/ad Body Position Standing Water Level Chest Level Equipment Resistance Fins Reps/Duration 10x2 knee flex/ext Body Position Standing Water Level Chest Level Equipment Ankle Weight- 5.0# Reps/Duration 10x heel raise, toe raise Body Position Standing Water Level Chest Level Reps/Duration 20x Lower Extremity Stretches foot rolling Water Level Chest Level Equipment sm BBs gastroc Body Position Standing Water Level Chest Level Reps/Duration 2x45 Comments wall; rocking foot Balance step up/down on boxes all directions Water Level Waist Level Reps/Duration 6 min [place] Activities Other Activities whip kick flutter kick breast stroke kick Equipment noodle Duration 15 min Swim Strokes Breaststroke Equipment Noodle Laps/Duration 25M Flutter Equipment Noodle Laps/Duration 25M PT-OP-T Assessment and Plan Start: 04/09/19 13:49 Freq: Status: Active Protocol: Document 07/31/19 10:20 LJ (Rec: 07/31/19 12:44 LJ [email or web address]) Physical Therapy Assessment Goals 5 Impairment Pt scores 30/84 on FAAM ADL subscale Short Term Goal (STG) Pt will score 45/84 on FAAM ADL subscale to demonstrate increased independence with ADL's 05/20/19 MET Pt scores 63/84. 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 STG Duration 05/06/19 Cna Ltc Goal (LTG) Pt will tolerate 7+ hours standing work (with appropriate breaks) without foot fatigue/tenderness 07/29/19 PROGRESSING Pt works > 4 hours without increase in foot fatigue but not 7+ hours. LTG Duration 07/01/19 3 Impairment Pt unable to walk on uneven terrain Short Term Goal (STG) Pt will walk 15 minutes on uneven terrain with least restrictive assistive device STG Duration 05/20/19 Cna Ltc Goal (LTG) Pt will walk 30 minutes on uneven terrain/forest trails with least restrictive assistive device. LTG Duration 07/01/19 2 Impairment Pt scores 33/80 on LEFS Short Term Goal (STG) Pt will score 45 or greater on LEFS to demonstrate improved function in daily activities. 05/20/19: MET Pt scores 46/80 on LEFS STG Duration 05/20/19 Cna Ltc Goal (LTG) Pt will score 60 or greater on LEFS to represent improved function in daily activities. LTG Duration 07/01/19 1 Impairment Pt with no appropriate HEP Short Term Goal (STG) Pt will be independent with HEP for support of therapy services provided in clinic. 05/13/19 MET STG Duration 05/06/19 Prison Goal (LTG) Pt will be independent with maintenance HEP to maintain functional progress achieved in therapy. 07/29/19 MET LTG Duration 07/01/19 Assessment Summary Assessment Improvement in balance with box exercise. Pt still lumbers in some of the walking exercises but may just be his baseline. When cued to minimize lateral sway he is able to do so. He still pulls significantly on the rails when exiting the pool using step through pattern but does not lose balance or hesitate Physical Therapy Plan Next Visit Focus/Plan Next Note Type Treatment Note Next Visit Plan Assess remaining goals, including LEFS and gait on uneven terrain SLS and gait training.
--- NOTE | 2019-08-05 15:50 | PT.OTN ---
Current Diagnoses Encounter for other orthopedic aftercare (08/05/19) Arthrodesis status (08/05/19) Physical Therapy Treatment Note PT-OP-A Visit Information Start: 04/09/19 13:49 Freq: Status: Active Protocol: Document 08/05/19 12:55 AW (Rec: 08/05/19 15:48 AW [email or web address]) Out-Patient Physical Therapy Visit Information Visit Information Visit Type Treatment Note Visit Start Time 09:47 Visit Stop Time 10:30 Total Visit Minutes 43 Visit Number 35 Number of PROFESSOR SCULPTURE Visits 0 PT-OP-B Current Condition Start: 04/09/19 13:49 Freq: Status: Active Protocol: Document 04/08/19 13:50 AW (Rec: 04/09/19 14:31 AW [email or web address]) Current Condition History of Current Condition Onset Date years Current Complaints left ankle swelling and limited range of motion History of Current Condition Lea vega sprained his left ankle in 1989 as a result of a fall down a 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 He has dealt with ongoing ankle pain for years, culminating finally in ankle arthrodesis and Achilles lengthening on . Pt unable to identify which bones were fused. Per protocol, he has been in a cam boot for all mobility for the past three months. He primarily used a knee scooter during that time, but has progressively increased his weightbearing in the boot for short distances. He is now allowed full weightbearing in the boot. In the past 10 days, he switched to an articulated cane held in the right hand. He has returned to driving. 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 He reports minimal pain since surgery, but does endorse generalized tenderness of the plantar foot since beginning to walk with a cane. He denies any falls or near falls since surgery. Prior Treatments and Tests Ankle arthrodesis and Achilles lengthening 12/31/18. History of a-fib, HTN, pacemaker. Future Testing and Treatments Planned None identified Treatment Goals Patient/Caregiver Goals Pt would like to hike [employer] and to be able to work standing 6 hours daily without fatigue or foot tenderness. 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 Current Functional Impairments (Reported) Functional Limitations- ADL's No known impairments Functional Limitations- Mobility/Gait Requires articulated cane and is limited in ambulation distance. Lacks confidence on uneven ground. Functional Limitations- Work/School Unable to stand for 6 hour shifts without foot/ankle fatigue and without tenderness of plantar foot. Functional Limitations- Recreation/ Unable to hike forest trails Hobbies Personal Factors Other Personal Factors That May Effect chronicity of deficits, Therapy/Recovery tendency to work through pain. PT-OP-C Subjective Start: 04/09/19 13:49 Freq: Status: Active Protocol: Document 08/05/19 12:55 AW (Rec: 08/05/19 15:48 AW [email or web address]) OP-PT Subjective Patient Comments Patient Comments Pt has decreased swelling today and is feeling good, ready for discharge. Patient Reported Progress Improving PT-OP-D Balance Start: 04/09/19 13:49 Freq: Status: Active Protocol: Document 04/08/19 13:50 AW (Rec: 04/09/19 14:31 AW [email or web address]) OP-PT Balance Assessment Sitting Balance Static Sitting Balance Ability Normal Dynamic Sitting Balance Ability Normal Standing Balance Static Standing Balance Ability Fair Dynamic Standing Balance Ability Fair Device Used no boot, no AD Evans Fall Scale Copyright Permission PT-OP-F Manual Assessment Start: 04/09/19 13:49 Freq: Status: Active Protocol: Document 04/08/19 13:50 AW (Rec: 04/09/19 14:31 AW [email or web address]) Manual Assessments Joint Mobility Assessment Joint Mobility Assessment Minimal subtalar movement. No dorsal/plantar restriction at MTP's 1-5 bilaterally. Difficult to assess tibiotalar mobility due to swelling. Other Manual Assessments Other Manual Assessments No point tenderness along plantar surface, 5th digit tuberosity, navicular, Achilles insertion. Generalized tenderness along plantar surface noted by patient PT-OP-G Mobility & Gait Start: 04/09/19 13:49 Freq: Status: Active Protocol: Document 04/08/19 13:50 AW (Rec: 04/09/19 14:31 AW [email or web address]) OP Gait Assessment Gait Gait Assistance Required: Standby Assistance Distance (Feet) 100 Able to Maintain Weight Bearing Status Yes During Gait Gait Deviations General Gait Pattern Within Normal Limits,Antalgic, Decreased Stride Length, Decreased Feet Clearance,Wide Based Gait Factors Limiting Gait Function Factors Limiting Gait Function Decreased Activity Tolerance, Decreased Strength,Limited Range of Motion,Poor Balance Comments Gait Comments Pt ambulates with WBOS, forefoot landing (L>R), decreased stance time on LLE and decreaed step length RLE. He vaults over the LLE and exhibits right lateral lean in right stance. PT-OP-J Posture/Palpation/Skin Start: 04/09/19 13:49 Freq: Status: Active Protocol: Document 04/08/19 13:50 AW (Rec: 04/09/19 14:31 AW [email or web address]) Posture Evaluation Position Standing Knee Posture (L) Genu Valgus,(R) Genu Valgus Ankle/Foot Posture (L) Forefoot Abducted,(R) Forefoot Abducted Foot Arch (L) Low Arch,(R) Low Arch Skin Assessment Edema Assessment left ankle/foot Edema Type Non-Pitting Edema Appearance Discolored,Taut Comments Talar arch: Left 39 cm, Right 33 cm Horizontal at level of bilateral malleoli: Left 41 cm , Right 35 cm PT-OP-K Range of Motion Start: 04/09/19 13:49 Freq: Status: Active Protocol: Document 04/08/19 13:50 AW (Rec: 04/09/19 14:31 AW [email or web address]) Knee Goniometric Range of Motion Knee Left Knee ROM WFL Yes Patient Position Supine Ankle and Foot Goniometric Range of Motion Ankle and Foot Right Active Ankle/Foot ROM WFL No Testing Position Supine Dorsiflexion with Knee Flexed 5 Dorsiflexion with Knee Extended 5 Plantarflexion 40 Left Active Ankle/Foot ROM WFL No Testing Position Supine Dorsiflexion with Knee Flexed 0 Dorsiflexion with Knee Extended 0 Plantarflexion 20 Ankle and Foot ROM Limitations ROM Limitations Bony Restriction Toe Range of Motion Toes ROM Limitations Comments Pt lacks active left great toe extension PT-OP-M Strength Start: 04/09/19 13:49 Freq: Status: Active Protocol: Document 04/08/19 13:50 AW (Rec: 04/10/19 09:07 AW [email or web address]) Ankle/Foot Strength Ankle and Foot Manual Muscle Testing Right Dorsiflexion (L4) 4- Good- Plantarflexion (S1) 4- Good- Inversion 4 Good Eversion (S1) 4 Good Left Dorsiflexion (L4) 3 Fair Plantarflexion (S1) 3+ Fair+ Inversion 4- Good- Eversion (S1) 4- Good- Comments Pt can dorsiflex from extended position, but has no AROM past 0. Unable to test PF in standing due to safety concerns. Toe Strength Toe Manual Muscle Testing Right Great Toe Flexion 5 Normal Left Great Toe Flexion 4 Good PT-OP-N Lymphedema Start: 04/09/19 13:49 Freq: Status: Active Protocol: Document 05/15/19 10:40 SP (Rec: 05/15/19 11:44 SP [email or web address]) Lymphedema Measurements Lower Extremity Circumference Measurements L ankle foot MT Heads 34 cm Comments Lymphedema Comments -10 cm proximal MT heads 34 cm pre manual, 33 cm post - circumference calcaneus around ankle anteriorly ( anterior med/lat malleolus) 43 cm pre and post - figure 4 around ankle 74 cm pre and post - circumference med/lat malleolus 38.5 cm pre 37.5 cm post PT-OP-Q Treatments Start: 04/09/19 13:49 Freq: Status: Active Protocol: Document 08/05/19 12:55 AW (Rec: 08/05/19 15:48 AW [email or web address]) Cardio Equipment Recumbent Bicycle Duration (Minutes) 5 Resistance 11 Seat Position 9 Therapeutic Exercises Standing Exercises standing HS stretch Standing Exercise Name standing HS stretch Side left Equipment Used 12 step Reps/Minutes 2 minutes Comments cues for contract (6 seconds)/ relax (30 seconds) standing TKE Standing Exercise Name TKE Side left Equipment Used level 5 Reps/Minutes 25 reps x 2 Comments slow eccentric control; cues for 50% weightbearing heel raise Standing Exercise Name eccentric plantar flexion Side left Equipment Used 6 step Reps/Minutes 15 reps x 2 standing calf stretch Standing Exercise Name calf stretch Side left Equipment Used LEA Reps/Minutes 1 minute x 2 Comments gastroc and soleus Gait Training Gait Activity heel toe gait Description heel toe gait Device Used none Level of Assistance SBA Surface level Distance/Duration 50 ft x 6 laps Treatment Focus heelstrike, knee & hip flexion Comments cued for knee flexion and heel strike level pelvis, slow pacing to decrease circumduction compensations Manual Therapy Treatment Soft Tissue Mobilization posterior knee joint Body Location popliteal Mobilization Type Sustained Pressure,Trigger Point Release Intensity/Depth Moderate Body Position Sidelying edema managment Body Location left lower LE Mobilization Type Myofascial Release,Rolling Intensity/Depth Moderate Body Position Hooklying Comments upward stroke/retrograde manual PT-OP-R Modalities Start: 04/09/19 13:49 Freq: Status: Active Protocol: Document 07/29/19 08:47 AW (Rec: 07/29/19 10:46 AW [email or web address]) Hot Pack/Cold Pack Treatment Cold Pack Location L ankle Patient Position Hooklying Treatment Duration (minutes) 10 Patient Tolerance Good Comments cryo cuff PT-OP-S Aquatic Treatment Start: 04/09/19 13:49 Freq: Status: Active Protocol: Document 07/31/19 10:20 LJ (Rec: 07/31/19 12:44 LJ [email or web address]) Aquatics Treatment Pool Entry/Exit Pool Entry/Exit Method Edge of Pool Water Walking Tandem Gait Water Level Chest Level Comments emphasis on toe to heel roll start stop Water Level Chest Level Walking Equipment Ankle Weight- 5.0# on heels and on toes Water Level Chest Level Walking Equipment Resistance Fins Level of Assistance Verbal Cues [place] Water Level Chest Level Level of Assistance Verbal Cues Comments modified with smaller steps fwd,bck,side, august, soldier august Water Level Chest Level Walking Equipment Resistance Fins Level of Assistance Standby Assistance,Verbal Cues Lower Extremity Exercises hip flex/ext Body Position Standing Water Level Chest Level Equipment Resistance Fins Reps/Duration 10x2 Hip ab/ad Body Position Standing Water Level Chest Level Equipment Resistance Fins Reps/Duration 10x2 knee flex/ext Body Position Standing Water Level Chest Level Equipment Ankle Weight- 5.0# Reps/Duration 10x heel raise, toe raise Body Position Standing Water Level Chest Level Reps/Duration 20x Lower Extremity Stretches foot rolling Water Level Chest Level Equipment sm BBs gastroc Body Position Standing Water Level Chest Level Reps/Duration 2x45 Comments wall; rocking foot Balance step up/down on boxes all directions Water Level Waist Level Reps/Duration 6 min [place] Activities Other Activities whip kick flutter kick breast stroke kick Equipment noodle Duration 15 min Swim Strokes Breaststroke Equipment Noodle Laps/Duration 25M Flutter Equipment Noodle Laps/Duration 25M PT-OP-T Assessment and Plan Start: 04/09/19 13:49 Freq: Status: Active Protocol: Document 08/05/19 12:55 AW (Rec: 08/05/19 15:48 AW [email or web address]) Physical Therapy Assessment Goals 5 Impairment Pt scores 30/84 on FAAM ADL subscale Short Term Goal (STG) Pt will score 45/84 on FAAM ADL subscale to demonstrate increased independence with ADL's 05/20/19 MET Pt scores 63/84. 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 STG Duration 05/06/19 Academic Affairs Vice President Goal (LTG) Pt will tolerate 7+ hours standing work (with appropriate breaks) without foot fatigue/tenderness 07/29/19 PROGRESSING Pt works > 4 hours without increase in foot fatigue but not 7+ hours. LTG Duration 07/01/19 3 Impairment Pt unable to walk on uneven terrain Short Term Goal (STG) Pt will walk 15 minutes on uneven terrain with least restrictive assistive device STG Duration 05/20/19 Half-Way Goal (LTG) Pt will walk 30 minutes on uneven terrain/forest trails with least restrictive assistive device. 08/05/19 MET LTG Duration 07/01/19 2 Impairment Pt scores 33/80 on LEFS Short Term Goal (STG) Pt will score 45 or greater on LEFS to demonstrate improved function in daily activities. 05/20/19: MET Pt scores 46/80 on LEFS STG Duration 05/20/19 Academic Affairs Vice President Goal (LTG) Pt will score 60 or greater on LEFS to represent improved function in daily activities. LTG Duration 07/01/19 1 Impairment Pt with no appropriate HEP Short Term Goal (STG) Pt will be independent with HEP for support of therapy services provided in clinic. 05/13/19 MET STG Duration 05/06/19 Half-Way Goal (LTG) Pt will be independent with maintenance HEP to maintain functional progress achieved in therapy. 2/19/20 MET LTG Duration 07/01/19 Assessment Summary Assessment Pt feeling more confident overall with his mobility and with the tools he has learned in therapy. Advised the pt to continue with his stretches, weightbearing ankle mobility, to obtain a new compression garment and to consider therapeutic massage to manage his edema which has decreased in the horizontal dimension around bilateral malleoli from 41 cm on eval to 35 cm this date. Pt is appropriate for discharge from this plan of care. Physical Therapy Plan Frequency and Duration Frequency of Treatment 2x/Week Duration of Treatment 8 weeks Therapeutic Interventions Therapeutic Interventions Aquatic Therapy,Balance Training,Gait Training,Home Exercise Program,Joint Mobilizations,Manual Therapy, Neuromuscular Re-education, Orthotic/Prosthetic Management ,Patient/Caregiver Education, Self-Care/Home Management, Sensory Integration,Soft Tissue Mobilization,Taping, Therapeutic Activities, Therapeutic Exercises Modalities Cold Pack/Ice Massage Other Therapeutic Interventions cryo-cuff Next Visit Focus/Plan Next Note Type Discharge Summary
--- NOTE | 2019-08-07 13:16 | PT.OTN ---
Current Diagnoses Encounter for other orthopedic aftercare (08/05/19) Arthrodesis status (08/05/19) Physical Therapy Treatment Note PT-OP-A Visit Information Start: 04/09/19 13:49 Freq: Status: Active Protocol: Document 08/07/19 10:15 LJ (Rec: 08/07/19 13:15 LJ [id number]) Out-Patient Physical Therapy Visit Information Visit Information Visit Type Aquatic Treatment Note Visit Start Time 10:15 Visit Stop Time 11:00 Total Visit Minutes 45 Visit Number 36 Number of RIGGING HELPER Visits 1 PT-OP-B Current Condition Start: 04/09/19 13:49 Freq: Status: Active Protocol: Document 04/08/19 13:50 AW (Rec: 04/09/19 14:31 AW [email or web address]) Current Condition History of Current Condition Onset Date years Current Complaints left ankle swelling and limited range of motion History of Current Condition Lea vega sprained his left ankle in 1989 as a result of a fall down a 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 He has dealt with ongoing ankle pain for years, culminating finally in ankle arthrodesis and Achilles lengthening on . Pt unable to identify which bones were fused. Per protocol, he has been in a cam boot for all mobility for the past three months. He primarily used a knee scooter during that time, but has progressively increased his weightbearing in the boot for short distances. He is now allowed full weightbearing in the boot. In the past 10 days, he switched to an articulated cane held in the right hand. He has returned to driving. 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 He reports minimal pain since surgery, but does endorse generalized tenderness of the plantar foot since beginning to walk with a cane. He denies any falls or near falls since surgery. Prior Treatments and Tests Ankle arthrodesis and Achilles lengthening 12/31/18. History of a-fib, HTN, pacemaker. Future Testing and Treatments Planned None identified Treatment Goals Patient/Caregiver Goals Pt would like to hike [place] and to be able to work standing 6 hours daily without fatigue or foot tenderness. 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 Current Functional Impairments (Reported) Functional Limitations- ADL's No known impairments Functional Limitations- Mobility/Gait Requires articulated cane and is limited in ambulation distance. Lacks confidence on uneven ground. Functional Limitations- Work/School Unable to stand for 6 hour shifts without foot/ankle fatigue and without tenderness of plantar foot. Functional Limitations- Recreation/ Unable to hike forest trails Hobbies Personal Factors Other Personal Factors That May Effect chronicity of deficits, Therapy/Recovery tendency to work through pain. PT-OP-C Subjective Start: 04/09/19 13:49 Freq: Status: Active Protocol: Document 08/07/19 10:15 LJ (Rec: 08/07/19 13:15 LJ [id number]) OP-PT Subjective Patient Comments Patient Comments Pt stated his posterior left knee is a little swollen and painful. Patient Reported Progress Improving PT-OP-D Balance Start: 04/09/19 13:49 Freq: Status: Active Protocol: Document 04/08/19 13:50 AW (Rec: 04/09/19 14:31 AW [email or web address]) OP-PT Balance Assessment Sitting Balance Static Sitting Balance Ability Normal Dynamic Sitting Balance Ability Normal Standing Balance Static Standing Balance Ability Fair Dynamic Standing Balance Ability Fair Device Used no boot, no AD Evans Fall Scale Copyright Permission PT-OP-F Manual Assessment Start: 04/09/19 13:49 Freq: Status: Active Protocol: Document 04/08/19 13:50 AW (Rec: 04/09/19 14:31 AW [email or web address]) Manual Assessments Joint Mobility Assessment Joint Mobility Assessment Minimal subtalar movement. No dorsal/plantar restriction at MTP's 1-5 bilaterally. Difficult to assess tibiotalar mobility due to swelling. Other Manual Assessments Other Manual Assessments No point tenderness along plantar surface, 5th digit tuberosity, navicular, Achilles insertion. Generalized tenderness along plantar surface noted by patient PT-OP-G Mobility & Gait Start: 04/09/19 13:49 Freq: Status: Active Protocol: Document 04/08/19 13:50 AW (Rec: 04/09/19 14:31 AW [email or web address]) OP Gait Assessment Gait Gait Assistance Required: Standby Assistance Distance (Feet) 100 Able to Maintain Weight Bearing Status Yes During Gait Gait Deviations General Gait Pattern Within Normal Limits,Antalgic, Decreased Stride Length, Decreased Feet Clearance,Wide Based Gait Factors Limiting Gait Function Factors Limiting Gait Function Decreased Activity Tolerance, Decreased Strength,Limited Range of Motion,Poor Balance Comments Gait Comments Pt ambulates with WBOS, forefoot landing (L>R), decreased stance time on LLE and decreaed step length RLE. He vaults over the LLE and exhibits right lateral lean in right stance. PT-OP-J Posture/Palpation/Skin Start: 04/09/19 13:49 Freq: Status: Active Protocol: Document 04/08/19 13:50 AW (Rec: 04/09/19 14:31 AW [email or web address]) Posture Evaluation Position Standing Knee Posture (L) Genu Valgus,(R) Genu Valgus Ankle/Foot Posture (L) Forefoot Abducted,(R) Forefoot Abducted Foot Arch (L) Low Arch,(R) Low Arch Skin Assessment Edema Assessment left ankle/foot Edema Type Non-Pitting Edema Appearance Discolored,Taut Comments Talar arch: Left 39 cm, Right 33 cm Horizontal at level of bilateral malleoli: Left 41 cm , Right 35 cm PT-OP-K Range of Motion Start: 04/09/19 13:49 Freq: Status: Active Protocol: Document 04/08/19 13:50 AW (Rec: 04/09/19 14:31 AW [email or web address]) Knee Goniometric Range of Motion Knee Left Knee ROM WFL Yes Patient Position Supine Ankle and Foot Goniometric Range of Motion Ankle and Foot Right Active Ankle/Foot ROM WFL No Testing Position Supine Dorsiflexion with Knee Flexed 5 Dorsiflexion with Knee Extended 5 Plantarflexion 40 Left Active Ankle/Foot ROM WFL No Testing Position Supine Dorsiflexion with Knee Flexed 0 Dorsiflexion with Knee Extended 0 Plantarflexion 20 Ankle and Foot ROM Limitations ROM Limitations Bony Restriction Toe Range of Motion Toes ROM Limitations Comments Pt lacks active left great toe extension PT-OP-M Strength Start: 04/09/19 13:49 Freq: Status: Active Protocol: Document 04/08/19 13:50 AW (Rec: 04/10/19 09:07 AW [email or web address]) Ankle/Foot Strength Ankle and Foot Manual Muscle Testing Right Dorsiflexion (L4) 4- Good- Plantarflexion (S1) 4- Good- Inversion 4 Good Eversion (S1) 4 Good Left Dorsiflexion (L4) 3 Fair Plantarflexion (S1) 3+ Fair+ Inversion 4- Good- Eversion (S1) 4- Good- Comments Pt can dorsiflex from extended position, but has no AROM past 0. Unable to test PF in standing due to safety concerns. Toe Strength Toe Manual Muscle Testing Right Great Toe Flexion 5 Normal Left Great Toe Flexion 4 Good PT-OP-N Lymphedema Start: 04/09/19 13:49 Freq: Status: Active Protocol: Document 05/15/19 10:40 SP (Rec: 05/15/19 11:44 SP [id number]) Lymphedema Measurements Lower Extremity Circumference Measurements L ankle foot MT Heads 34 cm Comments Lymphedema Comments -10 cm proximal MT heads 34 cm pre manual, 33 cm post - circumference calcaneus around ankle anteriorly ( anterior med/lat malleolus) 43 cm pre and post - figure 4 around ankle 74 cm pre and post - circumference med/lat malleolus 38.5 cm pre 37.5 cm post PT-OP-Q Treatments Start: 04/09/19 13:49 Freq: Status: Active Protocol: Document 08/05/19 12:55 AW (Rec: 08/05/19 15:48 AW [email or web address]) Cardio Equipment Recumbent Bicycle Duration (Minutes) 5 Resistance 11 Seat Position 9 Therapeutic Exercises Standing Exercises standing HS stretch Standing Exercise Name standing HS stretch Side left Equipment Used 12 step Reps/Minutes 2 minutes Comments cues for contract (6 seconds)/ relax (30 seconds) standing TKE Standing Exercise Name TKE Side left Equipment Used level 5 Reps/Minutes 25 reps x 2 Comments slow eccentric control; cues for 50% weightbearing heel raise Standing Exercise Name eccentric plantar flexion Side left Equipment Used 6 step Reps/Minutes 15 reps x 2 standing calf stretch Standing Exercise Name calf stretch Side left Equipment Used LEA Reps/Minutes 1 minute x 2 Comments gastroc and soleus Gait Training Gait Activity heel toe gait Description heel toe gait Device Used none Level of Assistance SBA Surface level Distance/Duration 50 ft x 6 laps Treatment Focus heelstrike, knee & hip flexion Comments cued for knee flexion and heel strike level pelvis, slow pacing to decrease circumduction compensations Manual Therapy Treatment Soft Tissue Mobilization posterior knee joint Body Location popliteal Mobilization Type Sustained Pressure,Trigger Point Release Intensity/Depth Moderate Body Position Sidelying edema managment Body Location left lower LE Mobilization Type Myofascial Release,Rolling Intensity/Depth Moderate Body Position Hooklying Comments upward stroke/retrograde manual PT-OP-R Modalities Start: 04/09/19 13:49 Freq: Status: Active Protocol: Document 07/29/19 08:47 AW (Rec: 07/29/19 10:46 AW [id number]) Hot Pack/Cold Pack Treatment Cold Pack Location L ankle Patient Position Hooklying Treatment Duration (minutes) 10 Patient Tolerance Good Comments cryo cuff PT-OP-S Aquatic Treatment Start: 04/09/19 13:49 Freq: Status: Active Protocol: Document 08/07/19 10:15 MAGDALENE (Rec: 08/07/19 13:15 LJ [id number]) Aquatics Treatment Pool Entry/Exit Pool Entry/Exit Method Stairs Water Walking Tandem Gait Water Level Chest Level Comments emphasis on toe to heel roll start stop Water Level Chest Level Walking Equipment Ankle Weight- 5.0# [place] Water Level Chest Level Level of Assistance Verbal Cues Comments modified with smaller steps fwd,bck,side, march, soldier august Water Level Chest Level Walking Equipment Resistance Fins Level of Assistance Standby Assistance,Verbal Cues Lower Extremity Exercises squats Body Position Standing Water Level Waist Level Reps/Duration 15 Comments on stairs heel raise, toe raise Body Position Standing Water Level Chest Level Reps/Duration 20x Lower Extremity Stretches gastroc Body Position Standing Water Level Chest Level Reps/Duration 2x45 Comments wall; rocking foot Balance step up/down on boxes all directions Water Level Waist Level Reps/Duration 6 min noodle under foot-flex ext Body Position Standing Water Level Chest Level Reps/Duration 10x2 bilat [place] Activities Other Activities whip kick flutter kick breast stroke kick Equipment noodle Duration 15 min Swim Strokes Flutter Equipment Noodle Laps/Duration 25M PT-OP-T Assessment and Plan Start: 04/09/19 13:49 Freq: Status: Active Protocol: Document 08/07/19 10:15 MAGDALENE (Rec: 08/07/19 13:15 LJ [id number]) Physical Therapy Assessment Goals 5 Impairment Pt scores 30/84 on FAAM ADL subscale Short Term Goal (STG) Pt will score 45/84 on FAAM ADL subscale to demonstrate increased independence with ADL's 05/20/19 MET Pt scores 63/84. 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 STG Duration 05/06/19 Television Writer Goal (LTG) Pt will tolerate 7+ hours standing work (with appropriate breaks) without foot fatigue/tenderness 07/29/19 PROGRESSING Pt works > 4 hours without increase in foot fatigue but not 7+ hours. LTG Duration 07/01/19 3 Impairment Pt unable to walk on uneven terrain Short Term Goal (STG) Pt will walk 15 minutes on uneven terrain with least restrictive assistive device STG Duration 05/20/19 Television Writer Goal (LTG) Pt will walk 30 minutes on uneven terrain/forest trails with least restrictive assistive device. 08/05/19 MET LTG Duration 07/01/19 2 Impairment Pt scores 33/80 on LEFS Short Term Goal (STG) Pt will score 45 or greater on LEFS to demonstrate improved function in daily activities. 05/20/19: MET Pt scores 46/80 on LEFS STG Duration 05/20/19 Custodial Goal (LTG) Pt will score 60 or greater on LEFS to represent improved function in daily activities. LTG Duration 07/01/19 1 Impairment Pt with no appropriate HEP Short Term Goal (STG) Pt will be independent with HEP for support of therapy services provided in clinic. 05/13/19 MET STG Duration 05/06/19 Custodial Goal (LTG) Pt will be independent with maintenance HEP to maintain functional progress achieved in therapy. 07/29/19 MET LTG Duration 07/01/19 Assessment Summary Assessment Pt feels better about doing exercises on his own now. States he will continue to go to the pool for exercise. Physical Therapy Plan Frequency and Duration Frequency of Treatment 2x/Week Duration of Treatment 8 weeks Therapeutic Interventions Therapeutic Interventions Aquatic Therapy,Balance Training,Gait Training,Home Exercise Program,Joint Mobilizations,Manual Therapy, Neuromuscular Re-education, Orthotic/Prosthetic Management ,Patient/Caregiver Education, Self-Care/Home Management, Sensory Integration,Soft Tissue Mobilization,Taping, Therapeutic Activities, Therapeutic Exercises Modalities Cold Pack/Ice Massage Other Therapeutic Interventions cryo-cuff Next Visit Focus/Plan Next Note Type Discharge Summary
== END 2020-02-03 09:02 ==
LOC: PHYS 10:15
PROVIDERS: PCP Family Medicine; Visit Provider Orthopaedic Surgery Foot and Ankle Surgery
DX: Z47.89 Encounter for other orthopedic aftercare (principal); Z98.1 Arthrodesis status
CPT/HCPCS: 97010; 97110; 97112; 97113; 97116; 97140; 97162; 97535

== ENCOUNTER → 2020-03-01 10:57 | Outpatient (CLI) | payer MEDICARE, OTHER, SELFPAY ==
[2020-03-01 12:30] LABS: BUN Creatinine Ratio 26.6 (6-22); Blood Urea Nitrogen 21 mg/dL (9-20); Calcium 9.3 mg/dL (8.4-10.2); Carbon Dioxide 30 mmol/L (22-32); Chloride 103 mmol/L (98-107); Cholesterol 192 mg/dL (140-199); Estimated Glomerular Filt Rate > 60.0 mL/min (>60); Glucose 93 mg/dL (80-110); HDL Cholesterol 55 mg/dL (40-60); HEMOLYSIS 17 (0-50); LDL Cholesterol Calculated 117 mg/dL (<100); Potassium 4.6 mmol/L (3.4-5.1); Sodium 138 mmol/L (137-145); Triglycerides 102 mg/dL (35-150)
[2020-03-01 12:33] LABS: Add Manual Diff / Slide Review NO; Basophils Absolute Auto 0 /uL (0-100); Basophils Percent Auto 0.7 % (0-2); Eosinophils Absolute Auto 100 /uL (0-450); Eosinophils Percent Auto 1.4 % (2-4); Hematocrit 45.3 % (41-53); Hemoglobin 15.5 g/dL (13.5-17.5); Lymphocytes Absolute Auto 2400 /uL (1100-4500); Lymphocytes Percent Auto 37.5 % (25-40); Mean Corpuscular HGB Conc 34.2 % (30-36); Mean Corpuscular Hemoglobin 31.9 PG (26-34); Mean Corpuscular Volume 93.1 fL (80-100); Monocytes Absolute Auto 400 /uL (0-900); Monocytes Percent Auto 6.6 % (3-14); Neutrophils Absolute Auto 3400 /uL (1500-7000); Neutrophils Percent Auto 53.8 % (50-75); Platelet Count 174 X10^3/uL (150-400); Red Blood Cell Count 4.87 X10^6/uL (4.5-5.9); Red Cell Distribution Width 13.4 % (11.6-14.8); White Blood Cell Count 6.3 X10^3/uL (4.5-11.0)
== END ==
PROVIDERS: PCP Family Medicine; Referring Provider Internal Medicine Cardiovascular Disease; Visit Provider Internal Medicine Cardiovascular Disease
DX: I10 Essential (primary) hypertension (principal); Z79.01 Long term (current) use of anticoagulants; I48.11 Longstanding persistent atrial fibrillation
CPT/HCPCS: 36415; 80048; 80061; 85025

== ENCOUNTER → 2020-06-08 13:47 | Outpatient (CLI) | payer MEDICARE, OTHER, SELFPAY ==
--- NOTE | 2020-06-08 13:49 | DI.RAD.S_ITS ---
PROCEDURE: XR KNEE LT 3V INDICATIONS: pain TECHNIQUE: 3 views of the knee were acquired. COMPARISON: [facility], CR, XR KNEE ARTHRITIC SERIES LT, 10/09/2017, 11:42. [facility], CR, KNEE 3V RIGHT, 06/07/2014, 10:30. FINDINGS: Bones: No fracture. Severe narrowing of the medial joint space. Scattered degenerative subchondral sclerosis and spurring. Soft tissues: No joint effusion. No suspicious soft tissue calcifications. IMPRESSION: Severe left knee joint degeneration. No interval change. Dictated by: Octavio Santos M.D. on 06/08/2020 at 15:08 Approved by: Octavio Santos M.D. on 06/08/2020 at 15:09
== END ==
PROVIDERS: PCP Family Medicine; Referring Provider Family Medicine; Visit Provider Family Medicine
DX: M25.562 Pain in left knee (principal); M17.12 Unilateral primary osteoarthritis, left knee
CPT/HCPCS: 73562

== ENCOUNTER → 2020-08-15 09:59 | Outpatient (CLI) | payer MEDICARE, OTHER, SELFPAY ==
--- NOTE | 2020-08-15 10:01 | DI.RAD.S_ITS ---
PROCEDURE: XR RIBS RT MIN 3V W CXR 1V INDICATIONS: Fall TECHNIQUE: 2 views of the right ribs were acquired, along with a single view chest. COMPARISON: None. FINDINGS: Surgical changes and devices: None. Bones and chest wall: Cortical irregularity involving right lateral 9th and possibly 8th ribs are seen suggestive of minimally displaced fractures. No suspicious bony lesions. Overlying soft tissues appear unremarkable. Lungs and pleura: No pleural effusions or pneumothorax. Blunting of right costophrenic angle is seen suggestive of trace right pleural effusion/contusion. Mediastinum: Mediastinal contours appear normal. Heart size is normal. IMPRESSION: Finding is suggestive of minimally displaced right lateral 8th and 9th rib fractures with adjacent contusion/pleural thickening in lateral aspect of right lower lung field. No pneumothorax. Dictated by: Severo Vicente M.D. on 08/15/2020 at 10:31 Approved by: Severo Vicente M.D. on 08/15/2020 at 10:42
== END ==
PROVIDERS: PCP Family Medicine; Referring Provider Family Medicine; Visit Provider Family Medicine
DX: R07.89 Other chest pain (principal)
CPT/HCPCS: 71101

== ENCOUNTER → 2021-04-27 09:47 | Outpatient (CLI) | payer MEDICARE, OTHER, SELFPAY ==
[2021-04-27 11:07] LABS: Add Manual Diff / Slide Review NO; Basophils Absolute Auto 100 /uL (0-100); Basophils Percent Auto 0.9 % (0-2); Eosinophils Absolute Auto 100 /uL (0-450); Eosinophils Percent Auto 1.5 % (2-4); Hematocrit 46.2 % (41-53); Hemoglobin 16.1 g/dL (13.5-17.5); Lymphocytes Absolute Auto 2000 /uL (1100-4500); Lymphocytes Percent Auto 32.7 % (25-40); Mean Corpuscular HGB Conc 34.8 % (30-36); Mean Corpuscular Hemoglobin 31.8 PG (26-34); Mean Corpuscular Volume 91.3 fL (80-100); Monocytes Absolute Auto 300 /uL (0-900); Monocytes Percent Auto 5.2 % (3-14); Neutrophils Absolute Auto 3600 /uL (1500-7000); Neutrophils Percent Auto 59.7 % (50-75); Platelet Count 172 X10^3/uL (150-400); Red Blood Cell Count 5.06 X10^6/uL (4.5-5.9); Red Cell Distribution Width 13.4 % (11.6-14.8); White Blood Cell Count 6.1 X10^3/uL (4.5-11.0)
[2021-04-27 13:05] LABS: BUN Creatinine Ratio 22.5 (6-22); Blood Urea Nitrogen 18 mg/dL (9-20); Calcium 9.6 mg/dL (8.4-10.2); Carbon Dioxide 28 mmol/L (22-32); Chloride 101 mmol/L (98-107); Cholesterol 212 mg/dL (140-199); Estimated Glomerular Filt Rate > 60.0 mL/min (>60); Glucose 101 mg/dL (80-110); HDL Cholesterol 51 mg/dL (40-60); HEMOLYSIS < 15 (0-50); LDL Cholesterol Calculated 138 mg/dL (<100); Potassium 4.5 mmol/L (3.4-5.1); Sodium 137 mmol/L (137-145); Triglycerides 114 mg/dL (35-150)
== END ==
PROVIDERS: PCP Family Medicine; Referring Provider Internal Medicine Cardiovascular Disease; Visit Provider Internal Medicine Cardiovascular Disease
DX: I10 Essential (primary) hypertension (principal); Z79.01 Long term (current) use of anticoagulants
CPT/HCPCS: 36415; 80048; 80061; 85025

== ENCOUNTER → 2021-09-21 09:59 | Outpatient (CLI) | payer MEDICARE, OTHER, SELFPAY ==
[2021-10-02 15:40] LABS: Percent Free Testosterone 2.61 % (1.50-4.20); Testosterone Free 7.15 ng/dL (5.00-21.00); Testosterone Total 273.8 ng/dL (264.0-916.0)
== END ==
PROVIDERS: Family Provider Family Medicine; PCP Family Medicine; Referring Provider Family Medicine; Visit Provider Family Medicine
DX: E66.01 Morbid (severe) obesity due to excess calories (principal)
CPT/HCPCS: 36415; 84402; 84403

== ENCOUNTER → 2021-12-12 10:09 | Outpatient (CLI) | payer MEDICARE, OTHER, SELFPAY ==
--- NOTE | 2021-12-12 10:11 | DI.RAD.S_ITS ---
PROCEDURE: XR WRIST LT MIN 3V INDICATIONS: pain TECHNIQUE: 4. views of the wrist were acquired. COMPARISON: None. FINDINGS: Bones: No acute fracture or dislocation. 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 Moderate degenerative changes present at the radiocarpal joint. There is widening at the scapholunate interval. Scaphoid view: The scaphoid is intact. Soft tissues: No suspicious soft tissue calcifications. IMPRESSION: Findings suspicious for scapholunate dissociation. Degenerative change. Dictated by: Maria Ines Xiong M.D. on 12/12/2021 at 11:57 Approved by: Maria Ines Xiong M.D. on 12/12/2021 at 11:58
--- NOTE | 2021-12-12 10:11 | DI.RAD.S_ITS ---
PROCEDURE: XR WRIST RT MIN 3V INDICATIONS: pain TECHNIQUE: 4 views of the wrist were acquired. COMPARISON: None. FINDINGS: Bones: No acute fracture or dislocation. There is severe degenerative change at the 1st CMC joint and moderate degenerative change at the radiocarpal joint. There is widening at the scapholunate joint. Scaphoid view: The scaphoid is intact. Soft tissues: No suspicious soft tissue calcifications. IMPRESSION: 1. Widening at the scapholunate interval suggesting scapholunate dissociation. 2. Degenerative change. Dictated by: Maria Ines Xiong M.D. on 12/12/2021 at 11:55 Approved by: Maria Ines Xiong M.D. on 12/12/2021 at 11:57
== END ==
PROVIDERS: Family Provider Family Medicine; PCP Family Medicine; Referring Provider Family Medicine; Visit Provider Family Medicine
DX: M25.531 Pain in right wrist (principal); M25.532 Pain in left wrist
CPT/HCPCS: 73110

== ENCOUNTER 2021-12-13 12:30 | Outpatient (RCR) | payer MEDICARE, OTHER, SELFPAY ==
--- NOTE | 2021-10-10 17:23 | PT.OIE ---
Current Diagnoses Other chronic pain (10/10/21) Pain in right wrist (10/10/21) Pain in left wrist (10/10/21) Pain in left knee (10/10/21) Past Medical History (Last Updated 05/09/21 @ 12:01 by Richie Lyman DO) Actinic keratosis due to exposure to sunlight Acute neck pain Afib Bilateral lower extremity edema Bilateral wrist pain Bradyarrhythmia Cervical somatic dysfunction Chronic pain of left knee Chronic venous stasis Closed rib fracture Degenerative arthritis of left knee Fall Hip joint replacement status Intercostal muscle strain Right-sided chest wall pain Segmental and somatic dysfunction of rib cage Situational insomnia Somatic dysfunction of lower extremity Thoracic region somatic dysfunction Upper extremity somatic dysfunction Past Surgical History (Last Reviewed 06/07/20 @ 11:06 by Richie Lyman DO) Hip joint replacement status Pacemaker Visit Care Team Role Provider Type Specialty: Address: Phone: Fax: Email: Richie Lyman DO Attending Provider Physician Family Provider Primary Care Provider Referring Provider Specialty: Family Practice Address: [address] [place] [address], [facility] Email: Physical Therapy Initial Evaluation PT-OP-A Visit Information Start: 09/29/21 16:47 Freq: Status: Active Protocol: Document 10/10/21 13:49 LRN (Rec: 10/10/21 17:21 LRN [id number]) Out-Patient Physical Therapy Visit Information Visit Information Visit Type Initial Evaluation Visit Start Time 13:49 Visit Stop Time 14:42 Total Visit Minutes 53 Visit Number 1 Evaluation Information Evaluation Date 10/10/21 Precautions Precautions Pacemaker, R TKA, R ROGER, HBP controlled by meds, arthritis, BMI 44.9 (Obese). PT-OP-B Current Condition Start: 09/29/21 16:47 Freq: Status: Active Protocol: Document 10/10/21 13:49 LRN (Rec: 10/10/21 17:21 LRN [id number]) Current Condition History of Current Condition Onset Date Last couple years told need L TKA. [place] wrist pain since R ROGER (4 yrs ago) Current Complaints Weak L knee/pain. [place] wrist pain History of Current Condition L knee constant pain where the ms attach behind the knee. Bone on bone on the L knee. (R knee and hip replaced). 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 He states he has been working on the knee and Dr. Lyman has been working on it the last year, manipulating the knee every couple of weeks . His prognosis is that the leg is weak and goal is to strengthen the leg and knee to avoid a TKA. He reports his bilateral wrist pain started after his L hip ROGER (4 yrs ago) because it made him have to use a walker, causing the bilateral wrist pain (L wrist more swoillen but the R wrist is more painful). He has used meds and straps around the wrist that has been a little helpful . Joint of the chico thumb, wrist, and thenar muscles of the thumbs is painful. Future Testing and Treatments Planned L TKA eventually. Developmental History Developmental History 6', Weight 340# (BMI is 44.9 = Obese if > 30). Takes water pills. No pain at R hip or knee and L ankle. L ankle fusion 2 yrs ago December, makes things hard to do due to fusion. Achilles shortened with L ankle fusion. Treatment Goals Patient/Caregiver Goals His prognosis is that the leg is weak and goal is to strengthen the leg and knee to avoid TKA. Goals for the wrists is to decrease the pain. Prior Functional Status Baseline Function- ADL's Independent Baseline Function- Mobility Independent Baseline Function- Gait Ambs without assistive device. 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 Baseline Function- Other Prior to hip surgery walked 1/ 2 block. Current Functional Impairments (Reported) Functional Limitations- ADL's Knee pain moving L leg into his car, needing to use UE's to lift leg. Difficulty moving legs out of bed. Easily trips and must watch balance. Can't get up off the floor without something to help him up. Uses a lot of analgesic topical things to numb the wrists to help him to do daily activities. Wrists hurts with wieght bearing and use. Causes edema . Functional Limitations- Mobility/Gait Able to walk 2 blocks Personal Factors Other Personal Factors That May Effect Pacemaker, arthritis, fall Therapy/Recovery history, BMI 44.9 (Obese). 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 PT-OP-C Subjective Start: 09/29/21 16:47 Freq: Status: Active Protocol: Document 10/10/21 13:49 LRN (Rec: 05/03/22 17:21 [facility] [id number]) Patient Questionnaires Lower Extremity Functional Scale LEFS Score 34 LEFS Impairment 40 to 59% Impaired (Score 32- 47) Quick Dash- Upper Extremity Quick Dash UE Score 38.63 Quick Dash UE Impairment 20 to 39% Impaired (Score 20- 39) OP-PT Pain Assessment Pain Assessment Grid Paper Pain Assessment Grid Completed Yes Location Left Knee Pain Location Details Posterior knee joint Intensity 4 Scale Used Numeric (0 - 10) Bilateral wrists Pain Location Details Thenar eminence and radial side of dorsal proximal hand at wrist Intensity 3 Scale Used Numeric (0 - 10) Description Aching PT-OP-J Posture/Palpation/Skin Start: 09/29/21 16:47 Freq: Status: Active Protocol: Document 10/10/21 13:49 LRN (Rec: 10/10/21 17:21 [facility] [id number]) Posture Evaluation Position Standing Evaluation View All positions Comments Posture Comments Pt stands with the L knee very slightly flexed compared to slight hyperextension of the R knee. Pt has a very wide stance. He holds his arms in IR. Swelling is present in the radial side of the distal forearm with a divot in the area of his watchband. Palpation Assessment Location L wrist Palpation Location Dorsal and volar distal, radial forearm Palpation Findings Edema Palpation Details Severe edema in the radial side of the wrist. R wrist Palpation Location Scaphoid lunate joint Palpation Details crepitus and popping L knee Palpation Location Posterior knee Palpation Findings Tenderness PT-OP-K Range of Motion Start: 09/29/21 16:47 Freq: Status: Active Protocol: Document 10/10/21 13:49 LRN (Rec: 10/10/21 17:21 [facility] [id number]) Wrist Goniometric Range of Motion Wrist Right Flexion Active (degrees) 52 Extension Active (degrees) 61 Ulnar Deviation Active (degrees) 25 Radial Deviation Active (degrees) 29 Left Flexion Active (degrees) 57 Extension Active (degrees) 42 Ulnar Deviation Active (degrees) 28 Radial Deviation Active (degrees) 20 Knee Goniometric Range of Motion Knee Right Knee ROM WFL Yes Patient Position Sitting Flexion Active (degrees) 109 Hyper-Extension Active 5 Comments Supine AROM: Left Knee ROM WFL No Patient Position Sitting Flexion Active (degrees) 100 Extension Active (degrees) 0 Comments Supine AROM: PT-OP-L Special Tests Start: 09/29/21 16:47 Freq: Status: Active Protocol: Document 10/10/21 13:49 LRN (Rec: 10/10/21 17:21 LRN [id number]) Special Tests Wrist/Hand Special Tests Phalen's Test Test Results Negative bilaterally Tinels Test Test Results neg bilaterally PT-OP-M Strength Start: 09/29/21 16:47 Freq: Status: Active Protocol: Document 10/10/21 13:49 LRN (Rec: 10/10/21 17:21 LRN [id number]) Elbow/Forearm Strength Elbow and Forearm Manual Muscle Testing Right Comments Generally 5/5 with crepitus testing Sup/Pron Left Comments Generally 5/5 with crepitus testing Sup/Pron Wrist Strength Wrist Manual Muscle Testing Right Flexion (C7) 4+ Good+ Extension (C6) 5 Normal Ulnar Deviation 4+ Good+ Radial Deviation 4+ Good+ Comments Pain with testing RD Left Comments Generally 5/5 Hand Engraver Wood/Pinch Strength Hand Dominance Hand Dominance Right Hip Strength Hip Manual Muscle Testing Right Flexion (L2) 5 Normal Comments Hip flex causes distal hamstring pain. Left Flexion (L2) 5 Normal Knee Strength Knee Manual Muscle Testing Right Comments Generally 5/5 Left Flexion (S2) 4+ Good+ Extension (L3) 5 Normal Ankle/Foot Strength Ankle and Foot Manual Muscle Testing Right Dorsiflexion (L4) 3 Fair Left Dorsiflexion (L4) 5 Normal PT-OP-Q Treatments Start: 09/29/21 16:47 Freq: Status: Active Protocol: Document 10/10/21 13:49 LRN (Rec: 10/10/21 17:21 LRN [id number]) Self-Care/Home Management Treatment Education Patient Education Home Exercise Program Other Education Discussed at length results of evaluation, goals, and plan of care (POC). Pt agreeable to goals and POC. Activities Self-Care/Home Management Activities I/S pt in L knee flexion strengthening sitting or standing while holding onto solid support to prevent falling. PT-OP-T Assessment and Plan Start: 09/29/21 16:47 Freq: Status: Active Protocol: Document 10/10/21 13:49 LRN (Rec: 10/10/21 17:21 LRN [id number]) Physical Therapy Assessment Rehab Potential Rehabilitation Potential Fair Evaluation Complexity Number of Personal Factors/Comorbidities 3 or More Number of Body Systems Impaired 4 or More Clinical Presentation at Evaluation Evolving Impairments Impairments Activity Tolerance,Edema,Gait, Pain,ROM,Strength Goals Three Impairment [place] wrists pain with weightbearing and use. Impairment UE Quickdash score initially 38.63 (20-39% impaired, score 20-39) Short Term Goal (STG) Pt will be able to transfer with bilateral wrist pain no greater than 2/10. STG Duration 11/09/21 [facility] Goal (LTG) Decrease bilateral wrist pain no greater than 2/10 with improved function per UE Quickdash score (less than 38. 63). LTG Duration 12/09/21 Two Impairment L knee/leg weakness Impairment LEFS score 34 (40-59% impaired , score 32-47) Market Research Specialist Goal (LTG) Improve L knee/hip strength to decrease pain to 2/10 for greater safety and stability of the knee to improve his job function and to avoid TKA. LTG Duration 12/09/21 One Impairment Lacks appropriate self care HEP Short Term Goal (STG) Pt will be independent in a self care L knee ROM (ext) and L>R hip/knee strengthening program. 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 LTG Duration 01/08/22 Assessment Summary Assessment Pt presents with complaints of L knee pain with moving, and primarily when lifting his leg . It appears his knee pain is primarily in the posterior aspect of the knee with active flexion. 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 In standing he demonstrates purposeful slight flexion of the L knee due to pain; therefore getting his L knee to greater symmetry of knee extension compared to his R knee is expected to decrease his pain with walking . He reports shortening of his achilles tendon when he had his L ankle fused, possibly causing the slight L knee flexion contracture (R hyper extends 5 deg's, L extends to 0 deg's). The patient's wrist also appears to be limited by mobility causing pain with transfers. He has no palpable areas of tenderness at the wrist, but crepitus is noted at the wrist joints when testing strength of pronation/supination, and he had joint dysfunction of the R scaphoid lunate joint. He doesn't appear to have CMC arthritic pain bilaterally, but his complaints of thenar pain may indicate hand weakness. Further assessment of hand strength is needed. The pt has swelling at the L wrist today that is significant and notable as a divot was present in the area of his watch band on the radial side, indicating a possible circulatory restriction. This was discussed with the patient and he will try wearing his watch on the other wrist or not wearing it at all if the R wrist also exhibits swelling. Wearing of a wrist wrap for edema may help with edema management and pain control. The pt would benefit from learning an aquatic therapy program for self care and will be placed in aquatic therapy as soon as an opening is available. It is expected that the patient rehab may be prolonged due to the multiple areas being involved in his rehabilitation. Experience leads me to believe that outcomes are not as good if multiple areas of treatment is performed during one treatment session; therefore I will work to address primarily the L knee pain to start and progress to his bilateral wrists once he can learn a self care knee program . The pt will benefit from skilled physical therapy to work towards achieveing the above stated goals. It should be noted that he exhibited neurolgical type weakness with R ankle DF. Physical Therapy Plan Frequency and Duration Frequency of Treatment 2x/Week Plan of Care Start Date 10/10/21 Plan of Care End Date 01/08/22 Therapeutic Interventions Therapeutic Interventions Aquatic Therapy,Gait Training, Home Exercise Program,Joint Mobilizations,Manual Therapy, Neuromuscular Re-education, Patient/Caregiver Education, Self-Care/Home Management,Soft Tissue Mobilization,Taping, Therapeutic Activities, Therapeutic Exercises Modalities Cold Pack/Ice Massage,Hot Packs,Ultrasound Next Visit Focus/Plan Next Note Type Treatment Note Next Visit Plan Assess hip & social services assistant strength, and ankle IV/EV strength, and strengthen as needed; Assess hand: Jones test for DeQuervain synovitis. Exer: L knee strengthening ( flex>ext) - shuttle, TB; R > L ankle. Stretch: L knee ext w/US to hamstrings attachment at knee; K-tape patch test; hip stretches if needed (?LE Neural). Core strengthening and gait training. Wrist: Assessment of edema without watch on L side. US to area of swelling (L wrist), wrist ROM ex's (ext/flex).
--- NOTE | 2021-10-12 16:49 | PT.OTN ---
Current Diagnoses Other chronic pain (10/12/21) Pain in right wrist (10/12/21) Pain in left wrist (10/12/21) Pain in left knee (10/12/21) Physical Therapy Treatment Note PT-OP-A Visit Information Start: 09/29/21 16:47 Freq: Status: Active Protocol: Document 10/12/21 14:40 LRN (Rec: 10/12/21 16:49 LRN [id number]) Out-Patient Physical Therapy Visit Information Visit Information Visit Type Treatment Note Visit Start Time 14:45 Visit Stop Time 15:18 Total Visit Minutes 33 Visit Number 2 Evaluation Information Evaluation Date 10/10/21 PT-OP-B Current Condition Start: 09/29/21 16:47 Freq: Status: Active Protocol: Document 10/10/21 13:49 LRN (Rec: 10/10/21 17:21 LRN [id number]) Current Condition History of Current Condition Onset Date Last couple years told need L TKA. [place] wrist pain since R ROGER (4 yrs ago) Current Complaints Weak L knee/pain. [place] wrist pain History of Current Condition L knee constant pain where the ms attach behind the knee. Bone on bone on the L knee. (R knee and hip replaced). 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 He states he has been working on the knee and Dr. Lyman has been working on it the last year, manipulating the knee every couple of weeks . His prognosis is that the leg is weak and goal is to strengthen the leg and knee to avoid a TKA. He reports his bilateral wrist pain started after his L hip ROGER (4 yrs ago) because it made him have to use a walker, causing the bilateral wrist pain (L wrist more swoillen but the R wrist is more painful). He has used meds and straps around the wrist that has been a little helpful . Joint of the serge thumb, wrist, and thenar muscles of the thumbs is painful. Future Testing and Treatments Planned L TKA eventually. Developmental History Developmental History 6'1, Weight 340# (BMI is 44.9 = Obese if > 30). Takes water pills. No pain at R hip or knee and L ankle. L ankle fusion 2 yrs ago December, makes things hard to do due to fusion. Achilles shortened with L ankle fusion. Treatment Goals Patient/Caregiver Goals His prognosis is that the leg is weak and goal is to strengthen the leg and knee to avoid TKA. Goals for the wrists is to decrease the pain. Prior Functional Status Baseline Function- ADL's Independent Baseline Function- Mobility Independent Baseline Function- Gait Ambs without assistive device. 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 Baseline Function- Other Prior to hip surgery walked 1/ 2 block. Current Functional Impairments (Reported) Functional Limitations- ADL's Knee pain moving L leg into his car, needing to use UE's to lift leg. Difficulty moving legs out of bed. Easily trips and must watch balance. Can't get up off the floor without something to help him up. Uses a lot of analgesic topical things to numb the wrists to help him to do daily activities. Wrists hurts with wieght bearing and use. Causes edema . Functional Limitations- Mobility/Gait Able to walk 2 blocks Personal Factors Other Personal Factors That May Effect Pacemaker, arthritis, fall Therapy/Recovery history, BMI 44.9 (Obese). 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 PT-OP-C Subjective Start: 09/29/21 16:47 Freq: Status: Active Protocol: Document 10/12/21 14:40 LRN (Rec: 10/12/21 16:49 LRN [id number]) OP-PT Subjective Patient Comments Patient Comments Wondering about therapy for wrists. Patient Reported Progress Same PT-OP-J Posture/Palpation/Skin Start: 09/29/21 16:47 Freq: Status: Active Protocol: Document 10/10/21 13:49 LRN (Rec: 10/10/21 17:21 LRN [id number]) Posture Evaluation Position Standing Evaluation View All positions Comments Posture Comments Pt stands with the L knee very slightly flexed compared to slight hyperextension of the R knee. Pt has a very wide stance. He holds his arms in IR. Swelling is present in the radial side of the distal forearm with a divot in the area of his watchband. Palpation Assessment Location L wrist Palpation Location Dorsal and volar distal, radial forearm Palpation Findings Edema Palpation Details Severe edema in the radial side of the wrist. R wrist Palpation Location Scaphoid lunate joint Palpation Details crepitus and popping L knee Palpation Location Posterior knee Palpation Findings Tenderness PT-OP-K Range of Motion Start: 09/29/21 16:47 Freq: Status: Active Protocol: Document 10/10/21 13:49 LRN (Rec: 10/10/21 17:21 LRN [id number]) Wrist Goniometric Range of Motion Wrist Right Flexion Active (degrees) 52 Extension Active (degrees) 61 Ulnar Deviation Active (degrees) 25 Radial Deviation Active (degrees) 29 Left Flexion Active (degrees) 57 Extension Active (degrees) 42 Ulnar Deviation Active (degrees) 28 Radial Deviation Active (degrees) 20 Knee Goniometric Range of Motion Knee Right Knee ROM WFL Yes Patient Position Sitting Flexion Active (degrees) 109 Hyper-Extension Active 5 Comments Supine AROM: Left Knee ROM WFL No Patient Position Sitting Flexion Active (degrees) 100 Extension Active (degrees) 0 Comments Supine AROM: PT-OP-L Special Tests Start: 09/29/21 16:47 Freq: Status: Active Protocol: Document 10/12/21 14:40 LRN (Rec: 10/12/21 16:49 LRN [id number]) Special Tests Wrist/Hand Special Tests Jones's Test Results Negative bilaterally Comments Neg for de Quervain's tenosynovitis PT-OP-M Strength Start: 09/29/21 16:47 Freq: Status: Active Protocol: Document 10/12/21 14:40 LRN (Rec: 10/12/21 16:49 LRN [id number]) Hip Strength Hip Manual Muscle Testing Right Flexion (L2) 4+ Good+ Extension (S1) 4+ Good+ Abduction 3- Fair- Adduction 3- Fair- External Rotation 4+ Good+ Internal Rotation 5 Normal Left Flexion (L2) 4+ Good+ Extension (S1) 4+ Good+ Abduction 2+ Poor+ Adduction 3- Fair- External Rotation 4- Good- Internal Rotation 5 Normal PT-OP-Q Treatments Start: 09/29/21 16:47 Freq: Status: Active Protocol: Document 10/12/21 14:40 LRN (Rec: 10/12/21 16:49 LRN [id number]) Therapeutic Exercises Supine Exercises SLR Supine Exercise Name SLR/TA (MMT taken) Side bilateral Reps/Minutes 15x Comments Cuing for breathing with ex, slowing mvmt, full mvmt Prone Exercises Hip Ext Prone Exercise Name Hip Ext/TA (MMT taken) Side bilateral Reps/Minutes 15x 2 Comments Cuing for core stabilization Sidelying Exercises Hip AD Sidelying Exercise Name Hip AD-Xtra time for MMT, setting up for best AD & educ of 2 positions Side bilateral Resistance (MMT taken) Reps/Minutes 15x 2 Comments Much cuing needed to keep from rolling and flexing at the hip Hip AB Sidelying Exercise Name Hip AB/TA (MMT taken) Side bilateral Reps/Minutes 15x 2 Comments Xtra time & much cuing needed to keep from rolling and flexing at the hip Self-Care/Home Management Treatment Education Patient Education Home Exercise Program Activities Self-Care/Home Management Activities Issued & reviewed HEP: SLR, sidelie hip AB/AD, prone hip ext. PT-OP-T Assessment and Plan Start: 09/29/21 16:47 Freq: Status: Active Protocol: Document 10/12/21 14:40 LRN (Rec: 10/12/21 16:49 LRN [id number]) Physical Therapy Assessment Goals Three Impairment Serge wrists pain with weightbearing and use. Impairment UE Quickdash score initially 38.63 (20-39% impaired, score 20-39) Short Term Goal (STG) Pt will be able to transfer with bilateral wrist pain no greater than 2/10. STG Duration 11/09/21 [facility] Goal (LTG) Decrease bilateral wrist pain no greater than 2/10 with improved function per UE Quickdash score (less than 38. 63). LTG Duration 12/09/21 Two Impairment L knee/leg weakness Impairment LEFS score 34 (40-59% impaired , score 32-47) [facility] Goal (LTG) Improve L knee/hip strength to decrease pain to 2/10 for greater safety and stability of the knee to improve his job function and to avoid TKA. LTG Duration 12/09/21 One Impairment Lacks appropriate self care HEP Short Term Goal (STG) Pt will be independent in a self care L knee ROM (ext) and L>R hip/knee strengthening program. (10/12/21: HEP issued hip strengthening agst gravity). STG Duration 10/27/21 (10/12/21: Progressed) [facility]itentiary Goal (LTG) Pt will be independent with a self care wrist HEP to focus on improving ROM and endurance of his appraiser strength. LTG Duration 01/08/22 Progress Towards Goals Progress Comments Progressed HEP Assessment Summary Assessment Pt needed much training for proper positioning, & much phys & v cuing for hip strengthening ex's to control core & breath during ex. Pt became SOB when breathholding during exercises. He was negative for de Quervain's tenosynovitis. He still presented with edema of the radial side of the L wrist with a divot still present. No pitting edema noted. Further assessment of L wrist is needed, will check appraiser strength in 1-2 visits after addressing LE weakness. Physical Therapy Plan Frequency and Duration Frequency of Treatment 2x/Week Plan of Care Start Date 10/10/21 Plan of Care End Date 01/08/22 Next Visit Focus/Plan Next Note Type Treatment Note Next Visit Plan Assess ankle IV/EV strength and HEP strengthen ankles as needed, knee flexion strengthening and test appraiser strength. Exer: L knee strengthening ( flex>ext) - shuttle, TB; R > L ankle. Stretch: L knee ext w/US to hamstrings attachment at knee (R TKA only); K-tape patch test; hip stretches if needed (?LE Neural). Core strengthening and gait training. Wrist: Assessment of edema,US to area of swelling (L wrist), wrist ROM ex's (ext/flex).
--- NOTE | 2021-10-19 17:40 | PT.OTN ---
Current Diagnoses Other chronic pain (10/19/21) Pain in right wrist (10/19/21) Pain in left wrist (10/19/21) Pain in left knee (10/19/21) Physical Therapy Treatment Note PT-OP-A Visit Information Start: 09/29/21 16:47 Freq: Status: Active Protocol: Document 10/19/21 13:52 LRN (Rec: 10/19/21 14:35 LRN [id number]) Out-Patient Physical Therapy Visit Information Visit Information Visit Type Treatment Note Visit Start Time 13:52 Visit Stop Time 14:35 Total Visit Minutes 43 Visit Number 3 Evaluation Information Evaluation Date 10/10/21 Precautions Precautions Pacemaker, R TKA, R ROGER, HBP controlled by meds, arthritis, BMI 44.9 (Obese). PT-OP-B Current Condition Start: 09/29/21 16:47 Freq: Status: Active Protocol: Document 10/10/21 13:49 LRN (Rec: 10/10/21 17:21 LRN [id number]) Current Condition History of Current Condition Onset Date Last couple years told need L TKA. Serge wrist pain since R ROGER (4 yrs ago) Current Complaints Weak L knee/pain. Serge wrist pain History of Current Condition L knee constant pain where the ms attach behind the knee. Bone on bone on the L knee. (R knee and hip replaced). 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 He states he has been working on the knee and Dr. Lyman has been working on it the last year, manipulating the knee every couple of weeks . His prognosis is that the leg is weak and goal is to strengthen the leg and knee to avoid a TKA. He reports his bilateral wrist pain started after his L hip ROGER (4 yrs ago) because it made him have to use a walker, causing the bilateral wrist pain (L wrist more swoillen but the R wrist is more painful). He has used meds and straps around the wrist that has been a little helpful . Joint of the serge thumb, wrist, and thenar muscles of the thumbs is painful. Future Testing and Treatments Planned L TKA eventually. Developmental History Developmental History 6'1, Weight 340# (BMI is 44.9 = Obese if > 30). Takes water pills. No pain at R hip or knee and L ankle. L ankle fusion 2 yrs ago December, makes things hard to do due to fusion. Achilles shortened with L ankle fusion. Treatment Goals Patient/Caregiver Goals His prognosis is that the leg is weak and goal is to strengthen the leg and knee to avoid TKA. Goals for the wrists is to decrease the pain. Prior Functional Status Baseline Function- ADL's Independent Baseline Function- Mobility Independent Baseline Function- Gait Ambs without assistive device. Baseline Function- Work/School [employer] requiring him to perform heavy physical jobs 5x/week. Baseline Function- Other Prior to hip surgery walked 1/ 2 block. Current Functional Impairments (Reported) Functional Limitations- ADL's Knee pain moving L leg into his car, needing to use UE's to lift leg. Difficulty moving legs out of bed. Easily trips and must watch balance. Can't get up off the floor without something to help him up. Uses a lot of analgesic topical things to numb the wrists to help him to do daily activities. Wrists hurts with wieght bearing and use. Causes edema . Functional Limitations- Mobility/Gait Able to walk 2 blocks Personal Factors Other Personal Factors That May Effect Pacemaker, arthritis, fall Therapy/Recovery history, BMI 44.9 (Obese). [employer], FT 5x/ week. PT-OP-C Subjective Start: 09/29/21 16:47 Freq: Status: Active Protocol: Document 10/19/21 13:52 LRN (Rec: 10/19/21 14:35 LRN [id number]) OP-PT Subjective Patient Comments Patient Comments Went to pool and just swam. Did not do ex's because didn't have a place to do ex's. PT-OP-J Posture/Palpation/Skin Start: 09/29/21 16:47 Freq: Status: Active Protocol: Document 10/10/21 13:49 LRN (Rec: 10/10/21 17:21 LRN [id number]) Posture Evaluation Position Standing Evaluation View All positions Comments Posture Comments Pt stands with the L knee very slightly flexed compared to slight hyperextension of the R knee. Pt has a very wide stance. He holds his arms in IR. Swelling is present in the radial side of the distal forearm with a divot in the area of his watchband. Palpation Assessment Location L wrist Palpation Location Dorsal and volar distal, radial forearm Palpation Findings Edema Palpation Details Severe edema in the radial side of the wrist. R wrist Palpation Location Scaphoid lunate joint Palpation Details crepitus and popping L knee Palpation Location Posterior knee Palpation Findings Tenderness PT-OP-K Range of Motion Start: 09/29/21 16:47 Freq: Status: Active Protocol: Document 10/10/21 13:49 LRN (Rec: 10/10/21 17:21 LRN [id number]) Wrist Goniometric Range of Motion Wrist Right Flexion Active (degrees) 52 Extension Active (degrees) 61 Ulnar Deviation Active (degrees) 25 Radial Deviation Active (degrees) 29 Left Flexion Active (degrees) 57 Extension Active (degrees) 42 Ulnar Deviation Active (degrees) 28 Radial Deviation Active (degrees) 20 Knee Goniometric Range of Motion Knee Right Knee ROM WFL Yes Patient Position Sitting Flexion Active (degrees) 109 Hyper-Extension Active 5 Comments Supine AROM: Left Knee ROM WFL No Patient Position Sitting Flexion Active (degrees) 100 Extension Active (degrees) 0 Comments Supine AROM: PT-OP-L Special Tests Start: 09/29/21 16:47 Freq: Status: Active Protocol: Document 10/12/21 14:40 LRN (Rec: 10/12/21 16:49 LRN [id number]) Special Tests Wrist/Hand Special Tests Jones's Test Results Negative bilaterally Comments Neg for de Quervain's tenosynovitis PT-OP-M Strength Start: 09/29/21 16:47 Freq: Status: Active Protocol: Document 10/12/21 14:40 LRN (Rec: 10/12/21 16:49 LRN [id number]) Hip Strength Hip Manual Muscle Testing Right Flexion (L2) 4+ Good+ Extension (S1) 4+ Good+ Abduction 3- Fair- Adduction 3- Fair- External Rotation 4+ Good+ Internal Rotation 5 Normal Left Flexion (L2) 4+ Good+ Extension (S1) 4+ Good+ Abduction 2+ Poor+ Adduction 3- Fair- External Rotation 4- Good- Internal Rotation 5 Normal PT-OP-Q Treatments Start: 09/29/21 16:47 Freq: Status: Active Protocol: Document 10/19/21 13:52 LRN (Rec: 10/19/21 14:35 LRN [id number]) Therapeutic Exercises Supine Exercises SLR Supine Exercise Name SLR/TA (MMT taken) Side bilateral Reps/Minutes 15x Comments Cuing for breathing with ex, slowing mvmt, full mvmt Prone Exercises Hip Ext Prone Exercise Name Hip Ext/TA Side bilateral Reps/Minutes 15x 2 Comments Cuing for core stabilization Sidelying Exercises Hip AB Sidelying Exercise Name Hip AB/TA Side bilateral Reps/Minutes 15x 2 Comments Xtra time & much cuing needed to keep from rolling and flexing at the hip Sitting Exercises Ankle IV/EV stretc Sitting Exercise Name Ankle IV/EV stretch (minimal on L due to fusion) Self-Care/Home Management Treatment Education Patient Education Home Exercise Program Other Education Encouraged pt to do ex's on bed although not real firm, the hip ex's could still be performed. Verbally educated pt in standing hip AD strengthening. Educated pt in use of wrist wraps for edema management and recommended pt try wrist supports that cover wrist joint and not just strap above wrists. Activities Self-Care/Home Management Activities Issued & reviewed HEP: ankle strengthening with TB (DF, IV, EV; standing toe and heel raises) and ankle mobility ex' s (PF, EV, IV). PT-OP-T Assessment and Plan Start: 09/29/21 16:47 Freq: Status: Active Protocol: Document 10/19/21 13:52 LRN (Rec: 10/19/21 14:35 LRN [id number]) Physical Therapy Assessment Goals Three Impairment Serge wrists pain with weightbearing and use. Impairment UE Quickdash score initially 38.63 (20-39% impaired, score 20-39) Short Term Goal (STG) Pt will be able to transfer with bilateral wrist pain no greater than 2/10. STG Duration 11/09/21 Arc Cutter Plasma Arc Goal (LTG) Decrease bilateral wrist pain no greater than 2/10 with improved function per UE Quickdash score (less than 38. 63). LTG Duration 12/09/21 Two Impairment L knee/leg weakness Impairment LEFS score 34 (40-59% impaired , score 32-47) Usp Goal (LTG) Improve L knee/hip strength to decrease pain to 2/10 for greater safety and stability of the knee to improve his job function and to avoid TKA. LTG Duration 12/09/21 One Impairment Lacks appropriate self care HEP Short Term Goal (STG) Pt will be independent in a self care L knee ROM (ext) and L>R hip/knee strengthening program. (10/12/21: HEP issued hip strengthening agst gravity). 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 LTG Duration 01/08/22 Assessment Summary Assessment With SLR exer pt had hamstring cramp in R leg. Wearing straps at wrists, edema noted above wrist straps; pain at wrist 1 hr after wearing, possibly from edema. L hip appears weaker with hip AB. Pt not being consistent with HEP and seems more focused on getting treatment for wrists. Physical Therapy Plan Frequency and Duration Frequency of Treatment 2x/Week Plan of Care Start Date 10/10/21 Plan of Care End Date 01/08/22 Next Visit Focus/Plan Next Note Type Treatment Note Next Visit Plan Pt to bring wrist supports for assessment next appt.Add HEP knee flexion strengthening and test senior research associate strength. Wrist: Assessment of edema,US to area of swelling (L wrist), wrist ROM ex's (ext/flex). Exer: L knee strengthening ( flex>ext) - shuttle, TB; R > L ankle. Stretch: L knee ext w/US to hamstrings attachment at knee (R TKA only); K-tape patch test; hip stretches if needed (?LE Neural). Core strengthening and gait training.
--- NOTE | 2021-10-23 15:45 | PT.OTN ---
Current Diagnoses Other chronic pain (10/23/21) Pain in right wrist (10/23/21) Pain in left wrist (10/23/21) Pain in left knee (10/23/21) Physical Therapy Treatment Note PT-OP-A Visit Information Start: 09/29/21 16:47 Freq: Status: Active Protocol: Document 10/23/21 15:27 LJ (Rec: 10/23/21 15:45 LJ [id number]) Out-Patient Physical Therapy Visit Information Visit Information Visit Type Aquatic Treatment Note Visit Start Time 11:45 Visit Stop Time 12:30 Total Visit Minutes 45 Visit Number 4 Number of [employer] Visits 1 Evaluation Information Evaluation Date 10/10/21 Precautions Precautions Pacemaker, R TKA, R ROGER, HBP controlled by meds, arthritis, BMI 44.9 (Obese). PT-OP-B Current Condition Start: 09/29/21 16:47 Freq: Status: Active Protocol: Document 10/10/21 13:49 LRN (Rec: 10/10/21 17:21 LRN [id number]) Current Condition History of Current Condition Onset Date Last couple years told need L TKA. [place] wrist pain since R ROGER (4 yrs ago) Current Complaints Weak L knee/pain. [place] wrist pain History of Current Condition L knee constant pain where the ms attach behind the knee. Bone on bone on the L knee. (R knee and hip replaced). 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 He states he has been working on the knee and Dr. Lyman has been working on it the last year, manipulating the knee every couple of weeks . His prognosis is that the leg is weak and goal is to strengthen the leg and knee to avoid a TKA. He reports his bilateral wrist pain started after his L hip ROGER (4 yrs ago) because it made him have to use a walker, causing the bilateral wrist pain (L wrist more swoillen but the R wrist is more painful). He has used meds and straps around the wrist that has been a little helpful . Joint of the [place] thumb, wrist, and thenar muscles of the thumbs is painful. Future Testing and Treatments Planned L TKA eventually. Developmental History Developmental History 6'1, Weight 340# (BMI is 44.9 = Obese if > 30). Takes water pills. No pain at R hip or knee and L ankle. L ankle fusion 2 yrs ago December, makes things hard to do due to fusion. Achilles shortened with L ankle fusion. Treatment Goals Patient/Caregiver Goals His prognosis is that the leg is weak and goal is to strengthen the leg and knee to avoid TKA. Goals for the wrists is to decrease the pain. Prior Functional Status Baseline Function- ADL's Independent Baseline Function- Mobility Independent Baseline Function- Gait Ambs without assistive device. Baseline Function- Work/School [employer] a [employer] requiring him to perform heavy physical jobs 5x/week. Baseline Function- Other Prior to hip surgery walked 1/ 2 block. Current Functional Impairments (Reported) Functional Limitations- ADL's Knee pain moving L leg into his car, needing to use UE's to lift leg. Difficulty moving legs out of bed. Easily trips and must watch balance. Can't get up off the floor without something to help him up. Uses a lot of analgesic topical things to numb the wrists to help him to do daily activities. Wrists hurts with wieght bearing and use. Causes edema . Functional Limitations- Mobility/Gait Able to walk 2 blocks Personal Factors Other Personal Factors That May Effect Pacemaker, arthritis, fall Therapy/Recovery history, BMI 44.9 (Obese). [employer], FT 5x/ week. PT-OP-C Subjective Start: 09/29/21 16:47 Freq: Status: Active Protocol: Document 10/23/21 15:27 LJ (Rec: 10/23/21 15:45 LJ [id number]) OP-PT Subjective Patient Comments Patient Comments Pt c/o pain in post left LE behind knee. Also states his calf muscles are always tight since having ankle fusion.He did not mention wrist pain or therapy for wrist pain. He stated that he feels weak in the entire LLE and wants to improve strength and reduce pain PT-OP-J Posture/Palpation/Skin Start: 09/29/21 16:47 Freq: Status: Active Protocol: Document 10/10/21 13:49 LRN (Rec: 10/10/21 17:21 LRN [id number]) Posture Evaluation Position Standing Evaluation View All positions Comments Posture Comments Pt stands with the L knee very slightly flexed compared to slight hyperextension of the R knee. Pt has a very wide stance. He holds his arms in IR. Swelling is present in the radial side of the distal forearm with a divot in the area of his watchband. Palpation Assessment Location L wrist Palpation Location Dorsal and volar distal, radial forearm Palpation Findings Edema Palpation Details Severe edema in the radial side of the wrist. R wrist Palpation Location Scaphoid lunate joint Palpation Details crepitus and popping L knee Palpation Location Posterior knee Palpation Findings Tenderness PT-OP-K Range of Motion Start: 09/29/21 16:47 Freq: Status: Active Protocol: Document 10/10/21 13:49 LRN (Rec: 10/10/21 17:21 LRN [id number]) Wrist Goniometric Range of Motion Wrist Right Flexion Active (degrees) 52 Extension Active (degrees) 61 Ulnar Deviation Active (degrees) 25 Radial Deviation Active (degrees) 29 Left Flexion Active (degrees) 57 Extension Active (degrees) 42 Ulnar Deviation Active (degrees) 28 Radial Deviation Active (degrees) 20 Knee Goniometric Range of Motion Knee Right Knee ROM WFL Yes Patient Position Sitting Flexion Active (degrees) 109 Hyper-Extension Active 5 Comments Supine AROM: Left Knee ROM WFL No Patient Position Sitting Flexion Active (degrees) 100 Extension Active (degrees) 0 Comments Supine AROM: PT-OP-L Special Tests Start: 09/29/21 16:47 Freq: Status: Active Protocol: Document 10/12/21 14:40 LRN (Rec: 10/12/21 16:49 LRN [id number]) Special Tests Wrist/Hand Special Tests Jones's Test Results Negative bilaterally Comments Neg for de Quervain's tenosynovitis PT-OP-M Strength Start: 09/29/21 16:47 Freq: Status: Active Protocol: Document 10/12/21 14:40 LRN (Rec: 10/12/21 16:49 LRN [id number]) Hip Strength Hip Manual Muscle Testing Right Flexion (L2) 4+ Good+ Extension (S1) 4+ Good+ Abduction 3- Fair- Adduction 3- Fair- External Rotation 4+ Good+ Internal Rotation 5 Normal Left Flexion (L2) 4+ Good+ Extension (S1) 4+ Good+ Abduction 2+ Poor+ Adduction 3- Fair- External Rotation 4- Good- Internal Rotation 5 Normal PT-OP-Q Treatments Start: 09/29/21 16:47 Freq: Status: Active Protocol: Document 10/19/21 13:52 LRN (Rec: 10/19/21 14:35 LRN [id number]) Therapeutic Exercises Supine Exercises SLR Supine Exercise Name SLR/TA (MMT taken) Side bilateral Reps/Minutes 15x Comments Cuing for breathing with ex, slowing mvmt, full mvmt Prone Exercises Hip Ext Prone Exercise Name Hip Ext/TA Side bilateral Reps/Minutes 15x 2 Comments Cuing for core stabilization Sidelying Exercises Hip AB Sidelying Exercise Name Hip AB/TA Side bilateral Reps/Minutes 15x 2 Comments Xtra time & much cuing needed to keep from rolling and flexing at the hip Sitting Exercises Ankle IV/EV stretc Sitting Exercise Name Ankle IV/EV stretch (minimal on L due to fusion) Self-Care/Home Management Treatment Education Patient Education Home Exercise Program Other Education Encouraged pt to do ex's on bed although not real firm, the hip ex's could still be performed. Verbally educated pt in standing hip AD strengthening. Educated pt in use of wrist wraps for edema management and recommended pt try wrist supports that cover wrist joint and not just strap above wrists. Activities Self-Care/Home Management Activities Issued & reviewed HEP: ankle strengthening with TB (DF, IV, EV; standing toe and heel raises) and ankle mobility ex' s (PF, EV, IV). PT-OP-S Aquatic Treatment Start: 10/23/21 15:26 Freq: Status: Active Protocol: Document 10/23/21 15:27 MAGDALENE (Rec: 10/23/21 15:45 [id number]) Aquatics Treatment Pool Entry/Exit Pool Entry/Exit Method Stairs Comments dive in deep end for entry Water Walking forward Water Level Chest Level on heels and on toes Water Level Chest Level fwd,bck,, august, soldier august Water Level Chest Level Level of Assistance Verbal Cues Lower Extremity Exercises hydroband ankle inv/ev Body Position Standing Water Level Waist Level Equipment green hydroband Reps/Duration 10 each direction hip flex/ext Body Position Standing Water Level Chest Level Reps/Duration 10x2 Hip ab/ad Body Position Standing Water Level Chest Level Reps/Duration 10x2 knee flex/ext Body Position Standing Water Level Chest Level Reps/Duration 2x10 B Comments B Lower Extremity Stretches quads Body Position Standing Water Level Chest Level Equipment Large Noodle Reps/Duration 2x45 HS Body Position Standing Water Level Chest Level Equipment Large Noodle Reps/Duration 2x45 gastroc Body Position Standing Water Level Chest Level Reps/Duration 2x45 Comments hang heels off stairs Spinal Exercises Pull-downs Details at wall Body Position Sitting Equipment Lg BB Reps/Duration 10 fwd, side, side Bates Activities Bates Activities Bicycle,[place] Duration 15 min Comments no flotation used Swim Strokes Crawl Laps/Duration 2x 15M PT-OP-T Assessment and Plan Start: 09/29/21 16:47 Freq: Status: Active Protocol: Document 10/23/21 15:27 MAGDALENE (Rec: 10/23/21 15:45 [id number]) Physical Therapy Assessment Rehab Potential Rehabilitation Potential Fair Impairments Impairments Activity Tolerance,Edema,Gait, Pain,ROM,Strength Goals Three Impairment [place] wrists pain with weightbearing and use. Impairment UE Quickdash score initially 38.63 (20-39% impaired, score 20-39) Short Term Goal (STG) Pt will be able to transfer with bilateral wrist pain no greater than 2/10. STG Duration 11/09/21 Fpc Goal (LTG) Decrease bilateral wrist pain no greater than 2/10 with improved function per UE Quickdash score (less than 38. 63). LTG Duration 12/09/21 Two Impairment L knee/leg weakness Impairment LEFS score 34 (40-59% impaired , score 32-47) Fpc Goal (LTG) Improve L knee/hip strength to decrease pain to 2/10 for greater safety and stability of the knee to improve his job function and to avoid TKA. LTG Duration 12/09/21 One Impairment Lacks appropriate self care HEP Short Term Goal (STG) Pt will be independent in a self care L knee ROM (ext) and L>R hip/knee strengthening program. (10/12/21: HEP issued hip strengthening agst gravity). (10/19/21: HEP for ankle mobilit and strengthening ex's ) STG Duration 10/27/21 (10/12/21: Progressed) Fpc Goal (LTG) Pt will be independent with a self care wrist HEP to focus on improving ROM and endurance of his brim pouncer strength. LTG Duration 01/08/22 Assessment Summary Assessment Pt with tendancy to self- direct treatment exercises. He was cued to go easier because he hasn't been in the pool for a long time but he extended his time in the water by 10 min. Exited pool via stairs independently. Physical Therapy Plan Frequency and Duration Frequency of Treatment 2x/Week Plan of Care Start Date 10/10/21 Plan of Care End Date 01/08/22 Therapeutic Interventions Therapeutic Interventions Aquatic Therapy,Gait Training, Home Exercise Program,Joint Mobilizations,Manual Therapy, Neuromuscular Re-education, Patient/Caregiver Education, Self-Care/Home Management,Soft Tissue Mobilization,Taping, Therapeutic Activities, Therapeutic Exercises Modalities Cold Pack/Ice Massage,Hot Packs,Ultrasound Next Visit Focus/Plan Next Note Type Treatment Note Next Visit Plan Pt to bring wrist supports for assessment next appt.Add HEP knee flexion strengthening and test brim pouncer strength. Wrist: Assessment of edema,US to area of swelling (L wrist), wrist ROM ex's (ext/flex). Aquatic: Assess response to tx and prescribe exercises appropriately to tolerance. Continue strengthening and flexibility exercises to improve gait, strength ( particularly in LEs), and reduce pain in L posterior knee with stretching program Exer: L knee strengthening ( flex>ext) - shuttle, TB; R > L ankle. Stretch: L knee ext w/US to hamstrings attachment at knee (R TKA only); K-tape patch test; hip stretches if needed (?LE Neural). Core strengthening and gait training.
--- NOTE | 2021-10-26 17:32 | PT.OTN ---
Current Diagnoses Other chronic pain (10/26/21) Pain in right wrist (10/26/21) Pain in left wrist (10/26/21) Pain in left knee (10/26/21) Physical Therapy Treatment Note PT-OP-A Visit Information Start: 09/29/21 16:47 Freq: Status: Active Protocol: Document 10/26/21 13:45 LRN (Rec: 10/26/21 14:37 LRN [id number]) Out-Patient Physical Therapy Visit Information Visit Information Visit Type Treatment Note Visit Start Time 13:45 Visit Stop Time 14:30 Total Visit Minutes 45 Visit Number 5 Evaluation Information Evaluation Date 10/10/21 Precautions Precautions Pacemaker, R TKA, R ROGER, HBP controlled by meds, arthritis, BMI 44.9 (Obese). PT-OP-B Current Condition Start: 09/29/21 16:47 Freq: Status: Active Protocol: Document 10/10/21 13:49 LRN (Rec: 10/10/21 17:21 LRN [id number]) Current Condition History of Current Condition Onset Date Last couple years told need L TKA. [place] wrist pain since R ROGER (4 yrs ago) Current Complaints Weak L knee/pain. [place] wrist pain History of Current Condition L knee constant pain where the ms attach behind the knee. Bone on bone on the L knee. (R knee and hip replaced). 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 He states he has been working on the knee and Dr. Lyman has been working on it the last year, manipulating the knee every couple of weeks . His prognosis is that the leg is weak and goal is to strengthen the leg and knee to avoid a TKA. He reports his bilateral wrist pain started after his L hip ROGER (4 yrs ago) because it made him have to use a walker, causing the bilateral wrist pain (L wrist more swoillen but the R wrist is more painful). He has used meds and straps around the wrist that has been a little helpful . Joint of the [place] thumb, wrist, and thenar muscles of the thumbs is painful. Future Testing and Treatments Planned L TKA eventually. Developmental History Developmental History 6'1, Weight 340# (BMI is 44.9 = Obese if > 30). Takes water pills. No pain at R hip or knee and L ankle. L ankle fusion 2 yrs ago December, makes things hard to do due to fusion. Achilles shortened with L ankle fusion. Treatment Goals Patient/Caregiver Goals His prognosis is that the leg is weak and goal is to strengthen the leg and knee to avoid TKA. Goals for the wrists is to decrease the pain. Prior Functional Status Baseline Function- ADL's Independent Baseline Function- Mobility Independent Baseline Function- Gait Ambs without assistive device. 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 Baseline Function- Other Prior to hip surgery walked 1/ 2 block. Current Functional Impairments (Reported) Functional Limitations- ADL's Knee pain moving L leg into his car, needing to use UE's to lift leg. Difficulty moving legs out of bed. Easily trips and must watch balance. Can't get up off the floor without something to help him up. Uses a lot of analgesic topical things to numb the wrists to help him to do daily activities. Wrists hurts with wieght bearing and use. Causes edema . Functional Limitations- Mobility/Gait Able to walk 2 blocks Personal Factors Other Personal Factors That May Effect Pacemaker, arthritis, fall Therapy/Recovery history, BMI 44.9 (Obese). 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 PT-OP-C Subjective Start: 09/29/21 16:47 Freq: Status: Active Protocol: Document 10/26/21 13:45 LRN (Rec: 10/26/21 14:37 LRN [id number]) OP-PT Subjective Patient Comments Patient Comments Didn't wear L wrist splint or watch yesterday or today. 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 LE's are the same. Session at the pool was good, L knee is not as painful. C/o Bilateral CMC jt and adjacent areas, and radial side wrist pain. PT-OP-J Posture/Palpation/Skin Start: 09/29/21 16:47 Freq: Status: Active Protocol: Document 10/10/21 13:49 LRN (Rec: 10/10/21 17:21 LRN [id number]) Posture Evaluation Position Standing Evaluation View All positions Comments Posture Comments Pt stands with the L knee very slightly flexed compared to slight hyperextension of the R knee. Pt has a very wide stance. He holds his arms in IR. Swelling is present in the radial side of the distal forearm with a divot in the area of his watchband. Palpation Assessment Location L wrist Palpation Location Dorsal and volar distal, radial forearm Palpation Findings Edema Palpation Details Severe edema in the radial side of the wrist. R wrist Palpation Location Scaphoid lunate joint Palpation Details crepitus and popping L knee Palpation Location Posterior knee Palpation Findings Tenderness PT-OP-K Range of Motion Start: 09/29/21 16:47 Freq: Status: Active Protocol: Document 10/10/21 13:49 LRN (Rec: 10/10/21 17:21 LRN [id number]) Wrist Goniometric Range of Motion Wrist Right Flexion Active (degrees) 52 Extension Active (degrees) 61 Ulnar Deviation Active (degrees) 25 Radial Deviation Active (degrees) 29 Left Flexion Active (degrees) 57 Extension Active (degrees) 42 Ulnar Deviation Active (degrees) 28 Radial Deviation Active (degrees) 20 Knee Goniometric Range of Motion Knee Right Knee ROM WFL Yes Patient Position Sitting Flexion Active (degrees) 109 Hyper-Extension Active 5 Comments Supine AROM: Left Knee ROM WFL No Patient Position Sitting Flexion Active (degrees) 100 Extension Active (degrees) 0 Comments Supine AROM: PT-OP-L Special Tests Start: 09/29/21 16:47 Freq: Status: Active Protocol: Document 10/12/21 14:40 LRN (Rec: 10/12/21 16:49 LRN [id number]) Special Tests Wrist/Hand Special Tests Jones's Test Results Negative bilaterally Comments Neg for de Quervain's tenosynovitis PT-OP-M Strength Start: 09/29/21 16:47 Freq: Status: Active Protocol: Document 10/26/21 13:45 LRN (Rec: 10/26/21 14:37 LRN [id number]) Hand Offset Pressman/Pinch Strength Hand Strength Left Comments Offset Pressman strength (kgs): 38, 28, 31 (avg is 32 kg). (norm for ages 70-74 is 32. 2 kg Right, 29.3 kg Left) Right Comments Offset Pressman strength (kgs): 32, 31, 30 (avg is 31 kg). (norm for ages 70-74 is 32. 2 kg Right, 29.3 kg Left) PT-OP-Q Treatments Start: 09/29/21 16:47 Freq: Status: Active Protocol: Document 10/26/21 13:45 LRN (Rec: 10/26/21 14:37 LRN [id number]) Therapeutic Exercises Supine Exercises SLR Supine Exercise Name SLR/TA Side bilateral Reps/Minutes 15x each alternating legs x 2 Comments Cuing for breathing with ex, slowing mvmt, full mvmt Sidelying Exercises Hip AD Sidelying Exercise Name Hip AD - Pt to do R side at home Side left Reps/Minutes 15x 3 Comments Much cuing needed to keep from rolling and flexing at the hip Hip AB Sidelying Exercise Name Hip AB/TA - Pt to do L side at home Side right Reps/Minutes 15x 3 Comments Xtra time & much cuing needed to keep from rolling and flexing at the hip Sitting Exercises Gripping Sitting Exercise Name Gripping Hand dynometer Side bilateral Reps/Minutes 4' Comments MMT taken Manual Therapy Treatment Joint Mobilizations Wrist small bones Joint Bilateral small bones of wrist . Direction PA & AP Grade III Reps/Duration 10' PT-OP-R Modalities Start: 09/29/21 16:47 Freq: Status: Active Protocol: Document 10/26/21 13:45 LRN (Rec: 10/26/21 14:37 LRN [id number]) Ultrasound Therapy Treatment L Wrist/hand Treatment Duration (minutes) 8 Coupling Medium Ultrasound Gel Applicator Size (cm2) 2 Frequency Setting (mHz) 1 Mode Setting Pulsed Duty Cycle 50% Intensity Setting (w/cm2) 1.0 Comments Treatment around CMC jt and adjacent area of thenar eminence, and carpel-radial lig. R wrist/hand Treatment Duration (minutes) 8 Coupling Medium Ultrasound Gel Applicator Size (cm2) 2 Frequency Setting (mHz) 1 Mode Setting Pulsed Intensity Setting (w/cm2) 1.0 Comments Treatment around CMC jt and adjacent area of thenar eminence, and carpel-radial lig. PT-OP-S Aquatic Treatment Start: 10/23/21 15:26 Freq: Status: Active Protocol: Document 10/23/21 15:27 MAGDALENE (Rec: 10/23/21 15:45 LJ [id number]) Aquatics Treatment Pool Entry/Exit Pool Entry/Exit Method Stairs Comments dive in deep end for entry Water Walking forward Water Level Chest Level on heels and on toes Water Level Chest Level fwd,bck,side, august, soldier august Water Level Chest Level Level of Assistance Verbal Cues Lower Extremity Exercises hydroband ankle inv/ev Body Position Standing Water Level Waist Level Equipment green hydroband Reps/Duration 10 each direction hip flex/ext Body Position Standing Water Level Chest Level Reps/Duration 10x2 Hip ab/ad Body Position Standing Water Level Chest Level Reps/Duration 10x2 knee flex/ext Body Position Standing Water Level Chest Level Reps/Duration 2x10 B Comments B Lower Extremity Stretches quads Body Position Standing Water Level Chest Level Equipment Large Noodle Reps/Duration 2x45 HS Body Position Standing Water Level Chest Level Equipment Large Noodle Reps/Duration 2x45 gastroc Body Position Standing Water Level Chest Level Reps/Duration 2x45 Comments hang heels off stairs Spinal Exercises Pull-downs Details at wall Body Position Sitting Equipment Lg BB Reps/Duration 10 fwd, side, side [place] Activities [place] Activities Bicycle,Cross [place] Duration 15 min Comments no flotation used Swim Strokes Crawl Laps/Duration 2x 15M PT-OP-T Assessment and Plan Start: 09/29/21 16:47 Freq: Status: Active Protocol: Document 10/26/21 13:45 LRN (Rec: 10/26/21 14:37 LRN [id number]) Physical Therapy Assessment Goals Three Impairment [place] wrists pain with weightbearing and use. Impairment UE Quickdash score initially 38.63 (20-39% impaired, score 20-39) Short Term Goal (STG) Pt will be able to transfer with bilateral wrist pain no greater than 2/10. STG Duration 11/09/21 Learning And Development Analyst Goal (LTG) Decrease bilateral wrist pain no greater than 2/10 with improved function per UE Quickdash score (less than 38. 63). LTG Duration 12/09/21 Two Impairment L knee/leg weakness Impairment LEFS score 34 (40-59% impaired , score 32-47) Correction Goal (LTG) Improve L knee/hip strength to decrease pain to 2/10 for greater safety and stability of the knee to improve his job function and to avoid TKA. LTG Duration 12/09/21 One Impairment Lacks appropriate self care HEP Short Term Goal (STG) Pt will be independent in a self care L knee ROM (ext) and L>R hip/knee strengthening program. (10/12/21: HEP issued hip strengthening agst gravity). (10/19/21: HEP for ankle mobilit and strengthening ex's ) STG Duration 10/27/21 (10/12/21: Progressed) Correction Goal (LTG) Pt will be independent with a self care wrist HEP to focus on improving ROM and endurance of his materials branch chief strength. LTG Duration 01/08/22 Assessment Summary Assessment L wrist indentation in location of wrist splint and wrist watch location, that he hadn't worn for past 2 days. ? Edema vs soft tissue growth. Pt materials branch chief strength is within normal limits. Physical Therapy Plan Frequency and Duration Frequency of Treatment 2x/Week Plan of Care Start Date 10/10/21 Plan of Care End Date 01/08/22 Next Visit Focus/Plan Next Note Type Treatment Note Next Visit Plan Assess response to US. Pt to bring wrist supports for assessment next appt. Add HEP knee flexion strengthening and test materials branch chief strength. Wrist: Assessment of edema, ? US to area of swelling (L wrist), wrist ROM ex's (ext/ flex). Aquatic: Assess response to tx and prescribe exercises appropriately to tolerance. Continue strengthening and flexibility exercises to improve gait, strength ( particularly in LEs), and reduce pain in L posterior knee with stretching program Exer: L knee strengthening ( flex>ext) - shuttle, TB; R > L ankle. Stretch: L knee ext w/US to hamstrings attachment at knee (R TKA only); K-tape patch test; hip stretches if needed (?LE Neural). Core strengthening and gait training.
--- NOTE | 2021-10-31 14:35 | PT.OTN ---
Current Diagnoses Other chronic pain (10/31/21) Pain in right wrist (10/31/21) Pain in left wrist (10/31/21) Pain in left knee (10/31/21) Physical Therapy Treatment Note PT-OP-A Visit Information Start: 09/29/21 16:47 Freq: Status: Active Protocol: Document 10/31/21 13:52 SP (Rec: 10/31/21 14:37 SP [id number]) Out-Patient Physical Therapy Visit Information Visit Information Visit Type Treatment Note Visit Start Time 13:52 Visit Stop Time 14:35 Total Visit Minutes 43 Visit Number 6 Number of LEAD DESIGNER Visits 1 Evaluation Information Evaluation Date 10/10/21 Precautions Precautions Pacemaker, R TKA, R ROGER, HBP controlled by meds, arthritis, BMI 44.9 (Obese). PT-OP-B Current Condition Start: 09/29/21 16:47 Freq: Status: Active Protocol: Document 10/10/21 13:49 LRN (Rec: 10/10/21 17:21 LRN [id number]) Current Condition History of Current Condition Onset Date Last couple years told need L TKA. [place] wrist pain since R ROGER (4 yrs ago) Current Complaints Weak L knee/pain. [place] wrist pain History of Current Condition L knee constant pain where the ms attach behind the knee. Bone on bone on the L knee. (R knee and hip replaced). 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 He states he has been working on the knee and Dr. Lyman has been working on it the last year, manipulating the knee every couple of weeks . His prognosis is that the leg is weak and goal is to strengthen the leg and knee to avoid a TKA. He reports his bilateral wrist pain started after his L hip ROGER (4 yrs ago) because it made him have to use a walker, causing the bilateral wrist pain (L wrist more swoillen but the R wrist is more painful). He has used meds and straps around the wrist that has been a little helpful . Joint of the [place] thumb, wrist, and thenar muscles of the thumbs is painful. Future Testing and Treatments Planned L TKA eventually. Developmental History Developmental History 6'1, Weight 340# (BMI is 44.9 = Obese if > 30). Takes water pills. No pain at R hip or knee and L ankle. L ankle fusion 2 yrs ago December, makes things hard to do due to fusion. Achilles shortened with L ankle fusion. Treatment Goals Patient/Caregiver Goals His prognosis is that the leg is weak and goal is to strengthen the leg and knee to avoid TKA. Goals for the wrists is to decrease the pain. Prior Functional Status Baseline Function- ADL's Independent Baseline Function- Mobility Independent Baseline Function- Gait Ambs without assistive device. 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 Baseline Function- Other Prior to hip surgery walked 1/ 2 block. Current Functional Impairments (Reported) Functional Limitations- ADL's Knee pain moving L leg into his car, needing to use UE's to lift leg. Difficulty moving legs out of bed. Easily trips and must watch balance. Can't get up off the floor without something to help him up. Uses a lot of analgesic topical things to numb the wrists to help him to do daily activities. Wrists hurts with wieght bearing and use. Causes edema . Functional Limitations- Mobility/Gait Able to walk 2 blocks Personal Factors Other Personal Factors That May Effect Pacemaker, arthritis, fall Therapy/Recovery history, BMI 44.9 (Obese). 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 PT-OP-C Subjective Start: 09/29/21 16:47 Freq: Status: Active Protocol: Document 10/31/21 13:52 SP (Rec: 10/31/21 14:37 SP [id number]) OP-PT Subjective Patient Comments Patient Comments Pt reported was sore after last tx but recovered well. Arrived with L wrist brace on. Still has pain behind L knee and limited strength and ROM, has to use UEs to get LLE into trunk. PT-OP-J Posture/Palpation/Skin Start: 09/29/21 16:47 Freq: Status: Active Protocol: Document 10/10/21 13:49 LRN (Rec: 10/10/21 17:21 LRN [id number]) Posture Evaluation Position Standing Evaluation View All positions Comments Posture Comments Pt stands with the L knee very slightly flexed compared to slight hyperextension of the R knee. Pt has a very wide stance. He holds his arms in IR. Swelling is present in the radial side of the distal forearm with a divot in the area of his watchband. Palpation Assessment Location L wrist Palpation Location Dorsal and volar distal, radial forearm Palpation Findings Edema Palpation Details Severe edema in the radial side of the wrist. R wrist Palpation Location Scaphoid lunate joint Palpation Details crepitus and popping L knee Palpation Location Posterior knee Palpation Findings Tenderness PT-OP-K Range of Motion Start: 09/29/21 16:47 Freq: Status: Active Protocol: Document 10/10/21 13:49 LRN (Rec: 10/10/21 17:21 LRN [id number]) Wrist Goniometric Range of Motion Wrist Right Flexion Active (degrees) 52 Extension Active (degrees) 61 Ulnar Deviation Active (degrees) 25 Radial Deviation Active (degrees) 29 Left Flexion Active (degrees) 57 Extension Active (degrees) 42 Ulnar Deviation Active (degrees) 28 Radial Deviation Active (degrees) 20 Knee Goniometric Range of Motion Knee Right Knee ROM WFL Yes Patient Position Sitting Flexion Active (degrees) 109 Hyper-Extension Active 5 Comments Supine AROM: Left Knee ROM WFL No Patient Position Sitting Flexion Active (degrees) 100 Extension Active (degrees) 0 Comments Supine AROM: PT-OP-L Special Tests Start: 09/29/21 16:47 Freq: Status: Active Protocol: Document 10/12/21 14:40 LRN (Rec: 10/12/21 16:49 LRN [id number]) Special Tests Wrist/Hand Special Tests Jones's Test Results Negative bilaterally Comments Neg for de Quervain's tenosynovitis PT-OP-M Strength Start: 09/29/21 16:47 Freq: Status: Active Protocol: Document 10/26/21 13:45 LRN (Rec: 10/26/21 14:37 LRN [id number]) Hand Floor Grinder/Pinch Strength Hand Strength Left Comments Floor Grinder strength (kgs): 38, 28, 31 (avg is 32 kg). (norm for ages 70-74 is 32. 2 kg Right, 29.3 kg Left) Right Comments Floor Grinder strength (kgs): 32, 31, 30 (avg is 31 kg). (norm for ages 70-74 is 32. 2 kg Right, 29.3 kg Left) PT-OP-Q Treatments Start: 09/29/21 16:47 Freq: Status: Active Protocol: Document 10/31/21 13:52 SP (Rec: 10/31/21 14:37 SP [id number]) Therapeutic Exercises Supine Exercises knee flexion TB Supine Exercise Name Tball Resistance TB #1 Reps/Minutes x10 Comments therapist achor SLR Supine Exercise Name SLR/TA Side bilateral Reps/Minutes x10- easy Comments good form. Sidelying Exercises knee flexion Sidelying Exercise Name added to HEP Side left Resistance Tb #1 Reps/Minutes x10 Comments good form, little discomfort Sitting Exercises HS curl w/ TB Sitting Exercise Name added to HEP Side left Resistance therapist anchored Equipment Used raised black table, chair height at home Reps/Minutes 2x10 Comments good form and little discomfort behind knee. Gripping Sitting Exercise Name Gripping Hand dynometer assessment, added theraputty Side bilateral Resistance blue theraputty for home 2x5 reps Reps/Minutes see goal Comments MMT taken Standing Exercises knee/hip flexion taps Standing Exercise Name added to HEP Side left Equipment Used 10# leg wt, 8 step, //bars Reps/Minutes x10 Comments good form effort Manual Therapy Treatment Soft Tissue Mobilization retrograde L wrist Body Location over Lateral dorsal distal radius Mobilization Type Manual Lymphatic Drainage, Myofascial Release Intensity/Depth Superficial Body Position Sitting Comments manual, decreased swelling, shown good positioning of neoprene wrapping wrist brace. Joint Mobilizations Wrist small bones Joint Bilateral small bones of wrist , ulna, radius. Direction PA & AP Grade II Reps/Duration 2' Comments painfree Neuro Re-Education Treatment Balance Activities danae stepping Details L knee/ hip flexion0 receprocal stepping Surface carpet Equipment 5# leg wt, 4 hurdles, //bars BUE support Reps/Duration 10 ft x2 laps, no leg wt 3rd lap Comments cued L knee flexion and DF for improved clearance to reduce circumduction, little improvement no wt 3rd lap in less circumduction. Self-Care/Home Management Treatment Education Patient Education Home Exercise Program Other Education added seated resisted L HS curl and standing weighted step taps for L hip/ knee flexion to improved strength lift leg into car self. (no HOs given, pt didn't want). PT-OP-R Modalities Start: 09/29/21 16:47 Freq: Status: Active Protocol: Document 10/26/21 13:45 LRN (Rec: 10/26/21 14:37 LRN [id number]) Ultrasound Therapy Treatment L Wrist/hand Treatment Duration (minutes) 8 Coupling Medium Ultrasound Gel Applicator Size (cm2) 2 Frequency Setting (mHz) 1 Mode Setting Pulsed Duty Cycle 50% Intensity Setting (w/cm2) 1.0 Comments Treatment around CMC jt and adjacent area of thenar eminence, and carpel-radial lig. R wrist/hand Treatment Duration (minutes) 8 Coupling Medium Ultrasound Gel Applicator Size (cm2) 2 Frequency Setting (mHz) 1 Mode Setting Pulsed Intensity Setting (w/cm2) 1.0 Comments Treatment around CMC jt and adjacent area of thenar eminence, and carpel-radial lig. PT-OP-S Aquatic Treatment Start: 10/23/21 15:26 Freq: Status: Active Protocol: Document 10/23/21 15:27 LJ (Rec: 10/23/21 15:45 LJ [id number]) Aquatics Treatment Pool Entry/Exit Pool Entry/Exit Method Stairs Comments dive in deep end for entry Water Walking forward Water Level Chest Level on heels and on toes Water Level Chest Level fwd,bck,side, august, soldier august Water Level Chest Level Level of Assistance Verbal Cues Lower Extremity Exercises hydroband ankle inv/ev Body Position Standing Water Level Waist Level Equipment green hydroband Reps/Duration 10 each direction hip flex/ext Body Position Standing Water Level Chest Level Reps/Duration 10x2 Hip ab/ad Body Position Standing Water Level Chest Level Reps/Duration 10x2 knee flex/ext Body Position Standing Water Level Chest Level Reps/Duration 2x10 B Comments B Lower Extremity Stretches quads Body Position Standing Water Level Chest Level Equipment Large Noodle Reps/Duration 2x45 HS Body Position Standing Water Level Chest Level Equipment Large Noodle Reps/Duration 2x45 gastroc Body Position Standing Water Level Chest Level Reps/Duration 2x45 Comments hang heels off stairs Spinal Exercises Pull-downs Details at wall Body Position Sitting Equipment Lg BB Reps/Duration 10 fwd, side, side Haines Activities Haines Activities Bicycle,[place] Duration 15 min Comments no flotation used Swim Strokes Crawl Laps/Duration 2x 15M PT-OP-T Assessment and Plan Start: 09/29/21 16:47 Freq: Status: Active Protocol: Document 10/31/21 13:52 SP (Rec: 10/31/21 14:37 SP [id number]) Physical Therapy Assessment Goals Three Impairment [place] wrists pain with weightbearing and use. Impairment UE Quickdash score initially 38.63 (20-39% impaired, score 20-39) Short Term Goal (STG) Pt will be able to transfer with bilateral wrist pain no greater than 2/10. STG Duration 11/09/21 Commercial Ocean Clammer Goal (LTG) Decrease bilateral wrist pain no greater than 2/10 with improved function per UE Quickdash score (less than 38. 63). LTG Duration 12/09/21 Two Impairment L knee/leg weakness Impairment LEFS score 34 (40-59% impaired , score 32-47) Group Home Goal (LTG) Improve L knee/hip strength to decrease pain to 2/10 for greater safety and stability of the knee to improve his job function and to avoid TKA. 10/31/21: added HS curl TB, step taps w/ 5# leg wt for improve strength lift LLE into trunk w/out UE support. LTG Duration 12/09/21 (progressing 10/31/21) One Impairment Lacks appropriate self care HEP Short Term Goal (STG) Pt will be independent in a self care L knee ROM (ext) and L>R hip/knee strengthening program. (10/12/21: HEP issued hip strengthening agst gravity). 10/31/21: added weighted step taps (10/19/21: HEP for ankle mobilit and strengthening ex's ) STG Duration 10/27/21 (10/19/21: Progressed ) Group Home Goal (LTG) Pt will be independent with a self care wrist HEP to focus on improving ROM and endurance of his emt/dispatcher strength. 10/31/21: L wrist: 38.75, 38.5, 37.75 kg R wrist: 29, 32, 32.5 kg LTG Duration 01/08/22 (assessed baseline ) Assessment Summary Assessment Pt improve L hip/ knee flexion post ther ex, states tiring. Pt able to make corrections most of the time for danae step clearing LLE in front position than trailing LE. See emt/dispatcher strength assessment BUE, provided theraputty for home. Pt decreased L wrist swelling post light retrograde STMs and ed on self application and use CP for home. Showed self neoprene wrapping to assist lymph return. Physical Therapy Plan Frequency and Duration Frequency of Treatment 2x/Week Plan of Care Start Date 10/10/21 Plan of Care End Date 01/08/22 Therapeutic Interventions Therapeutic Interventions Aquatic Therapy,Gait Training, Home Exercise Program,Joint Mobilizations,Manual Therapy, Neuromuscular Re-education, Patient/Caregiver Education, Self-Care/Home Management,Soft Tissue Mobilization,Taping, Therapeutic Activities, Therapeutic Exercises Modalities Cold Pack/Ice Massage,Hot Packs,Ultrasound Next Visit Focus/Plan Next Note Type Treatment Note Next Visit Plan recheck added HEP: resisted step taps/ HS Curl. Assess response to US. Wrist: Assessment of edema, ? US to area of swelling (L wrist), wrist ROM ex's (ext/ flex). Aquatic: Assess response to tx and prescribe exercises appropriately to tolerance. Continue strengthening and flexibility exercises to improve gait, strength ( particularly in LEs), and reduce pain in L posterior knee with stretching program Exer: L knee strengthening ( flex>ext) - shuttle, TB; R > L ankle. Stretch: L knee ext w/US to hamstrings attachment at knee (R TKA only); K-tape patch test; hip stretches if needed (?LE Neural). Core strengthening and gait training.
--- NOTE | 2021-11-03 11:10 | PT-OP ANOTE ---
Pt cancelled <24hrs to cancel appt at 1110, having scratchy throat and testing for COVID, unable to keep appt.
--- NOTE | 2021-11-07 12:13 | PT-OP ANOTE ---
Pt called to cancel today's appt, has fever. No further appts scheduled, STORY WRITER will message schedulers to call pt to set up more appts.
--- NOTE | 2021-11-13 15:21 | PT.OTN ---
Current Diagnoses Other chronic pain (11/13/21) Pain in right wrist (11/13/21) Pain in left wrist (11/13/21) Pain in left knee (11/13/21) Physical Therapy Treatment Note PT-OP-A Visit Information Start: 09/29/21 16:47 Freq: Status: Active Protocol: Document 11/13/21 15:09 LJ (Rec: 11/13/21 15:20 LJ [id number]) Out-Patient Physical Therapy Visit Information Visit Information Visit Type Aquatic Treatment Note Visit Start Time 12:30 Visit Stop Time 01:15 Total Visit Minutes 45 Visit Number 7 Number of [employer] Visits 2 Evaluation Information Evaluation Date 10/10/21 Precautions Precautions Pacemaker, R TKA, R ROGER, HBP controlled by meds, arthritis, BMI 44.9 (Obese). PT-OP-B Current Condition Start: 09/29/21 16:47 Freq: Status: Active Protocol: Document 10/10/21 13:49 LRN (Rec: 10/10/21 17:21 LRN [id number]) Current Condition History of Current Condition Onset Date Last couple years told need L TKA. [place] wrist pain since R ROGER (4 yrs ago) Current Complaints Weak L knee/pain. [place] wrist pain History of Current Condition L knee constant pain where the ms attach behind the knee. Bone on bone on the L knee. (R knee and hip replaced). 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 He states he has been working on the knee and Dr. Lyman has been working on it the last year, manipulating the knee every couple of weeks . His prognosis is that the leg is weak and goal is to strengthen the leg and knee to avoid a TKA. He reports his bilateral wrist pain started after his L hip ROGER (4 yrs ago) because it made him have to use a walker, causing the bilateral wrist pain (L wrist more swoillen but the R wrist is more painful). He has used meds and straps around the wrist that has been a little helpful . Joint of the [place] thumb, wrist, and thenar muscles of the thumbs is painful. Future Testing and Treatments Planned L TKA eventually. Developmental History Developmental History 6'1, Weight 340# (BMI is 44.9 = Obese if > 30). Takes water pills. No pain at R hip or knee and L ankle. L ankle fusion 2 yrs ago December, makes things hard to do due to fusion. Achilles shortened with L ankle fusion. Treatment Goals Patient/Caregiver Goals His prognosis is that the leg is weak and goal is to strengthen the leg and knee to avoid TKA. Goals for the wrists is to decrease the pain. Prior Functional Status Baseline Function- ADL's Independent Baseline Function- Mobility Independent Baseline Function- Gait Ambs without assistive device. 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 Baseline Function- Other Prior to hip surgery walked 1/ 2 block. Current Functional Impairments (Reported) Functional Limitations- ADL's Knee pain moving L leg into his car, needing to use UE's to lift leg. Difficulty moving legs out of bed. Easily trips and must watch balance. Can't get up off the floor without something to help him up. Uses a lot of analgesic topical things to numb the wrists to help him to do daily activities. Wrists hurts with wieght bearing and use. Causes edema . Functional Limitations- Mobility/Gait Able to walk 2 blocks Personal Factors Other Personal Factors That May Effect Pacemaker, arthritis, fall Therapy/Recovery history, BMI 44.9 (Obese). 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 PT-OP-C Subjective Start: 09/29/21 16:47 Freq: Status: Active Protocol: Document 11/13/21 15:09 LJ (Rec: 11/13/21 15:20 LJ [id number]) OP-PT Subjective Patient Comments Patient Comments Pt arrived 25 min early and swam in a aug[place]. He reported that he was sick for a few days last week but has recovered and is feeling well. PT-OP-J Posture/Palpation/Skin Start: 09/29/21 16:47 Freq: Status: Active Protocol: Document 10/10/21 13:49 LRN (Rec: 10/10/21 17:21 LRN [id number]) Posture Evaluation Position Standing Evaluation View All positions Comments Posture Comments Pt stands with the L knee very slightly flexed compared to slight hyperextension of the R knee. Pt has a very wide stance. He holds his arms in IR. Swelling is present in the radial side of the distal forearm with a divot in the area of his watchband. Palpation Assessment Location L wrist Palpation Location Dorsal and volar distal, radial forearm Palpation Findings Edema Palpation Details Severe edema in the radial side of the wrist. R wrist Palpation Location Scaphoid lunate joint Palpation Details crepitus and popping L knee Palpation Location Posterior knee Palpation Findings Tenderness PT-OP-K Range of Motion Start: 09/29/21 16:47 Freq: Status: Active Protocol: Document 10/10/21 13:49 LRN (Rec: 10/10/21 17:21 LRN [id number]) Wrist Goniometric Range of Motion Wrist Right Flexion Active (degrees) 52 Extension Active (degrees) 61 Ulnar Deviation Active (degrees) 25 Radial Deviation Active (degrees) 29 Left Flexion Active (degrees) 57 Extension Active (degrees) 42 Ulnar Deviation Active (degrees) 28 Radial Deviation Active (degrees) 20 Knee Goniometric Range of Motion Knee Right Knee ROM WFL Yes Patient Position Sitting Flexion Active (degrees) 109 Hyper-Extension Active 5 Comments Supine AROM: Left Knee ROM WFL No Patient Position Sitting Flexion Active (degrees) 100 Extension Active (degrees) 0 Comments Supine AROM: PT-OP-L Special Tests Start: 09/29/21 16:47 Freq: Status: Active Protocol: Document 10/12/21 14:40 LRN (Rec: 10/12/21 16:49 LRN [id number]) Special Tests Wrist/Hand Special Tests Jones's Test Results Negative bilaterally Comments Neg for de Quervain's tenosynovitis PT-OP-M Strength Start: 09/29/21 16:47 Freq: Status: Active Protocol: Document 10/26/21 13:45 LRN (Rec: 10/26/21 14:37 LRN [id number]) Hand Gunsmith Apprentice/Pinch Strength Hand Strength Left Comments Gunsmith Apprentice strength (kgs): 38, 28, 31 (avg is 32 kg). (norm for ages 70-74 is 32. 2 kg Right, 29.3 kg Left) Right Comments Gunsmith Apprentice strength (kgs): 32, 31, 30 (avg is 31 kg). (norm for ages 70-74 is 32. 2 kg Right, 29.3 kg Left) PT-OP-Q Treatments Start: 09/29/21 16:47 Freq: Status: Active Protocol: Document 10/31/21 13:52 SP (Rec: 10/31/21 14:37 SP [id number]) Therapeutic Exercises Supine Exercises knee flexion TB Supine Exercise Name Tball Resistance TB #1 Reps/Minutes x10 Comments therapist sun SLR Supine Exercise Name SLR/TA Side bilateral Reps/Minutes x10- easy Comments good form. Sidelying Exercises knee flexion Sidelying Exercise Name added to HEP Side left Resistance Tb #1 Reps/Minutes x10 Comments good form, little discomfort Sitting Exercises HS curl w/ TB Sitting Exercise Name added to HEP Side left Resistance therapist anchored Equipment Used raised black table, chair height at home Reps/Minutes 2x10 Comments good form and little discomfort behind knee. Gripping Sitting Exercise Name Gripping Hand dynometer assessment, added theraputty Side bilateral Resistance blue theraputty for home 2x5 reps Reps/Minutes see goal Comments MMT taken Standing Exercises knee/hip flexion taps Standing Exercise Name added to HEP Side left Equipment Used 10# leg wt, 8 step, //bars Reps/Minutes x10 Comments good form effort Manual Therapy Treatment Soft Tissue Mobilization retrograde L wrist Body Location over Lateral dorsal distal radius Mobilization Type Manual Lymphatic Drainage, Myofascial Release Intensity/Depth Superficial Body Position Sitting Comments manual, decreased swelling, shown good positioning of neoprene wrapping wrist brace. Joint Mobilizations Wrist small bones Joint Bilateral small bones of wrist , ulna, radius. Direction PA & AP Grade II Reps/Duration 2' Comments painfree Neuro Re-Education Treatment Balance Activities danae stepping Details L knee/ hip flexion0 receprocal stepping Surface carpet Equipment 5# leg wt, 4 hurdles, //bars BUE support Reps/Duration 10 ft x2 laps, no leg wt 3rd lap Comments cued L knee flexion and DF for improved clearance to reduce circumduction, little improvement no wt 3rd lap in less circumduction. Self-Care/Home Management Treatment Education Patient Education Home Exercise Program Other Education added seated resisted L HS curl and standing weighted step taps for L hip/ knee flexion to improved strength lift leg into car self. (no HOs given, pt didn't want). PT-OP-R Modalities Start: 09/29/21 16:47 Freq: Status: Active Protocol: Document 10/26/21 13:45 LRN (Rec: 10/26/21 14:37 LRN [id number]) Ultrasound Therapy Treatment L Wrist/hand Treatment Duration (minutes) 8 Coupling Medium Ultrasound Gel Applicator Size (cm2) 2 Frequency Setting (mHz) 1 Mode Setting Pulsed Duty Cycle 50% Intensity Setting (w/cm2) 1.0 Comments Treatment around CMC jt and adjacent area of thenar eminence, and carpel-radial lig. R wrist/hand Treatment Duration (minutes) 8 Coupling Medium Ultrasound Gel Applicator Size (cm2) 2 Frequency Setting (mHz) 1 Mode Setting Pulsed Intensity Setting (w/cm2) 1.0 Comments Treatment around CMC jt and adjacent area of thenar eminence, and carpel-radial lig. PT-OP-S Aquatic Treatment Start: 10/23/21 15:26 Freq: Status: Active Protocol: Document 11/13/21 15:09 MAGDALENE (Rec: 11/13/21 15:20 [id number]) Aquatics Treatment Pool Entry/Exit Comments dive in deep end for entry Water Walking circumduction Water Level Chest Level Walking Equipment Ankle Floats [place] March Water Level Chest Level Walking Equipment Ankle Floats Tandem Gait Water Level Chest Level Walking Equipment Ankle Floats Comments emphasis on toe to heel roll fwd,bck,sideAugust, august Water Level Chest Level Walking Equipment Ankle Floats Level of Assistance Verbal Cues Lower Extremity Exercises hip clocks Body Position Standing Water Level Waist Level Equipment Ankle Floats Reps/Duration 2x 10 hip flex/ext Body Position Standing Water Level Chest Level Equipment Ankle Floats Reps/Duration 10x2 Hip ab/ad Body Position Standing Water Level Chest Level Equipment Ankle Floats Reps/Duration 10x2 knee flex/ext Body Position Standing Water Level Chest Level Equipment Ankle Floats Reps/Duration 2x10 B Comments B Lower Extremity Stretches quads Body Position Standing Water Level Chest Level Equipment Large Noodle Reps/Duration 2x45 HS Body Position Standing Water Level Chest Level Equipment Large Noodle Reps/Duration 2x45 gastroc Body Position Standing Water Level Chest Level Reps/Duration 2x45 Comments hang heels off stairs Spinal Exercises Pull-downs Details at wall Body Position Sitting Equipment Lg BB Reps/Duration 10 fwd, side, side Balance step up/down on boxes all directions Water Level Waist Level Reps/Duration 2 min SLS with opposite LE movement Body Position Standing Water Level Waist Level Reps/Duration 1 min bilateral Sandy Activities Sandy Activities Bicycle,Bicycle Backwards, [place] Duration 10 min Comments no flotation used PT-OP-T Assessment and Plan Start: 09/29/21 16:47 Freq: Status: Active Protocol: Document 11/13/21 15:09 MAGDALENE (Rec: 11/13/21 15:20 [id number]) Physical Therapy Assessment Rehab Potential Rehabilitation Potential Fair Evaluation Complexity Number of Personal Factors/Comorbidities 3 or More Number of Body Systems Impaired 4 or More Clinical Presentation at Evaluation Evolving Impairments Impairments Activity Tolerance,Edema,Gait, Pain,ROM,Strength Goals Three Impairment [place] wrists pain with weightbearing and use. Impairment UE Quickdash score initially 38.63 (20-39% impaired, score 20-39) Short Term Goal (STG) Pt will be able to transfer with bilateral wrist pain no greater than 2/10. STG Duration 11/09/21 Care Home Goal (LTG) Decrease bilateral wrist pain no greater than 2/10 with improved function per UE Quickdash score (less than 38. 63). LTG Duration 12/09/21 Two Impairment L knee/leg weakness Impairment LEFS score 34 (40-59% impaired , score 32-47) Care Home Goal (LTG) Improve L knee/hip strength to decrease pain to 2/10 for greater safety and stability of the knee to improve his job function and to avoid TKA. 10/31/21: added HS curl TB, step taps w/ 5# leg wt for improve strength lift LLE into trunk w/out UE support. LTG Duration 12/09/21 (progressing 10/31/21) One Impairment Lacks appropriate self care HEP Short Term Goal (STG) Pt will be independent in a self care L knee ROM (ext) and L>R hip/knee strengthening program. (10/12/21: HEP issued hip strengthening agst gravity). 10/31/21: added weighted step taps (10/19/21: HEP for ankle mobilit and strengthening ex's ) STG Duration 10/27/21 (10/19/21: Progressed ) Multiskill Operator Goal (LTG) Pt will be independent with a self care wrist HEP to focus on improving ROM and endurance of his c architect strength. 10/31/21: L wrist: 38.75, 38.5, 37.75 kg R wrist: 29, 32, 32.5 kg LTG Duration 01/08/22 (assessed baseline ) Progress Towards Goals Progress Comments Progressed HEP Assessment Summary Assessment Pt tolerated exercises well with some difficulty with clock exercise and righting himself with ankle floats. He had some difficulty keeping himself vertical in deep water requiring frequent cueing for better alignment. Physical Therapy Plan Frequency and Duration Frequency of Treatment 2x/Week Plan of Care Start Date 10/10/21 Plan of Care End Date 01/08/22 Therapeutic Interventions Therapeutic Interventions Aquatic Therapy,Gait Training, Home Exercise Program,Joint Mobilizations,Manual Therapy, Neuromuscular Re-education, Patient/Caregiver Education, Self-Care/Home Management,Soft Tissue Mobilization,Taping, Therapeutic Activities, Therapeutic Exercises Modalities Cold Pack/Ice Massage,Hot Packs,Ultrasound Next Visit Focus/Plan Next Note Type Treatment Note Next Visit Plan recheck added HEP: resisted step taps/ HS Curl. Assess response to US. Wrist: Assessment of edema, ? US to area of swelling (L wrist), wrist ROM ex's (ext/ flex). Aquatic: Assess response to tx and prescribe exercises appropriately to tolerance. Continue strengthening and flexibility exercises to improve gait, strength ( particularly in LEs), and reduce pain in L posterior knee with stretching program Exer: L knee strengthening ( flex>ext) - shuttle, TB; R > L ankle. Stretch: L knee ext w/US to hamstrings attachment at knee (R TKA only); K-tape patch test; hip stretches if needed (?LE Neural). Core strengthening and gait training.
--- NOTE | 2021-11-20 15:12 | PT.OTN ---
Current Diagnoses Other chronic pain (11/20/21) Pain in right wrist (11/20/21) Pain in left wrist (11/20/21) Pain in left knee (11/20/21) Physical Therapy Treatment Note PT-OP-A Visit Information Start: 09/29/21 16:47 Freq: Status: Active Protocol: Document 11/20/21 14:59 LJ (Rec: 11/20/21 15:12 LJ [id number]) Out-Patient Physical Therapy Visit Information Visit Information Visit Type Aquatic Treatment Note Visit Start Time 12:30 Visit Stop Time 01:15 Total Visit Minutes 45 Visit Number 8 Number of STEPDOWN NURSE Visits 3 Evaluation Information Evaluation Date 10/10/21 Precautions Precautions Pacemaker, R TKA, R ROGER, HBP controlled by meds, arthritis, BMI 44.9 (Obese). PT-OP-B Current Condition Start: 09/29/21 16:47 Freq: Status: Active Protocol: Document 10/10/21 13:49 LRN (Rec: 10/10/21 17:21 LRN [id number]) Current Condition History of Current Condition Onset Date Last couple years told need L TKA. [place] wrist pain since R ROGER (4 yrs ago) Current Complaints Weak L knee/pain. [place] wrist pain History of Current Condition L knee constant pain where the ms attach behind the knee. Bone on bone on the L knee. (R knee and hip replaced). 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 He states he has been working on the knee and Dr. Lyman has been working on it the last year, manipulating the knee every couple of weeks . His prognosis is that the leg is weak and goal is to strengthen the leg and knee to avoid a TKA. He reports his bilateral wrist pain started after his L hip ROGER (4 yrs ago) because it made him have to use a walker, causing the bilateral wrist pain (L wrist more swoillen but the R wrist is more painful). He has used meds and straps around the wrist that has been a little helpful . Joint of the [place] thumb, wrist, and thenar muscles of the thumbs is painful. Future Testing and Treatments Planned L TKA eventually. Developmental History Developmental History 6'1, Weight 340# (BMI is 44.9 = Obese if > 30). Takes water pills. No pain at R hip or knee and L ankle. L ankle fusion 2 yrs ago December, makes things hard to do due to fusion. Achilles shortened with L ankle fusion. Treatment Goals Patient/Caregiver Goals His prognosis is that the leg is weak and goal is to strengthen the leg and knee to avoid TKA. Goals for the wrists is to decrease the pain. Prior Functional Status Baseline Function- ADL's Independent Baseline Function- Mobility Independent Baseline Function- Gait Ambs without assistive device. 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 Baseline Function- Other Prior to hip surgery walked 1/ 2 block. Current Functional Impairments (Reported) Functional Limitations- ADL's Knee pain moving L leg into his car, needing to use UE's to lift leg. Difficulty moving legs out of bed. Easily trips and must watch balance. Can't get up off the floor without something to help him up. Uses a lot of analgesic topical things to numb the wrists to help him to do daily activities. Wrists hurts with wieght bearing and use. Causes edema . Functional Limitations- Mobility/Gait Able to walk 2 blocks Personal Factors Other Personal Factors That May Effect Pacemaker, arthritis, fall Therapy/Recovery history, BMI 44.9 (Obese). [employer] of a [employer], FT 5x/ week. PT-OP-C Subjective Start: 09/29/21 16:47 Freq: Status: Active Protocol: Document 11/20/21 14:59 LJ (Rec: 11/20/21 15:12 LJ [id number]) OP-PT Subjective Patient Comments Patient Comments Pt has no new complaints or issues to report. PT-OP-J Posture/Palpation/Skin Start: 09/29/21 16:47 Freq: Status: Active Protocol: Document 10/10/21 13:49 LRN (Rec: 10/10/21 17:21 LRN [id number]) Posture Evaluation Position Standing Evaluation View All positions Comments Posture Comments Pt stands with the L knee very slightly flexed compared to slight hyperextension of the R knee. Pt has a very wide stance. He holds his arms in IR. Swelling is present in the radial side of the distal forearm with a divot in the area of his watchband. Palpation Assessment Location L wrist Palpation Location Dorsal and volar distal, radial forearm Palpation Findings Edema Palpation Details Severe edema in the radial side of the wrist. R wrist Palpation Location Scaphoid lunate joint Palpation Details crepitus and popping L knee Palpation Location Posterior knee Palpation Findings Tenderness PT-OP-K Range of Motion Start: 09/29/21 16:47 Freq: Status: Active Protocol: Document 10/10/21 13:49 LRN (Rec: 10/10/21 17:21 LRN [id number]) Wrist Goniometric Range of Motion Wrist Right Flexion Active (degrees) 52 Extension Active (degrees) 61 Ulnar Deviation Active (degrees) 25 Radial Deviation Active (degrees) 29 Left Flexion Active (degrees) 57 Extension Active (degrees) 42 Ulnar Deviation Active (degrees) 28 Radial Deviation Active (degrees) 20 Knee Goniometric Range of Motion Knee Right Knee ROM WFL Yes Patient Position Sitting Flexion Active (degrees) 109 Hyper-Extension Active 5 Comments Supine AROM: Left Knee ROM WFL No Patient Position Sitting Flexion Active (degrees) 100 Extension Active (degrees) 0 Comments Supine AROM: PT-OP-L Special Tests Start: 09/29/21 16:47 Freq: Status: Active Protocol: Document 10/12/21 14:40 LRN (Rec: 10/12/21 16:49 LRN [id number]) Special Tests Wrist/Hand Special Tests Jones's Test Results Negative bilaterally Comments Neg for de Quervain's tenosynovitis PT-OP-M Strength Start: 09/29/21 16:47 Freq: Status: Active Protocol: Document 10/26/21 13:45 LRN (Rec: 10/26/21 14:37 LRN [id number]) Hand Drapery Head Former/Pinch Strength Hand Strength Left Comments Drapery Head Former strength (kgs): 38, 28, 31 (avg is 32 kg). (norm for ages 70-74 is 32. 2 kg Right, 29.3 kg Left) Right Comments Drapery Head Former strength (kgs): 32, 31, 30 (avg is 31 kg). (norm for ages 70-74 is 32. 2 kg Right, 29.3 kg Left) PT-OP-Q Treatments Start: 09/29/21 16:47 Freq: Status: Active Protocol: Document 10/31/21 13:52 SP (Rec: 10/31/21 14:37 SP [id number]) Therapeutic Exercises Supine Exercises knee flexion TB Supine Exercise Name Tball Resistance TB #1 Reps/Minutes x10 Comments therapist achor SLR Supine Exercise Name SLR/TA Side bilateral Reps/Minutes x10- easy Comments good form. Sidelying Exercises knee flexion Sidelying Exercise Name added to HEP Side left Resistance Tb #1 Reps/Minutes x10 Comments good form, little discomfort Sitting Exercises HS curl w/ TB Sitting Exercise Name added to HEP Side left Resistance therapist anchored Equipment Used raised black table, chair height at home Reps/Minutes 2x10 Comments good form and little discomfort behind knee. Gripping Sitting Exercise Name Gripping Hand dynometer assessment, added theraputty Side bilateral Resistance blue theraputty for home 2x5 reps Reps/Minutes see goal Comments MMT taken Standing Exercises knee/hip flexion taps Standing Exercise Name added to HEP Side left Equipment Used 10# leg wt, 8 step, //bars Reps/Minutes x10 Comments good form effort Manual Therapy Treatment Soft Tissue Mobilization retrograde L wrist Body Location over Lateral dorsal distal radius Mobilization Type Manual Lymphatic Drainage, Myofascial Release Intensity/Depth Superficial Body Position Sitting Comments manual, decreased swelling, shown good positioning of neoprene wrapping wrist brace. Joint Mobilizations Wrist small bones Joint Bilateral small bones of wrist , ulna, radius. Direction PA & AP Grade II Reps/Duration 2' Comments painfree Neuro Re-Education Treatment Balance Activities danae stepping Details L knee/ hip flexion0 receprocal stepping Surface carpet Equipment 5# leg wt, 4 hurdles, //bars BUE support Reps/Duration 10 ft x2 laps, no leg wt 3rd lap Comments cued L knee flexion and DF for improved clearance to reduce circumduction, little improvement no wt 3rd lap in less circumduction. Self-Care/Home Management Treatment Education Patient Education Home Exercise Program Other Education added seated resisted L HS curl and standing weighted step taps for L hip/ knee flexion to improved strength lift leg into car self. (no HOs given, pt didn't want). PT-OP-R Modalities Start: 09/29/21 16:47 Freq: Status: Active Protocol: Document 10/26/21 13:45 LRN (Rec: 10/26/21 14:37 LRN [id number]) Ultrasound Therapy Treatment L Wrist/hand Treatment Duration (minutes) 8 Coupling Medium Ultrasound Gel Applicator Size (cm2) 2 Frequency Setting (mHz) 1 Mode Setting Pulsed Duty Cycle 50% Intensity Setting (w/cm2) 1.0 Comments Treatment around CMC jt and adjacent area of thenar eminence, and carpel-radial lig. R wrist/hand Treatment Duration (minutes) 8 Coupling Medium Ultrasound Gel Applicator Size (cm2) 2 Frequency Setting (mHz) 1 Mode Setting Pulsed Intensity Setting (w/cm2) 1.0 Comments Treatment around CMC jt and adjacent area of thenar eminence, and carpel-radial lig. PT-OP-S Aquatic Treatment Start: 10/23/21 15:26 Freq: Status: Active Protocol: Document 11/20/21 14:59 (Rec: 11/20/21 15:12 [id number]) Aquatics Treatment Pool Entry/Exit Comments dive in deep end for entry Water Walking Sideways Water Level Chest Level Walking Equipment Ankle Floats circumduction Water Level Chest Level Walking Equipment Ankle Floats [place] Water Level Chest Level Walking Equipment Ankle Floats Tandem Gait Water Level Chest Level Walking Equipment Ankle Floats Comments emphasis on toe to heel roll forward Water Level Chest Level Walking Equipment Ankle Floats start stop Water Level Chest Level Walking Equipment Ankle Floats Lower Extremity Exercises hip flex/ext Body Position Standing Water Level Chest Level Equipment Ankle Floats Reps/Duration 10x2 Hip ab/ad Body Position Standing Water Level Chest Level Equipment Ankle Floats Reps/Duration 10x2 knee flex/ext Body Position Standing Water Level Chest Level Reps/Duration 2x10 B Comments B Lower Extremity Stretches quads Body Position Standing Water Level Chest Level Equipment Large Noodle Reps/Duration 2x45 HS Body Position Standing Water Level Chest Level Equipment Large Noodle Reps/Duration 2x45 gastroc Body Position Standing Water Level Chest Level Reps/Duration 2x45 Comments hang heels off stairs Spinal Exercises Pull-downs Details at wall Body Position Sitting Equipment Lg BB Reps/Duration 10 fwd, side, side Balance step up/down on boxes all directions Water Level Chest Level Reps/Duration 6 min Comments pain in posterior L knee with stepping down on right LE SLS with opposite LE movement Body Position Standing Water Level Waist Level Reps/Duration 1 min bilateral [place] Activities [place] Activities Bicycle,Bicycle Backwards, [place] Other Activities HS curls 2x 10 B-holding onto wall. Attempted in seating position but unable to maintain vertical position Duration 12 min Comments no flotation used Swim Strokes Crawl Laps/Duration 1 PT-OP-T Assessment and Plan Start: 09/29/21 16:47 Freq: Status: Active Protocol: Document 11/20/21 14:59 LJ (Rec: 11/20/21 15:12 LJ [id number]) Physical Therapy Assessment Rehab Potential Rehabilitation Potential Fair Evaluation Complexity Number of Personal Factors/Comorbidities 3 or More Number of Body Systems Impaired 4 or More Clinical Presentation at Evaluation Evolving Impairments Impairments Activity Tolerance,Edema,Gait, Pain,ROM,Strength Goals Three Impairment [place] wrists pain with weightbearing and use. Impairment UE Quickdash score initially 38.63 (20-39% impaired, score 20-39) Short Term Goal (STG) Pt will be able to transfer with bilateral wrist pain no greater than 2/10. STG Duration 11/09/21 [employer] Goal (LTG) Decrease bilateral wrist pain no greater than 2/10 with improved function per UE Quickdash score (less than 38. 63). LTG Duration 12/09/21 Two Impairment L knee/leg weakness Impairment LEFS score 34 (40-59% impaired , score 32-47) Fpc Goal (LTG) Improve L knee/hip strength to decrease pain to 2/10 for greater safety and stability of the knee to improve his job function and to avoid TKA. 10/31/21: added HS curl TB, step taps w/ 5# leg wt for improve strength lift LLE into trunk w/out UE support. LTG Duration 12/09/21 (progressing 10/31/21) One Impairment Lacks appropriate self care HEP Short Term Goal (STG) Pt will be independent in a self care L knee ROM (ext) and L>R hip/knee strengthening program. (10/12/21: HEP issued hip strengthening agst gravity). 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 10/31/21: L wrist: 38.75, 38.5, 37.75 kg R wrist: 29, 32, 32.5 kg LTG Duration 01/08/22 (assessed baseline ) Progress Towards Goals Progress Comments Progressed HEP Assessment Summary Assessment Pt improved with walking activities using ankle floats. He experienced pain in posterior L knee with stepping down forward from box RLE leading. No pain stepping down sidewayseither direction. Pt remained after treatment session to do some swimming on his own. Physical Therapy Plan Frequency and Duration Frequency of Treatment 2x/Week Plan of Care Start Date 10/10/21 Plan of Care End Date 01/08/22 Therapeutic Interventions Therapeutic Interventions Aquatic Therapy,Gait Training, Home Exercise Program,Joint Mobilizations,Manual Therapy, Neuromuscular Re-education, Patient/Caregiver Education, Self-Care/Home Management,Soft Tissue Mobilization,Taping, Therapeutic Activities, Therapeutic Exercises Modalities Cold Pack/Ice Massage,Hot Packs,Ultrasound Next Visit Focus/Plan Next Note Type Treatment Note Next Visit Plan recheck added HEP: resisted step taps/ HS Curl. Assess response to US. Wrist: Assessment of edema, ? US to area of swelling (L wrist), wrist ROM ex's (ext/ flex). Aquatic: Assess response to tx and prescribe exercises appropriately to tolerance. Continue strengthening and flexibility exercises to improve gait, strength ( particularly in LEs), and reduce pain in L posterior knee with stretching program Exer: L knee strengthening ( flex>ext) - shuttle, TB; R > L ankle. Stretch: L knee ext w/US to hamstrings attachment at knee (R TKA only); K-tape patch test; hip stretches if needed (?LE Neural). Core strengthening and gait training.
--- NOTE | 2021-12-13 14:57 | PT.OTN ---
Current Diagnoses Other chronic pain (11/20/21) Pain in right wrist (11/20/21) Pain in left wrist (11/20/21) Pain in left knee (11/20/21) Physical Therapy Treatment Note PT-OP-A Visit Information Start: 09/29/21 16:47 Freq: Status: Active Protocol: Document 12/13/21 14:45 LJ (Rec: 12/13/21 14:57 LJ [id number]) Out-Patient Physical Therapy Visit Information Visit Information Visit Type Aquatic Treatment Note Visit Start Time 12:30 Visit Stop Time 01:15 Total Visit Minutes 45 Visit Number 9 Number of WOOL WASHER Visits 4 Evaluation Information Evaluation Date 10/10/21 Precautions Precautions Pacemaker, R TKA, R ROGER, HBP controlled by meds, arthritis, BMI 44.9 (Obese). PT-OP-B Current Condition Start: 09/29/21 16:47 Freq: Status: Active Protocol: Document 10/10/21 13:49 LRN (Rec: 10/10/21 17:21 LRN [id number]) Current Condition History of Current Condition Onset Date Last couple years told need L TKA. [place] wrist pain since R ROGER (4 yrs ago) Current Complaints Weak L knee/pain. [place] wrist pain History of Current Condition L knee constant pain where the ms attach behind the knee. Bone on bone on the L knee. (R knee and hip replaced). 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 He states he has been working on the knee and Dr. Lyman has been working on it the last year, manipulating the knee every couple of weeks . His prognosis is that the leg is weak and goal is to strengthen the leg and knee to avoid a TKA. He reports his bilateral wrist pain started after his L hip ROGER (4 yrs ago) because it made him have to use a walker, causing the bilateral wrist pain (L wrist more swoillen but the R wrist is more painful). He has used meds and straps around the wrist that has been a little helpful . Joint of the [place] thumb, wrist, and thenar muscles of the thumbs is painful. Future Testing and Treatments Planned L TKA eventually. Developmental History Developmental History 6'1, Weight 340# (BMI is 44.9 = Obese if > 30). Takes water pills. No pain at R hip or knee and L ankle. L ankle fusion 2 yrs ago December, makes things hard to do due to fusion. Achilles shortened with L ankle fusion. Treatment Goals Patient/Caregiver Goals His prognosis is that the leg is weak and goal is to strengthen the leg and knee to avoid TKA. Goals for the wrists is to decrease the pain. Prior Functional Status Baseline Function- ADL's Independent Baseline Function- Mobility Independent Baseline Function- Gait Ambs without assistive device. 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 Baseline Function- Other Prior to hip surgery walked 1/ 2 block. Current Functional Impairments (Reported) Functional Limitations- ADL's Knee pain moving L leg into his car, needing to use UE's to lift leg. Difficulty moving legs out of bed. Easily trips and must watch balance. Can't get up off the floor without something to help him up. Uses a lot of analgesic topical things to numb the wrists to help him to do daily activities. Wrists hurts with wieght bearing and use. Causes edema . Functional Limitations- Mobility/Gait Able to walk 2 blocks Personal Factors Other Personal Factors That May Effect Pacemaker, arthritis, fall Therapy/Recovery history, BMI 44.9 (Obese). 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 PT-OP-C Subjective Start: 09/29/21 16:47 Freq: Status: Active Protocol: Document 12/13/21 14:45 LJ (Rec: 12/13/21 14:57 LJ [id number]) OP-PT Subjective Patient Comments Patient Comments Reports he did a lot of walking during the weekend but feels overall that he's improving with pain management , ROM, and strength. PT-OP-J Posture/Palpation/Skin Start: 09/29/21 16:47 Freq: Status: Active Protocol: Document 10/10/21 13:49 LRN (Rec: 10/10/21 17:21 LRN [id number]) Posture Evaluation Position Standing Evaluation View All positions Comments Posture Comments Pt stands with the L knee very slightly flexed compared to slight hyperextension of the R knee. Pt has a very wide stance. He holds his arms in IR. Swelling is present in the radial side of the distal forearm with a divot in the area of his watchband. Palpation Assessment Location L wrist Palpation Location Dorsal and volar distal, radial forearm Palpation Findings Edema Palpation Details Severe edema in the radial side of the wrist. R wrist Palpation Location Scaphoid lunate joint Palpation Details crepitus and popping L knee Palpation Location Posterior knee Palpation Findings Tenderness PT-OP-K Range of Motion Start: 09/29/21 16:47 Freq: Status: Active Protocol: Document 10/10/21 13:49 LRN (Rec: 10/10/21 17:21 LRN [id number]) Wrist Goniometric Range of Motion Wrist Right Flexion Active (degrees) 52 Extension Active (degrees) 61 Ulnar Deviation Active (degrees) 25 Radial Deviation Active (degrees) 29 Left Flexion Active (degrees) 57 Extension Active (degrees) 42 Ulnar Deviation Active (degrees) 28 Radial Deviation Active (degrees) 20 Knee Goniometric Range of Motion Knee Right Knee ROM WFL Yes Patient Position Sitting Flexion Active (degrees) 109 Hyper-Extension Active 5 Comments Supine AROM: Left Knee ROM WFL No Patient Position Sitting Flexion Active (degrees) 100 Extension Active (degrees) 0 Comments Supine AROM: PT-OP-L Special Tests Start: 09/29/21 16:47 Freq: Status: Active Protocol: Document 10/12/21 14:40 LRN (Rec: 10/12/21 16:49 LRN [id number]) Special Tests Wrist/Hand Special Tests Jones's Test Results Negative bilaterally Comments Neg for de Quervain's tenosynovitis PT-OP-M Strength Start: 09/29/21 16:47 Freq: Status: Active Protocol: Document 10/26/21 13:45 LRN (Rec: 10/26/21 14:37 LRN [id number]) Hand Baggage Smasher/Pinch Strength Hand Strength Left Comments Baggage Smasher strength (kgs): 38, 28, 31 (avg is 32 kg). (norm for ages 70-74 is 32. 2 kg Right, 29.3 kg Left) Right Comments Baggage Smasher strength (kgs): 32, 31, 30 (avg is 31 kg). (norm for ages 70-74 is 32. 2 kg Right, 29.3 kg Left) PT-OP-Q Treatments Start: 09/29/21 16:47 Freq: Status: Active Protocol: Document 10/31/21 13:52 SP (Rec: 10/31/21 14:37 SP [id number]) Therapeutic Exercises Supine Exercises knee flexion TB Supine Exercise Name Tball Resistance TB #1 Reps/Minutes x10 Comments therapist sun SLR Supine Exercise Name SLR/TA Side bilateral Reps/Minutes x10- easy Comments good form. Sidelying Exercises knee flexion Sidelying Exercise Name added to HEP Side left Resistance Tb #1 Reps/Minutes x10 Comments good form, little discomfort Sitting Exercises HS curl w/ TB Sitting Exercise Name added to HEP Side left Resistance therapist anchored Equipment Used raised black table, chair height at home Reps/Minutes 2x10 Comments good form and little discomfort behind knee. Gripping Sitting Exercise Name Gripping Hand dynometer assessment, added theraputty Side bilateral Resistance blue theraputty for home 2x5 reps Reps/Minutes see goal Comments MMT taken Standing Exercises knee/hip flexion taps Standing Exercise Name added to HEP Side left Equipment Used 10# leg wt, 8 step, //bars Reps/Minutes x10 Comments good form effort Manual Therapy Treatment Soft Tissue Mobilization retrograde L wrist Body Location over Lateral dorsal distal radius Mobilization Type Manual Lymphatic Drainage, Myofascial Release Intensity/Depth Superficial Body Position Sitting Comments manual, decreased swelling, shown good positioning of neoprene wrapping wrist brace. Joint Mobilizations Wrist small bones Joint Bilateral small bones of wrist , ulna, radius. Direction PA & AP Grade II Reps/Duration 2' Comments painfree Neuro Re-Education Treatment Balance Activities danae stepping Details L knee/ hip flexion0 receprocal stepping Surface carpet Equipment 5# leg wt, 4 hurdles, //bars BUE support Reps/Duration 10 ft x2 laps, no leg wt 3rd lap Comments cued L knee flexion and DF for improved clearance to reduce circumduction, little improvement no wt 3rd lap in less circumduction. Self-Care/Home Management Treatment Education Patient Education Home Exercise Program Other Education added seated resisted L HS curl and standing weighted step taps for L hip/ knee flexion to improved strength lift leg into car self. (no HOs given, pt didn't want). PT-OP-R Modalities Start: 09/29/21 16:47 Freq: Status: Active Protocol: Document 10/26/21 13:45 LRN (Rec: 10/26/21 14:37 LRN [id number]) Ultrasound Therapy Treatment L Wrist/hand Treatment Duration (minutes) 8 Coupling Medium Ultrasound Gel Applicator Size (cm2) 2 Frequency Setting (mHz) 1 Mode Setting Pulsed Duty Cycle 50% Intensity Setting (w/cm2) 1.0 Comments Treatment around CMC jt and adjacent area of thenar eminence, and carpel-radial lig. R wrist/hand Treatment Duration (minutes) 8 Coupling Medium Ultrasound Gel Applicator Size (cm2) 2 Frequency Setting (mHz) 1 Mode Setting Pulsed Intensity Setting (w/cm2) 1.0 Comments Treatment around CMC jt and adjacent area of thenar eminence, and carpel-radial lig. PT-OP-S Aquatic Treatment Start: 10/23/21 15:26 Freq: Status: Active Protocol: Document 12/13/21 14:45 MAGDALENE (Rec: 12/13/21 14:57 [id number]) Aquatics Treatment Pool Entry/Exit Comments dive in deep end for entry Water Walking Sideways Water Level Chest Level Walking Equipment Ankle Floats [place] March Water Level Chest Level Walking Equipment Ankle Floats Tandem Gait Water Level Chest Level Walking Equipment Ankle Floats forward Water Level Chest Level Walking Equipment Ankle Floats start stop Water Level Chest Level Walking Equipment Ankle Floats [place] Water Level Chest Level Level of Assistance Verbal Cues Lower Extremity Exercises hip flex/ext Body Position Standing Water Level Chest Level Equipment Ankle Floats Reps/Duration 10x2 Hip ab/ad Body Position Standing Water Level Chest Level Equipment Ankle Floats Reps/Duration 10x2 knee flex/ext Body Position Standing Water Level Chest Level Reps/Duration 2x10 B Comments B Lower Extremity Stretches foot rolling Water Level Chest Level Equipment sm BBs quads Body Position Standing Water Level Chest Level Equipment Large Noodle Reps/Duration 2x45 HS Body Position Standing Water Level Chest Level Equipment Large Noodle Reps/Duration 2x45 gastroc Body Position Standing Water Level Chest Level Reps/Duration 2x45 Comments hang heels off stairs Spinal Exercises Pull-downs Details at wall Body Position Sitting Equipment Lg BB Reps/Duration 10 fwd, side, side Comments cues for straight spine Balance step up/down on boxes all directions Water Level Chest Level Reps/Duration 5 min Comments pain in posterior L knee with stepping down on right LE [place] Activities [place] Activities [place],Running Duration 4 Comments no flotation used attempted to increase speed of run for cardio however, pt left hamstrings kept cramping. Dc'ed and went to shallow to stretch PT-OP-T Assessment and Plan Start: 09/29/21 16:47 Freq: Status: Active Protocol: Document 12/13/21 14:45 MAGDALENE (Rec: 12/13/21 14:57 MAGDALENE [id number]) Physical Therapy Assessment Rehab Potential Rehabilitation Potential Fair Evaluation Complexity Number of Personal Factors/Comorbidities 3 or More Number of Body Systems Impaired 4 or More Clinical Presentation at Evaluation Evolving Impairments Impairments Activity Tolerance,Edema,Gait, Pain,ROM,Strength Goals Three Impairment [place] wrists pain with weightbearing and use. Impairment UE Quickdash score initially 38.63 (20-39% impaired, score 20-39) Short Term Goal (STG) Pt will be able to transfer with bilateral wrist pain no greater than 2/10. STG Duration 11/09/21 [facility] Goal (LTG) Decrease bilateral wrist pain no greater than 2/10 with improved function per UE Quickdash score (less than 38. 63). LTG Duration 12/09/21 Two Impairment L knee/leg weakness Impairment LEFS score 34 (40-59% impaired , score 32-47) [facility] Goal (LTG) Improve L knee/hip strength to decrease pain to 2/10 for greater safety and stability of the knee to improve his job function and to avoid TKA. 10/31/21: added HS curl TB, step taps w/ 5# leg wt for improve strength lift LLE into trunk w/out UE support. LTG Duration 12/09/21 (progressing 10/31/21) One Impairment Lacks appropriate self care HEP Short Term Goal (STG) Pt will be independent in a self care L knee ROM (ext) and L>R hip/knee strengthening program. (10/12/21: HEP issued hip strengthening agst gravity). 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 10/31/21: L wrist: 38.75, 38.5, 37.75 kg R wrist: 29, 32, 32.5 kg LTG Duration 01/08/22 (assessed baseline ) Progress Towards Goals Progress Comments Progressed HEP Assessment Summary Assessment Pt with difficulty coming to complete standing with step up on boxes. He would use Bilateral LEs and crouch down before coming to complete standing. Many LOB with box exercises. Physical Therapy Plan Frequency and Duration Frequency of Treatment 2x/Week Plan of Care Start Date 10/10/21 Plan of Care End Date 01/08/22 Therapeutic Interventions Therapeutic Interventions Aquatic Therapy,Gait Training, Home Exercise Program,Joint Mobilizations,Manual Therapy, Neuromuscular Re-education, Patient/Caregiver Education, Self-Care/Home Management,Soft Tissue Mobilization,Taping, Therapeutic Activities, Therapeutic Exercises Modalities Cold Pack/Ice Massage,Hot Packs,Ultrasound Next Visit Focus/Plan Next Note Type Treatment Note Next Visit Plan recheck added HEP: resisted step taps/ HS Curl. Assess response to US. Wrist: Assessment of edema, ? US to area of swelling (L wrist), wrist ROM ex's (ext/ flex). Aquatic: Assess response to tx and prescribe exercises appropriately to tolerance. Continue strengthening and flexibility exercises to improve gait, strength ( particularly in LEs), and reduce pain in L posterior knee with stretching program Exer: L knee strengthening ( flex>ext) - shuttle, TB; R > L ankle. Stretch: L knee ext w/US to hamstrings attachment at knee (R TKA only); K-tape patch test; hip stretches if needed (?LE Neural). Core strengthening and gait training.
--- NOTE | 2022-04-09 13:27 | PT.OPDS ---
Current Diagnoses Other chronic pain (12/13/21) Pain in right wrist (12/13/21) Pain in left wrist (12/13/21) Pain in left knee (12/13/21) Visit Care Team Role Provider Type Specialty: Address: Phone: Fax: Email: Cristian Lyman DO Attending Provider Physician Family Provider Primary Care Provider Referring Provider Specialty: Family Practice Address: [address] [place] [address], [facility] Email: Visit Number Visit Number 9 Discharge Summary PT-OP-B Current Condition Start: 09/29/21 16:47 Freq: Status: Active Protocol: Document 10/10/21 13:49 LRN (Rec: 10/10/21 17:21 LRN [id number]) Current Condition History of Current Condition Onset Date Last couple years told need L TKA. [place] wrist pain since R ROGER (4 yrs ago) Current Complaints Weak L knee/pain. [place] wrist pain History of Current Condition L knee constant pain where the ms attach behind the knee. Bone on bone on the L knee. (R knee and hip replaced). 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 He states he has been working on the knee and Dr. Lyman has been working on it the last year, manipulating the knee every couple of weeks . His prognosis is that the leg is weak and goal is to strengthen the leg and knee to avoid a TKA. He reports his bilateral wrist pain started after his L hip ROGER (4 yrs ago) because it made him have to use a walker, causing the bilateral wrist pain (L wrist more swoillen but the R wrist is more painful). He has used meds and straps around the wrist that has been a little helpful . Joint of the [place] thumb, wrist, and thenar muscles of the thumbs is painful. Future Testing and Treatments Planned L TKA eventually. Developmental History Developmental History 6'1, Weight 340# (BMI is 44.9 = Obese if > 30). Takes water pills. No pain at R hip or knee and L ankle. L ankle fusion 2 yrs ago December, makes things hard to do due to fusion. Achilles shortened with L ankle fusion. Treatment Goals Patient/Caregiver Goals His prognosis is that the leg is weak and goal is to strengthen the leg and knee to avoid TKA. Goals for the wrists is to decrease the pain. Prior Functional Status Baseline Function- ADL's Independent Baseline Function- Mobility Independent Baseline Function- Gait Ambs without assistive device. 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 Baseline Function- Other Prior to hip surgery walked 1/ 2 block. Current Functional Impairments (Reported) Functional Limitations- ADL's Knee pain moving L leg into his car, needing to use UE's to lift leg. Difficulty moving legs out of bed. Easily trips and must watch balance. Can't get up off the floor without something to help him up. Uses a lot of analgesic topical things to numb the wrists to help him to do daily activities. Wrists hurts with wieght bearing and use. Causes edema . Functional Limitations- Mobility/Gait Able to walk 2 blocks Personal Factors Other Personal Factors That May Effect Pacemaker, arthritis, fall Therapy/Recovery history, BMI 44.9 (Obese). 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 PT-OP-C Subjective Start: 09/29/21 16:47 Freq: Status: Active Protocol: Document 12/13/21 14:45 LJ (Rec: 12/13/21 14:57 LJ [id number]) OP-PT Subjective Patient Comments Patient Comments Reports he did a lot of walking during the weekend but feels overall that he's improving with pain management , ROM, and strength. PT-OP-J Posture/Palpation/Skin Start: 09/29/21 16:47 Freq: Status: Active Protocol: Document 10/10/21 13:49 LRN (Rec: 10/10/21 17:21 LRN [id number]) Posture Evaluation Position Standing Evaluation View All positions Comments Posture Comments Pt stands with the L knee very slightly flexed compared to slight hyperextension of the R knee. Pt has a very wide stance. He holds his arms in IR. Swelling is present in the radial side of the distal forearm with a divot in the area of his watchband. Palpation Assessment Location L wrist Palpation Location Dorsal and volar distal, radial forearm Palpation Findings Edema Palpation Details Severe edema in the radial side of the wrist. R wrist Palpation Location Scaphoid lunate joint Palpation Details crepitus and popping L knee Palpation Location Posterior knee Palpation Findings Tenderness PT-OP-K Range of Motion Start: 09/29/21 16:47 Freq: Status: Active Protocol: Document 10/10/21 13:49 LRN (Rec: 10/10/21 17:21 LRN [id number]) Wrist Goniometric Range of Motion Wrist Right Flexion Active (degrees) 52 Extension Active (degrees) 61 Ulnar Deviation Active (degrees) 25 Radial Deviation Active (degrees) 29 Left Flexion Active (degrees) 57 Extension Active (degrees) 42 Ulnar Deviation Active (degrees) 28 Radial Deviation Active (degrees) 20 Knee Goniometric Range of Motion Knee Right Knee ROM WFL Yes Patient Position Sitting Flexion Active (degrees) 109 Hyper-Extension Active 5 Comments Supine AROM: Left Knee ROM WFL No Patient Position Sitting Flexion Active (degrees) 100 Extension Active (degrees) 0 Comments Supine AROM: PT-OP-L Special Tests Start: 09/29/21 16:47 Freq: Status: Active Protocol: Document 10/12/21 14:40 LRN (Rec: 10/12/21 16:49 LRN [id number]) Special Tests Wrist/Hand Special Tests Jones's Test Results Negative bilaterally Comments Neg for de Quervain's tenosynovitis PT-OP-M Strength Start: 09/29/21 16:47 Freq: Status: Active Protocol: Document 10/26/21 13:45 LRN (Rec: 10/26/21 14:37 LRN [id number]) Hand Pesticide Applicator/Pinch Strength Hand Strength Left Comments Pesticide Applicator strength (kgs): 38, 28, 31 (avg is 32 kg). (norm for ages 70-74 is 32. 2 kg Right, 29.3 kg Left) Right Comments Pesticide Applicator strength (kgs): 32, 31, 30 (avg is 31 kg). (norm for ages 70-74 is 32. 2 kg Right, 29.3 kg Left) PT-OP-T Assessment and Plan Start: 09/29/21 16:47 Freq: Status: Active Protocol: Document 04/09/22 13:26 SAK (Rec: 04/09/22 13:26 SAK [id number]) Physical Therapy Plan Discharge Physical Therapy Discharge Reasons No Longer Attending PT
== END 2022-04-10 10:53 | disposition home or self-care (01) ==
LOC: PHYS 12:30
PROVIDERS: Family Provider Family Medicine; PCP Family Medicine; Referring Provider Family Medicine; Visit Provider Family Medicine
DX: M25.562 Pain in left knee (principal); G89.29 Other chronic pain; M25.531 Pain in right wrist; M25.532 Pain in left wrist
CPT/HCPCS: 97035; 97110; 97113; 97140; 97162; 97535

== ENCOUNTER → 2022-10-24 12:54 | Outpatient (CLI) | payer MEDICARE, OTHER, SELFPAY | PROVIDERS: Family Provider Family Medicine; PCP Family Medicine; Visit Provider Nurse Practitioner Family | DX: L02.91 Cutaneous abscess, unspecified (principal); Z51.89 Encounter for other specified aftercare | CPT/HCPCS: 87070; 87075; 87077; 87186; 87205 ==

== ENCOUNTER → 2022-12-05 14:13 | Outpatient (CLI) | payer MEDICARE, OTHER, SELFPAY ==
[2022-12-13 13:20] LABS: Percent Free Testosterone 2.14 % (1.50-4.20); Testosterone Free 6.75 ng/dL (5.00-21.00); Testosterone Total 315.6 ng/dL (264.0-916.0)
== END ==
PROVIDERS: Family Provider Family Medicine; PCP Family Medicine; Referring Provider Family Medicine; Visit Provider Family Medicine
DX: R79.89 Other specified abnormal findings of blood chemistry (principal)
CPT/HCPCS: 36415; 84402; 84403

== ENCOUNTER 2023-01-09 18:02 | Emergency (ER) | payer MEDICARE, OTHER, SELFPAY ==
[2023-01-09 18:05] VITALS: BP 145/83; PULSE 100; RESP 16; TEMP 36.6; O2SAT 96; BMI 43.5
--- NOTE | 2023-01-09 18:14 | DI.CT.S_ITS ---
PROCEDURE: CT HEAD/BRAIN WO CON INDICATIONS: fall/hit head/on thinners TECHNIQUE: Noncontrast 4.5 mm thick angled axial sections acquired from the foramen magnum to the vertex, with coronal and sagittal reformats. For radiation dose reduction, the following was used: automated exposure control, adjustment of mA and/or kV according to patient size. COMPARISON: None. FINDINGS: Image quality: Excellent. CSF spaces: Basal cisterns are patent. No extra-axial fluid collections. The ventricles are symmetric in size and shape. Brain: No intracranial bleeds or masses. There is cerebral volume loss for age, with resultant ventricular and sulcal prominence. There are periventricular and deep white matter chronic small vessel ischemic changes. There is intracranial internal carotid artery atherosclerosis. Skull and face: Calvarium and visualized facial bones appear intact, without suspicious lesions. Sinuses: Visualized sinuses and mastoids are clear. IMPRESSION: 1. No CT evidence of acute intracranial trauma. 2. No significant soft tissue injury or underlying fracture. Dictated by: Alise Bowers M.D. on 01/09/2023 at 18:49 Approved by: Alise Bowers M.D. on 01/09/2023 at 18:50
--- NOTE | 2023-01-09 18:14 | DI.CT.S_ITS ---
PROCEDURE: CT CERVICAL SPINE WO CON INDICATIONS: fall/hit head/on thinners TECHNIQUE: Noncontrast 3 mm thick sections acquired from the skull base to the T4 level. Sagittal and coronal reformats were then constructed. For radiation dose reduction, the following was used: automated exposure control, adjustment of mA and/or kV according to patient size. COMPARISON: None. FINDINGS: Image quality: Decreased due to technical artifacts. Bones: Intact craniocervical junction. Moderate degenerative joint space loss and hypertrophy at the atlantodental interval. Mild overall cervical kyphosis secondary to trace anterolisthesis C2 on three and degenerative anterior disc height loss and endplate spur formation throughout the cervical spine. No fractures or dislocations. There is facet arthropathy and subcortical cystic change on the right at the C2-3 level and subcortical cystic change at the endplates of C5-6. Visualized superior ribs are intact. Soft tissues: Prevertebral soft tissues are normal in thickness. No paravertebral hematomas. No apical pneumothoraces. IMPRESSION: 1. No CT evidence of acute cervical spine injury. 2. Multilevel degenerative changes as described. Dictated by: Alise Bowers M.D. on 01/09/2023 at 19:23 Approved by: Alise Bowers M.D. on 01/09/2023 at 19:26
[2023-01-09] MEDS: LIDOCAINE/PRILOCAINE 5 GM TOP (19:00)
--- NOTE | 2023-01-09 19:12 | ED_ITS ---
HPI - Fall <Emma Uyen Bee [facility] - Last Filed: 01/09/23 19:26> General Chief Complaint: Fall Stated Complaint: facial injury , lt knee injury s/p fall on thin Time Seen by Provider: 01/09/23 18:54 Source: patient Mode of arrival: Ambulatory History of Present Illness HPI Narrative: This is a 72-year-old gentleman who presents to the emergency department after he had a mechanical fall just prior to arrival striking his face on a car bumper after he developed a cramp in his leg, he tripped on uneven asphalt falling forward striking his face into the car's bumper. He denies LOC, denies nausea vomiting but states that he is anticoagulated on Eliquis for history of atrial fibrillation. Patient denies changes, weakness, neck pain, headache, dizziness, lightheadedness or other complication. States that his last tetanus vaccination was recent and he does not need an updated vaccine. States that he came in because he was concerned about his anticoagulants and was told he needs to have an exam if he hit his head. He denies any abnormal symptoms and states that his pain is not severe, denies any for pain medication at this time. He has a 4 cm laceration just below his left eye which extends into the lateral periorbital space. Related Data Home Medications Medication Instructions Recorded Confirmed [CPAP] units inhalation HS 12/03/18 12/05/22 apixaban 5 mg tablet (Eliquis) 5 mg PO DAILY #0 tabs 12/05/22 12/05/22 metoprolol succinate 50 mg 50 mg PO DAILY 12/05/22 12/05/22 tablet,extended release 24 hr Previous Rx's Medication Instructions Recorded hydrocodone 10 mg-acetaminophen 2 tab PO Q6HP PRN severe right 05/29/16 325 mg tablet knee pain and degeneration #60 tabs Disabled Parking Permit dhara ##1 09/11/16 [place] 5/16 Inch / SQ QDAY ##100 01/22/17 terbinafine HCl 250 mg tablet 250 mg PO DAILY toe nail fungus 02/03/19 #30 tabs cyclobenzaprine 7.5 mg tablet 7.5 mg PO BID PRN muscle spasm #10 08/15/20 tabs sildenafil 100 mg tablet See Rx Instructions .Route 07/27/21 .COMPLEX #10 tabs carboxymethylcellulose-citric acid 3 cap PO BID #180 caps 12/12/21 0.75 gram capsule (Plenity) syringe 23g x1/1/2 g needle #50 ea 01/30/22 semaglutide 14 mg tablet 14 mg PO DAILY weight loss, bmi 49 04/26/22 #90 tabs zolpidem 10 mg tablet See Rx Instructions .Route 05/14/22 .COMPLEX #30 tabs lisinopril 10 mg tablet See Rx Instructions .Route 06/05/22 .COMPLEX #90 tabs allopurinol 300 mg tablet 300 mg PO DAILY #90 tabs 08/31/22 mupirocin 2 % topical ointment 1 applic topical TID #15 grams 10/24/22 doxycycline hyclate 100 mg capsule 100 mg PO BID #20 caps 10/26/22 testosterone 12.5 mg/1.25 gram per 4 pump transdermal DAILY #150 grams 12/05/22 pump actuation (1%) transdermal gel furosemide 40 mg tablet See Rx Instructions PO DAILY PRN 12/13/22 edema #180 tabs Allergies Allergy/AdvReac Type Severity Reaction Status Date / Time No Known Drug Allergies Allergy Unverified 12/13/22 11:22 Review of Systems <STERLING Lara - Last Filed: 01/09/23 19:26> Review of Systems ROS Unobtainable: All systems reviewed & are unremarkable except as noted in HPI and below Patient History <STERLING Lara - Last Filed: 01/09/23 19:26> Medical History Actinic keratosis due to exposure to sunlight Acute neck pain Afib Bilateral lower extremity edema Bilateral wrist pain Bradyarrhythmia Cervical somatic dysfunction Chronic pain of left knee Chronic venous stasis Closed rib fracture Degenerative arthritis of left knee Fall Intercostal muscle strain Low testosterone in male Right-sided chest wall pain Segmental and somatic dysfunction of rib cage Situational insomnia Somatic dysfunction of lower extremity Thoracic region somatic dysfunction Upper extremity somatic dysfunction Weight loss counseling, encounter for Surgical History Hip joint replacement status Pacemaker Social History household members: spouse Smoking Status: Never smoker Smoking Status: Never smoker Substance Use Type: does not use Exam <STERLING Lara - Last Filed: 01/09/23 19:26> Narrative Exam Narrative: HEENT: Laceration just below the left eye in a C shape that extends to the lateral periorbital space and does not involve the eyelid. Mild amount of ecchymosis and bleeding. Patient has nontender over his facial bones, nares are patent bilaterally, denies any facial pain, no malocclusion, no intraoral injury, C-spine is nontender to palpation. Initial Vital Signs Initial Vital Signs: Vital Signs Temperature 97.9 F 01/09/23 18:05 Pulse Rate 100 H 01/09/23 18:05 Respiratory Rate 16 01/09/23 18:05 Blood Pressure 145/83 H 01/09/23 18:05 Pulse Oximetry 96 01/09/23 18:05 Oxygen Delivery Method Room Air 01/09/23 18:05 <Suyapa Russell MD - Last Filed: 02/05/23 00:58> Initial Vital Signs Initial Vital Signs: Vital Signs Temperature 97.9 F 01/09/23 18:05 Pulse Rate 100 H 01/09/23 18:05 Respiratory Rate 16 01/09/23 18:05 Blood Pressure 145/83 H 01/09/23 18:05 Pulse Oximetry 96 01/09/23 18:05 Oxygen Delivery Method Room Air 01/09/23 18:05 Procedures <STERLING Lara - Last Filed: 01/09/23 19:26> Laceration Repair Laceration 1: Site: face Side (If applicable): left Size (cm): 4 Description: flap and clean Depth: simple, single layer Local Anesthetic: lidocaine 2% and with epi Amount of anesthesia used (mL): 2 Pre-repair: wound explored, irrigated extensively and deep structures intact Skin layer closed with: vicryl (rapide) Skin layer suture size: 5-0 Number of sutures: 11 Technique: simple, interrupted Scores <STERLING Lara - Last Filed: 01/09/23 19:26> Bureau CT Head Rule Age <16 years old: No Patient on blood thinners: Yes Seizure after injury: No Exclusion: Patient meets exclusion criteria Nexus Score for C-Spine Focal Neurologic deficit present: No Midline spinal tenderness present: No Altered level of conciousness present: No Intoxication present: No Distracting Injury Present: Yes Nexus Criteria for C-spine: 1 <Suyapa Russell MD - Last Filed: 02/05/23 00:58> Bureau CT Head Rule Exclusion: Patient meets exclusion criteria Nexus Score for C-Spine Nexus Criteria for C-spine: 1 Course <STERLING Lara - Last Filed: 01/09/23 19:26> Orders Ordered: Discontinued Medications Bacitracin (Bacitracin Oint 0.9 Gm Pckt) 1 applic TOP NOW ONE Stop: 01/09/23 19:18 Last Admin: 01/09/23 19:21 Dose: 1 applic Documented By: LAINA Lidocaine/Prilocaine (Lidocaine/Prilocaine 5 Gm) 5 gm TOP NOW ONE Stop: 01/09/23 18:55 Last Admin: 01/09/23 19:00 Dose: 5 gm Documented By: LAINA Vital Signs Vital signs: Vital Signs - 8 hr 01/09/23 18:05 Temperature 97.9 F Pulse Rate 100 H Respiratory Rate 16 Blood Pressure 145/83 H Pulse Oximetry 96 Oxygen Delivery Method Room Air <Suyapa Russell MD - Last Filed: 02/05/23 00:58> Orders Ordered: Discontinued Medications Bacitracin (Bacitracin Oint 0.9 Gm Pckt) 1 applic TOP NOW ONE Stop: 01/09/23 19:18 Last Admin: 01/09/23 19:21 Dose: 1 applic Documented By: RLS Lidocaine/Prilocaine (Lidocaine/Prilocaine 5 Gm) 5 gm TOP NOW ONE Stop: 01/09/23 18:55 Last Admin: 01/09/23 19:00 Dose: 5 gm Documented By: RLS Vital Signs Vital signs: Vital Signs - 8 hr 01/09/23 18:05 Temperature 97.9 F Pulse Rate 100 H Respiratory Rate 16 Blood Pressure 145/83 H Pulse Oximetry 96 Oxygen Delivery Method Room Air MDM - Fall <STERLING Lara - Last Filed: 01/09/23 19:26> Imaging Data CT scan - head: Radiologist's Impression: Rohini ADAMS,Carroll Mosley??72??M??1950 ? Allergy/Adv: No Known Drug Allergies (More??) Close Head CT (Signed) Alise Bowers - 01/09/[address] 01/09/23 Wrist X-Ray (Signed) Maria Ines Xiong - 12/12/21 Wrist X-Ray (Signed) Maria Ines Xiong - 12/12/21 Ribs X-Ray (Signed) Severo Vicente - 08/15/20 Knee X-Ray (Signed) Octavio Santos - 06/08/20 Telemetry Strips 10/02/[address] (Signed) TomOctavio - 10/23/17 Telemetry Strips 07/08/17 [place] [address] CT Scan Report Signed Patient: Carroll Nova II MR#: [id number] : 1950 Acct:[id number] Age/Sex: 72 / M Date of Service: 01/09/23 Loc: ED Accession Number: [id number] ?? Procedure: CT head/brain wo con Ordering Provider: Suyapa Russell MD PROCEDURE:? CT HEAD/BRAIN WO CON ? INDICATIONS:? fall/hit head/on thinners ? TECHNIQUE:? Noncontrast 4.5 mm thick angled axial sections acquired from the foramen magnum to the vertex, with coronal and sagittal reformats.? For radiation dose reduction, the following was used:? automated exposure control, adjustment of mA and/or kV according to patient size.? ? COMPARISON:? None. ? FINDINGS:? Image quality:? Excellent.? ? CSF spaces:? Basal cisterns are patent.? No extra-axial fluid collections.? The ventricles are symmetric in size and shape.? ? Brain:? No intracranial bleeds or masses.? There is cerebral volume loss for age, with resultant ventricular and sulcal prominence.? There are periventricular and deep white matter chronic small vessel ischemic changes.? There is intracranial internal carotid artery atherosclerosis.? ? Skull and face:? Calvarium and visualized facial bones appear intact, without suspicious lesions.? ? Sinuses:? Visualized sinuses and mastoids are clear.? ? IMPRESSION:? ? 1. No CT evidence of acute intracranial trauma. ? 2. No significant soft tissue injury or underlying fracture.? ? ? Dictated by: Alise Bowers M.D. on 01/09/2023 at 18:49 ? ? Approved by: Alise Bowers M.D. on 01/09/2023 at 18:50 ? [facility] Narrative Medical decision making narrative: Chief Complaint: Fall with face injury Multiple etiologies for patient's complaint considered including, but not limited to: Intracranial hemorrhage, skin laceration, vascular injury, cervical spine injury, skull fracture, facial bone fracture I have independently reviewed the patient's vital signs and nursing notes as well as prior records if available. Plan: Patient denies any for pain control, he is alert and oriented, no focal neuro deficits on my exam, he is ambulatory, speech is clear, EOMI, PERRLA bilaterally, nontender over his facial bones, CT of his head and cervical spine is negative for acute fracture or intracranial hemorrhage or other acute abnormality. He has a 4 cm laceration just below his left eye which extends into the periorbital space. This was repaired with 5.0 Vicryl Rapide times 11 sutures. His last tetanus vaccination was recently and states that he does not need a new vaccination. He does not have symptoms of a concussion to include dizziness, headache, altered mentation, nausea, irritability or other symptom, suture repair was uncomplicated and patient tolerated well. Social considerations that may affect disposition: none Questions are addressed and there is agreement with the plan and for follow-up*. I consulted with the ED attending physician Dr. Russell as needed for higher level of care considerations and they were available for discussion and recommendations regarding plan of care and diagnostic testing. Patient is appropriate for outpatient management. Discharge Plan Departure Patient Disposition: Home Clinical Impression: Fall, Laceration of periorbital area, Closed head injury, Abrasion of knee, Anticoagulant long-term use Instructions: Closed Head Injury, How to Care for Absorbable Sutures Activity Restrictions/Additional Instructions: *You have been diagnosed with a fall, I placed 11 sutures that are dissolvable to the laceration near your eye. Okay to cover this with ointment as needed, please covered with a Band-Aid to help it heal, there is no evidence of bleeding in your brain on your CT, or fracture. It was a pleasure to meet you, thank you for your stories, they should heal without complication but if you notice redness, swelling or pus or worsening pain, please come back for antibiotics. I hope you feel better soon, enjoy your [employer] dinner. The ointment will help with the healing and you may get a black eye over the next few days. Please use cool compresses as needed, keep your head elevated to prevent worsening swelling otherwise enjoy your time and come back if you need us. :) *What to do: *Please continue to take your regular medications as directed. [ ] New medication prescriptions sent to your pharmacy: [ ] [ ] New medication written as a paper prescription [ x No new medications given *Please call and schedule follow up with your primary care provider in 2-3 days, at least for an update. Let them know you were seen in the Emergency Department for the above problem. We will electronically transmit a record of today's note if your PCP or specialist is in our system. *If you do not have a primary care provider please contact [phone] to establish care with one of the [facility] primary care providers. *Return to the Emergency Department for worsening symptoms, inability to keep liquids down, fever greater than 101F, chills, or other concerning symptom. Prescriptions: No Action mupirocin 2 % ointment 1 applic topical TID Qty: 15 0RF Disabled Parking Permit Qty: 1 0RF [place] 5/16 Inch SQ QDAY Qty: 100 5RF terbinafine HCl 250 mg tablet 250 mg PO DAILY Qty: 30 2RF sildenafil 100 mg tablet See Rx Instructions .ROUTE .COMPLEX Qty: 10 5RF Dose Instruction: Take 1/2 to 1 tablet by mouth daily As Needed for sexual activity. Take 30 minutes to 4 hours prior to sexual activity. Rx Instructions: Take 1/2 to 1 tablet by mouth daily As Needed for sexual activity. Take 30 minutes to 4 hours prior to sexual activity. (DME) syringe 23g x1/1/2 g needle See Rx Instructions .Route .MEDSUPPLY Qty: 50 3RF Rx Instructions: As directed to inject testosterone 25 mg IM weekly semaglutide 14 mg tablet 14 mg PO DAILY Qty: 90 3RF zolpidem 10 mg tablet See Rx Instructions .ROUTE .COMPLEX Qty: 30 5RF Rx Instructions: Take 1 tablet by mouth nightly at bedtime as needed for insomnia lisinopril 10 mg tablet See Rx Instructions .ROUTE .COMPLEX Qty: 90 3RF Dose Instruction: TAKE ONE TABLET BY MOUTH ONE TIME DAILY Rx Instructions: TAKE ONE TABLET BY MOUTH ONE TIME DAILY allopurinol 300 mg tablet 300 mg PO DAILY Qty: 90 0RF Rx Instructions: Take one tablet once a day for gout. doxycycline hyclate 100 mg capsule 100 mg PO BID Qty: 20 0RF Eliquis 5 mg tablet 5 mg PO DAILY Qty: 0 furosemide 40 mg tablet See Rx Instructions PO DAILY MDD 2 PRN (Reason: edema) Qty: 180 3RF Dose Instruction: TAKE 1 TO 2 TABLETS BY MOUTH EVERY MORNING NEEDED FOR EDEMA Rx Instructions: TAKE 1 TO 2 TABLETS BY MOUTH EVERY MORNING NEEDED FOR EDEMA hydrocodone-acetaminophen 10-325 mg tablet 2 tab PO Q6HP PRN (Reason: severe right knee pain and degeneration) Qty: 60 0RF [CPAP] inhalation HS cyclobenzaprine 7.5 mg tablet 7.5 mg PO BID PRN (Reason: muscle spasm) Qty: 10 0RF Plenity 0.75 gram capsule 3 cap PO BID Qty: 180 11RF Rx Instructions: administer before lunch and evening meal/dinner metoprolol succinate 50 mg tablet extended release 24 hr 50 mg PO DAILY Rx Instructions: prescribed by [employer] Dr. Carter testosterone 12.5 mg/ 1.25 gram (1 %) gel in metered-dose pump 4 pump transdermal DAILY Qty: 150 5RF Referrals: Cristian Lyman DO [Primary Care Provider] - Stand Alone Forms: Patient Portal/API <Suyapa Russell MD - Last Filed: 02/05/23 00:58> [facility]: I was immediately available in the department for consultation throughout this patient's visit. Suyapa Russell MD
[2023-01-09 19:21] VITALS: BP 146/70; PULSE 83; RESP 18; O2SAT 95
[2023-01-09] MEDS: BACITRACIN OINT 0.9 GM PCKT 1 APPLIC TOP (19:21)
== END 2023-01-09 19:47 | disposition home or self-care (01) ==
PROVIDERS: Emergency Provider Nurse Practitioner Critical Care Medicine; Family Provider Family Medicine; PCP Family Medicine
DX: S01.81XA Laceration without foreign body of other part of head, initial encounter (principal); S09.90XA Unspecified injury of head, initial encounter; S80.212A Abrasion, left knee, initial encounter; W18.30XA Fall on same level, unspecified, initial encounter; Z79.01 Long term (current) use of anticoagulants
CPT/HCPCS: 70450; 72125; 99283; 99284

== ENCOUNTER → 2023-02-05 10:40 | Outpatient (CLI) | payer MEDICARE, OTHER, SELFPAY ==
[2023-02-05 12:50] LABS: Add Manual Diff / Slide Review NO; Basophils Absolute Auto 100 /uL (0-100); Basophils Percent Auto 0.6 % (0-2); Eosinophils Absolute Auto 100 /uL (0-450); Eosinophils Percent Auto 1.3 % (2-4); Hematocrit 46.9 % (41-53); Hemoglobin 16.7 g/dL (13.5-17.5); Lymphocytes Absolute Auto 2600 /uL (1100-4500); Lymphocytes Percent Auto 33.2 % (25-40); Mean Corpuscular HGB Conc 35.7 % (30-36); Mean Corpuscular Hemoglobin 32.6 PG (26-34); Mean Corpuscular Volume 91.2 fL (80-100); Monocytes Absolute Auto 600 /uL (0-900); Monocytes Percent Auto 7.4 % (3-14); Neutrophils Absolute Auto 4500 /uL (1500-7000); Neutrophils Percent Auto 57.5 % (50-75); Platelet Count 184 X10^3/uL (150-400); Red Blood Cell Count 5.14 X10^6/uL (4.5-5.9); Red Cell Distribution Width 13.6 % (11.6-14.8); White Blood Cell Count 7.9 X10^3/uL (4.5-11.0)
[2023-02-05 13:13] LABS: Alanine Aminotransferase 19 IU/L (<50); Albumin Globulin Ratio 1.4 (1.0-2.8); Alkaline Phosphatase 91 U/L (38-126); Aspartate Aminotransferase 23 IU/L (17-59); BUN Creatinine Ratio 24.1 (6-22); Bilirubin Total 0.7 mg/dL (0.2-1.3); Blood Urea Nitrogen 20 mg/dL (9-20); Calcium 9.2 mg/dL (8.4-10.2); Carbon Dioxide 28 mmol/L (22-32); Chloride 100 mmol/L (98-107); Cholesterol 164 mg/dL (140-199); Estimated Glomerular Filt Rate > 60 mL/min (>60); Globulin 2.8 g/dL (1.7-4.1); Glucose 81 mg/dL (80-110); HDL Cholesterol 41 mg/dL (40-60); HEMOLYSIS < 15 (0-50); LDL Cholesterol Calculated 105 mg/dL (<100); Potassium 4.3 mmol/L (3.4-5.1); Sodium 137 mmol/L (137-145); Total Protein 6.8 g/dL (6.3-8.2); Triglycerides 91 mg/dL (35-150)
[2023-02-05 13:34] LABS: Prostate Specific Antigen Scrn 1.26 ng/mL (0.1-4.0)
[2023-02-16 09:09] LABS: Percent Free Testosterone 3.14 % (1.50-4.20); Testosterone Free 83.96 ng/dL (5.00-21.00); Testosterone Total 2673.9 ng/dL (264.0-916.0)
== END ==
PROVIDERS: Family Provider Family Medicine; PCP Family Medicine; Referring Provider Family Medicine; Visit Provider Family Medicine
DX: E66.01 Morbid (severe) obesity due to excess calories (principal); Z12.5 Encounter for screening for malignant neoplasm of prostate; I48.91 Unspecified atrial fibrillation; R60.0 Localized edema; R79.89 Other specified abnormal findings of blood chemistry
CPT/HCPCS: 36415; 80053; 80061; 84402; 84403; 85025; G0103

== ENCOUNTER → 2023-09-19 08:25 | Outpatient (CLI) | payer OTHER, SELFPAY ==
[2023-09-19 09:18] LABS: Add Manual Diff / Slide Review NO; Basophils Absolute Auto 100 /uL (0-100); Basophils Percent Auto 0.8 % (0-2); Eosinophils Absolute Auto 100 /uL (0-450); Eosinophils Percent Auto 1.2 % (2-4); Hematocrit 44.2 % (41-53); Hemoglobin 15.5 g/dL (13.5-17.5); Lymphocytes Absolute Auto 2200 /uL (1100-4500); Lymphocytes Percent Auto 27.5 % (25-40); Mean Corpuscular HGB Conc 35.2 % (30-36); Mean Corpuscular Hemoglobin 32.1 PG (26-34); Mean Corpuscular Volume 91.3 fL (80-100); Monocytes Absolute Auto 600 /uL (0-900); Monocytes Percent Auto 6.9 % (3-14); Neutrophils Absolute Auto 5200 /uL (1500-7000); Neutrophils Percent Auto 63.6 % (50-75); Platelet Count 203 X10^3/uL (150-400); Red Blood Cell Count 4.84 X10^6/uL (4.5-5.9); Red Cell Distribution Width 14.1 % (11.6-14.8); White Blood Cell Count 8.1 X10^3/uL (4.5-11.0)
[2023-09-19 09:33] LABS: BUN Creatinine Ratio 23.5 (6-22); Blood Urea Nitrogen 19 mg/dL (9-20); Calcium 9.2 mg/dL (8.4-10.2); Carbon Dioxide 27 mmol/L (22-32); Chloride 104 mmol/L (98-107); Cholesterol 146 mg/dL (140-199); Estimated Glomerular Filt Rate > 60 mL/min (>60); Glucose 96 mg/dL (80-110); HDL Cholesterol 49 mg/dL (40-60); HEMOLYSIS 40 (0-50); LDL Cholesterol Calculated 70 mg/dL (<100); Potassium 4.6 mmol/L (3.4-5.1); Sodium 135 mmol/L (137-145); Triglycerides 134 mg/dL (35-150)
[2023-09-23 09:39] LABS: Percent Free Testosterone 3.08 % (1.50-4.20); Testosterone Free 7.64 ng/dL (5.00-21.00); Testosterone Total 247.9 ng/dL (264.0-916.0)
== END ==
PROVIDERS: Family Provider Family Medicine; PCP Family Medicine; Referring Provider Internal Medicine Cardiovascular Disease; Visit Provider Internal Medicine Cardiovascular Disease
DX: E78.5 Hyperlipidemia, unspecified (principal); I10 Essential (primary) hypertension; R79.89 Other specified abnormal findings of blood chemistry
CPT/HCPCS: 36415; 80048; 80061; 84402; 84403; 85025

== ENCOUNTER → 2024-01-16 07:23 | Outpatient (CLI) | payer MEDICARE, OTHER, SELFPAY ==
[2024-01-20 12:12] LABS: Percent Free Testosterone 1.89 % (1.50-4.20); Testosterone Free 3.44 ng/dL (5.00-21.00); Testosterone Total 181.8 ng/dL (264.0-916.0)
== END ==
PROVIDERS: Family Provider Family Medicine; PCP Family Medicine; Referring Provider Family Medicine; Visit Provider Family Medicine
DX: R79.89 Other specified abnormal findings of blood chemistry (principal)
CPT/HCPCS: 36415; 84402; 84403

== ENCOUNTER → 2024-01-30 07:48 | Outpatient (CLI) | payer MEDICARE, OTHER, SELFPAY | PROVIDERS: Family Provider Family Medicine; PCP Family Medicine; Referring Provider Family Medicine; Visit Provider Family Medicine | DX: R79.89 Other specified abnormal findings of blood chemistry (principal) | CPT/HCPCS: 36415; 84402; 84403 ==

== ENCOUNTER → 2024-06-08 12:01 | Outpatient (CLI) | payer MEDICARE, OTHER, SELFPAY ==
[2024-06-08 14:10] LABS: HEMOLYSIS < 15 (0-50); Potassium 4.4 mmol/L (3.4-5.1)
== END ==
PROVIDERS: Family Provider Family Medicine; PCP Family Medicine; Referring Provider Family Medicine; Visit Provider Family Medicine
DX: E87.6 Hypokalemia (principal); T50.2X5A Adverse effect of carbonic-anhydrase inhibitors, benzothiadiazides and other diuretics, initial encounter
CPT/HCPCS: 36415; 84132

== ENCOUNTER → 2024-07-10 15:06 | Outpatient (CLI) | payer MEDICARE, OTHER, SELFPAY ==
--- NOTE | 2024-07-10 15:09 | DI.CT.S_ITS ---
PROCEDURE: CT UE RT WO CON INDICATIONS: PAIN IN BILATERAL WRISTS TECHNIQUE: Noncontrast 1 mm axial sections acquired through the carpal bones, with coronal and sagittal reformats. COMPARISON: [facility] [place], CR, XR WRIST 3+ VIEWS BILATERAL, 07/06/2024, 16:07. FINDINGS: Image quality: Excellent. Bones: There is marked widening of scapholunate interval with proximal migration of capitate concerning for scapholunate advanced collapse. Dorsal tilting of the lunate with wrist alignment concerning for dorsal intercalated segment instability. Osteoarthritic changes are noted throughout wrist joints most notably involving radiocarpal joint, and 1st CMC joint with significant joint space narrowing, subchondral sclerosis and marginal osteophyte formation. Subcortical cystic changes are noted scattered throughout carpal bones and at 1st metacarpal base. No CT evidence of avascular necrosis. No suspicious intraosseous lesion. Soft tissues: There is no abnormal soft tissue calcification. No full-thickness wrist tendon rupture. Moderate wrist joint effusion is seen, no calcified intra-articular loose bodies. No obvious CT evidence of tenosynovitis. No soft tissue mass or drainable fluid collection. IMPRESSION: 1. 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 2. Wrist alignment also suggestive of dorsal intercalated segment instability (DISI). 3. 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 Nonspecific subcortical cystic changes throughout carpal bones and 1st metacarpal base. No suspicious bony lesions or CT evidence of avascular necrosis. 4. No soft tissue mass or abnormal soft tissue calcifications. Moderate wrist joint effusion, no calcified intra-articular loose bodies. No full-thickness wrist tendon rupture. Dictated by: Severo Vicente M.D. on 07/11/2024 at 13:27 Approved by: Severo Vicente M.D. on 07/11/2024 at 13:33
--- NOTE | 2024-07-10 15:09 | DI.CT.S_ITS ---
PROCEDURE: CT UE LT WO CON INDICATIONS: PAIN IN BILATERAL WRISTS TECHNIQUE: Noncontrast 1 mm axial sections acquired through the carpal bones, with coronal and sagittal reformats. COMPARISON: [facility] [place], CR, XR WRIST 3+ VIEWS BILATERAL, 07/06/2024, 16:07. FINDINGS: Image quality: Excellent. Bones: There is significant widening of scapholunate interval suggestive of ruptured scapholunate ligament. Proximal migration of capitate is also noted concerning for scapholunate advanced collapse. There is dorsal subluxation of the capitate in relation to lunate. Slight dorsal tilting of the capitate in relation to scaphoid concerning for DISI. Moderate wrist joint osteoarthritic changes are seen most notably involving 1st CMC joint and radiocarpal joint with significant joint space narrowing, subchondral sclerosis and marginal osteophyte formation. No suspicious bony lesions. No CT evidence of avascular necrosis. No acute fracture or dislocation. Soft tissues: Moderate wrist joint effusion is seen, no definite calcified intra-articular loose bodies. There is significant fluid distending extensor and flexor tendon sheath concerning for tenosynovitis. No abnormal soft tissue calcifications. No gross full-thickness tendon rupture. No discrete soft tissue mass is seen. IMPRESSION: 1. 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 2. Wrist alignment is concerning for early dorsal intercalated segmental instability. 3. 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 No fracture or dislocation. No CT evidence of avascular necrosis. 4. Moderate to large wrist joint effusion with suggestion of fluid distension of tendon sheath concerning for synovitis and tenosynovitis. No full-thickness wrist tendon rupture. No abnormal soft tissue calcifications. No soft tissue mass. Dictated by: Severo Vicente M.D. on 07/11/2024 at 13:33 Approved by: Severo Vicente M.D. on 07/11/2024 at 13:37
== END ==
PROVIDERS: Family Provider Family Medicine; PCP Family Medicine; Referring Provider Orthopaedic Surgery; Visit Provider Orthopaedic Surgery
DX: M25.531 Pain in right wrist (principal); M25.532 Pain in left wrist; M19.032 Primary osteoarthritis, left wrist; M19.031 Primary osteoarthritis, right wrist; M25.432 Effusion, left wrist; M25.431 Effusion, right wrist
CPT/HCPCS: 73200

== ENCOUNTER → 2024-09-17 12:29 | Outpatient (CLI) | payer MEDICARE, SELFPAY ==
[2024-09-17 13:11] LABS: Add Manual Diff / Slide Review NO; Basophils Absolute Auto 100 /uL (0-100); Eosinophils Absolute Auto 100 /uL (0-450); Eosinophils Percent Auto 0.8 % (2-4); Hematocrit 48.1 % (41-53); Hemoglobin 16.8 g/dL (13.5-17.5); Lymphocytes Absolute Auto 2300 /uL (1100-4500); Lymphocytes Percent Auto 31.4 % (25-40); Mean Corpuscular HGB Conc 34.8 % (30-36); Mean Corpuscular Hemoglobin 31.6 PG (26-34); Mean Corpuscular Volume 90.7 fL (80-100); Monocytes Absolute Auto 500 /uL (0-900); Monocytes Percent Auto 6.3 % (3-14); Neutrophils Absolute Auto 4400 /uL (1500-7000); Neutrophils Percent Auto 60.5 % (50-75); Platelet Count 192 X10^3/uL (150-400); Red Cell Distribution Width 13.7 % (11.6-14.8); White Blood Cell Count 7.3 X10^3/uL (4.5-11.0)
[2024-09-17 13:30] LABS: Alanine Aminotransferase 21 IU/L (<50); Albumin 4.6 g/dL (3.5-5.0); Albumin Globulin Ratio 1.5 (1.0-2.8); Alkaline Phosphatase 110 U/L (38-126); Aspartate Aminotransferase 27 IU/L (17-59); Bilirubin Total 1.2 mg/dL (0.2-1.3); Blood Urea Nitrogen 20 mg/dL (9-20); Calcium 9.7 mg/dL (8.4-10.2); Carbon Dioxide 25 mmol/L (22-32); Chloride 100 mmol/L (98-107); Cholesterol 198 mg/dL (140-199); Estimated Glomerular Filt Rate > 60 mL/min (>60); Glucose 103 mg/dL (80-110); HDL Cholesterol 53 mg/dL (40-60); HEMOLYSIS < 15 (0-50); LDL Cholesterol Calculated 122 mg/dL (<100); Potassium 4.2 mmol/L (3.4-5.1); Sodium 136 mmol/L (137-145); Total Protein 7.6 g/dL (6.3-8.2); Triglycerides 115 mg/dL (35-150)
[2024-09-17 13:59] LABS: Prostate Specific Antigen 0.843 ng/mL (0.10-4.00)
[2024-10-02 07:41] LABS: Percent Free Testosterone 5.11 % (1.50-4.20); Testosterone Free 57.52 ng/dL (5.00-21.00); Testosterone Total 1125.7 ng/dL (264.0-916.0)
== END ==
PROVIDERS: Family Provider Family Medicine; PCP Family Medicine; Referring Provider Family Medicine; Visit Provider Family Medicine
DX: R79.89 Other specified abnormal findings of blood chemistry (principal); C61 Malignant neoplasm of prostate; Z68.42 Body mass index [BMI] 45.0-49.9, adult; R60.9 Edema, unspecified; Z12.5 Encounter for screening for malignant neoplasm of prostate
CPT/HCPCS: 36415; 80053; 80061; 84153; 84402; 84403; 85025

== ENCOUNTER → 2024-11-19 10:03 | Outpatient (CLI) | payer MEDICARE, SELFPAY | PROVIDERS: Family Provider Family Medicine; PCP Family Medicine; Referring Provider Orthopaedic Surgery; Visit Provider Orthopaedic Surgery | DX: G56.23 Lesion of ulnar nerve, bilateral upper limbs (principal) | CPT/HCPCS: 95886; 95912 ==

== ENCOUNTER 2024-12-21 18:35 | Emergency (ER) | payer MEDICARE, SELFPAY ==
[2024-12-21 18:46] VITALS: BP 134/73; PULSE 85; RESP 17; TEMP 36.7; O2SAT 98; BMI 46.1
--- NOTE | 2024-12-22 07:07 | ED.WOUNDLAC ---
HPI - Wound/Laceration General Chief Complaint: Wound/Laceration Stated Complaint: Right foot injury Time Seen by Provider: 12/21/24 19:23 Source: patient Mode of arrival: Ambulatory Related Data Home Medications ?Medication ?Instructions ?Recorded ?Confirmed [CPAP] units inhalation HS 12/03/18 11/02/24 atorvastatin 10 mg tablet 10 mg PO DAILY 11/02/24 11/13/24 furosemide 40 mg tablet 40 mg PO 3XD 11/02/24 11/13/24 Previous Rx's ?Medication ?Instructions ?Recorded hydrocodone 10 mg-acetaminophen 2 tab PO Q6HP PRN severe right 05/29/16 325 mg tablet knee pain and degeneration #60 tabs Disabled Parking Permit dhara ##1 09/11/16 [place] 5/16 Inch / SQ QDAY ##100 01/22/17 syringe 23g x1/1/2 g needle #50 ea 01/30/22 metoprolol succinate 50 mg 25 mg (1/2 x 50 mg) PO QAM #90 tabs 09/23/23 tablet,extended release 24 hr sildenafil 100 mg tablet See Rx Instructions .Route 04/22/24 .COMPLEX #10 tabs DISABLED PARKING PERMIT #1 ea 07/31/24 semaglutide 2 mg/dose (8 mg/3 mL) 2 mg (0.75 mL) SUBCUT QWEEK #3 mL 07/31/24 subcutaneous pen injector (Ozempic) zolpidem 10 mg tablet See Rx Instructions .Route 08/07/24 .COMPLEX #30 tabs lisinopril 10 mg tablet See Rx Instructions .Route 11/10/24 .COMPLEX #90 tabs apixaban 5 mg tablet (Eliquis) 5 mg PO BID #180 tabs 12/02/24 testosterone 2 pump topical DAILY #75 grams 12/08/24 Allergies Allergy/AdvReac Type Severity Reaction Status Date / Time No Known Drug Allergies Allergy Verified 12/21/24 18:46 Patient History Medical History (Updated 12/21/24 @ 21:11 by Maggie Sykes RN) Pure hypercholesterolemia with target low density lipoprotein (LDL) cholesterol less than 130 mg/dL Numbness in both hands Weight loss counseling, encounter for Low testosterone in male Actinic keratosis due to exposure to sunlight Upper extremity somatic dysfunction Bilateral wrist pain Thoracic region somatic dysfunction Segmental and somatic dysfunction of rib cage Bilateral lower extremity edema Cervical somatic dysfunction Acute neck pain Situational insomnia Closed rib fracture Intercostal muscle strain Chronic venous stasis Fall Right-sided chest wall pain Somatic dysfunction of lower extremity Degenerative arthritis of left knee Chronic pain of left knee Bradyarrhythmia Afib Surgical History Pacemaker Hip joint replacement status Social History household members: spouse Smoking Status: Never smoker Smoking Status: Never smoker Exam Initial Vital Signs Initial Vital Signs: Vital Signs Temperature 98.1 F 12/21/24 18:46 Pulse Rate 85 12/21/24 18:46 Respiratory Rate 17 12/21/24 18:46 Blood Pressure 134/73 12/21/24 18:46 Pulse Oximetry 98 12/21/24 18:46 Oxygen Delivery Method Room Air 12/21/24 18:46 Discharge Plan Departure Patient Disposition: Left Without Being Seen Clinical Impression: Patient left without being seen Prescriptions: No Action atorvastatin 10 mg tablet 10 mg PO DAILY furosemide 40 mg tablet 40 mg PO 3XD Disabled Parking Permit Qty: 1 0RF [place] 5/16 Inch SQ QDAY Qty: 100 5RF (DME) syringe 23g x1/1/2 g needle See Rx Instructions .Route .MEDSUPPLY Qty: 50 3RF Rx Instructions: As directed to inject testosterone 25 mg IM weekly metoprolol succinate 50 mg tablet extended release 24 hr 25 mg PO QAM Qty: 90 3RF Rx Instructions: prescribed by Patient Coordinator Front Desk Dr. Carter sildenafil 100 mg tablet See Rx Instructions .ROUTE .COMPLEX Qty: 10 5RF Dose Instruction: Take 1/2 to 1 tablet by mouth daily As Needed for sexual activity. Take 30 minutes to 4 hours prior to sexual activity. Rx Instructions: Take 1/2 to 1 tablet by mouth daily As Needed for sexual activity. Take 30 minutes to 4 hours prior to sexual activity. zolpidem 10 mg tablet See Rx Instructions .ROUTE .COMPLEX Qty: 30 5RF Dose Instruction: TAKE ONE TABLET BY MOUTH NIGHTLY AT BEDTIME NEEDED FOR INSOMNIA Rx Instructions: TAKE ONE TABLET BY MOUTH NIGHTLY AT BEDTIME NEEDED FOR INSOMNIA; lisinopril 10 mg tablet See Rx Instructions .ROUTE .COMPLEX Qty: 90 1RF Dose Instruction: TAKE ONE TABLET BY MOUTH ONE TIME DAILY Rx Instructions: TAKE ONE TABLET BY MOUTH ONE TIME DAILY hydrocodone-acetaminophen 10-325 mg tablet 2 tab PO Q6HP PRN (Reason: severe right knee pain and degeneration) Qty: 60 0RF Eliquis 5 mg tablet 5 mg PO BID Qty: 180 0RF testosterone 20.25 mg/1.25 gram (1.62 %) gel in metered-dose pump 2 pump topical DAILY Qty: 75 5RF Rx Instructions: apply 1 pump amount over max area of EACH upper arm and shoulder [CPAP] inhalation HS (DME) DISABLED PARKING PERMIT See Rx Instructions .ROUTE .MEDSUPPLY Qty: 1 0RF Rx Instructions: I find this patient to be medically disabled and qualified for disabled parking as indicated, and signed, on the accompanying Disabled Parking Application for Individuals. Ozempic 2 mg/dose (8 mg/3 mL) pen injector 2 mg SUBCUT QWEEK Qty: 3 12RF
== END 2024-12-21 21:11 | disposition left against medical advice (07) ==
PROVIDERS: Emergency Provider Family Medicine; Family Provider Family Medicine; PCP Family Medicine
DX: S91.311A Laceration without foreign body, right foot, initial encounter (principal); W26.0XXA Contact with knife, initial encounter; Z53.21 Procedure and treatment not carried out due to patient leaving prior to being seen by health care provider
CPT/HCPCS: 99281

== ENCOUNTER → 2025-04-12 10:00 | Outpatient (CLI) | payer MEDICARE, OTHER, SELFPAY ==
[2025-04-12 11:06] LABS: Add Manual Diff / Slide Review NO; Hematocrit 46.2 % (41-53); Hemoglobin 16.4 g/dL (13.5-17.5); Lymphocytes Absolute Auto 2400 /uL (1100-4500); Mean Corpuscular HGB Conc 35.5 % (30-36); Mean Corpuscular Hemoglobin 31.8 PG (26-34); Mean Corpuscular Volume 89.3 fL (80-100); Platelet Count 197 X10^3/uL (150-400)
[2025-04-12 11:24] LABS: Alanine Aminotransferase 18 IU/L (<50); Albumin 4.5 g/dL (3.5-5.0); Albumin Globulin Ratio 1.4 (1.0-2.8); Alkaline Phosphatase 112 U/L (38-126); Blood Urea Nitrogen 17 mg/dL (9-20); Calcium 9.1 mg/dL (8.4-10.2); Carbon Dioxide 27 mmol/L (22-32); Chloride 98 mmol/L (98-107); Cholesterol 178 mg/dL (140-199); Estimated Glomerular Filt Rate > 60 mL/min (>60); Globulin 3.2 g/dL (1.7-4.1); Glucose 104 mg/dL (70-99); HDL Cholesterol 59 mg/dL (40-60); HEMOLYSIS < 15 (0-50); Potassium 4.2 mmol/L (3.4-5.1); Sodium 134 mmol/L (137-145); Total Protein 7.7 g/dL (6.3-8.2); Triglycerides 110 mg/dL (35-150)
[2025-04-18 10:12] LABS: Percent Free Testosterone 2.35 % (1.50-4.20)
== END ==
PROVIDERS: Family Provider Family Medicine; PCP Family Medicine; Referring Provider Family Medicine; Visit Provider Family Medicine
DX: R79.89 Other specified abnormal findings of blood chemistry (principal); E78.00 Pure hypercholesterolemia, unspecified; Z68.42 Body mass index [BMI] 45.0-49.9, adult
CPT/HCPCS: 36415; 80053; 80061; 84402; 84403; 85025